=== PATIENT | male | born 1950 | race Caucasian/White ===

== ENCOUNTER 2020-12-20 14:10 | Emergency (ER) | payer OTHER, MEDICARE, SELFPAY ==
[2020-12-20 14:13] VITALS: BP 155/64; PULSE 49; RESP 18; TEMP 36.4; O2SAT 100; BMI 35.9
--- NOTE | 2020-12-20 14:20 | ED.DCSUM_ITS ---
History of Present Illness Chief Complaint: Nausea/Vomiting Informant: Patient, [employer] Onset: Today Narrative: Patient brought by EMS from dental office secondary to nausea and vomiting after dental extraction today. Was performed under local analgesia. He states all his teeth were extracted. Reported procedure was finished. Became nauseated afterwards and threw up. EMS was contacted status post Zofran IV. He states he felt fine prior to procedure. He ate breakfast this morning. He is a diabetic. Blood glucose is 136. States he may have been swallowing blood before he got sick. He does not take any anticoagulation medications. States medications g iven mildly helped however still has symptoms. Denies any recent fevers cough shortness of breath. Prior similar symptoms: No Past Medical History - Allergies and Home Meds Allergies/Adverse Reactions: Allergies chlorthalidone Allergy (Verified 12/20/20 14:59) NEEDS FOLLOW-UP hydrochlorothiazide Allergy (Verified 12/20/20 14:59) NEEDS FOLLOW-UP metformin Adverse Reaction (Verified 12/20/20 14:12) Upset Stomach Past Medical History: - - Diabetes, hypertension, GERD Smoking Status: Current every day smoker Review of Systems General: Denies: Chills, Fever, Sweats Eyes: Denies: Visual changes - bilaterally, Diplopia ENT: Reports: - - Bleeding gums. Denies: Rhinorrhea, Sore throat Cardiovascular: Denies: Chest pain, Palpitations Respiratory: Denies: Dyspnea, Cough, Dyspnea on exertion Gastrointestinal: Reports: Nausea. Denies: Abdominal pain, Vomiting, Diarrhea, Melena, Hematochezia Genitourinary: Denies: Dysuria, Hematuria, Frequency Musculoskeletal: Denies: Back pain, Extremity Pain Skin: Denies: Rash, Wounds Neurological: Denies: Headache, Weakness, Numbness Physical Exam Vital Signs/Narrative: Vital Signs Temp Pulse Resp BP Pulse Ox 12/20/20 14:13 97.6 F L 49 L 18 155/64 H 100 Inital Vital Signs reviewed: Yes General: Well nourished, Well developed, No Acute Distress Head: Normocephalic, Atraumatic Eyes: Perrl, EOMI ENT: Moist mucous membranes, No rhinorrhea, - - Fully newly extracted teeth throughout his mouth, there is mild bleeding of the gums left lower. Airway patent. No trismus. Neck: Supple, Nontender Cardiovascular: Regular rate, Regular rhythm, No murmurs Respiratory: No distress, CTA bilaterally, Chest nontender Abdomen: Soft, Nontender, Nondistended, Normal bowel sounds Back: Nontender, Normal Inspection Extremities: Nontender, No edema Skin: Normal color, No rash Neurological: Alert, Oriented x3, Cranial nerves II-XII grossly intact, Normal Strength, Normal Sensation Psychological: Normal affect, Normal Mood Diagnostic/Tx/Re-eval - Medical Decision Making Patient vital stable nontoxic, nausea vomiting after dental extraction. He was under sedation. He states he was swallowing blood likely irritation from this. Given Reglan with IV fluids. Nausea improved. Is gum bleeding controlled with gauze and teabags. Multiple reevaluation with bleeding controlled. Is not on anticoagulants. Prescription for Zofran. Soft diet. Return precautions. All questions were answered. Of note patient heart rate 49, he is on carvedilol, he is asymptomatic. Prior to discharge, there is was mild increase of blood, teabags were replaced with pressure. Extended evaluation appears to be localized to the right lower molars with the larger clots. This was controlled. He was discharged with tea bags and gauze supplies and return precautions. ED Disposition - Plan for ED Patient: Disposition: Home or Assisted Living Diagnosis: Nausea and vomiting, Bleeding gums Instructions: ED Vomiting (Adult) Prescriptions: Ondansetron [Zofran Odt] 8 mg PO Q8H PRN PRN #10 tablet PRN Reason: nausea or vomiting Prescription Printed Additional Instructions: Soft diet, prescription medication as needed. If bleeding recurs, bite down on gauze or teabags again. Return if any worsening symptoms. Follow-up with your dentist.
--- NOTE | 2020-12-20 14:21 | ED.RN ---
PT MOUTH PACKED WITH GAUZE. PT ENCOURAGED TO BITE DOWN ON GAUZE TO STOP BLEEDING.
[2020-12-20] MEDS: Metoclopramide 10 MG/2 ML Vial 5 MG IV (14:31)
[2020-12-20] MEDS: 0.9% Normal Saline 1,000 ML 1000 ML IV (14:31)
[2020-12-20 19:05] VITALS: BP 156/78; PULSE 87; RESP 18; O2SAT 97
== END 2020-12-20 19:10 | disposition home or self-care (01) ==
PROVIDERS: Emergency Provider Emergency Medicine
DX: R11.2 Nausea with vomiting, unspecified (principal); F17.200 Nicotine dependence, unspecified, uncomplicated; E11.9 Type 2 diabetes mellitus without complications; K21.9 Gastro-esophageal reflux disease without esophagitis; I10 Essential (primary) hypertension; Z79.4 Long term (current) use of insulin; Z79.82 Long term (current) use of aspirin
CPT/HCPCS: 96374; 99285; J7030

== ENCOUNTER → 2022-11-18 | Outpatient (CLI) | payer OTHER, SELFPAY ==
--- NOTE | 2022-11-18 12:36 | CDU_ITS ---
Reason For Study: Hollenhorst plaque Rt. Velocities/BP Lt. Velocities/BP Prox CCA 85.3/11.6 cm/sec. Prox CCA 106.5/15.2 cm/sec. Mid CCA 91/14.5 cm/sec. Mid CCA 77.3/11.5 cm/sec. Dist CCA 82.5/13.5 cm/sec. Dist CCA 73.6/9.7 cm/sec. Prox ICA 121.1/17 cm/sec. Prox ICA 56.9/7.7 cm/sec. Mid ICA 75.3/12.6 cm/sec. Mid ICA 65.4/13.9 cm/sec. Dist ICA 92.5/12.6 cm/sec. Dist ICA 74/13.9 cm/sec. Rt. ICA/CCA = 1.42. Lt. ICA/CCA = 0.96. Prox ECA 167.5/7.2 cm/sec. Prox ECA 124.7/13.3 cm/sec. Rt. Vert. 45.4/8 cm/sec. Lt. Vert. 47/11.4 cm/sec. Right Extracranial There is homogeneous, smooth atherosclerotic plaque noted in the right common carotid artery. There is heterogeneous, irregular atherosclerotic plaque noted in the right internal carotid artery. There is homogeneous, smooth atherosclerotic plaque noted in the right external carotid artery. Antegrade flow is noted in the right vertebral artery. Left Extracranial There is homogeneous, smooth atherosclerotic plaque noted in the left common carotid artery. There is heterogeneous, irregular atherosclerotic plaque noted in the left internal carotid artery. There is homogeneous, smooth atherosclerotic plaque noted in the left external carotid artery. Antegrade flow is noted in the left vertebral artery. Procedure This is a Carotid Duplex examination using B-mode, color flow and specral Doppler. Carotid Duplex [id number]. Exam performed in department. VL/Carotid Duplex Ultrasound Interpretation Summary Irregular calcific plaque of the proximal right internal carotid artery with 50 to 69% stenosis Less than 50% stenosis right external carotid artery Irregular plaque at the proximal left internal carotid artery with less than 50 % stenosis Less than 50% stenosis left external carotid artery Patent and antegrade vertebral arteries bilaterally Ordering Physician: JAMILA STEVENSON Performed By: Stella Corcoran RVT
== END | disposition home or self-care (01) ==
LOC: CVS 12:33
DX: H34.9 Unspecified retinal vascular occlusion (principal)
CPT/HCPCS: 93880

== ENCOUNTER 2023-02-11 16:28 | Emergency (ER) | payer OTHER, SELFPAY ==
[2023-02-11 16:30] VITALS: BP 174/77; PULSE 69; RESP 18; TEMP 35.9; O2SAT 96; BMI 29.7
[2023-02-11] MEDS: Ondansetron 4 MG/2 ML Vial IV (17:02)
[2023-02-11] MEDS: 0.9% Normal Saline 1,000 ML 1000 ML IV (17:02)
--- NOTE | 2023-02-11 17:03 | EDS_ITS ---
[facility] <TIANA Kessler - Last Filed: 02/11/23 20:02> History of Present Illness Chief Complaint: Nausea/Vomiting Narrative Narrative: Patient is a 72-year-old male with history of COPD, hypertension, hyperlipidemia, diabetes who presents to the emergency department for 1 day of vomiting. Patient states he had an episode of vomitus, he then after he vomited felt shaky, felt cold, and slightly heavy breathing. Patient states that these symptoms did slightly resolved. Patient also did not eat anything today except for chocolate cake. All of these symptoms happen after 1 episode of vomitus. [facility] <TIANA Kessler - Last Filed: 02/11/23 20:02> [facility] Medical History (Updated 02/11/23 @ 19:[address] Daily Alberts DO) Constipation Diabetes Diabetic acetonemia GERD (gastroesophageal reflux disease) High cholesterol Hypertension JOANNA on CPAP Home Medications albuterol sulfate 90 mcg/actuation aerosol inhaler 2 puff inhalation Q6H PRN PRN Sob &/Or Wheezing 12/20/20 [History Last Taken Unknown] amlodipine 5 mg tablet 10 mg PO DAILY 12/20/20 [History Last Taken Unknown] aspirin 81 mg chewable tablet 81 mg PO DAILY@0800 12/20/20 [History Last Taken Unknown] atorvastatin 80 mg tablet 80 mg PO QHS 12/20/20 [History Last Taken Unknown] budesonide-formoterol HFA 160 mcg-4.5 mcg/actuation aerosol inhaler 2 puff IH BID 12/20/20 [History Last Taken Unknown] carvedilol 3.125 mg tablet 0.5 tablet PO BID 12/20/20 [History Last Taken Unknown] cholecalciferol (vitamin D3) 50 mcg (2,000 unit) capsule 2,000 unit PO DAILY 12/20/20 [History Last Taken Unknown] empagliflozin 10 mg tablet 12.5 mg PO DAILY 12/20/20 [History Last Taken Unknown] insulin glargine 100 unit/mL (3 mL) subcutaneous pen 40 units subcut QHS 12/20/20 [History Last Taken Unknown] losartan 100 mg tablet 25 mg PO QHS 12/20/20 [History Last Taken Unknown] nitroglycerin 0.4 mg sublingual tablet 0.4 mg sublingual Q5M PRN Chest Pain 12/20/20 [History Last Taken Unknown] polyethylene glycol 3350 17 gram oral powder packet 34 gm PO BREAKFAST 12/20/20 [History Last Taken Unknown] famotidine 40 mg tablet 40 mg PO DAILY 02/11/23 [History Last Taken Unknown] hydralazine 50 mg tablet 50 mg PO 4XD 02/11/23 [History Last Taken Unknown] metformin 500 mg tablet 500 mg PO BID 02/11/23 [History Last Taken Unknown] ondansetron 4 mg disintegrating tablet 4 mg PO Q8H PRN PRN Nausea #10 tabs 02/11/23 [Rx Last Taken Unknown] pantoprazole 40 mg tablet,delayed release (Protonix) 40 mg PO DAILY #14 tabs 02/11/23 [Rx Last Taken Unknown] polyethylene glycol 3350 17 gram oral powder packet (Miralax) 17 g PO QHS 02/11/23 [History Last Taken Unknown] semaglutide 0.25 mg or 0.5 mg (2 mg/3 mL) subcutaneous pen injector (Ozempic) 0.25 mg subcut QWEEK 02/11/23 [History Last Taken Unknown] Allergy/AdvReac Type Severity Reaction Status Date / Time chlorthalidone Allergy NEEDS Verified 02/11/23 16:30 FOLLOW-UP hydrochlorothiazide Allergy NEEDS Verified 02/11/23 16:30 FOLLOW-UP Surgical History (Updated 02/11/23 @ 16:42 by Claudia Nathan) H/O heart artery stent Social History Smoking Status: Light Smoker (<10/day) ROS <TIANA Kessler - Last Filed: 02/11/23 20:02> [facility] ED ROS Narrative Constitutional: Negative for fever, chills, weight loss, weakness Eyes: Negative for vision loss, vision change, double vision ENT: Negative for any sore throat, ear pain, congestion Cardiovascular: Negative for any chest pain, tightness, palpitations Respiratory: Negative for any cough, sputum production, hemoptysis, dyspnea on exertion, orthopnea. Dyspnea Gastrointestinal: Negative for any abdominal pain, diarrhea, constipation, blood in stool, blood in vomit. Nausea and vomiting : Negative for any urinary frequency, dysuria, retention, blood in urine Muscle skeletal: Negative for any muscle joint pain, stiffness, myalgias, arthralgias, neck pain, back pain Neurological: Negative for any headache, syncope, numbness or tingling, dizziness Skin: Negative for any rashes, lumps, itching, abrasions, lacerations Psychiatric: Negative for any depression, anxiety, stress, suicidal ideation, homicidal ideation Hematologic: Negative for any easy bruising, excessive bruising, easy bleeding Allergies: Negative for any eczema, hives, rash EXAM <TIANA Kessler - Last Filed: 02/11/23 20:02> Physical Exam Narrative Exam Narrative: Vital signs reviewed. HEET: Head normocephalic atraumatic, TMs clear bilaterally. Posterior pharynx is clear, moist mucous membranes. Nares clear bilaterally. Neck: Supple with no lymphadenopathy or tenderness. No signs of meningismus, negative jolt sign. Cardiac: Regular rate and rhythm no murmurs gallops or rubs, equal peripheral pulses bilaterally. Respiratory: Lungs clear to auscultation bilaterally. No chest tenderness. Abdomen: Soft, nontender, nondistended. No abdominal bruit or pulsatile masses. No hepatosplenomegaly Extremities: No peripheral edema, no signs of gross trauma or deformity. Active full range of motion of all extremities. Neuro: Cranial nerves II through XII intact, no focal neurological deficits. Skin: Clean dry and intact with no rash, purpura, petechiae, vesicles or pustules. Backs/flank: No CVA tenderness, no midline spinal tenderness, no deformity. Psych: Normal mood and affect. No SI, HI or acute psychosis. Const Vital Signs: 02/11/23 16:30 02/11/23 16:37 02/11/23 18:28 Temperature 96.7 F L Temperature Source Temporal Pulse Rate 69 59 L Respiratory Rate 18 16 Respiratory Effort Short of Breath Labored Respiratory Depth Normal Respiratory Pattern Normal Blood Pressure 174/77 H 154/70 H Blood Pressure Mean 109 98 Pulse Ox 96 97 Oxygen Delivery Method Room Air Room Air Room Air 02/11/23 19:32 Temperature Temperature Source Pulse Rate 61 Respiratory Rate 16 Respiratory Effort Respiratory Depth Respiratory Pattern Blood Pressure 154/70 H Blood Pressure Mean 98 Pulse Ox 97 Oxygen Delivery Method Room Air Positive well nourished and well developed General Appearance ED: well developed <Dr. Daily Alberts, DO - Last Filed: 02/11/23 19:49> Physical Exam Const Vital Signs: 02/11/23 16:30 02/11/23 16:37 02/11/23 18:28 Temperature 96.7 F L Temperature Source Temporal Pulse Rate 69 59 L Respiratory Rate 18 16 Respiratory Effort Short of Breath Labored Respiratory Depth Normal Respiratory Pattern Normal Blood Pressure 174/77 H 154/70 H Blood Pressure Mean 109 98 Pulse Ox 96 97 Oxygen Delivery Method Room Air Room Air Room Air 02/11/23 19:32 Temperature Temperature Source Pulse Rate 61 Respiratory Rate 16 Respiratory Effort Respiratory Depth Respiratory Pattern Blood Pressure 154/70 H Blood Pressure Mean 98 Pulse Ox 97 Oxygen Delivery Method Room Air MDM <TIANA Kessler - Last Filed: 02/11/23 20:02> MDM Lab Data Labs: Laboratory Results - last 24 hr 02/11/23 02/11/23 02/11/23 16:58 16:58 18:56 WBC 9.1 RBC 5.85 Hgb 16.9 H Hct 50.7 MCV 86.7 MCH 28.9 MCHC 33.3 RDW Std Deviation 41.1 RDW Coeff of [place] 13.1 Plt Count 208 MPV 9.3 Immature Gran % (Auto) 0.800 Neut % (Auto) 68.3 Lymph % (Auto) 20.4 Leslie % (Auto) 8.9 Eos % (Auto) 0.8 Baso % (Auto) 0.8 Absolute Neuts (auto) 6.3 Absolute Lymphs (auto) 1.86 Nucleated RBC % 0 Sodium 133 L Potassium 3.7 Chloride 101 Carbon Dioxide 24.0 Anion Gap 8 BUN 16 Creatinine 0.97 Estim Creat Clear Calc 71.08 Est GFR (MDRD) Af Amer 97 Est GFR (MDRD) Non-Af 80 BUN/Creatinine Ratio 16.4 Glucose 151 H Calcium 9.0 Total Bilirubin 1.60 H AST 16 ALT 19 Alkaline Phosphatase 98 Troponin I High Sens 21 Total Protein 7.2 Albumin 3.8 Globulin 3.4 Albumin/Globulin Ratio 1.1 Lipase 33 Urine Color Yellow Urine Clarity Clear Urine pH 6.5 Ur Specific [place] 1.005 Urine Protein Negative Urine Glucose (UA) 1000 H Urine Ketones Negative Urine Occult Blood Negative Urine Nitrite Negative Urine Bilirubin Negative Urine Urobilinogen Normal Ur Leukocyte Esterase Negative Urine RBC 0 SEEN Urine WBC 0 SEEN Ur Squamous Epith Cells 0 SEEN Urine Bacteria 0 SEEN Urine Mucus 0 SEEN 02/11/23 19:00 WBC RBC Hgb Hct MCV MCH MCHC RDW Std Deviation RDW Coeff of [place] Plt Count MPV Immature Gran % (Auto) Neut % (Auto) Lymph % (Auto) Leslie % (Auto) Eos % (Auto) Baso % (Auto) Absolute Neuts (auto) Absolute Lymphs (auto) Nucleated RBC % Sodium Potassium Chloride Carbon Dioxide Anion Gap BUN Creatinine Estim Creat Clear Calc Est GFR (MDRD) Af Amer Est GFR (MDRD) Non-Af BUN/Creatinine Ratio Glucose Calcium Total Bilirubin AST ALT Alkaline Phosphatase Troponin I High Sens 27 Total Protein Albumin Globulin Albumin/Globulin Ratio Lipase Urine Color Urine Clarity Urine pH Ur Specific [place] Urine Protein Urine Glucose (UA) Urine Ketones Urine Occult Blood Urine Nitrite Urine Bilirubin Urine Urobilinogen Ur Leukocyte Esterase Urine RBC Urine WBC Ur Squamous Epith Cells Urine Bacteria Urine Mucus Radiography Diagnostic Testing: Clinical Impression(s) from Imaging Studies Chest X-Ray 02/11/23 17:40 IMPRESSION: No acute cardiac pulmonary pathology. Electronically Signed: Alex Pugh MD at 18:26 EDT Reading Location ID and State: [facility] / [place] , Service support , Treatment and Re-Evaluation :: All radiologic examinations were read, reviewed by the emergency department attending. From these reads, a plan of care will be put in place. Patient appears well, patient appears nontoxic, vital signs are stable. Patient presents to the emergency department with complaints of a nausea and vomiting episode when she became chilled, had diaphoresis, and felt slightly short of breath. Patient's abdominal examination was grossly unremarkable. Patient did have a rule out cardiac work-up, patient CBC was unremarkable, chemistries were unremarkable, patient's initial troponin was 21, repeat was 27, this is negative. Patient's EKG was unremarkable negative for any acute ACS, HI. Chest x-ray showed no acute process. Patient was given IV fluids, IV Zofran as well as a GI cocktail. On reevaluation, the patient was feeling much better. The patient be given a short prescription of Protonix, instructed to follow-up outpatient. He is happy with the plan of care, he was given strict return precautions. Patient stable for discharge. <Dr. Daily Alberts, DO - Last Filed: 02/11/23 19:49> [facility] Narrative Medical decision making narrative: I have personally performed a face to face assessment of the patient and have reviewed the DEAN Note. I performed a substantive portion of the visit including all aspects of the following. My kaiser findings include: History is [patient presents to the emergency department with complaint of feeling shaky and vomiting x1. Patient states that he ate breakfast this morning but then really did not eat much lunch and then ate a piece of chocolate cake and about an hour later started feeling shaky and vomited x1. Patient states that he still feels shaky. He denies chest pain. He did feel somewhat short of breath. He denies recent travel or surgery. He does have 3 cardiac stents. He denies urinary symptoms. Patient states that he did check his blood sugar after he vomited and it was in the normal range. No history of anxiety or panic attacks. No sick contacts. Denies urinary symptoms.] Exam is [HEENT-PERRLA, EOMI. Cranial nerves II through XII grossly intact. TMs clear. Mucous membranes moist. No adenopathy. Cardiovascular-regular rate and rhythm without murmur or ectopy Lungs-clear to auscultation, chest wall stable without crepitus or subcu emphysema Abdomen-normoactive bowel sounds, soft, nontender, no rebound or rigidity, no peritoneal signs. Extremities-intact ?4, normal range of motion, normal pulses, atraumatic] Medical Decison Making [significant work-up was undertaken including EKG which showed a sinus rhythm with a rate of 61 bpm with old septal infarct otherwise no acute ST changes. CBC with differential was unremarkable. Chemistries unremarkable. Troponin was normal followed by normal delta troponin. Urinalysis was normal. Patient did receive Zofran. He continued to have heartburn-like symptoms and was given a GI cocktail and felt significantly improved afterwards. At this point SPECT possibility of GERD as the etiology of his symptoms. I do not feel he is having acute coronary syndrome.] Other additions or changes: [None] Lab Data Attestation: I reviewed the patient's lab results. Labs: Laboratory Results - last 24 hr 02/11/23 02/11/23 02/11/23 16:58 16:58 18:56 WBC 9.1 RBC 5.85 Hgb 16.9 H Hct 50.7 MCV 86.7 MCH 28.9 MCHC 33.3 RDW Std Deviation 41.1 RDW Coeff of [place]air 13.1 Plt Count 208 MPV 9.3 Immature Gran % (Auto) 0.800 Neut % (Auto) 68.3 Lymph % (Auto) 20.4 Leslie % (Auto) 8.9 Eos % (Auto) 0.8 Baso % (Auto) 0.8 Absolute Neuts (auto) 6.3 Absolute Lymphs (auto) 1.86 Nucleated RBC % 0 Sodium 133 L Potassium 3.7 Chloride 101 Carbon Dioxide 24.0 Anion Gap 8 BUN 16 Creatinine 0.97 Estim Creat Clear Calc 71.08 Est GFR (MDRD) Af Amer 97 Est GFR (MDRD) Non-Af 80 BUN/Creatinine Ratio 16.4 Glucose 151 H Calcium 9.0 Total Bilirubin 1.60 H AST 16 ALT 19 Alkaline Phosphatase 98 Troponin I High Sens 21 Total Protein 7.2 Albumin 3.8 Globulin 3.4 Albumin/Globulin Ratio 1.1 Lipase 33 Urine Color Yellow Urine Clarity Clear Urine pH 6.5 Ur Specific [place] 1.005 Urine Protein Negative Urine Glucose (UA) 1000 H Urine Ketones Negative Urine Occult Blood Negative Urine Nitrite Negative Urine Bilirubin Negative Urine Urobilinogen Normal Ur Leukocyte Esterase Negative Urine RBC 0 SEEN Urine WBC 0 SEEN Ur Squamous Epith Cells 0 SEEN Urine Bacteria 0 SEEN Urine Mucus 0 SEEN 02/11/23 19:00 WBC RBC Hgb Hct MCV MCH MCHC RDW Std Deviation RDW Coeff of [place] Plt Count MPV Immature Gran % (Auto) Neut % (Auto) Lymph % (Auto) Leslie % (Auto) Eos % (Auto) Baso % (Auto) Absolute Neuts (auto) Absolute Lymphs (auto) Nucleated RBC % Sodium Potassium Chloride Carbon Dioxide Anion Gap BUN Creatinine Estim Creat Clear Calc Est GFR (MDRD) Af Amer Est GFR (MDRD) Non-Af BUN/Creatinine Ratio Glucose Calcium Total Bilirubin AST ALT Alkaline Phosphatase Troponin I High Sens 27 Total Protein Albumin Globulin Albumin/Globulin Ratio Lipase Urine Color Urine Clarity Urine pH Ur Specific [place] Urine Protein Urine Glucose (UA) Urine Ketones Urine Occult Blood Urine Nitrite Urine Bilirubin Urine Urobilinogen Ur Leukocyte Esterase Urine RBC Urine WBC Ur Squamous Epith Cells Urine Bacteria Urine Mucus Radiography Diagnostic Testing: Clinical Impression(s) from Imaging Studies Chest X-Ray 02/11/23 17:40 IMPRESSION: No acute cardiac pulmonary pathology. Electronically Signed: Alex Pugh MD at 18:26 EDT Reading Location ID and State: [facility] / [place] , Service support , 1 view chest ray obtained interpreted by myself no evidence of infiltrate or pneumothorax or acute disease process. Radiology in agreement. EKG Initial EKG: Attestation: I personally reviewed and interpreted this EKG as follows: Comments: Sinus rhythm with a rate of 61 bpm with old septal infarct Discharge Plan Triage Chief Complaint: Nausea/Vomiting Other Complaint: Shortness of Breath ED Midlevel Provider: Aristides Toscano ED Provider: Daily Alberts Dx/Rx/DC Orders Clinical Impression: Vomiting, Gastroesophageal reflux disease Prescriptions: New pantoprazole [Protonix] 40 mg tablet,delayed release (DR/EC) 40 mg PO DAILY Qty: 14 0RF ondansetron 4 mg tablet,disintegrating 4 mg PO Q8H PRN PRN (Reason: Nausea) Qty: 10 0RF No Action atorvastatin 80 MG tablet 80 mg PO QHS polyethylene glycol 3350 17 GM packet 34 gm PO BREAKFAST amlodipine 5 MG tablet 10 mg PO DAILY carvedilol 3.125 MG tablet 0.5 tablet PO BID nitroglycerin 0.4 MG tablet, sublingual 0.4 mg SL Q5M PRN (Reason: Chest Pain) aspirin 81 MG tablet,chewable 81 mg PO DAILY@0800 albuterol sulfate 1 PUFF inhaler 2 puff INHALATION Q6H PRN PRN (Reason: Sob &/Or Wheezing) losartan 100 MG tablet 25 mg PO QHS budesonide-formoterol 10.2 GM HFA aerosol inhaler 2 puff IH BID insulin glargine 100 UNITS/ML insulin pen 40 units SC QHS cholecalciferol (vitamin D3) 2,000 UNIT capsule 2,000 unit PO DAILY empagliflozin 10 MG tablet 12.5 mg PO DAILY metformin 500 mg Tablet 500 mg PO BID polyethylene glycol 3350 [Miralax] 17 gram Powder In Packet 17 g PO QHS famotidine 40 mg Tablet 40 mg PO DAILY hydralazine 50 mg Tablet 50 mg PO 4XD Ozempic 0.25 mg or 0.5 mg (2 mg/3 mL) Pen Injector 0.25 mg SUBCUT QWEEK Rx Instructions: for 4 weeks [facility] Referrals: NOT,DEFINED [Non-Staff] - Activity Restrictions/Additional Instructions: Take medication as prescribed. Disposition Disposition: Home, Self Care
--- NOTE | 2023-02-11 17:08 | EKG12_ITS ---
Test Reason : HIGH BP Blood Pressure : / mmHG Vent. Rate : 061 BPM Atrial Rate : 061 BPM P-R Int : 180 ms QRS Dur : 110 ms QT Int : 414 ms P-R-T Axes : 069 -56 038 degrees QTc Int : 416 ms Normal sinus rhythm Left anterior fascicular block Septal infarct , age undetermined Abnormal ECG Confirmed by IBRAHIMA LEPE, ADAMARIS ([id number]), scientific editor NAHOMY COULTER ([id number]) on 02/15/2023 1:31:32 PM Referred By: Confirmed By:ADAMARIS ALEXANDRA MD
[2023-02-11 17:11] LABS: Absolute Lymphocyte Count 1.86 X10^3/uL (0.83-4.51); Absolute Neutrophil Count 6.3 X10^3/uL (2.0-7.7); Basophil# 0.07 X10^3/uL; Basophil% 0.8 % (0-1); Eosinophil# 0.07 X10^3/uL; Eosinophils% 0.8 % (0-5); Hematocrit 50.7 % (40-54); Hemoglobin 16.9 g/dL (13.0-16.5); Lymphocyte # 1.86 X10^3/ul (0.83-4.51); Lymphocyte % 20.4 % (19-41); Mean Corp Hgb Conc 33.3 g/dL (32-36); Mean Corpuscular Hgb 28.9 pg (27.0-32.0); Mean Corpuscular Volume 86.7 fL (80-94); Mean Platelet Vol. 9.3 fl (6.2-12.0); Monocyte# 0.81 X10^3/uL; Monocyte% 8.9 % (0-10); NRBC Flagged by Analyzer 0 % (0-5); Neutrophil # 6.26 X10^3/uL (2.7-7.7); Neutrophil % 68.3 % (47-70); Platelet Count 208 K/mm3 (150-450); RBC Distribution Width CV 13.1 % (11.6-14.6); RBC Distribution Width SD 41.1 fl (35.1-43.9); Red Blood Count 5.85 M/mm3 (4.6-6.2); White Blood Count 9.1 K/mm3 (4.4-11.0)
--- NOTE | 2023-02-11 17:40 | RAD_ITS ---
STUDY: X-RAY CHEST REASON FOR EXAM: Male, 72 years old. chest pain TECHNIQUE: AP portable COMPARISON: None. FINDINGS: The lungs are clear and expanded. There is no demonstrated pleural abnormality. Normal size heart. Normal mediastinum and prieto. Normal visualized pulmonary arteries. Normal visualized aortic arch and descending thoracic aorta. Dorsal spine demonstrates degenerative change. Normal visualized ribs, clavicles, and shoulders. There is no demonstrated abnormality of the visualized soft tissue structures of the upper abdomen. RAD/Chest 1 View (Portable) IMPRESSION: No acute cardiac pulmonary pathology. Electronically Signed: Alex Pugh MD at 18:26 EDT ,
[2023-02-11 17:43] LABS: ALB/GLOB Ratio 1.1 RATIO (0.9-2.4); AST(SGOT) 16 U/L (15-37); Alanine Aminotransfer ALT/SGPT 19 U/L (16-61); Albumin, Serum 3.8 g/dL (3.2-5.0); Alkaline Phosphatase 98 U/L (45-117); Anion Gap 8 (5-15); BUN 16 mg/dL (7-18); BUN/Creat Ratio 16.4 RATIO (10-20); Chloride 101 mmol/L (98-107); Creatinine, Serum 0.97 mg/dL (0.70-1.30); EST Glomerular Filtration Rate 80 mL/min (>60); Est Glom Filt Rate - Afr Amer 97 mL/min (>60); Estimated Creatinine Clearance 71.08 ml/min; Globulin 3.4 g/dL (2.2-4.2); Glucose 151 mg/dL (74-106); Lipase 33 U/L (13-75); Potassium 3.7 mmol/L (3.5-5.1); Protein, Total 7.2 g/dL (6.4-8.2); Sodium Level 133 mmol/L (136-145); Troponin-I HS 21 pg/mL (3.0-78.0)
[2023-02-11 18:28] VITALS: BP 154/70; PULSE 59; RESP 16; O2SAT 97
[2023-02-11 19:08] LABS: Bacteria 0 SEEN /hpf (None Seen); Mucous, Urine 0 SEEN /hpf (<or=2+); Red Blood Cells-Urine 0 SEEN /hpf (0-5); Squamous Epithelial Cells - UA 0 SEEN /hpf (0-5); White Blood Cells 0 SEEN /hpf (0-5)
[2023-02-11 19:13] LABS: Color, Urine Yellow (Yellow); Glucose, Dipstick 1000 mg/dl (Normal); Ketone-Dipstick Negative (Negative); Leukocyte Esterase-Dipstick Negative /ul (Negative); Nitrite-Dipstick Negative (Negative); Occult Blood-Urine Negative /ul (Negative); Protein-Dipstick Negative (Negative); Specific Gravity, Urine 1.005 (1.002-1.030); Urine Bilirubin Dipstick Negative (Negative); Urine Clarity Clear (Clear); Urine Urobilinogen Normal (Normal); Urine pH 6.5 (5.0 - 8.0)
[2023-02-11 19:28] LABS: Troponin-I HS 27 pg/mL (3.0-78.0)
[2023-02-11] MEDS: Mag Hydrox/Al Hydrox/Simeth 30 ML UDC PO (19:31)
[2023-02-11 19:32] VITALS: BP 154/70; PULSE 61; RESP 16; O2SAT 97
[2023-02-11 20:10] VITALS: BP 147/70; PULSE 61; RESP 18; O2SAT 98
[2023-02-11 20:12] LABS: Bedside Glucose 103 mg/dL (74-106)
== END 2023-02-11 20:17 | disposition home or self-care (01) ==
PROVIDERS: Nurse Practitioner; Emergency Provider Emergency Medicine; Visit Provider Emergency Medicine
DX: R11.2 Nausea with vomiting, unspecified (principal); J44.9 Chronic obstructive pulmonary disease, unspecified; E11.9 Type 2 diabetes mellitus without complications; Z79.4 Long term (current) use of insulin; K21.9 Gastro-esophageal reflux disease without esophagitis; I10 Essential (primary) hypertension; F17.200 Nicotine dependence, unspecified, uncomplicated; E78.00 Pure hypercholesterolemia, unspecified; G47.33 Obstructive sleep apnea (adult) (pediatric); Z79.82 Long term (current) use of aspirin; Z79.899 Other long term (current) drug therapy; Z95.5 Presence of coronary angioplasty implant and graft
CPT/HCPCS: 71045; 80053; 81001; 82962; 83690; 84484; 85025; 93005; 96361; 96374; 99283; J7030; A4216; J2405

== ENCOUNTER 2023-05-03 16:47 | Emergency (ER) | payer OTHER, SELFPAY ==
[2023-05-03 16:48] VITALS: BP 170/91; PULSE 78; RESP 14; TEMP 37.2; O2SAT 96; BMI 27.6
--- NOTE | 2023-05-03 18:15 | EDS_ITS ---
HPI HPI - GI History of Present Illness Chief Complaint: Abd Pain Informant: patient Narrative Narrative: Patient presents with diarrhea. Patient states that yesterday he started not feeling well but he cannot state what his symptoms were. Today he woke up and he has had about 6 or so episodes of diarrhea. He states at first it was just very soft and light brown but now it is kind of turned watery. No black or blood ever seen. He states his stomach gets cramping intermittently all over but is not hurting now. He also has acid reflux in the epigastrium going up his chest with sour taste in his mouth. He commonly has this. He evidently was on Protonix but does not have it now. He also states that he has some nasal congestion. He has had a couple episodes of coughing but he denies shortness of breath to me even though it sounds like he said he was short of breath to one of the nurses. He has had some mild muscle aches. He states he feels like he has the flu. Nothing really makes his symptoms better or worse but he has no meds for nausea at home. He has been nauseated but denies vomiting. [facility] Medical History (Updated 05/03/23 @ 22:[address] Randy Hernandez MD) Constipation Diabetes Diabetic acetonemia GERD (gastroesophageal reflux disease) High cholesterol Hypertension JOANNA on CPAP Home Medications albuterol sulfate 90 mcg/actuation aerosol inhaler 2 puff inhalation Q6H PRN PRN Sob &/Or Wheezing 12/20/20 [History Last Taken Unknown] amlodipine 5 mg tablet 10 mg PO DAILY 12/20/20 [History Last Taken Unknown] aspirin 81 mg chewable tablet 81 mg PO DAILY@0800 12/20/20 [History Last Taken Unknown] atorvastatin 80 mg tablet 80 mg PO QHS 12/20/20 [History Last Taken Unknown] budesonide-formoterol HFA 160 mcg-4.5 mcg/actuation aerosol inhaler 2 puff IH BID 12/20/20 [History Last Taken Unknown] carvedilol 3.125 mg tablet 0.5 tablet PO BID 12/20/20 [History Last Taken Unknown] cholecalciferol (vitamin D3) 50 mcg (2,000 unit) capsule 2,000 unit PO DAILY 12/20/20 [History Last Taken Unknown] empagliflozin 10 mg tablet 12.5 mg PO DAILY 12/20/20 [History Last Taken Un known] insulin glargine 100 unit/mL (3 mL) subcutaneous pen 40 units subcut QHS 12/20/20 [History Last Taken Unknown] losartan 100 mg tablet 25 mg PO QHS 12/20/20 [History Last Taken Unknown] nitroglycerin 0.4 mg sublingual tablet 0.4 mg sublingual Q5M PRN Chest Pain 12/20/20 [History Last Taken Unknown] polyethylene glycol 3350 17 gram oral powder packet 34 gm PO BREAKFAST 12/20/20 [History Last Taken Unknown] famotidine 40 mg tablet 40 mg PO DAILY 02/11/23 [History Last Taken Unknown] hydralazine 50 mg tablet 50 mg PO 4XD 02/11/23 [History Last Taken Unknown] metformin 500 mg tablet 500 mg PO BID 02/11/23 [History Last Taken Unknown] ondansetron 4 mg disintegrating tablet 4 mg PO Q8H PRN PRN Nausea #10 tabs 02/11/23 [Rx Last Taken Unknown] pantoprazole 40 mg tablet,delayed release (Protonix) 40 mg PO DAILY #14 tabs 02/11/23 [Rx Last Taken Unknown] polyethylene glycol 3350 17 gram oral powder packet (Miralax) 17 g PO QHS 02/11/23 [History Last Taken Unknown] semaglutide 0.25 mg or 0.5 mg (2 mg/3 mL) subcutaneous pen injector (Ozempic) 0.25 mg subcut QWEEK 02/11/23 [History Last Taken Unknown] esomeprazole magnesium 20 mg capsule,delayed release (Nexium) 20 mg PO DAILY #30 caps 05/03/23 [Rx Last Taken Unknown] Allergy/AdvReac Type Severity Reaction Status Date / Time chlorthalidone Allergy NEEDS Verified 05/03/23 16:48 FOLLOW-UP hydrochlorothiazide Allergy NEEDS Verified 05/03/23 16:48 FOLLOW-UP Surgical History (Updated 05/03/23 @ 18:[address] Randy Hernandez MD) H/O heart artery stent History of appendectomy (Unknown) Social History Smoking Status: Light Smoker (<10/day) ROS ROS ED ROS Narrative A complete review of systems was performed and is negative except as documented in the history of present illness. Some specific details below. Constitutional: No recent fevers or chills. But he has had some generalized malaise. EYE: No visual complaints or pain. ENT: No difficulty swallowing. No swelling. No pain. He gets sour taste in his mouth consistent with his reflux. CV: No chest pain or palpitations. He states he gets some burning in the lower chest epigastric area but that is typical for his reflux. This does not feel like a heart problem for him. Respiratory: No dyspnea. No hemoptysis. No difficulty taking breaths. He occasionally coughs but this is not uncommon. No sputum production. GI: Please see history of present illness. : No frequency dysuria or hematuria. No decrease in urination. Musculoskeletal: No recent trauma. He does have some mild myalgias. Skin: No rash. Nondiaphoretic. Neuro: No weakness or numbness. Endocrine: No polyuria or polydipsia. EXAM Physical Exam Narrative Exam Narrative: CONSTITUTIONAL: Patient is nontoxic in appearance. The patient looks comfortable. Work of breathing looks normal. HEENT: No notable trauma. Mucous membranes still moist. No sinus tenderness. No indication of pain with swallowing. EYES: No conjunctival injection. No icterus. NECK:No JVD. No stridor. CARDIOVASCULAR: Regular rate. Regular rhythm. No notable murmur. No JVD. consulting senior practice director shows a normal sinus rhythm with a rate that varies about 70 to 80 bpm. I see no ectopy on the monitor. RESPIRATORY: No respiratory distress. Breathing is unlabored. No wheezes. No rhonchi. No rales. No pain with a deep breath. No chest wall tenderness. No coughing while I am in the room. Saturations are 96% on room air showing no hypoxia. GASTROINTESTINAL: Not distended. Bowel sounds are normal. No tenderness. No guarding. No rebound. No palpable mass. No bruit is heard. He states he gets pain and kind of rubs his hand all over the abdomen. But he is not having it now and his abdomen is benign now. GENITOURINARY: No tenderness over the bladder. No CVA tenderness. MUSCULOSKELETAL: Atraumatic. No peripheral edema. No cord. No tenderness along the deep venous system. No asymmetry. No distended veins. NEUROLOGICAL: Patient is alert and appropriate. No focal deficit noted. SKIN: No noted rashes. No diaphoresis. PSYCHIATRIC: Patient is calm. Mood is appropriate. Const Vital Signs: 05/03/23 16:48 05/03/23 18:25 05/03/23 20:37 Temperature 99 F Temperature Source Temporal Pulse Rate 78 57 L 62 Respiratory Rate 14 18 18 Blood Pressure 170/91 H 160/78 H 158/61 H Blood Pressure Mean 117 105 93 Pulse Ox 96 95 97 Oxygen Delivery Method Room Air Room Air Room Air MDM MDM MDM Narrative Medical decision making narrative: PlateletsPatient CBC shows nonspecific elevation of white count at 12.2 with slight hemoglobin elevation 17.5. Normal. Patient's electrolytes overall normal other than mild elevation of his glucose at 144. Patient's troponin is negative. Patient's liver function test are normal other than mild elevation of total bili lin at 1.4 which he has had in the past. Patient's lipase is normal Patient's urine shows no marked abnormalities or signs of infection. Patient is rechecked. He is feeling well. He now tells me he has been having this every 2 or 3 weeks. He feels like he needs to throw up but does not. He states he is not really nauseated. But he does get acid taste in his mouth. He talked to his doctor about something for acid reflux. He states he is not on anything but it looks like he is on famotidine according to his prescription list. I told him we will try a protein pump inhibitor to see if that helps him more. He will follow-up with his physician. Lab Data Attestation: I reviewed the patient's lab results. Labs: Laboratory Results - last 24 hr 05/03/23 05/03/23 18:22 19:20 WBC 12.2 H RBC 5.92 Hgb 17.5 H Hct 51.9 MCV 87.7 MCH 29.6 MCHC 33.7 RDW Std Deviation 43.2 RDW Coeff of Aldair 13.4 Plt Count 224 MPV 9.8 Immature Gran % (Auto) 0.800 Neut % (Auto) 83.3 H Lymph % (Auto) 8.9 L [place] % (Auto) 6.1 Eos % (Auto) 0.2 Baso % (Auto) 0.7 Absolute Neuts (auto) 10.1 H Absolute Lymphs (auto) 1.08 Nucleated RBC % 0 Sodium 131 L Potassium 4.6 Chloride 100 Carbon Dioxide 23.0 Anion Gap 8 BUN 12 Creatinine 0.91 Estim Creat Clear Calc 75.76 Est GFR (MDRD) Af Amer 105 Est GFR (MDRD) Non-Af 87 BUN/Creatinine Ratio 13.1 Glucose 144 H Calcium 9.2 Total Bilirubin 1.40 H AST 20 ALT 16 Alkaline Phosphatase 91 Troponin I High Sens 15 Total Protein 7.4 Albumin 3.9 Globulin 3.5 Albumin/Globulin Ratio 1.1 Lipase 41 Urine Color Yellow Urine Clarity Sl. Cloudy Urine pH 6.0 Ur Specific [place] 1.010 Urine Protein 30 H Urine Glucose (UA) 1000 H Urine Ketones 15 H Urine Occult Blood Negative Urine Nitrite Negative Urine Bilirubin Negative Urine Urobilinogen Normal Ur Leukocyte Esterase Negative Urine RBC 0 SEEN Urine WBC 0 SEEN Ur Squamous Epith Cells 0-5 SEEN Amorphous Sediment 1+ URATE Urine Bacteria 0 SEEN Urine Mucus 0 SEEN Discharge Plan Triage Chief Complaint: Abd Pain ED Provider: Randy Hernandez Dx/Rx/DC Orders Clinical Impression: Epigastric pain, Gastroesophageal reflux disease Prescriptions: New esomeprazole magnesium [Nexium] 20 mg capsule,delayed release(DR/EC) 20 mg PO DAILY Qty: 30 0RF No Action atorvastatin 80 MG tablet 80 mg PO QHS polyethylene glycol 3350 17 GM packet 34 gm PO BREAKFAST amlodipine 5 MG tablet 10 mg PO DAILY carvedilol 3.125 MG tablet 0.5 tablet PO BID nitroglycerin 0.4 MG tablet, sublingual 0.4 mg SL Q5M PRN (Reason: Chest Pain) aspirin 81 MG tablet,chewable 81 mg PO DAILY@0800 albuterol sulfate 1 PUFF inhaler 2 puff INHALATION Q6H PRN PRN (Reason: Sob &/Or Wheezing) losartan 100 MG tablet 25 mg PO QHS budesonide-formoterol 10.2 GM HFA aerosol inhaler 2 puff IH BID insulin glargine 100 UNITS/ML insulin pen 40 units SC QHS cholecalciferol (vitamin D3) 2,000 UNIT capsule 2,000 unit PO DAILY empagliflozin 10 MG tablet 12.5 mg PO DAILY metformin 500 mg Tablet 500 mg PO BID polyethylene glycol 3350 [Miralax] 17 gram Powder In Packet 17 g PO QHS famotidine 40 mg Tablet 40 mg PO DAILY hydralazine 50 mg Tablet 50 mg PO 4XD Ozempic 0.25 mg or 0.5 mg (2 mg/3 mL) Pen Injector 0.25 mg SUBCUT QWEEK Rx Instructions: for 4 weeks pantoprazole [Protonix] 40 mg tablet,delayed release (DR/EC) 40 mg PO DAILY Qty: 14 0RF ondansetron 4 mg tablet,disintegrating 4 mg PO Q8H PRN PRN (Reason: Nausea) Qty: 10 0RF [facility] [Primary Care Provider] - As soon as possible Disposition Disposition: Home, Self Care Discharge Date/Time: 05/03/23 19:02
[2023-05-03 18:25] VITALS: BP 160/78; PULSE 57; RESP 18; O2SAT 95
[2023-05-03] MEDS: Ondansetron 4 MG/2 ML Vial IV (18:27)
[2023-05-03] MEDS: 0.9% Normal Saline 1,000 ML 1000 ML IV (18:27)
[2023-05-03] MEDS: Dicyclomine 20 MG/2 ML Vial IM (18:29)
[2023-05-03 18:54] LABS: ALB/GLOB Ratio 1.1 RATIO (0.9-2.4); AST(SGOT) 20 U/L (15-37); Alanine Aminotransfer ALT/SGPT 16 U/L (16-61); Albumin, Serum 3.9 g/dL (3.2-5.0); Alkaline Phosphatase 91 U/L (45-117); Anion Gap 8 (5-15); BUN 12 mg/dL (7-18); BUN/Creat Ratio 13.1 RATIO (10-20); Calcium,Total 9.2 mg/dL (8.5-10.1); Chloride 100 mmol/L (98-107); Creatinine, Serum 0.91 mg/dL (0.70-1.30); EST Glomerular Filtration Rate 87 mL/min (>60); Est Glom Filt Rate - Afr Amer 105 mL/min (>60); Estimated Creatinine Clearance 75.76 ml/min; Globulin 3.5 g/dL (2.2-4.2); Glucose 144 mg/dL (74-106); Lipase 41 U/L (13-75); Potassium 4.6 mmol/L (3.5-5.1); Protein, Total 7.4 g/dL (6.4-8.2); Sodium Level 131 mmol/L (136-145); Troponin-I HS 15 pg/mL (3.0-78.0)
[2023-05-03 18:56] LABS: Absolute Lymphocyte Count 1.08 X10^3/uL (0.83-4.51); Absolute Neutrophil Count 10.1 X10^3/uL (2.0-7.7); Basophil# 0.08 X10^3/uL; Basophil% 0.7 % (0-1); Eosinophil# 0.02 X10^3/uL; Eosinophils% 0.2 % (0-5); Hematocrit 51.9 % (40-54); Hemoglobin 17.5 g/dL (13.0-16.5); Lymphocyte # 1.08 X10^3/ul (0.83-4.51); Lymphocyte % 8.9 % (19-41); Mean Corp Hgb Conc 33.7 g/dL (32-36); Mean Corpuscular Hgb 29.6 pg (27.0-32.0); Mean Corpuscular Volume 87.7 fL (80-94); Mean Platelet Vol. 9.8 fl (6.2-12.0); Monocyte# 0.74 X10^3/uL; Monocyte% 6.1 % (0-10); NRBC Flagged by Analyzer 0 % (0-5); Neutrophil # 10.14 X10^3/uL (2.7-7.7); Neutrophil % 83.3 % (47-70); Platelet Count 224 K/mm3 (150-450); RBC Distribution Width CV 13.4 % (11.6-14.6); RBC Distribution Width SD 43.2 fl (35.1-43.9); Red Blood Count 5.92 M/mm3 (4.6-6.2); White Blood Count 12.2 K/mm3 (4.4-11.0)
[2023-05-03 19:23] LABS: Bacteria 0 SEEN /hpf (None Seen); Mucous, Urine 0 SEEN /hpf (<or=2+); Red Blood Cells-Urine 0 SEEN /hpf (0-5); White Blood Cells 0 SEEN /hpf (0-5)
[2023-05-03 19:25] LABS: Color, Urine Yellow (Yellow); Glucose, Dipstick 1000 mg/dl (Normal); Ketone-Dipstick 15 mg/dl (Negative); Leukocyte Esterase-Dipstick Negative /ul (Negative); Nitrite-Dipstick Negative (Negative); Occult Blood-Urine Negative /ul (Negative); Protein-Dipstick 30 mg/dl (Negative); Urine Bilirubin Dipstick Negative (Negative); Urine Clarity Sl. Cloudy (Clear); Urine Urobilinogen Normal (Normal)
[2023-05-03 19:38] LABS: Amorphous Sediment 1+ URATE; Squamous Epithelial Cells - UA 0-5 SEEN /hpf (0-5)
[2023-05-03 20:37] VITALS: BP 158/61; PULSE 62; RESP 18; O2SAT 97
[2023-05-03 23:01] VITALS: BP 146/69; PULSE 71; RESP 18; O2SAT 98
== END 2023-05-03 23:07 | disposition home or self-care (01) ==
PROVIDERS: Emergency Provider Emergency Medicine; Visit Provider Emergency Medicine
DX: R10.13 Epigastric pain (principal); K21.9 Gastro-esophageal reflux disease without esophagitis; F17.200 Nicotine dependence, unspecified, uncomplicated; G47.33 Obstructive sleep apnea (adult) (pediatric); Z95.5 Presence of coronary angioplasty implant and graft
CPT/HCPCS: 80053; 81001; 83690; 84484; 85025; 87811; 96361; 96372; 96374; 99283; J7030; A4216; J2405; J3490

== ENCOUNTER 2023-05-05 08:51 | Emergency (ER) | payer OTHER, SELFPAY ==
[2023-05-05 08:52] VITALS: BP 134/78; PULSE 78; RESP 16; TEMP 36.4; O2SAT 98; BMI 28.0
--- NOTE | 2023-05-05 09:04 | EDS_ITS ---
HPI History of Present Illness Chief Complaint: Nausea/Vomiting/Diarrhea Informant: patient Narrative Narrative: Patient returns to the ER secondary to continued nausea, diarrhea, headache, feeling shaky. Patient was seen in the emergency room 2 days ago with similar symptoms. He states he felt well at discharge and yesterday had a pretty good day. This morning he woke up with a headache and diarrhea again. He has some abdominal cramping but no abdominal pain. He did take Tylenol prior to arrival for headache. Patient's visit from 2 days ago was reviewed. Lab work was largely unremarkable. COVID test was negative. Patient felt improved after receiving Bentyl, Zofran, and Protonix. He was prescribed Nexium at discharge and he picked this up yesterday. [facility] Medical History Constipation Diabetes Diabetic acetonemia GERD (gastroesophageal reflux disease) High cholesterol Hypertension JOANNA on CPAP Home Medications albuterol sulfate 90 mcg/actuation aerosol inhaler 2 puff inhalation Q6H PRN PRN Sob &/Or Wheezing 12/20/20 [History Last Taken Unknown] amlodipine 5 mg tablet 10 mg PO DAILY 12/20/20 [History Last Taken Unknown] aspirin 81 mg chewable tablet 81 mg PO DAILY@0800 12/20/20 [History Last Taken Unknown] atorvastatin 80 mg tablet 80 mg PO QHS 12/20/20 [History Last Taken Unknown] budesonide-formoterol HFA 160 mcg-4.5 mcg/actuation aerosol inhaler 2 puff IH BID 12/20/20 [History Last Taken Unknown] carvedilol 3.125 mg tablet 0.5 tablet PO BID 12/20/20 [History Last Taken Unknown] cholecalciferol (vitamin D3) 50 mcg (2,000 unit) capsule 2,000 unit PO DAILY 12/20/20 [History Last Taken Unknown] empagliflozin 10 mg tablet 12.5 mg PO DAILY 12/20/20 [History Last Taken Unknown] insulin glargine 100 unit/mL (3 mL) subcutaneous pen 40 units subcut QHS 12/20/20 [History Last Taken Unknown] losartan 100 mg tablet 25 mg PO QHS 12/20/20 [History Last Taken Unknown] nitroglycerin 0.4 mg sublingual tablet 0.4 mg sublingual Q5M PRN Chest Pain 12/20/20 [History Last Taken Unknown] polyethylene glycol 3350 17 gram oral powder packet 34 gm PO BREAKFAST 12/20/20 [History Last Taken Unknown] famotidine 40 mg tablet 40 mg PO DAILY 02/11/23 [History Last Taken Unknown] hydralazine 50 mg tablet 50 mg PO 4XD 02/11/23 [History Last Taken Unknown] metformin 500 mg tablet 500 mg PO BID 02/11/23 [History Last Taken Unknown] ondansetron 4 mg disintegrating tablet 4 mg PO Q8H PRN PRN Nausea #10 tabs 02/11/23 [Rx Last Taken Unknown] pantoprazole 40 mg tablet,delayed release (Protonix) 40 mg PO DAILY #14 tabs 02/11/23 [Rx Last Taken Unknown] polyethylene glycol 3350 17 gram oral powder packet (Miralax) 17 g PO QHS 02/11/23 [History Last Taken Unknown] semaglutide 0.25 mg or 0.5 mg (2 mg/3 mL) subcutaneous pen injector (Ozempic) 0.25 mg subcut QWEEK 02/11/23 [History Last Taken Unknown] esomeprazole magnesium 20 mg capsule,delayed release (Nexium) 20 mg PO DAILY #30 caps 05/03/23 [Rx Last Taken Unknown] dicyclomine 20 mg tablet 20 mg PO BID PRN abdominal pain #10 tabs 05/05/23 [Rx Last Taken Unknown] ondansetron 4 mg disintegrating tablet 4 mg PO Q8H PRN PRN Nausea #10 tabs 05/05/23 [Rx Last Taken Unknown] Allergy/AdvReac Type Severity Reaction Status Date / Time chlorthalidone Allergy NEEDS Verified 05/05/23 08:51 FOLLOW-UP hydrochlorothiazide Allergy NEEDS Verified 05/05/23 08:51 FOLLOW-UP Surgical History H/O heart artery stent History of appendectomy (Unknown) Social History Smoking Status: Light Smoker (<10/day) ROS ROS ED Constitutional Constitutional ED: Denies chills or fever(s) Eyes Eyes: Denies discharge from eye(s) ENT ENT ED: Denies discharge from eye(s), rhinorrhea or sore throat Cardiovascular Cardiovascular: Denies chest pain or palpitations Respiratory/Chest Respiratory/Chest: Denies cough or dyspnea Gastrointestinal Gastrointestinal: Reports abdominal pain, diarrhea and nausea; Denies vomiting Genitourinary Genitourinary ED: Denies dysuria Musculoskeletal Musculoskeletal: Reports myalgias; Denies back pain or extremity pain Integumentary Denies Abrasions or rash Neurologic Neurologic: Reports headache(s); Denies weakness Psychiatric Psychiatric: Denies anxiety or depression Allergic/Immunologic Allergic/Immunologic ED: Denies lip swelling or urticaria EXAM Physical Exam Const Vital Signs: 05/05/23 08:52 05/05/23 10:27 Temperature 97.6 F L Temperature Source Temporal Pulse Rate 78 18 L Respiratory Rate 16 76 H Blood Pressure 134/78 H 156/64 H Blood Pressure Mean 96 94 Pulse Ox 98 99 Oxygen Delivery Method Room Air Room Air Positive well nourished and well developed General Appearance ED: well developed HEENT Reports normocephalic and head/scalp atraumatic Eyes PERRL and EOMs intact bilaterally Neck supple Chest Wall inspection of chest normal and palpation of chest normal Resp normal respiratory effort and clear to auscultation bilaterally Cardio regular rate and regular rhythm GI GI Narrative: Abdomen soft with no focal tenderness. Active bowel sounds are noted throughout. Palpation: soft Extremity normal to inspection Neuro oriented x3 and no sensory deficits noted Sensorium / Orientation: alert Motor Exam: strength 5/5 throughout Psych mental status grossly normal Skin no rashes or lesions noted MDM MDM MDM Narrative Medical decision making narrative: Patient given Bentyl, Zofran, Protonix, IV fluids. Labwork obtained to evaluate for leukocytosis, anemia, and electrolyte derangement. Urinalysis obtained to evaluate for infection/hematuria. History & Record Review Discussion w/independent historian: Patient Additional record(s) reviewed:: Prior ED visit and Prior labs Lab Data Attestation: I reviewed the patient's lab results. Labs: Laboratory Results - last 24 hr 05/05/23 05/05/23 09:15 09:40 WBC 7.8 RBC 5.53 Hgb 16.3 Hct 48.5 MCV 87.7 MCH 29.5 MCHC 33.6 RDW Std Deviation 43.3 RDW Coeff of [place] 13.5 Plt Count 206 MPV 9.5 Immature Gran % (Auto) 0.900 Neut % (Auto) 72.1 H Lymph % (Auto) 18.1 L [place] % (Auto) 7.7 Eos % (Auto) 0.4 Baso % (Auto) 0.8 Absolute Neuts (auto) 5.7 Absolute Lymphs (auto) 1.42 Nucleated RBC % 0 Sodium 132 L Potassium 3.8 Chloride 100 Carbon Dioxide 23.0 Anion Gap 9 BUN 13 Creatinine 0.84 Estim Creat Clear Calc 82.08 Est GFR (MDRD) Af Amer 115 Est GFR (MDRD) Non-Af 95 BUN/Creatinine Ratio 15.4 Glucose 131 H Calcium 9.1 Total Bilirubin 1.10 H Direct Bilirubin 0.28 AST 22 ALT 17 Alkaline Phosphatase 77 Total Protein 6.9 Albumin 3.8 Globulin 3.1 Lipase 42 Urine Color Yellow Urine Clarity Clear Urine pH 6.5 Ur Specific [place] 1.010 Urine Protein 15 H Urine Glucose (UA) 1000 H Urine Ketones Negative Urine Occult Blood Negative Urine Nitrite Negative Urine Bilirubin Negative Urine Urobilinogen Normal Ur Leukocyte Esterase Negative Urine RBC 0 SEEN Urine WBC 0 SEEN Ur Squamous Epith Cells 0-5 SEEN Urine Bacteria 0 SEEN Urine Mucus 0 SEEN Treatment and Re-Evaluation :: CBC today reveals normal white count at 7.8 with 72% neutrophils. Hemoglobin is normal at 16.3. Chemistry studies reveal a sodium of 132. This is consistent with his prior. Glucose is slightly elevated at 131. LFTs reveal a slightly elevated total bilirubin at 1.1. Other values normal. Urinalysis reveals glucose in the urine but no sign of acute infection. On repeat evaluation patient states he feels significantly improved. He was given prescription for Nexium to the night that he will continue. I will also write him for Donna and Sakina. I advised him that I believe he has a viral illness. This will wax and wane and he was instructed not to overdo it on the days that he feels well. He was advised this will take a week or 2 to fully run its course. Return instructions are given. Discharge Plan Triage Chief Complaint: Nausea/Vomiting/Diarrhea ED Provider: Lois Navarro Dx/Rx/DC Orders Clinical Impression: Viral syndrome Instructions: ED Viral Syndrome (Adult) Prescriptions: New ondansetron 4 mg tablet,disintegrating 4 mg PO Q8H PRN PRN (Reason: Nausea) Qty: 10 0RF dicyclomine 20 mg tablet 20 mg PO BID PRN (Reason: abdominal pain) Qty: 10 0RF No Action atorvastatin 80 MG tablet 80 mg PO QHS polyethylene glycol 3350 17 GM packet 34 gm PO BREAKFAST amlodipine 5 MG tablet 10 mg PO DAILY carvedilol 3.125 MG tablet 0.5 tablet PO BID nitroglycerin 0.4 MG tablet, sublingual 0.4 mg SL Q5M PRN (Reason: Chest Pain) aspirin 81 MG tablet,chewable 81 mg PO DAILY@0800 albuterol sulfate 1 PUFF inhaler 2 puff INHALATION Q6H PRN PRN (Reason: Sob &/Or Wheezing) losartan 100 MG tablet 25 mg PO QHS budesonide-formoterol 10.2 GM HFA aerosol inhaler 2 puff IH BID insulin glargine 100 UNITS/ML insulin pen 40 units SC QHS cholecalciferol (vitamin D3) 2,000 UNIT capsule 2,000 unit PO DAILY empagliflozin 10 MG tablet 12.5 mg PO DAILY metformin 500 mg Tablet 500 mg PO BID polyethylene glycol 3350 [Miralax] 17 gram Powder In Packet 17 g PO QHS famotidine 40 mg Tablet 40 mg PO DAILY hydralazine 50 mg Tablet 50 mg PO 4XD Ozempic 0.25 mg or 0.5 mg (2 mg/3 mL) Pen Injector 0.25 mg SUBCUT QWEEK Rx Instructions: for 4 weeks pantoprazole [Protonix] 40 mg tablet,delayed release (DR/EC) 40 mg PO DAILY Qty: 14 0RF ondansetron 4 mg tablet,disintegrating 4 mg PO Q8H PRN PRN (Reason: Nausea) Qty: 10 0RF esomeprazole magnesium [Nexium] 20 mg capsule,delayed release(DR/EC) 20 mg PO DAILY Qty: 30 0RF [facility] Provider] - 1 Week if not improving Disposition Disposition: Home, Self Care
[2023-05-05 09:22] LABS: Absolute Lymphocyte Count 1.42 X10^3/uL (0.83-4.51); Absolute Neutrophil Count 5.7 X10^3/uL (2.0-7.7); Basophil# 0.06 X10^3/uL; Basophil% 0.8 % (0-1); Eosinophil# 0.03 X10^3/uL; Eosinophils% 0.4 % (0-5); Hematocrit 48.5 % (40-54); Hemoglobin 16.3 g/dL (13.0-16.5); Lymphocyte # 1.42 X10^3/ul (0.83-4.51); Lymphocyte % 18.1 % (19-41); Mean Corp Hgb Conc 33.6 g/dL (32-36); Mean Corpuscular Hgb 29.5 pg (27.0-32.0); Mean Corpuscular Volume 87.7 fL (80-94); Mean Platelet Vol. 9.5 fl (6.2-12.0); Monocyte% 7.7 % (0-10); NRBC Flagged by Analyzer 0 % (0-5); Neutrophil # 5.66 X10^3/uL (2.7-7.7); Neutrophil % 72.1 % (47-70); Platelet Count 206 K/mm3 (150-450); RBC Distribution Width CV 13.5 % (11.6-14.6); RBC Distribution Width SD 43.3 fl (35.1-43.9); Red Blood Count 5.53 M/mm3 (4.6-6.2); White Blood Count 7.8 K/mm3 (4.4-11.0)
[2023-05-05] MEDS: Ondansetron 4 MG/2 ML Vial IV (09:23)
[2023-05-05] MEDS: Dicyclomine 10 MG Capsule 20 MG PO (09:23)
[2023-05-05] MEDS: 0.9% Normal Saline 1,000 ML 150 ML IV (09:24)
[2023-05-05 09:40] LABS: AST(SGOT) 22 U/L (15-37); Alanine Aminotransfer ALT/SGPT 17 U/L (16-61); Albumin, Serum 3.8 g/dL (3.2-5.0); Alkaline Phosphatase 77 U/L (45-117); Anion Gap 9 (5-15); BUN 13 mg/dL (7-18); BUN/Creat Ratio 15.4 RATIO (10-20); Bilirubin, Direct 0.28 mg/dL (0.00-0.30); Calcium,Total 9.1 mg/dL (8.5-10.1); Chloride 100 mmol/L (98-107); Creatinine, Serum 0.84 mg/dL (0.70-1.30); EST Glomerular Filtration Rate 95 mL/min (>60); Est Glom Filt Rate - Afr Amer 115 mL/min (>60); Estimated Creatinine Clearance 82.08 ml/min; Globulin 3.1 g/dL (2.2-4.2); Glucose 131 mg/dL (74-106); Lipase 42 U/L (13-75); Potassium 3.8 mmol/L (3.5-5.1); Protein, Total 6.9 g/dL (6.4-8.2); Sodium Level 132 mmol/L (136-145)
[2023-05-05 09:44] LABS: Bacteria 0 SEEN /hpf (None Seen); Mucous, Urine 0 SEEN /hpf (<or=2+); Red Blood Cells-Urine 0 SEEN /hpf (0-5); White Blood Cells 0 SEEN /hpf (0-5)
[2023-05-05 10:24] LABS: Color, Urine Yellow (Yellow); Glucose, Dipstick 1000 mg/dl (Normal); Ketone-Dipstick Negative (Negative); Leukocyte Esterase-Dipstick Negative /ul (Negative); Nitrite-Dipstick Negative (Negative); Occult Blood-Urine Negative /ul (Negative); Protein-Dipstick 15 mg/dl (Negative); Urine Bilirubin Dipstick Negative (Negative); Urine Clarity Clear (Clear); Urine Urobilinogen Normal (Normal); Urine pH 6.5 (5.0 - 8.0)
[2023-05-05 10:27] VITALS: BP 156/64; PULSE 76; RESP 18; O2SAT 99
[2023-05-05 10:39] LABS: Squamous Epithelial Cells - UA 0-5 SEEN /hpf (0-5)
== END 2023-05-05 10:59 | disposition home or self-care (01) ==
PROVIDERS: Emergency Provider Emergency Medicine; Visit Provider Emergency Medicine
DX: B34.9 Viral infection, unspecified (principal); G47.33 Obstructive sleep apnea (adult) (pediatric); F17.200 Nicotine dependence, unspecified, uncomplicated
CPT/HCPCS: 80048; 80076; 81001; 83690; 85025; 96365; 96375; 99282; A4216; J2405

== ENCOUNTER 2023-06-11 08:24 | Emergency (ER) | payer OTHER, SELFPAY ==
[2023-06-11 08:25] VITALS: BP 145/78; PULSE 91; RESP 14; TEMP 36.4; O2SAT 99; BMI 27.9
--- NOTE | 2023-06-11 09:08 | CT_ITS ---
STUDY: CT ABDOMEN AND PELVIS WITH CONTRAST REASON FOR EXAM: Male, 72 years old. Abdominal pain. Nausea and vomiting. RADIATION DOSAGE (If Supplied By Facility): CTDIvol = ( 15.88 ) mGy, DLP = ( 1055.92 ) mGycm TECHNIQUE: Transaxial images were obtained from the dome of the diaphragm to the symphysis pubis without oral contrast. IV 100mL Isovue-300 was administered. Sagittal and coronal images were reconstructed. Individualized dose optimization techniques were used for this CT. COMPARISON: None. FINDINGS: The visualized lung bases are unremarkable. Coronary artery calcification. Normal liver. Small gallstones are seen in the region of the neck of the gallbladder. Normal spleen. Normal pancreas. Normal bilateral adrenal glands. Normal right kidney. Normal left kidney. Normal visualized stomach. Normal small intestine. There are scattered colonic diverticula consistent with diverticulosis. The appendix is visualized and appears normal. There is scattered atherosclerotic calcification of the abdominal aorta, without a demonstrated aneurysm. Normal inferior vena cava. Normal retroperitoneum. Distended urinary bladder. The prostate measures 3.3 cm x 5.5 cm. Small bilateral inguinal hernias containing fat. There are diffuse degenerative changes of the visualized lumbar spine. There is evidence of sclerosis with irregular inferior endplate of the L2 vertebrae and superior endplate of the L3 vertebrae. CT/Abdomen/Pelvis W IV Cont ONLY IMPRESSION: Small gallstones in the gallbladder neck. Scattered sigmoid diverticula. Degenerative changes of the lumbar spine with irregular endplates of the L2 and L3 vertebrae as described. Electronically Signed: Lincoln Murrieta MD at 10:30 EDT ,
--- NOTE | 2023-06-11 09:09 | EX.ED.DYSGE1 ---
HPI History of Present Illness Chief Complaint: Abd Pain Informant: patient Narrative Narrative: 72-year-old male presenting to the emergency department with recurrent abdominal pain of 1.5 months duration. Patient describes the pain as left lower quadrant and periumbilical. He notes that he feels an aching sensation. He notes diarrhea which he states is unchanged and he is believes is from his MiraLAX. No fevers. He did have an episode of vomiting last night. He reports being seen in the emergency department for this twice in April was felt to be viral in nature. He is also scheduled to have a colonoscopy/endoscopy in July with the PR. He does note that there is nothing different about this pain compared to normal for him. He states that because of the pain he came to the emergency and not due to a acute change in symptomology. He reports a prior appendectomy otherwise no abdominal surgeries. Denies bloating or distention. He reports taking the pantoprazole this morning after he ate cereal. [facility] Medical History Abdominal pain Constipation COPD (chronic obstructive pulmonary disease) Diabetes Diabetic acetonemia GERD (gastroesophageal reflux disease) High cholesterol Hypertension JOANNA on CPAP Sleep apnea Home Medications albuterol sulfate 90 mcg/actuation aerosol inhaler 2 puff inhalation Q6H PRN PRN Sob &/Or Wheezing 12/20/20 [History Last Taken Unknown] amlodipine 5 mg tablet 10 mg PO DAILY 12/20/20 [History Last Taken Unknown] aspirin 81 mg chewable tablet 81 mg PO DAILY@0800 12/20/20 [History Last Taken Unknown] atorvastatin 80 mg tablet 80 mg PO QHS 12/20/20 [History Last Taken Unknown] budesonide-formoterol HFA 160 mcg-4.5 mcg/actuation aerosol inhaler 2 puff IH BID 12/20/20 [History Last Taken Unknown] cholecalciferol (vitamin D3) 50 mcg (2,000 unit) capsule 2,000 unit PO DAILY 12/20/20 [History Last Taken Unknown] empagliflozin 10 mg tablet 12.5 mg PO DAILY 12/20/20 [History Last Taken Unknown] losartan 100 mg tablet 25 mg PO QHS 12/20/20 [History Last Taken Unknown] nitroglycerin 0.4 mg sublingual tablet 0.4 mg sublingual Q5M PRN Chest Pain 12/20/20 [History Last Taken Unknown] famotidine 40 mg tablet 40 mg PO DAILY 02/11/23 [History Last Taken Unknown] hydralazine 50 mg tablet 50 mg PO 4XD 02/11/23 [History Last Taken Unknown] ondansetron 4 mg disintegrating tablet 4 mg PO Q8H PRN PRN Nausea #10 tabs 02/11/23 [Rx Last Taken Unknown] pantoprazole 40 mg tablet,delayed release (Protonix) 40 mg PO DAILY #14 tabs 02/11/23 [Rx Last Taken Unknown] semaglutide 0.25 mg or 0.5 mg (2 mg/3 mL) subcutaneous pen injector (Ozempic) 0.25 mg subcut QWEEK 02/11/23 [History Last Taken Unknown] insulin glargine 100 unit/mL (3 mL) subcutaneous pen 32 unit subcut QHS 06/07/23 [History Last Taken Unknown] metformin 1,000 mg tablet 1,000 mg PO DAILY 06/07/23 [History Last Taken Unknown] metformin 500 mg tablet 500 mg PO DAILY 06/07/23 [History Last Taken Unknown] polyethylene glycol 3350 17 gram oral powder packet (Miralax) 17 g PO BID 06/07/23 [History Last Taken Unknown] Allergy/AdvReac Type Severity Reaction Status Date / Time chlorthalidone Allergy NEEDS Verified 06/11/23 08:25 FOLLOW-UP hydrochlorothiazide Allergy NEEDS Verified 06/11/23 08:25 FOLLOW-UP Family History Mother Diabetes Hypertension Brother Diabetes Hypertension Surgical History H/O heart artery stent History of appendectomy (Unknown) Social History Smoking Status: Light Smoker (<10/day) alcohol intake: current alcohol intake frequency: holidays/special occasions only substance use type: does not use ROS ROS ED Constitutional Constitutional ED: Denies chills, fever(s) or weight loss Eyes Eyes: Denies change in vision or diplopia ENT ENT ED: Denies ear pain, rhinorrhea or sore throat Cardiovascular Cardiovascular: Denies chest pain, orthopnea, palpitations or racing heartbeat Respiratory/Chest Respiratory/Chest: Denies cough, dyspnea or orthopnea Gastrointestinal Gastrointestinal: Reports abdominal pain, diarrhea and vomiting; Denies melena or nausea Genitourinary Genitourinary ED: Denies dysuria, hematuria or urinary frequency Musculoskeletal Musculoskeletal: Denies arthralgias or myalgias Integumentary Denies abscess or rash Neurologic Neurologic: Denies headache(s) or weakness Psychiatric Psychiatric: Denies anxiety, depression, suicidal ideation or suicidal thoughts Endocrine Endocrinology: Denies polydipsia, polyphagia or polyuria Allergic/Immunologic Allergic/Immunologic ED: Denies mouth swelling, tongue swelling or urticaria EXAM Physical Exam Const Vital Signs: 06/11/23 08:25 Temperature 97.6 F L Temperature Source Temporal Pulse Rate 91 Respiratory Rate 14 Blood Pressure 145/78 H Blood Pressure Mean 100 Pulse Ox 99 Oxygen Delivery Method Room Air Positive well nourished and well developed General Appearance ED: well developed HEENT Reports normocephalic, head/scalp atraumatic and moist mucous membranes Eyes PERRL and EOMs intact bilaterally Neck no lymphadenopathy, supple and no JVD Resp normal respiratory effort and clear to auscultation bilaterally Cardio regular rate, regular rhythm and no murmurs GI Inspection: Negative for abdominal distention Auscultation: normoactive bowel sounds Palpation: soft and tender LLQ; Negative for guarding or rebound tenderness present Back/Spine no CVA tenderness and normal ROM Extremity normal to inspection General Extremety ED: Negative for edema General Extremity: Negative for edema Neuro oriented x3 and CN's II-XII intact bilaterally Sensorium / Orientation: alert Motor Exam: strength 5/5 throughout Psych mental status grossly normal Mood & Affect: Negative for depressed or tearful Skin no rashes or lesions noted and no wounds MDM MDM MDM Narrative Medical decision making narrative: Basic blood work showed a normal white count at 9.8. Total bilirubin of 1.4 with a direct bilirubin 0.37. Transaminases were normal and lipase was normal. Urinalysis was negative for overt infection or blood. CT the abdomen pelvis demonstrated small gallstones but no pericholecystic fluid. Clinically gallbladder disease does not fit with his symptoms. He states while here in the emergency department he got a really sharp pain that went across to his mid abdomen left to right. And he noted some increased belching. This is since improved. I will write for him to have Bentyl and would recommend picking up some Mylanta. He should follow-up with his family doctor and make sure he follows through with his endoscopy colonoscopy Lab Data Attestation: I reviewed the patient's lab results. Labs: Laboratory Results - last 24 hr 06/11/23 06/11/23 08:45 09:21 WBC 9.8 RBC 5.88 Hgb 17.4 H Hct 52.9 MCV 90.0 MCH 29.6 MCHC 32.9 RDW Std Deviation 43.6 RDW Coeff of [place]air 13.2 Plt Count 255 MPV 9.9 Immature Gran % (Auto) 1.100 H Neut % (Auto) 73.8 H Lymph % (Auto) 16.9 L [place] % (Auto) 6.9 Eos % (Auto) 0.6 Baso % (Auto) 0.7 Absolute Neuts (auto) 7.2 Absolute Lymphs (auto) 1.65 Nucleated RBC % 0 Sodium 131 L Potassium 3.7 Chloride 97 L Carbon Dioxide 28.0 Anion Gap 6 BUN 11 Creatinine 0.89 Estim Creat Clear Calc 77.47 Est GFR (MDRD) Af Amer 108 Est GFR (MDRD) Non-Af 89 BUN/Creatinine Ratio 12.3 Glucose 175 H Calcium 9.9 Total Bilirubin 1.40 H Direct Bilirubin 0.37 H AST 14 L ALT 21 Alkaline Phosphatase 99 Total Protein 8.2 Albumin 4.6 Globulin 3.6 Lipase 53 Urine Color Straw Urine Clarity Clear Urine pH 7.0 Ur Specific [place] 1.005 Urine Protein 15 H Urine Glucose (UA) 1000 H Urine Ketones Negative Urine Occult Blood Negative Urine Nitrite Negative Urine Bilirubin Negative Urine Urobilinogen Normal Ur Leukocyte Esterase Negative Urine RBC 0 SEEN Urine WBC 0 SEEN Ur Squamous Epith Cells 0 SEEN Urine Bacteria 0 SEEN Urine Mucus 0 SEEN Radiography Diagnostic Testing: Clinical Impression(s) from Imaging Studies Abdomen/Pelvis CT 06/11/23 09:08 IMPRESSION: Small gallstones in the gallbladder neck. Scattered sigmoid diverticula. Degenerative changes of the lumbar spine with irregular endplates of the L2 and L3 vertebrae as described. Electronically Signed: Lincoln Murrieta MD at 10:30 EDT , Discharge Plan Triage Chief Complaint: Abd Pain ED Provider: Kye Thao Dx/Rx/DC Orders Prescriptions: No Action metformin 1,000 mg tablet 1,000 mg PO DAILY Rx Instructions: with dinner atorvastatin 80 MG tablet 80 mg PO QHS amlodipine 5 MG tablet 10 mg PO DAILY nitroglycerin 0.4 MG tablet, sublingual 0.4 mg SL Q5M PRN (Reason: Chest Pain) aspirin 81 MG tablet,chewable 81 mg PO DAILY@0800 albuterol sulfate 1 PUFF inhaler 2 puff INHALATION Q6H PRN PRN (Reason: Sob &/Or Wheezing) losartan 100 MG tablet 25 mg PO QHS budesonide-formoterol 10.2 GM HFA aerosol inhaler 2 puff IH BID cholecalciferol (vitamin D3) 2,000 UNIT capsule 2,000 unit PO DAILY empagliflozin 10 MG tablet 12.5 mg PO DAILY insulin glargine 100 unit/mL (3 mL) insulin pen 32 unit SC QHS famotidine 40 mg Tablet 40 mg PO DAILY hydralazine 50 mg Tablet 50 mg PO 4XD Ozempic 0.25 mg or 0.5 mg (2 mg/3 mL) Pen Injector 0.25 mg SUBCUT QWEEK Rx Instructions: for 4 weeks pantoprazole [Protonix] 40 mg tablet,delayed release (DR/EC) 40 mg PO DAILY Qty: 14 0RF ondansetron 4 mg tablet,disintegrating 4 mg PO Q8H PRN PRN (Reason: Nausea) Qty: 10 0RF polyethylene glycol 3350 [Miralax] 17 gram powder in packet 17 g PO BID metformin 500 mg tablet 500 mg PO DAILY Rx Instructions: with breakfast [facility] Provider: [facility]errals: [facility] [Primary Care Provider] -
[2023-06-11 09:23] LABS: Absolute Lymphocyte Count 1.65 X10^3/uL (0.83-4.51); Absolute Neutrophil Count 7.2 X10^3/uL (2.0-7.7); Basophil# 0.07 X10^3/uL; Basophil% 0.7 % (0-1); Eosinophil# 0.06 X10^3/uL; Eosinophils% 0.6 % (0-5); Hematocrit 52.9 % (40-54); Hemoglobin 17.4 g/dL (13.0-16.5); Lymphocyte # 1.65 X10^3/ul (0.83-4.51); Lymphocyte % 16.9 % (19-41); Mean Corp Hgb Conc 32.9 g/dL (32-36); Mean Corpuscular Hgb 29.6 pg (27.0-32.0); Mean Platelet Vol. 9.9 fl (6.2-12.0); Monocyte# 0.67 X10^3/uL; Monocyte% 6.9 % (0-10); NRBC Flagged by Analyzer 0 % (0-5); Neutrophil # 7.22 X10^3/uL (2.7-7.7); Neutrophil % 73.8 % (47-70); Platelet Count 255 K/mm3 (150-450); RBC Distribution Width CV 13.2 % (11.6-14.6); RBC Distribution Width SD 43.6 fl (35.1-43.9); Red Blood Count 5.88 M/mm3 (4.6-6.2); White Blood Count 9.8 K/mm3 (4.4-11.0)
[2023-06-11 09:32] LABS: AST(SGOT) 14 U/L (15-37); Alanine Aminotransfer ALT/SGPT 21 U/L (16-61); Albumin, Serum 4.6 g/dL (3.2-5.0); Alkaline Phosphatase 99 U/L (45-117); Anion Gap 6 (5-15); BUN 11 mg/dL (7-18); BUN/Creat Ratio 12.3 RATIO (10-20); Bilirubin, Direct 0.37 mg/dL (0.00-0.30); Calcium,Total 9.9 mg/dL (8.5-10.1); Chloride 97 mmol/L (98-107); Creatinine, Serum 0.89 mg/dL (0.70-1.30); EST Glomerular Filtration Rate 89 mL/min (>60); Est Glom Filt Rate - Afr Amer 108 mL/min (>60); Estimated Creatinine Clearance 77.47 ml/min; Globulin 3.6 g/dL (2.2-4.2); Glucose 175 mg/dL (74-106); Lipase 53 U/L (13-75); Potassium 3.7 mmol/L (3.5-5.1); Protein, Total 8.2 g/dL (6.4-8.2); Sodium Level 131 mmol/L (136-145)
[2023-06-11 09:40] LABS: Bacteria 0 SEEN /hpf (None Seen); Mucous, Urine 0 SEEN /hpf (<or=2+); Red Blood Cells-Urine 0 SEEN /hpf (0-5); Squamous Epithelial Cells - UA 0 SEEN /hpf (0-5); White Blood Cells 0 SEEN /hpf (0-5)
[2023-06-11 09:43] LABS: Color, Urine Straw (Yellow); Glucose, Dipstick 1000 mg/dl (Normal); Ketone-Dipstick Negative (Negative); Leukocyte Esterase-Dipstick Negative /ul (Negative); Nitrite-Dipstick Negative (Negative); Occult Blood-Urine Negative /ul (Negative); Protein-Dipstick 15 mg/dl (Negative); Specific Gravity, Urine 1.005 (1.002-1.030); Urine Bilirubin Dipstick Negative (Negative); Urine Clarity Clear (Clear); Urine Urobilinogen Normal (Normal)
[2023-06-11 11:19] VITALS: BP 124/66; PULSE 71; RESP 15; O2SAT 98
== END 2023-06-11 11:20 | disposition home or self-care (01) ==
PROVIDERS: Emergency Provider Emergency Medicine; Visit Provider Emergency Medicine
DX: R10.32 Left lower quadrant pain (principal); F17.200 Nicotine dependence, unspecified, uncomplicated; G47.33 Obstructive sleep apnea (adult) (pediatric)
CPT/HCPCS: 74177; 80048; 80076; 81001; 83690; 85025; 99283; Q9967; A4216

== ENCOUNTER 2023-07-02 17:07 | Emergency (ER) | payer OTHER, SELFPAY ==
[2023-07-02] VITALS (9 sets, daily range): BP systolic 151–169; BP diastolic 60–73; PULSE 58–74; RESP 16–20; TEMP 36.5–36.7; O2SAT 96–98; BMI 27.8
--- NOTE | 2023-07-02 19:13 | EDS_ITS ---
HPI History of Present Illness Chief Complaint: General Illness Informant: patient Narrative Narrative: Patient is a 72-year-old male with history of COPD, diabetes mellitus, hypertension and GERD/abdominal pain presenting with 3 to 4 days of worsening URI symptoms/cough as well as ongoing abdominal discomfort. Patient states in the past 3 to 4 days he has had nasal congestion, clear rhinorrhea, chest congestion and increased cough. Denies any fever. Been taking DayQuil and NyQuil with minimal relief. States he feels mildly short of breath and feels shaky. He denies any chest pain but has some chest tightness with wheezing. He also notes that he has been having continued stomach problems and reflux. He states GI cocktails and Bentyl with helped in the past. He notes that he recently had a CT of his abdomen and his schedule to have endoscopy. He denies any urinary symptoms. States his bowel movements Aventyl loose but denies any black or blood in his stool. No other complaints or concerns at this time. Denies any sick contacts. Denies any swelling of his legs. [facility] Medical History Abdominal pain Constipation COPD (chronic obstructive pulmonary disease) Diabetes Diabetic acetonemia GERD (gastroesophageal reflux disease) High cholesterol Hypertension JOANNA on CPAP Sleep apnea Home Medications amlodipine 5 mg tablet 10 mg PO DAILY 12/20/20 [History Last Taken Unknown] aspirin 81 mg chewable tablet 81 mg PO DAILY@0800 12/20/20 [History Last Taken Unknown] atorvastatin 80 mg tablet 80 mg PO QHS 12/20/20 [History Last Taken Unknown] budesonide-formoterol HFA 160 mcg-4.5 mcg/actuation aerosol inhaler 2 puff IH BID 12/20/20 [History Last Taken Unknown] cholecalciferol (vitamin D3) 50 mcg (2,000 unit) capsule 2,000 unit PO DAILY 12/20/20 [History Last Taken Unknown] empagliflozin 10 mg tablet 12.5 mg PO DAILY 12/20/20 [History Last Taken Un known] losartan 100 mg tablet 25 mg PO QHS 12/20/20 [History Last Taken Unknown] nitroglycerin 0.4 mg sublingual tablet 0.4 mg sublingual Q5M PRN Chest Pain 12/20/20 [History Last Taken Unknown] famotidine 40 mg tablet 40 mg PO DAILY 02/11/23 [History Last Taken Unknown] hydralazine 50 mg tablet 50 mg PO 4XD 02/11/23 [History Last Taken Unknown] semaglutide 0.25 mg or 0.5 mg (2 mg/3 mL) subcutaneous pen injector (Ozempic) 0.25 mg subcut QWEEK 02/11/23 [History Last Taken Unknown] insulin glargine 100 unit/mL (3 mL) subcutaneous pen 32 unit subcut QHS 06/07/23 [History Last Taken Unknown] metformin 1,000 mg tablet 1,000 mg PO DAILY 06/07/23 [History Last Taken Unknown] metformin 500 mg tablet 500 mg PO DAILY 06/07/23 [History Last Taken Unknown] polyethylene glycol 3350 17 gram oral powder packet (Miralax) 17 g PO BID 06/07/23 [History Last Taken Unknown] dicyclomine 10 mg capsule 10 mg PO TID PRN abdominal pain #30 caps 06/11/23 [Rx Last Taken Unknown] albuterol sulfate 90 mcg/actuation aerosol inhaler 2 puff inhalation Q6H PRN PRN Sob &/Or Wheezing #6.7 grams 07/02/23 [Rx Last Taken Unknown] azithromycin 250 mg tablet See Rx Instructions PO .COMPLEX #6 tabs 07/02/23 [Rx Last Taken Unknown] pantoprazole 40 mg tablet,delayed release (Protonix) 40 mg PO DAILY #30 tabs 07/02/23 [Rx Last Taken Unknown] prednisone 20 mg tablet 40 mg (2 x 20 mg) PO DAILY #8 tabs 07/02/23 [Rx Last Sudarshan en Unknown] Allergy/AdvReac Type Severity Reaction Status Date / Time chlorthalidone Allergy NEEDS Verified 07/02/23 17:08 FOLLOW-UP hydrochlorothiazide Allergy NEEDS Verified 07/02/23 17:08 FOLLOW-UP Family History Mother Diabetes Hypertension Brother Diabetes Hypertension Surgical History H/O heart artery stent History of appendectomy (Unknown) Social History Smoking Status: Current some day smoker tobacco type: cigarettes alcohol intake: current alcohol intake frequency: holidays/special occasions only substance use type: does not use ROS ROS ED Constitutional Constitutional ED: Reports other Details: Shaky feeling ; Denies chills or fever(s) ENT ENT ED: Reports rhinorrhea and other Details: Congestion ; Denies ear pain Cardiovascular Cardiovascular: Denies chest pain Respiratory/Chest Respiratory/Chest: Reports cough and other Details: Chest congestion, wheezing Gastrointestinal Gastrointestinal: Reports abdominal pain; Denies diarrhea, melena, nausea or vomiting Genitourinary Genitourinary ED: Denies dysuria or urinary frequency Musculoskeletal Musculoskeletal: Denies arthralgias, back pain or myalgias Integumentary Denies rash Neurologic Neurologic: Denies headache(s) or weakness Psychiatric Psychiatric: Denies anxiety EXAM Physical Exam Const Vital Signs: 07/02/23 17:08 07/02/23 18:28 07/02/23 18:34 Temperature 97.7 F L Temperature Source Temporal Pulse Rate 63 60 Respiratory Rate 16 16 Respiratory Effort Normal Respiratory Pattern Normal Blood Pressure 168/67 H 153/73 H Blood Pressure Mean 100 99 Pulse Ox 96 96 Oxygen Delivery Method Room Air Room Air 07/02/23 19:39 07/02/23 20:00 07/02/23 21:00 Temperature 98.1 F 98.1 F Temperature Source Oral Oral Pulse Rate 74 68 58 L Respiratory Rate 20 H 16 16 Respiratory Effort Respiratory Pattern Normal Blood Pressure 151/60 H 154/60 H Blood Pressure Mean 90 91 Pulse Ox 98 98 Oxygen Delivery Method Room Air Room Air 07/02/23 21:08 Temperature 98.1 F Temperature Source Oral Pulse Rate 60 Respiratory Rate 16 Respiratory Effort Respiratory Pattern Blood Pressure 159/67 H Blood Pressure Mean 97 Pulse Ox 98 Oxygen Delivery Method Room Air Positive well nourished and well developed General Appearance ED: well developed and NAD HEENT Reports TM's clear HEENT Narrative: Boggy nasal mucosa with some mild rhinorrhea and nasal congestion appreciated. Normal oropharynx Tympanic Membrane ED: Yes TM's clear Eyes PERRL and EOMs intact bilaterally Neck supple and no JVD Chest Wall inspection of chest normal Resp normal respiratory effort Auscultation: wheezes Cardio regular rate, regular rhythm and no murmurs GI normal to inspection, nondistended, normoactive bowel sounds and non-tender Back/Spine no CVA tenderness Extremity normal to inspection General Extremety ED: Negative for edema General Extremity: Negative for edema Neuro oriented x3 Sensorium / Orientation: alert Motor Exam: Negative for general weakness Psych mental status grossly normal Skin no rashes or lesions noted and no wounds MDM MDM MDM Narrative Medical decision making narrative: Patient evaluated for ongoing abdominal pain that sounds like reflux. Abdomen is soft and nontender. We will give a GI cocktail and check some belly labs to ensure that there is no acute abnormality. Abdomen is soft and nonsurgical. Do not think he needs further abdominal imaging unless laboratory abnormalities are found. In addition he has 4 to 5 days of URI symptoms. Differential includes COVID-19 infection, pneumonia and COPD exacerbation. Low suspicion for ACS but will get screening EKG. EKG shows normal sinus rhythm with left axis deviation. No signs of ACS. Patient has improvement with DuoNeb in the ER. Also given GI cocktail for his a bdominal discomfort. Lab work largely unremarkable. COVID test is negative. No signs of acute infection or acute abdomen pathology. His abdomen is soft nontender. I do not think he requires imaging of his abdomen at this time. Chest x-ray, 2 views, reviewed by myself as well as radiology does not show any acute disease. Patient is ambulated and does not drop below 95%. He does well. Again he is feeling better. Will be discharged home for treatment of a COPD exacerbation, likely triggered by viral syndrome. He will also be given a refill of his Protonix to help with this ongoing stomach issue. Encouraged to continue to follow-up outpatient for endoscopy as he already has planned. Because of underlying COPD with increase in cough and sputum production will also cover with azithromycin. Patient agreeable plan of care. Is given return precautions. Discharged home in stable condition. I do not think admission is needed at this time she does not have new O2 requirements and has no signs of respiratory distress or bacteremia Lab Data Attestation: I reviewed the patient's lab results. Labs: Laboratory Results - last 24 hr 07/02/23 07/02/23 07/02/23 18:15 19:38 19:44 WBC 10.0 RBC 5.40 Hgb 16.0 Hct 47.0 MCV 87.0 MCH 29.6 MCHC 34.0 RDW Std Deviation 41.6 RDW Coeff of [place]air 13.1 Plt Count 215 MPV 9.4 Immature Gran % (Auto) 0.800 Neut % (Auto) 73.9 H Lymph % (Auto) 17.8 L [place] % (Auto) 6.6 Eos % (Auto) 0.3 Baso % (Auto) 0.6 Absolute Neuts (auto) 7.4 Absolute Lymphs (auto) 1.77 Nucleated RBC % 0 Sodium 136 Potassium 3.7 Chloride 102 Carbon Dioxide 24.0 Anion Gap 10 BUN 11 Creatinine 0.87 Estim Creat Clear Calc 79.25 Est GFR (MDRD) Af Amer 110 Est GFR (MDRD) Non-Af 91 BUN/Creatinine Ratio 12.6 Glucose 132 H Calcium 9.3 Total Bilirubin 0.90 AST 19 ALT 25 Alkaline Phosphatase 81 Total Protein 7.2 Albumin 4.0 Globulin 3.2 Albumin/Globulin Ratio 1.2 Lipase 43 Urine Color Straw Urine Clarity Clear Urine pH 6.5 Ur Specific [place] 1.005 Urine Protein 15 H Urine Glucose (UA) 1000 H Urine Ketones Negative Urine Occult Blood Negative Urine Nitrite Negative Urine Bilirubin Negative Urine Urobilinogen Normal Ur Leukocyte Esterase Negative Urine RBC 0 SEEN Urine WBC 0 SEEN Ur Squamous Epith Cells 0 SEEN Urine Bacteria 0 SEEN Urine Mucus 0 SEEN POC Glucose 122 H Radiography Chest X-Ray - ED: 2 View, Read by ED Physician, Read by Radiologist and No Acute Disease Diagnostic Testing: Clinical Impression(s) from Imaging Studies Chest X-Ray 07/02/23 19:49 IMPRESSION: No acute disease Electronically Signed: Samy Sosa MD at 20:27 EDT Reading Location ID and State: [address] [place] [address] Tel , Service support , Rhythm Strip Rhythm Strip: Sinus Rhythm Rate: 60 Ectopy: None EKG Initial EKG: Attestation: I personally reviewed and interpreted this EKG as follows: Interpretation: Sinus Rhythm Comments: Normal sinus rhythm at a rate of 60 bpm Left axis deviation Normal intervals Normal ST segments Prior EKG tracings: available for review Prior: Unchanged Differential Diagnosis Chest pain/SOB: ACS ACS: Positive for EKG without ischemia and history not suggestive of ischemia pain, pneumonia Reason(s) pneumonia less likely: Positive for no infiltrate on CXR, no elevation in WBC count and no noted fever and CHF Reason(s) CHF less likely: Positive for no significant peripheral edema and no evidence of fluid overload on CXR Discharge Plan Triage Chief Complaint: General Illness Other Complaint: Cold Sx ED Provider: Brittany Clifford Dx/Rx/DC Orders Clinical Impression: Acute viral syndrome, Acute exacerbation of chronic obstructive pulmonary di sease Instructions: ED COPD Flare, ED Viral Syndrome (Adult) Prescriptions: New azithromycin 250 mg tablet See Rx Instructions .ROUTE .COMPLEX Qty: 6 0RF Rx Instructions: For 250 mg dose pack: take 500 mg today (day 1), then 250 mg for 4 days (days 2-5) prednisone 20 mg tablet 40 mg PO DAILY Qty: 8 0RF Continued pantoprazole [Protonix] 40 mg tablet,delayed release (DR/EC) 40 mg PO DAILY Qty: 30 0RF albuterol sulfate 1 PUFF inhaler 2 puff INHALATION Q6H PRN PRN (Reason: Sob &/Or Wheezing) Qty: 6.7 0RF No Action metformin 1,000 mg tablet 1,000 mg PO DAILY Rx Instructions: with dinner atorvastatin 80 MG tablet 80 mg PO QHS amlodipine 5 MG tablet 10 mg PO DAILY nitroglycerin 0.4 MG tablet, sublingual 0.4 mg SL Q5M PRN (Reason: Chest Pain) aspirin 81 MG tablet,chewable 81 mg PO DAILY@0800 losartan 100 MG tablet 25 mg PO QHS budesonide-formoterol 10.2 GM HFA aerosol inhaler 2 puff IH BID cholecalciferol (vitamin D3) 2,000 UNIT capsule 2,000 unit PO DAILY empagliflozin 10 MG tablet 12.5 mg PO DAILY insulin glargine 100 unit/mL (3 mL) insulin pen 32 unit SC QHS famotidine 40 mg Tablet 40 mg PO DAILY hydralazine 50 mg Tablet 50 mg PO 4XD Ozempic 0.25 mg or 0.5 mg (2 mg/3 mL) Pen Injector 0.25 mg SUBCUT QWEEK Rx Instructions: for 4 weeks polyethylene glycol 3350 [Miralax] 17 gram powder in packet 17 g PO BID metformin 500 mg tablet 500 mg PO DAILY Rx Instructions: with breakfast dicyclomine 10 mg capsule 10 mg PO TID PRN (Reason: abdominal pain) Qty: 30 0RF [facility] Provider] - Activity Restrictions/Additional Instructions: All medications as directed. If needed you can use your inhaler up to every 4 hours for chest tightness, cough or shortness of breath for the first 2 days. If you feel your breathing is worsening or you have further symptoms/further concerns please return to the emergency room
[2023-07-02] MEDS: Ipratropium/Albuterol Sulfate 3 ML AMPUL.NEB INHALATION (19:39)
[2023-07-02] MEDS: Mag Hydrox/Al Hydrox/Simeth 30 ML UDC PO (19:39)
[2023-07-02 19:46] LABS: Absolute Lymphocyte Count 1.77 X10^3/uL (0.83-4.51); Absolute Neutrophil Count 7.4 X10^3/uL (2.0-7.7); Basophil# 0.06 X10^3/uL; Basophil% 0.6 % (0-1); Eosinophil# 0.03 X10^3/uL; Eosinophils% 0.3 % (0-5); Lymphocyte # 1.77 X10^3/ul (0.83-4.51); Lymphocyte % 17.8 % (19-41); Mean Corpuscular Hgb 29.6 pg (27.0-32.0); Mean Platelet Vol. 9.4 fl (6.2-12.0); Monocyte# 0.66 X10^3/uL; Monocyte% 6.6 % (0-10); NRBC Flagged by Analyzer 0 % (0-5); Neutrophil # 7.37 X10^3/uL (2.7-7.7); Neutrophil % 73.9 % (47-70); Platelet Count 215 K/mm3 (150-450); RBC Distribution Width CV 13.1 % (11.6-14.6); RBC Distribution Width SD 41.6 fl (35.1-43.9)
[2023-07-02 19:47] LABS: Bacteria 0 SEEN /hpf (None Seen); Mucous, Urine 0 SEEN /hpf (<or=2+); Red Blood Cells-Urine 0 SEEN /hpf (0-5); Squamous Epithelial Cells - UA 0 SEEN /hpf (0-5); White Blood Cells 0 SEEN /hpf (0-5)
[2023-07-02 19:48] LABS: Color, Urine Straw (Yellow); Glucose, Dipstick 1000 mg/dl (Normal); Ketone-Dipstick Negative (Negative); Leukocyte Esterase-Dipstick Negative /ul (Negative); Nitrite-Dipstick Negative (Negative); Occult Blood-Urine Negative /ul (Negative); Protein-Dipstick 15 mg/dl (Negative); Specific Gravity, Urine 1.005 (1.002-1.030); Urine Bilirubin Dipstick Negative (Negative); Urine Clarity Clear (Clear); Urine Urobilinogen Normal (Normal); Urine pH 6.5 (5.0 - 8.0)
--- NOTE | 2023-07-02 19:49 | RAD_ITS ---
STUDY: X-RAY CHEST REASON FOR EXAM: Male, 72 years old. cough TECHNIQUE: Frontal and lateral views of the chest. COMPARISON: February 11, 2023 FINDINGS: Coronary artery stent. The lungs are clear and expanded. There is no demonstrated pleural abnormality. Normal size heart. Normal mediastinum and prieto. Normal visualized pulmonary arteries. Normal visualized aortic arch and descending thoracic aorta. Normal visualized thoracic spine. Normal visualized ribs, clavicles, and shoulders. There is no demonstrated abnormality of the visualized soft tissue structures of the upper abdomen. RAD/Chest PA and Lateral IMPRESSION: No acute disease Electronically Signed: Samy Sosa MD at 20:27 EDT ,
[2023-07-02 20:02] LABS: ALB/GLOB Ratio 1.2 RATIO (0.9-2.4); AST(SGOT) 19 U/L (15-37); Alanine Aminotransfer ALT/SGPT 25 U/L (16-61); Alkaline Phosphatase 81 U/L (45-117); Anion Gap 10 (5-15); BUN 11 mg/dL (7-18); BUN/Creat Ratio 12.6 RATIO (10-20); Calcium,Total 9.3 mg/dL (8.5-10.1); Chloride 102 mmol/L (98-107); Creatinine, Serum 0.87 mg/dL (0.70-1.30); EST Glomerular Filtration Rate 91 mL/min (>60); Est Glom Filt Rate - Afr Amer 110 mL/min (>60); Estimated Creatinine Clearance 79.25 ml/min; Globulin 3.2 g/dL (2.2-4.2); Glucose 132 mg/dL (74-106); Lipase 43 U/L (13-75); Potassium 3.7 mmol/L (3.5-5.1); Protein, Total 7.2 g/dL (6.4-8.2); Sodium Level 136 mmol/L (136-145)
[2023-07-02 20:03] LABS: Bedside Glucose 122 mg/dL (74-106)
[2023-07-02] MEDS: predniSONE 20 MG Tablet 60 MG PO (21:37)
== END 2023-07-02 23:22 | disposition home or self-care (01) ==
PROVIDERS: Emergency Provider Emergency Medicine; Visit Provider Emergency Medicine
DX: B34.9 Viral infection, unspecified (principal); J44.1 Chronic obstructive pulmonary disease with (acute) exacerbation; E11.9 Type 2 diabetes mellitus without complications; Z79.4 Long term (current) use of insulin; I10 Essential (primary) hypertension; F17.210 Nicotine dependence, cigarettes, uncomplicated; E78.00 Pure hypercholesterolemia, unspecified; K21.9 Gastro-esophageal reflux disease without esophagitis; G47.33 Obstructive sleep apnea (adult) (pediatric); Z79.82 Long term (current) use of aspirin; Z79.899 Other long term (current) drug therapy; Z79.84 Long term (current) use of oral hypoglycemic drugs; Z95.5 Presence of coronary angioplasty implant and graft
CPT/HCPCS: 71046; 80053; 81001; 82962; 83690; 85025; 87428; 93005; 94640; 99283; A4216

== ENCOUNTER 2023-07-04 12:47 | Emergency (ER) | payer OTHER, SELFPAY ==
[2023-07-04 12:48] VITALS: BP 146/70; PULSE 67; RESP 16; TEMP 35.9; O2SAT 97; BMI 27.2
[2023-07-04] MEDS: Ondansetron 4 MG/2 ML Vial IV (13:53)
[2023-07-04] MEDS: 0.9% Normal Saline (1000mL) 1,000 ML 1000 ML IV (13:53)
[2023-07-04 14:03] LABS: Absolute Lymphocyte Count 0.89 X10^3/uL (0.83-4.51); Absolute Neutrophil Count 13.4 X10^3/uL (2.0-7.7); Basophil# 0.03 X10^3/uL; Basophil% 0.2 % (0-1); Hematocrit 48.8 % (40-54); Hemoglobin 16.4 g/dL (13.0-16.5); Lymphocyte # 0.89 X10^3/ul (0.83-4.51); Mean Corp Hgb Conc 33.6 g/dL (32-36); Mean Corpuscular Hgb 29.8 pg (27.0-32.0); Mean Corpuscular Volume 88.6 fL (80-94); Mean Platelet Vol. 9.4 fl (6.2-12.0); Monocyte# 0.37 X10^3/uL; Monocyte% 2.5 % (0-10); NRBC Flagged by Analyzer 0 % (0-5); Neutrophil # 13.38 X10^3/uL (2.7-7.7); Neutrophil % 90.6 % (47-70); Platelet Count 247 K/mm3 (150-450); RBC Distribution Width CV 13.2 % (11.6-14.6); Red Blood Count 5.51 M/mm3 (4.6-6.2); White Blood Count 14.8 K/mm3 (4.4-11.0)
[2023-07-04 14:04] VITALS: BP 151/71
--- NOTE | 2023-07-04 14:05 | RAD_ITS ---
STUDY: XR Chest 1 View 07/04/2023 2:03 PM REASON FOR EXAM: Male, 72 years old. sob COMPARISON: Two days ago. TECHNIQUE: XR Chest 1 View FINDINGS: There is no demonstrated pleural abnormality. Normal heart size. Normal mediastinum. Normal prieto. Prominent appearing increased interstitial lung markings. Normal visualized pulmonary arteries. There is atherosclerotic calcification of the aortic arch with tortuosity. There are diffuse degenerative changes of the visualized thoracic spine. There is degenerative osteoarthritis of the bilateral shoulders. There are no acute findings of the upper abdomen. RAD/Chest 1 View (Portable) IMPRESSION: There are no acute findings. Electronically Signed: Leon Dukes MD at 14:22 EDT ,
[2023-07-04 14:21] LABS: ALB/GLOB Ratio 1.2 RATIO (0.9-2.4); AST(SGOT) 35 U/L (15-37); Alanine Aminotransfer ALT/SGPT 28 U/L (16-61); Albumin, Serum 3.7 g/dL (3.2-5.0); Alkaline Phosphatase 74 U/L (45-117); Anion Gap 8 (5-15); BUN 25 mg/dL (7-18); BUN/Creat Ratio 25.7 RATIO (10-20); Chloride 99 mmol/L (98-107); Creatinine, Serum 0.97 mg/dL (0.70-1.30); EST Glomerular Filtration Rate 80 mL/min (>60); Est Glom Filt Rate - Afr Amer 97 mL/min (>60); Estimated Creatinine Clearance 71.08 ml/min; Globulin 3.1 g/dL (2.2-4.2); Glucose 226 mg/dL (74-106); Lipase 29 U/L (13-75); Potassium 4.7 mmol/L (3.5-5.1); Protein, Total 6.8 g/dL (6.4-8.2); Sodium Level 132 mmol/L (136-145); Troponin-I HS 36 pg/mL (3.0-78.0)
[2023-07-04 14:47] LABS: Bacteria 0 SEEN /hpf (None Seen); Mucous, Urine 0 SEEN /hpf (<or=2+); Red Blood Cells-Urine 0 SEEN /hpf (0-5); Squamous Epithelial Cells - UA 0 SEEN /hpf (0-5); White Blood Cells 0 SEEN /hpf (0-5)
[2023-07-04 14:53] LABS: Color, Urine Yellow (Yellow); Glucose, Dipstick 1000 mg/dl (Normal); Ketone-Dipstick Negative (Negative); Leukocyte Esterase-Dipstick Negative /ul (Negative); Nitrite-Dipstick Negative (Negative); Occult Blood-Urine Negative /ul (Negative); Protein-Dipstick 30 mg/dl (Negative); Urine Bilirubin Dipstick Negative (Negative); Urine Clarity Clear (Clear); Urine Urobilinogen Normal (Normal)
--- NOTE | 2023-07-04 15:15 | EX.ED.DYSGE1 ---
HPI History of Present Illness Chief Complaint: Cough Narrative Narrative: Patient is a 72-year-old male who is presenting to the ER today with chief complaint of sinus congestion, cough. Patient is having mild midepigastric tenderness to palpation. Patient woke up this morning having a mild headache and feeling shaky. Patient came to the ER for evaluation. Patient lives at home. Patient was just in the ER 2 days ago with her evaluation. Patient was prescribed prednisone, Protonix, and a Z-Александр. Patient has a history of COPD. When patient woke up he felt shaky with mild headache and some mild midepigastric discomfort so he came into the ER for evaluation. Patient was also in the ER week prior to that. Patient currently has minimal headache. No neck pain. No chest pain or shortness of breath, no nausea, vomiting, patient does have some vague midepigastric tenderness. Patient does have a EGD and colonoscopy scheduled for July 23. Patient looks well. [facility] Medical History Abdominal pain Constipation COPD (chronic obstructive pulmonary disease) Diabetes Diabetic acetonemia GERD (gastroesophageal reflux disease) High cholesterol Hypertension JOANNA on CPAP Sleep apnea Home Medications amlodipine 5 mg tablet 10 mg PO DAILY 12/20/20 [History Last Taken Unknown] aspirin 81 mg chewable tablet 81 mg PO DAILY@0800 12/20/20 [History Last Taken Unknown] atorvastatin 80 mg tablet 80 mg PO QHS 12/20/20 [History Last Taken Unknown] budesonide-formoterol HFA 160 mcg-4.5 mcg/actuation aerosol inhaler 2 puff IH BID 12/20/20 [History Last Taken Unknown] cholecalciferol (vitamin D3) 50 mcg (2,000 unit) capsule 2,000 unit PO DAILY 12/20/20 [History Last Taken Unknown] empagliflozin 10 mg tablet 12.5 mg PO DAILY 12/20/20 [History Last Taken Unknown] losartan 100 mg tablet 25 mg PO QHS 12/20/20 [History Last Taken Unknown] nitroglycerin 0.4 mg sublingual tablet 0.4 mg sublingual Q5M PRN Chest Pain 12/20/20 [History Last Taken Unknown] famotidine 40 mg tablet 40 mg PO DAILY 02/11/23 [History Last Taken Unknown] hydralazine 50 mg tablet 50 mg PO 4XD 02/11/23 [History Last Taken Unknown] semaglutide 0.25 mg or 0.5 mg (2 mg/3 mL) subcutaneous pen injector (Ozempic) 0.25 mg subcut QWEEK 02/11/23 [History Last Taken Unknown] insulin glargine 100 unit/mL (3 mL) subcutaneous pen 32 unit subcut QHS 06/07/23 [History Last Taken Unknown] metformin 1,000 mg tablet 1,000 mg PO DAILY 06/07/23 [History Last Taken Unknown] metformin 500 mg tablet 500 mg PO DAILY 06/07/23 [History Last Taken Unknown] polyethylene glycol 3350 17 gram oral powder packet (Miralax) 17 g PO BID 06/07/23 [History Last Taken Unknown] dicyclomine 10 mg capsule 10 mg PO TID PRN abdominal pain #30 caps 06/11/23 [Rx Last Taken Unknown] albuterol sulfate 90 mcg/actuation aerosol inhaler 2 puff inhalation Q6H PRN PRN Sob &/Or Wheezing #6.7 grams 07/02/23 [Rx Last Taken Unknown] azithromycin 250 mg tablet See Rx Instructions PO .COMPLEX #6 tabs 07/02/23 [Rx Last Taken Unknown] pantoprazole 40 mg tablet,delayed release (Protonix) 40 mg PO DAILY #30 tabs 07/02/23 [Rx Last Taken Unknown] prednisone 20 mg tablet 40 mg (2 x 20 mg) PO DAILY #8 tabs 07/02/23 [Rx Last Taken Unknown] Allergy/AdvReac Type Severity Reaction Status Date / Time chlorthalidone Allergy NEEDS Verified 07/02/23 17:08 FOLLOW-UP hydrochlorothiazide Allergy NEEDS Verified 07/02/23 17:08 FOLLOW-UP Family History Mother Diabetes Hypertension Brother Diabetes Hypertension Surgical History H/O heart artery stent History of appendectomy (Unknown) Social History Smoking Status: Current some day smoker tobacco type: cigarettes alcohol intake: current alcohol intake frequency: holidays/special occasions only substance use type: does not use ROS ROS ED ROS Narrative REVIEW OF SYSTEMS: Unless otherwise stated in this report the patient's positive and negative responses for review of systems for constitutional, eyes, ENT, cardiovascular, respiratory, gastrointestinal, neurological, , musculoskeletal, and integument systems and related systems to the presenting problem are either stated in the history of present illness or were not pertinent or were negative for the symptoms and/or complaints related to the presenting medical problem. EXAM Physical Exam Narrative Exam Narrative: Vital signs reviewed and patient is not hypoxic. General: The patient appears well and in no apparent distress. Patient is resting comfortably on cart. Not toxic, lethargic, or listless. Skin: Warm, dry, no pallor noted. There is no rash noted. Head: Normocephalic, atraumatic, minimal tenderness to palpation to bilateral frontal and maxillary sinus. Eye: Normal conjunctiva, no drainage, EOMI. PERRL. Ears, Nose, Mouth, and Throat: oral mucosa is moist. Nares patent. Mouth without vesicles. Patient has clear drainage to the posterior pharynx, mild cobblestoning noted. No unilateral swelling. No airway compromise. Cardiovascular: Regular Rate and Rhythm, no murmurs, gallops, or rubs Respiratory: Patient is in no distress, no accessory muscle use, lungs are clear to auscultation, no wheezing, rales or rhonchi Back: non-tender, no CVA tenderness bilaterally to percussion. NO CTLS midline or paraspinal tenderness to palpation. GI: Soft, obese, no tenderness to palpation, no masses appreciated. No rebound, guarding, or rigidity noted. Musculoskeletal: The patient has full range of motion of all extremities and joints with no difficulty. Patient has no motor, no sensory deficits. Neurological: A&O x4, normal speech, no focal neurological deficits. Psychiatric: Cooperative Const Vital Signs: 07/04/23 12:48 07/04/23 12:47 07/04/23 14:04 Temperature 96.6 F L Temperature Source Temporal Pulse Rate 67 Respiratory Rate 16 Respiratory Effort Normal Non-Labored Respiratory Depth Normal Respiratory Pattern Normal Blood Pressure 146/70 H 151/71 H Blood Pressure Mean 95 97 Pulse Ox 97 Oxygen Delivery Method Room Air MDM MDM MDM Narrative Medical decision making narrative: Patient had mild headache, patient was asking something mild to help with headache at discharge, he is doing 1 dose of IV Toradol. Patient chest x-ray and lab work shows no acute findings. Patient was just in the ER 2 days ago. Patient will be discharged to continue medications that he is already taking, along with continuing DayQuil, NyQuil and Flonase which she has not. Patient will increase fluids. Patient will follow-up with PCP Lab Data Attestation: I reviewed the patient's lab results. Lab results narrative: Patient is currently taking prednisone, patient has white blood cell count of 14 patient is known diabetic.. Labs: Laboratory Results - last 24 hr 07/04/23 07/04/23 13:55 14:40 WBC 14.8 H RBC 5.51 Hgb 16.4 Hct 48.8 MCV 88.6 MCH 29.8 MCHC 33.6 RDW Std Deviation 43.0 RDW Coeff of Aldair 13.2 Plt Count 247 MPV 9.4 Immature Gran % (Auto) 0.700 Neut % (Auto) 90.6 H Lymph % (Auto) 6.0 L Ceiba % (Auto) 2.5 Eos % (Auto) 0.0 Baso % (Auto) 0.2 Absolute Neuts (auto) 13.4 H Absolute Lymphs (auto) 0.89 Nucleated RBC % 0 Sodium 132 L Potassium 4.7 Chloride 99 Carbon Dioxide 25.0 Anion Gap 8 BUN 25 H Creatinine 0.97 Estim Creat Clear Calc 71.08 Est GFR (MDRD) Af Amer 97 Est GFR (MDRD) Non-Af 80 BUN/Creatinine Ratio 25.7 H Glucose 226 H Calcium 9.0 Total Bilirubin 1.20 H AST 35 ALT 28 Alkaline Phosphatase 74 Troponin I High Sens 36 Total Protein 6.8 Albumin 3.7 Globulin 3.1 Albumin/Globulin Ratio 1.2 Lipase 29 Urine Color Yellow Urine Clarity Clear Urine pH 6.0 Ur Specific Elma 1.010 Urine Protein 30 H Urine Glucose (UA) 1000 H Urine Ketones Negative Urine Occult Blood Negative Urine Nitrite Negative Urine Bilirubin Negative Urine Urobilinogen Normal Ur Leukocyte Esterase Negative Urine RBC 0 SEEN Urine WBC 0 SEEN Ur Squamous Epith Cells 0 SEEN Urine Bacteria 0 SEEN Urine Mucus 0 SEEN Radiography Chest X-Ray - ED: Read by ED Physician (Chest x-ray shows no acute cardial pulm disease, no infiltrate, no effusion) Diagnostic Testing: Clinical Impression(s) from Imaging Studies Chest X-Ray 07/04/23 14:05 IMPRESSION: There are no acute findings. Electronically Signed: Leon Dukes MD at 14:22 EDT , Discharge Plan Triage Chief Complaint: Cough Other Complaint: Nausea/Vomiting ED Provider: Alex Carolina Dx/Rx/DC Orders Clinical Impression: Sinus congestion Instructions: Causes of Sinusitis Prescriptions: No Action metformin 1,000 mg tablet 1,000 mg PO DAILY Rx Instructions: with dinner atorvastatin 80 MG tablet 80 mg PO QHS amlodipine 5 MG tablet 10 mg PO DAILY nitroglycerin 0.4 MG tablet, sublingual 0.4 mg SL Q5M PRN (Reason: Chest Pain) aspirin 81 MG tablet,chewable 81 mg PO DAILY@0800 losartan 100 MG tablet 25 mg PO QHS budesonide-formoterol 10.2 GM HFA aerosol inhaler 2 puff IH BID cholecalciferol (vitamin D3) 2,000 UNIT capsule 2,000 unit PO DAILY empagliflozin 10 MG tablet 12.5 mg PO DAILY insulin glargine 100 unit/mL (3 mL) insulin pen 32 unit SC QHS famotidine 40 mg Tablet 40 mg PO DAILY hydralazine 50 mg Tablet 50 mg PO 4XD Ozempic 0.25 mg or 0.5 mg (2 mg/3 mL) Pen Injector 0.25 mg SUBCUT QWEEK Rx Instructions: for 4 weeks polyethylene glycol 3350 [Miralax] 17 gram powder in packet 17 g PO BID metformin 500 mg tablet 500 mg PO DAILY Rx Instructions: with breakfast dicyclomine 10 mg capsule 10 mg PO TID PRN (Reason: abdominal pain) Qty: 30 0RF azithromycin 250 mg tablet See Rx Instructions .ROUTE .COMPLEX Qty: 6 0RF Rx Instructions: For 250 mg dose pack: take 500 mg today (day 1), then 250 mg for 4 days (days 2-5) prednisone 20 mg tablet 40 mg PO DAILY Qty: 8 0RF pantoprazole [Protonix] 40 mg tablet,delayed release (DR/EC) 40 mg PO DAILY Qty: 30 0RF albuterol sulfate 1 PUFF inhaler 2 puff INHALATION Q6H PRN PRN (Reason: Sob &/Or Wheezing) Qty: 6.7 0RF [facility] [Primary Care Provider] - Activity Restrictions/Additional Instructions: Use [id number] DayQuil, NyQuil, and Flonase. Continue medications as prescribed Follow-up with PCP. Increase fluids Disposition Disposition: Home, Self Care
[2023-07-04] MEDS: Ketorolac 15 MG/ML Vial IV (15:21)
== END 2023-07-04 15:35 | disposition home or self-care (01) ==
PROVIDERS: Emergency Provider Emergency Medicine; Visit Provider Emergency Medicine
DX: R09.81 Nasal congestion (principal); F17.210 Nicotine dependence, cigarettes, uncomplicated; G47.33 Obstructive sleep apnea (adult) (pediatric)
CPT/HCPCS: 71045; 80053; 81001; 83690; 84484; 85025; 93005; 96361; 96374; 96375; 99285; J7030; A4216; J2405

== ENCOUNTER 2023-07-23 06:23 | Day surgery (SDC) | payer OTHER, SELFPAY ==
[2023-07-23] VITALS (7 sets, daily range): BP systolic 84–167; BP diastolic 58–74; PULSE 53–78; RESP 14–18; TEMP 36.9–37.2; O2SAT 98; BMI 27.1
--- NOTE | 2023-07-23 | GASB_PTH ---
PATIENT: RALPH DELAROSA LOC: EN U#:[id number] AGE/SX: 72/M ROOM: RE07/23/[address]: Dr. Jac Humphrey MD : 1950 BED: DIS: 07/23/2023 SPEC #: [id number] RECD: 07/23/23 10:52 STATUS: RASHEED JAMEEL #: [id number] DWIGHT: 07/23/23 00:[address]: Jac Humphrey DEPT: SURGICAL PATHOLOGY RECD BY: Lazaro Damico ENTERED: 07/23/23 10:53 SP TYPE: Gastric Bx OTHR DR: [facility] Tissues: A - Duodenum, NOS B - Gastric mucous membrane C - Esophageal mucous membrane Procedures: Special Stain Group II Surgery Specimen Level IV Alcian Blue/PAS (control) HEADER OPERATION: Colonoscopy, EGD, biopsy PRE-OP DIAGNOSIS: History of colonic polyps TISSUE SUBMITTED: A - Duodenum biopsy, B - Antrum biopsy for histo and H. pylori, C - Distal esophagus biopsy MICROSCOPIC DIAGNOSIS A. Duodenum, biopsy: No pathologic change. B. Gastric antrum, biopsy: Mild chronic inflammation. Focal intestinal metaplasia. No evidence of dysplasia. See comment. C. Distal esophagus, biopsy: Gastroesophageal junctional mucosa with mild chronic inflammation. No evidence of goblet cell metaplasia. See comment. AM:jay jay 07/26/2023 COMMENT B. The results of immunohistochemistry for Helicobacter pylori will be reported separately ([id number]). Immunohistochemistry ([id number]) for P53 and Ki-67 will be performed and results will be reported separately. Alcian blue/PAS stain with matched control supports the above diagnosis. C. Alcian blue/PAS stain with matched control supports the above diagnosis. MICROSCOPIC DESCRIPTION Slides are reviewed. GROSS DESCRIPTION A - Received in fixative is one container labeled with the patient's name and designated duodenum biopsy. The specimen consists of one irregular fragment of light woods soft tissue that measures 0.5 x 0.3 x 0.1 cm. The specimen is totally submitted in one cassette. B - Received in fixative is one container labeled with the patient's name and designated antrum biopsy. The specimen consists of two irregular fragments of light woods soft tissue that in aggregate measure 0.3 x 0.2 x 0.1 cm. The specimen is totally submitted in one cassette. C - Received in fixative is one container labeled with the patient's name and designated distal esophagus. The specimen consists of multiple irregular fragments of light woods soft tissue that in aggregate measure 0.7 x 0.3 x 0.1 cm. The specimen is totally submitted in one cassette. / AM:jay jay 07/23/2023 TC: CPT: 17756 x3, 91934 x2
--- NOTE | 2023-07-23 06:33 | PCM.HP.BLA ---
History and Physical Date of Admission: 07/23/23 Intake Visit Reasons: SCREENING SCOPE Chief Complaint: Screening C-Scope/EGD Is patient in pain?: No Allergies chlorthalidone Allergy (Verified 06/07/23 15:16) NEEDS FOLLOW-UPhydrochlorothiazide Allergy (Verified 06/07/23 15:16) NEEDS FOLLOW-UP Medications albuterol sulfate 90 mcg/actuation aerosol inhaler 2 puff inhalation Q6H PRN PRN Sob &/Or Wheezing 12/20/20 [History Confirmed 06/07/23] amlodipine 5 mg tablet 10 mg PO DAILY 12/20/20 [History Confirmed 06/07/23] aspirin 81 mg chewable tablet 81 mg PO DAILY@0800 12/20/20 [History Confirmed 06/07/23] atorvastatin 80 mg tablet 80 mg PO QHS 12/20/20 [History Confirmed 06/07/23] budesonide-formoterol HFA 160 mcg-4.5 mcg/actuation aerosol inhaler 2 puff IH BID 12/20/20 [History Confirmed 06/07/23] cholecalciferol (vitamin D3) 50 mcg (2,000 unit) capsule 2,000 unit PO DAILY 12/20/20 [History Confirmed 06/07/23] empagliflozin 10 mg tablet 12.5 mg PO DAILY 12/20/20 [History Confirmed 06/07/23] losartan 100 mg tablet 25 mg PO QHS 12/20/20 [History Confirmed 06/07/23] nitroglycerin 0.4 mg sublingual tablet 0.4 mg sublingual Q5M PRN Chest Pain 12/20/20 [History Confirmed 06/07/23] famotidine 40 mg tablet 40 mg PO DAILY 02/11/23 [History Confirmed 06/07/23] hydralazine 50 mg tablet 50 mg PO 4XD 02/11/23 [History Confirmed 06/07/23] ondansetron 4 mg disintegrating tablet 4 mg PO Q8H PRN PRN Nausea #10 tabs 02/11/23 [Rx Confirmed 06/07/23] pantoprazole 40 mg tablet,delayed release (Protonix) 40 mg PO DAILY #14 tabs 02/11/23 [Rx Confirmed 06/07/23] semaglutide 0.25 mg or 0.5 mg (2 mg/3 mL) subcutaneous pen injector (Ozempic) 0.25 mg subcut QWEEK 02/11/23 [History Confirmed 06/07/23] insulin glargine 100 unit/mL (3 mL) subcutaneous pen 32 unit subcut QHS 06/07/23 [History Confirmed 06/07/23] metformin 1,000 mg tablet 1,000 mg PO DAILY 06/07/23 [History Confirmed 06/07/23] metformin 500 mg tablet 500 mg PO DAILY 06/07/23 [History Confirmed 06/07/23] polyethylene glycol 3350 17 gram oral powder packet (Miralax) 17 g PO BID 06/07/23 [History Confirmed 06/07/23] PFSH Medical History (Updated 06/07/23 @ 15:11 by Angeli Hall) Abdominal pain Constipation COPD (chronic obstructive pulmonary disease) Diabetes Diabetic acetonemia GERD (gastroesophageal reflux disease) High cholesterol Hypertension JOANNA on CPAP Sleep apnea Surgical History H/O heart artery stent History of appendectomy (Unknown) Family History (Updated 06/07/23 @ 15:26 by Angeli Hall) Mother Diabetes HypertensionBrother Diabetes Hypertension Social History Smoking Status: Light Smoker (<10/day) alcohol intake: current alcohol intake frequency: holidays/special occasions only substance use type: does not use HPI HPI HPI: 72-year-old gentleman is referred by the [facility] system for surgical consultation regarding a screening colonoscopy and a written compromise surgical consult recommendations will return to them. By report the patient's had a previous colonoscopy March 2018. A polyp was identified in the ascending colon and cold snare polypectomy performed. Diverticular disease was seen in the descending colon and rectosigmoid. Pathology demonstrated tubular adenoma. Follow-up colonoscopy 5 years recommended. Is it however the patient is also complaining of some upper abdominal discomfort. He is noted to have some just griping pain. He has been on Ozempic recently has had a 20 pound weight loss. No bright red blood per rectum or melena. He is on esomeprazole and famotidine. He states that he otherwise feels that he is in stable health. No chest pain or shortness of breath. No history of DVT ROS General General: Yes weight change; No appetite, fatigue, colon cancer, breast cancer or weakness HEENT HEENT: No difficulty swallowing, eye injury, eye surgery, swollen glands or hoarseness Endo Endocrine: Yes diabetes mellitus; No thyroid disease, thyroid cancer, Hair loss, heat intolerance or cold intolerance Skin Skin: No rash or changing moles Breast Breast: No left breast lump, right breast lump, nipple discharge, breast pain, abnormal mammogram, abnormal US or breast enlargement Musc Musculoskeletal: No back problems, arthritis, rheumatoid arthritis, gout or joint pain Cardio Cardiovascular: Yes high blood pressure, heart attack and heart stent; No murmur, pacemaker, heart disease, atrial fibrillation, palpitations, shortness of breat with exertion or chest pain Psych Psychiatric: No depression, anxiety or hearing voices Resp Respiratory: No shortness of breath, Yes sleep apnea, No cough, Yes COPD, No asthma, No emphysema and No wheezing Gastro Gastrointestinal: Yes abdominal pain, Yes nausea or vomiting, Yes diarrhea, Yes constipation, No blood in stool, Yes acid reflux, No hemorrhoids, No ulcers, No gallbladder problem and No black,tarry stools Guillermo Hematologic: No blood thinners, No blood disorders, No bleeding, No anemia and No blood clots Neuro Neurologic: No system reviewed and no additional complaints, except as documented, No as per HPI, No abnormal gait, No abnormal hearing, No abnormal movements, No abnormal speech, No behavioral changes, No burning sensations, No confusion, No convulsions, No disequilibrium, No dizziness, No localized weakness, No frequent falls, No headache(s), No lack of coordination, No loss of vision, No memory loss, No numbness, No other visual disturbances, No radicular pain, No restless legs, No sensory deficit, No syncope, No tingling, No tremor(s), No weakness and No other Exam Const General: cooperative, healthy appearing, comfortable and no acute distress [facility] Head: normal to inspection Eyes General: appearance normal, both eyes and all related structures Neck Neck: normal visual inspection Chest Chest palpation & inspection: normal inspection of the chest Resp Effort & Inspection: normal respiratory effort Auscultation: clear to auscultation bilaterally Cardio Rate: regular rate Rhythm: regular rhythm GI Palpation: soft and no hepatosplenomegaly Auscultation: normal bowel sounds Musc Cervical Spine: normal cervical lordosis Skin General: no rashes or lesions noted Neuro General: patient alert, patient awake and patient oriented x3 Extrem General: no calf tenderness Psych Appearance: grossly normal Assessment and Plan Assessment and Plan (1) Personal history of colonic polyps: Status: Acute Plan: With the patient's upper abdominal discomfort I do recommend combining a esophagogastroduodenoscopy with possible biopsy as well as a colonoscopy with possible biopsy or polypectomy as indicated. We can perform this simultaneously. He is aware of the technique, benefit, risk, alternatives. He has had an opportunity ask and have questions answered. I appreciate the opportunity of assisting with surgical care and we will schedule and proceed at his discretion. Copy: [facility] Jca Humphrey M.D., F.Shorty.Dea.S Patient was recently in the [facility] emergency room with abdominal pain. CT imaging demonstrated gallstones. We will pursue the esophagogastroduodenoscopy and colonoscopy. The patient may very well be a candidate for future laparoscopic cholecystectomy. Jac Humphrey M.D., TuS. June 11, 2023 STUDY: CT ABDOMEN AND PELVIS WITH CONTRAST REASON FOR EXAM: Male, 72 years old. Abdominal pain. Nausea and vomiting. RADIATION DOSAGE (If Supplied By Facility): CTDIvol = ( 15.88 ) mGy, DLP = ( 1055.92 ) mGycm TECHNIQUE: Transaxial images were obtained from the dome of the diaphragm to the symphysis pubis without oral contrast. IV 100mL Isovue-300 was administered. Sagittal and coronal images were reconstructed. Individualized dose optimization techniques were used for this CT. COMPARISON: None. FINDINGS: The visualized lung bases are unremarkable. Coronary artery calcification. Normal liver. Small gallstones are seen in the region of the neck of the gallbladder. Normal spleen. Normal pancreas. Normal bilateral adrenal glands. Normal right kidney. Normal left kidney. Normal visualized stomach. Normal small intestine. There are scattered colonic diverticula consistent with diverticulosis. The appendix is visualized and appears normal. There is scattered atherosclerotic calcification of the abdominal aorta, without a demonstrated aneurysm. Normal inferior vena cava. Normal retroperitoneum. Distended urinary bladder. The prostate measures 3.3 cm x 5.5 cm. Small bilateral inguinal hernias containing fat. There are diffuse degenerative changes of the visualized lumbar spine. There is evidence of sclerosis with irregular inferior endplate of the L2 vertebrae and superior endplate of the L3 vertebrae. CT/Abdomen/Pelvis W IV Cont ONLY IMPRESSION: Small gallstones in the gallbladder neck. Scattered sigmoid diverticula. Degenerative changes of the lumbar spine with irregular endplates of the L2 and L3 vertebrae as described. Electronically Signed: Lincoln Murrieta MD at 10:30 EDT ,
[2023-07-23] MEDS: Lactated Ringers 1,000 ML 15 ML IV (06:59)
[2023-07-23 07:20] LABS: Bedside Glucose 242 mg/dL (74-106)
--- NOTE | 2023-07-23 07:30 | IMM_PTH ---
PATIENT: RALPH DELAROSA LOC: EN U#:[id number] AGE/SX: 72/M ROOM: RE07/23/[address]: Dr. Jac Humphrey MD : 1950 BED: DIS: 07/23/2023 SPEC #: [id number] RECD: 07/23/23 14:53 STATUS: RASHEED REQ #: [id number] DWIGHT: 07/23/23 07:[address]: Jac Humphrey DEPT: IMMUNOHISTOCHEMISTRY RECD BY: Laisha Farley ENTERED: 07/23/23 14:53 SP TYPE: IMMUNO OT DR: [facility] Tissues: B - Stomach, NOS Procedures: H Pylori (initial) KI-67 (add) P53 (add) MOC-31 (add) PHYSICIAN & INSTITUTION [place] [id number] SPECIMEN INFORMATION: Tissue Source: B - Antrum Clinical Info: History of colonic polyps Specimen Number: [id number] CPT code: 26114, 51813 x3 METHODOLOGY: Deparaffinized sections of prefer/formalin-fixed tissue or PAP/DQ stained slides are incubated with monoclonal/polyclonal antibodies/oligonucleotide probes. Localization is made via biotin free immunoperoxidase method. Appropriate controls are performed and reacted as expected. Results on target cell population are indicated in the following table: RESULTS: ANTIBODY / CLONE RESULT Block B H Pylori (polyclonal) negative P53 (DO-7) positive, wild type pattern Ki-67 (30-9) positive, low MOC-31 (4561) positive These tests were developed and their performance characteristics determined by [facility]. They may not have been cleared or approved by the U.S. Food and Drug Administration. The FDA has determined that such clearance or approval is not necessary. The above immunohistochemical/dualISH markers are ordered and reviewed by the Pathologist. INTERPRETATION: B. Antrum, biopsy: Negative for Helicobacter pylori organisms. Negative for dysplasia. AM:jay jay 07/26/2023 AM:jay jay 07/27/2023
--- NOTE | 2023-07-23 07:30 | IMM_PTH ---
PATIENT: RALPH DELAROSA LOC: EN U#:[id number] AGE/SX: 72/M ROOM: RE07/23/[address]: Dr. Jac Humphrey MD : 1950 BED: DIS: 07/23/2023 SPEC #: [id number] RECD: 07/23/23 14:53 STATUS: RASHEED REQ #: [id number] DWIGHT: 07/23/23 07:[address]: Jac Humphrey DEPT: IMMUNOHISTOCHEMISTRY RECD BY: Laisha Farley ENTERED: 07/23/23 14:53 SP TYPE: IMMUNO OT DR: [facility] Tissues: B - Stomach, NOS Procedures: H Pylori (initial) KI-67 (add) P53 (add) MOC-31 (add) PHYSICIAN & INSTITUTION [place] [id number] SPECIMEN INFORMATION: Tissue Source: B - Antrum Clinical Info: History of colonic polyps Specimen Number: [id number] CPT code: 97663, 07115 x3 METHODOLOGY: Deparaffinized sections of prefer/formalin-fixed tissue or PAP/DQ stained slides are incubated with monoclonal/polyclonal antibodies/oligonucleotide probes. Localization is made via biotin free immunoperoxidase method. Appropriate controls are performed and reacted as expected. Results on target cell population are indicated in the following table: RESULTS: ANTIBODY / CLONE RESULT Block B H Pylori (polyclonal) negative P53 (DO-7) Ki-67 (30-9) MOC-31 (4561) These tests were developed and their performance characteristics determined by [facility]. They may not have been cleared or approved by the U.S. Food and Drug Administration. The FDA has determined that such clearance or approval is not necessary. The above immunohistochemical/dualISH markers are ordered and reviewed by the Pathologist. INTERPRETATION: B. Antrum, biopsy: Negative for Helicobacter pylori organisms. AM:jay jay 07/26/2023
--- NOTE | 2023-07-23 07:53 | OP.EGD_ITS ---
Patient Name: Marlon Parra Procedure Date: 07/23/2023 7:18 AM Date of : 1950 Age: 72 Procedure: Upper GI endoscopy Indications: Epigastric abdominal pain Providers: Jac Humphrey MD Referring MD: [facility] Medicines: See the Anesthesia note for documentation of the administered medications Complications: No immediate complications. Procedure: Pre-Anesthesia Assessment: - Prior to the procedure, a History and Physical was performed, and patient medications and allergies were reviewed. The patient's tolerance of previous anesthesia was also reviewed. The risks and benefits of the procedure and the sedation options and risks were discussed with the patient. All questions were answered, and informed consent was obtained. Prior Anticoagulants: The patient has taken no anticoagulant or antiplatelet agents. After reviewing the risks and benefits, the patient was deemed in satisfactory condition to undergo the procedure. After obtaining informed consent, the endoscope was passed under direct vision. Throughout the procedure, the patient's blood pressure, pulse, and oxygen saturations were monitored continuously. The colonoscope was introduced through the mouth, and advanced to the second part of duodenum. The upper GI endoscopy was accomplished without difficulty. The patient tolerated the procedure well. Scope In: 7:27:22 AM Scope Out: 7:33:49 AM Total Procedure Duration Time 0 hours 6 minutes 27 seconds Findings: LA Grade A (one or more mucosal breaks less than 5 mm, not extending between tops of 2 mucosal folds) esophagitis with no bleeding was found 40 cm from the incisors. Biopsies were taken with a cold forceps for histology. A 1 cm hiatal hernia was present. Diffuse mildly erythematous mucosa without bleeding was found in the gastric antrum. Biopsies were taken with a cold forceps for histology. The examined duodenum was normal. Biopsies were taken with a cold forceps for histology. Impression: - LA Grade A reflux esophagitis with no bleeding. Biopsied. - 1 cm hiatal hernia. - Erythematous mucosa in the antrum. Biopsied. - Normal examined duodenum. Biopsied. Recommendation: - Discharge patient to home. - Resume previous diet. - Continue present medications. - Telephone my office for pathology results in 1 week. We will await distal esophageal biopsies to exclude Kapoor's. Findings do not seem to correlate with the patient's abdominal pain. I have suggested the patient that I have concerns that he has chronic cholecystitis cholelithiasis and biliary colic as a source of his pain. I suggest to him a laparoscopic cholecystectomy. He states that he will go through the [place] system in this regard. Procedure Code(s): --- Professional --- 84170, Esophagogastroduodenoscopy, flexible, transoral; with biopsy, single or multiple Diagnosis Code(s): --- Professional --- K21.00, Gastro-esophageal reflux disease with esophagitis, without bleeding K44.9, Diaphragmatic hernia without obstruction or gangrene K31.89, Other diseases of stomach and duodenum R10.13, Epigastric pain CPT copyright 2021 [employer]. All rights reserved. The codes documented in this report are preliminary and upon jig fitter review may be revised to meet current compliance requirements. Jac Humphrey MD 07/23/2023 7:52:59 AM This report has been signed electronically. Number of Addenda: 0 Note Initiated On: 07/23/2023 7:18 AM
--- NOTE | 2023-07-23 07:53 | OP.CCLET_ITS ---
07/23/2023 [facility] Re : Upper GI endoscopy procedure for [facility] This procedure was performed on Sunday, July 23, 2023. My impressions and recommendations are as follows: Impressions : - LA Grade A reflux esophagitis with no bleeding. Biopsied. - 1 cm hiatal hernia. - Erythematous mucosa in the antrum. Biopsied. - Normal examined duodenum. Biopsied. Recommendations : - Discharge patient to home. - Resume previous diet. - Continue present medications. - Telephone my office for pathology results in 1 week. We will await distal esophageal biopsies to exclude Kapoor's. Findings do not seem to correlate with the patient's abdominal pain. I have suggested the patient that I have concerns that he has chronic cholecystitis cholelithiasis and biliary colic as a source of his pain. I suggest to him a laparoscopic cholecystectomy. He states that he will go through the [place] system in this regard. My findings are described in the full procedure note, which is enclosed. If I can be of further assistance, please feel free to contact me at Doctor phone number(s): Work: . Sincerely, Jac Humphrey MD 07/23/2023 7:52:59 AM This report has been signed electronically.
--- NOTE | 2023-07-23 07:55 | OP.COLON_ITS ---
Patient Name: Marlon Parra Procedure Date: 07/23/2023 7:33 AM Date of : 1950 Age: 72 Procedure: Colonoscopy Indications: High risk colon cancer surveillance: Personal history of colonic polyps Providers: Jac Humphrey MD Referring MD: [facility] Medicines: See the Anesthesia note for documentation of the administered medications Patient Profile: Last Colonoscopy: March 2018. Complications: No immediate complications. Procedure: Pre-Anesthesia Assessment: - Prior to the procedure, a History and Physical was performed, and patient medications and allergies were reviewed. The patient's tolerance of previous anesthesia was also reviewed. The risks and benefits of the procedure and the sedation options and risks were discussed with the patient. All questions were answered, and informed consent was obtained. Prior Anticoagulants: The patient has taken no anticoagulant or antiplatelet agents. After reviewing the risks and benefits, the patient was deemed in satisfactory condition to undergo the procedure. After I obtained informed consent, the scope was passed under direct vision. Throughout the procedure, the patient's blood pressure, pulse, and oxygen saturations were monitored continuously. The colonoscope was introduced through the anus and advanced to the cecum, identified by appendiceal orifice and ileocecal valve. The colonoscopy was performed without difficulty. The patient tolerated the procedure well. The quality of the bowel preparation was good. The ileocecal valve and the appendiceal orifice were photographed. Scope In: 7:35:29 AM Scope Withdrawal Time 0 hours 5 minutes 16 seconds Scope Out: 7:45:36 AM Total Procedure Duration Time 0 hours 10 minutes 7 seconds Findings: Hemorrhoids were found on perianal exam. Scattered diverticula were found in the sigmoid colon. The exam was otherwise without abnormality. Impression: - Hemorrhoids found on perianal exam. - Diverticulosis in the sigmoid colon. - The examination was otherwise normal. - No specimens collected. Recommendation: - Discharge patient to home. - Resume previous diet. - Continue present medications. - Repeat colonoscopy in 5 years for surveillance. No findings that would correlate with the patient's complaint of abdominal pain Procedure Code(s): --- Professional --- 09911, Colonoscopy, flexible; diagnostic, including collection of specimen(s) by brushing or washing, when performed (separate procedure) Diagnosis Code(s): --- Professional --- Z86.010, Personal history of colonic polyps K64.9, Unspecified hemorrhoids K57.30, Diverticulosis of large intestine without perforation or abscess without bleeding CPT copyright 2021 [employer]. All rights reserved. The codes documented in this report are preliminary and upon web press operator helper offset review may be revised to meet current compliance requirements. Jac Humphrey MD 07/23/2023 7:55:14 AM This report has been signed electronically. Number of Addenda: 0 Note Initiated On: 07/23/2023 7:33 AM
--- NOTE | 2023-07-23 07:55 | OP.CCLET_ITS ---
07/23/2023 [facility] Re : Colonoscopy procedure for [facility] This procedure was performed on Sunday, July 23, 2023. My impressions and recommendations are as follows: Impressions : - Hemorrhoids found on perianal exam. - Diverticulosis in the sigmoid colon. - The examination was otherwise normal. - No specimens collected. Recommendations : - Discharge patient to home. - Resume previous diet. - Continue present medications. - Repeat colonoscopy in 5 years for surveillance. No findings that would correlate with the patient's complaint of abdominal pain My findings are described in the full procedure note, which is enclosed. If I can be of further assistance, please feel free to contact me at Doctor phone number(s): Work: . Sincerely, Jac Humphrey MD 07/23/2023 7:55:14 AM This report has been signed electronically.
== END 2023-07-23 08:33 | disposition home or self-care (01) ==
LOC: EN 06:24 → AC 06:26
PROVIDERS: Visit Provider Surgery
PROC: 0DJD8ZZ Inspection of Lower Intestinal Tract, Via Natural or Artificial Opening Endoscopic (ICD-10-PCS; CPT 45378; principal; 2023-07-23 07:25)
DX: Z12.11 Encounter for screening for malignant neoplasm of colon (principal); J44.9 Chronic obstructive pulmonary disease, unspecified; E11.9 Type 2 diabetes mellitus without complications; Z79.4 Long term (current) use of insulin; K44.9 Diaphragmatic hernia without obstruction or gangrene; E78.00 Pure hypercholesterolemia, unspecified; F17.200 Nicotine dependence, unspecified, uncomplicated; I10 Essential (primary) hypertension; K57.30 Diverticulosis of large intestine without perforation or abscess without bleeding; K21.00 Gastro-esophageal reflux disease with esophagitis, without bleeding; K64.9 Unspecified hemorrhoids; K31.89 Other diseases of stomach and duodenum; G47.33 Obstructive sleep apnea (adult) (pediatric); Z79.82 Long term (current) use of aspirin; Z79.899 Other long term (current) drug therapy; Z79.84 Long term (current) use of oral hypoglycemic drugs; Z95.5 Presence of coronary angioplasty implant and graft; Z86.010 Personal history of colon polyps
CPT/HCPCS: 43239; 45378; 81002; 82962; 88305; 88313; 88341; 88342; J7120; J2405

== ENCOUNTER 2023-12-15 13:38 | Emergency (ER) | payer OTHER, MEDICARE, SELFPAY ==
[2023-12-15 13:39] VITALS: BP 155/81; PULSE 70; RESP 17; TEMP 36.4; O2SAT 98; BMI 27.3
--- NOTE | 2023-12-15 14:19 | EKG12_ITS ---
Test Reason : CP Blood Pressure : / mmHG Vent. Rate : 070 BPM Atrial Rate : 070 BPM P-R Int : 120 ms QRS Dur : 100 ms QT Int : 394 ms P-R-T Axes : 000 -52 040 degrees QTc Int : 425 ms Normal sinus rhythm Left axis deviation Septal infarct (cited on or before 11-FEB-2023) Abnormal ECG Confirmed by Alin Zamudio ([id number]), web content editor MAYRA ARCE ([id number]) on 12/17/2023 7:17:45 AM Referred By: Confirmed By:Alin Zamudio
--- NOTE | 2023-12-15 14:19 | CT_ITS ---
STUDY: CT ABDOMEN AND PELVIS WITH CONTRAST REASON FOR EXAM: Male, 73 years old. Abdominal pain RADIATION DOSAGE (If Supplied By Facility): CTDIvol = ( 12.46 ) mGy, DLP = ( 770.46 ) mGycm TECHNIQUE: Transaxial images were obtained from the dome of the diaphragm to the symphysis pubis without oral contrast. IV 100mL Isovue-300 was administered. Sagittal and coronal images were reconstructed. Individualized dose optimization techniques were used for this CT. COMPARISON: Comparison is made with prior study June 11, 2023. FINDINGS: The visualized lung bases are unremarkable. Coronary artery calcification. There is decreased attenuation of the liver consistent with steatosis. Questionable tiny gallstones in the neck of the gallbladder. Normal spleen. Normal pancreas. Normal bilateral adrenal glands. Normal right kidney. Normal left kidney. Normal visualized stomach. Normal small intestine. There are scattered colonic diverticula consistent with diverticulosis. The appendix is visualized and appears normal. There is diffuse atherosclerotic calcification of the abdominal aorta and its major visceral branches, without a demonstrated aneurysm. Normal inferior vena cava. Normal retroperitoneum. Distended urinary bladder. The prostate measures 4 cm x 4.6 cm. There is a small umbilical hernia containing fat. Small bilateral inguinal hernias containing fat. There are diffuse degenerative changes of the visualized lumbar spine. Subchondral sclerosis at the L2-L3 disc space level. CT/Abdomen/Pelvis W IV Cont ONLY IMPRESSION: Distended urinary bladder. Possible tiny gallstones in the neck of the gallbladder. Electronically Signed: Lincoln Murrieta MD at 15:44 EDT ,
--- NOTE | 2023-12-15 14:20 | ED.VIS.GI ---
HPI HPI - GI History of Present Illness Chief Complaint: Abd Pain Narrative Narrative: 73-year-old male past medical history of hypertension, diabetes, states that he has had abdominal pain for the last month. He was seen in the emergency department, states he followed up and had upper and lower endoscopy performed but does not know the results. He relates history that he has had diffuse abdominal pain for a month, but today when he woke up, was more severe. He denies any fever but states he was chilled. He was nauseated and vomited once without any blood in his emesis. He also had loose stool and then another episode of diarrhea without any blood in his stool. No exacerbating or alleviating factors but he complains of diffuse periumbilical abdominal pain. Past surgical history includes remote appendectomy. [facility] Medical History Abdominal pain Constipation COPD (chronic obstructive pulmonary disease) CPAP (continuous positive airway pressure) dependence Diabetes Diabetic acetonemia Fatty liver GERD (gastroesophageal reflux disease) High cholesterol Hypertension JOANNA on CPAP Sleep apnea Smoker Wears dentures Wears glasses Home Medications amlodipine 5 mg tablet 10 mg PO DAILY 12/20/20 [History Last Taken Unknown] aspirin 81 mg chewable tablet 81 mg PO DAILY@0800 12/20/20 [History Last Taken Unknown] atorvastatin 80 mg tablet 80 mg PO QHS 12/20/20 [History Last Taken Unknown] budesonide-formoterol HFA 160 mcg-4.5 mcg/actuation aerosol inhaler 2 puff IH BID 12/20/20 [History Last Taken Unknown] cholecalciferol (vitamin D3) 50 mcg (2,000 unit) capsule 2,000 unit PO DAILY 12/20/20 [History Last Taken Unknown] empagliflozin 10 mg tablet 12.5 mg PO DAILY 12/20/20 [History Last Taken Unknown] losartan 100 mg tablet 25 mg PO QHS 12/20/20 [History Last Taken Unknown] nitroglycerin 0.4 mg sublingual tablet 0.4 mg sublingual Q5M PRN Chest Pain 12/20/20 [History Last Taken Unknown] hydralazine 50 mg tablet 50 mg PO 4XD 02/11/23 [History Last Taken Unknown] semaglutide 0.25 mg or 0.5 mg (2 mg/3 mL) subcutaneous pen injector (Ozempic) 0.25 mg subcut QWEEK 02/11/23 [History Last Taken Unknown] insulin glargine 100 unit/mL (3 mL) subcutaneous pen 32 unit subcut QHS 06/07/23 [History Last Taken Unknown] metformin 1,000 mg tablet 1,000 mg PO DAILY 06/07/23 [History Last Taken Unknown] metformin 500 mg tablet 500 mg PO DAILY 06/07/23 [History Last Taken Unknown] polyethylene glycol 3350 17 gram oral powder packet (Miralax) 17 g PO BID 06/07/23 [History Last Taken Unknown] dicyclomine 10 mg capsule 10 mg PO TID PRN abdominal pain #30 caps 06/11/23 [Rx Last Taken Unknown] albuterol sulfate 90 mcg/actuation aerosol inhaler 2 puff inhalation Q6H PRN PRN Sob &/Or Wheezing #6.7 grams 07/02/23 [Rx Last Taken Unknown] pantoprazole 40 mg tablet,delayed release (Protonix) 40 mg PO DAILY #30 tabs 07/02/23 [Rx Last Taken Unknown] dicyclomine 20 mg tablet 20 mg PO TID #20 tabs 12/15/23 [Rx Last Taken Unknown] ondansetron 4 mg disintegrating tablet 4 mg PO Q6H PRN nausea and vomiting #20 tabs 12/15/23 [Rx Last Taken Unknown] Allergy/AdvReac Type Severity Reaction Status Date / Time chlorthalidone Allergy NEEDS Verified 12/15/23 13:41 FOLLOW-UP hydrochlorothiazide Allergy NEEDS Verified 12/15/23 13:41 FOLLOW-UP Family History Mother Diabetes Hypertension Brother Diabetes Hypertension Surgical History H/O heart artery stent History of appendectomy (Unknown) History of cardiac catheterization Social History Smoking Status: Current every day smoker tobacco type: cigarettes alcohol intake: current alcohol intake frequency: holidays/special occasions only substance use type: does not use ROS ROS ED ROS Narrative Constitutional: No fever, positive chills. HEENT: No sore throat. No neck pain. No loss of vision. No rhinorrhea. Cardiovascular: No chest pain. No palpitations. No pedal edema. Respiratory: No cough, no shortness of breath. Abdominal: Positive diffuse to periumbilical abdominal pain. Positive nausea with 1 episode of vomiting today. No hematemesis. 2 episodes of loose stool/diarrhea, no melena or rectal bleeding. Genitourinary: No dysuria. No hematuria. Musculoskeletal: No myalgias. No arthralgias. Neurologic: No headaches. No dizziness. No lightheadedness. Skin: No rash. No change in color. Psychiatric: No depression. No anxiety. EXAM Physical Exam Const Vital Signs: 12/15/23 13:39 12/15/23 15:39 Temperature 97.6 F L Temperature Source Temporal Pulse Rate 70 71 Respiratory Rate 17 16 Blood Pressure 155/81 H 157/73 H Blood Pressure Mean 105 101 Pulse Ox 98 99 Oxygen Delivery Method Room Air Room Air MDM MDM MDM Narrative Medical decision making narrative: In the differential diagnosis is partial small bowel obstruction versus small bowel obstruction versus diverticulitis versus colitis versus nonspecific abdominal pain. I reviewed his prior records. I do feel that he needs repeat imaging of his abdomen to help rule out an obstructive process or infectious process. He was bolused normal saline and administered ondansetron. I will check a CBC, CMP, and lipase along with UA. Lower on the differential would be ureterolithiasis or UTI. In order to help rule out any cardiac etiology, EKG and single troponin will be obtained. I reviewed his prior records, and he has not been seen here in this emergency department since 2022 back in June. EKG was obtained and interpreted by myself independently as normal sinus rhythm at 70 bpm without ectopy or acute ST changes. No STEMI. I reviewed his laboratory work and he has normal white count of 10.9, hemoglobin slightly hemoconcentrated at 17.7 hematocrit 51.2, platelet count normal at 227. Sodium is slightly low at 132, he was bolused normal saline, potassium normal at 3.9, glucose elevated at 179 consistent with his diabetes but he has a normal anion gap of 7 so I have low concern for diabetic ketoacidosis. AST and ALT are normal at 20 and 18 respectively, alk phos 90. He does have slightly elevated total bilirubin but this appears chronic. Urinalysis is negative for infection. CT of the abdomen pelvis shows no acute process but there are stones in the neck of the gallbladder. I do not feel that he necessarily has biliary disease as he complains of pain more in his lower abdomen and periumbilical area, however he will be given morphine and a second dose of Zofran. He states that he received something from his prior visit, and realized that it was not a month or 2 ago but actually last year. I reviewed his ED visit, and he had a prescription for Bentyl that was written for him. As long as his gallbladder ultrasound does not show acute cholecystitis, I do feel that he would be able to be discharged home with follow-up for nonspecific abdominal pain. I reviewed the radiology report for the gallbladder ultrasound which shows no acute process in the right upper quadrant, no pericholecystic fluid, common bile duct normal at 6 mm. At this point in time, he is resting comfortably upon repeat examination. I have low concern for any emergent surgical or admittable process. He was written a prescription for Bentyl and Zofran as he has received Bentyl in the past. He will start a clear liquid diet and advance as tolerated. I feel he can be discharged safely home with follow-up. Return instructions were reviewed. Disposition is discharged home in stable condition. History & Record Review Discussion w/independent historian: Patient Additional record(s) reviewed:: Prior ED visit and Prior labs Lab Data Attestation: I reviewed the patient's lab results. Labs: Laboratory Results - last 24 hr 12/15/23 12/15/23 14:30 14:35 WBC 10.9 RBC 6.03 Hgb 17.7 H Hct 51.2 MCV 84.9 MCH 29.4 MCHC 34.6 RDW Std Deviation 38.5 RDW Coeff of Aldair 12.5 Plt Count 227 MPV 9.6 Immature Gran % (Auto) 0.600 Neut % (Auto) 79.7 H Lymph % (Auto) 12.9 L Sandoval % (Auto) 6.1 Eos % (Auto) 0.1 Baso % (Auto) 0.6 Absolute Neuts (auto) 8.7 H Absolute Lymphs (auto) 1.41 Nucleated RBC % 0 Sodium 132 L Potassium 3.9 Chloride 100 Carbon Dioxide 25.0 Anion Gap 7 BUN 12 Creatinine 0.98 Estim Creat Clear Calc 69.32 Est GFR (MDRD) Af Amer 97 Est GFR (MDRD) Non-Af 80 BUN/Creatinine Ratio 12.3 Glucose 179 H Calcium 9.6 Total Bilirubin 1.60 H AST 20 ALT 18 Alkaline Phosphatase 90 Troponin I High Sens 25 Total Protein 7.7 Albumin 4.3 Globulin 3.4 Albumin/Globulin Ratio 1.3 Lipase 42 Urine Color Yellow Urine Clarity Clear Urine pH 7.0 Ur Specific [place] 1.010 Urine Protein 15 H Urine Glucose (UA) 1000 H Urine Ketones Negative Urine Occult Blood Negative Urine Nitrite Negative Urine Bilirubin Negative Urine Urobilinogen Normal Ur Leukocyte Esterase Negative Urine RBC 0 SEEN Urine WBC 0 SEEN Ur Squamous Epith Cells 0-5 SEEN Urine Bacteria 0 SEEN Urine Mucus 0 SEEN Radiography Diagnostic Testing: Clinical Impression(s) from Imaging Studies Abdomen/Pelvis CT 12/15/23 14:19 IMPRESSION: Distended urinary bladder. Possible tiny gallstones in the neck of the gallbladder. Electronically Signed: Lincoln Murrieta MD at 15:44 EDT , Gallbladder Ultrasound 12/15/23 16:01 IMPRESSION: Normal right upper quadrant ultrasound examination. Electronically Signed: Alex Pugh MD at 17:08 EDT , Discharge Plan Triage Chief Complaint: Abd Pain ED Provider: Rodolfo [place] Dx/Rx/DC Orders Clinical Impression: Diarrhea, Nausea and vomiting, Abdominal pain Instructions: ED Diarrhea, Unknown Cause, ED Diet Vomiting Diarrhea, ED Abdominal Pain Unkn Cause Male... Prescriptions: New ondansetron 4 mg tablet,disintegrating 4 mg PO Q6H PRN (Reason: nausea and vomiting) Qty: 20 0RF dicyclomine 20 mg tablet 20 mg PO TID Qty: 20 0RF No Action metformin 1,000 mg tablet 1,000 mg PO DAILY Rx Instructions: with dinner atorvastatin 80 MG tablet 80 mg PO QHS amlodipine 5 MG tablet 10 mg PO DAILY nitroglycerin 0.4 MG tablet, sublingual 0.4 mg SL Q5M PRN (Reason: Chest Pain) aspirin 81 MG tablet,chewable 81 mg PO DAILY@0800 losartan 100 MG tablet 25 mg PO QHS budesonide-formoterol 10.2 GM HFA aerosol inhaler 2 puff IH BID cholecalciferol (vitamin D3) 2,000 UNIT capsule 2,000 unit PO DAILY empagliflozin 10 MG tablet 12.5 mg PO DAILY insulin glargine 100 unit/mL (3 mL) insulin pen 32 unit SC QHS hydralazine 50 mg Tablet 50 mg PO 4XD Ozempic 0.25 mg or 0.5 mg (2 mg/3 mL) Pen Injector 0.25 mg SUBCUT QWEEK Rx Instructions: for 4 weeks polyethylene glycol 3350 [Miralax] 17 gram powder in packet 17 g PO BID metformin 500 mg tablet 500 mg PO DAILY Rx Instructions: with breakfast dicyclomine 10 mg capsule 10 mg PO TID PRN (Reason: abdominal pain) Qty: 30 0RF pantoprazole [Protonix] 40 mg tablet,delayed release (DR/EC) 40 mg PO DAILY Qty: 30 0RF albuterol sulfate 1 PUFF inhaler 2 puff INHALATION Q6H PRN PRN (Reason: Sob &/Or Wheezing) Qty: 6.7 0RF [facility] [Primary Care Provider] - 3-5 Days if not improving Activity Restrictions/Additional Instructions: Start a clear liquid diet and advance as tolerated. Return with fever, increased pain, new or worsening symptoms. Disposition Disposition: Home, Self Care
[2023-12-15 14:38] LABS: Bacteria 0 SEEN /hpf (None Seen); Mucous, Urine 0 SEEN /hpf (<or=2+); Red Blood Cells-Urine 0 SEEN /hpf (0-5); White Blood Cells 0 SEEN /hpf (0-5)
[2023-12-15] MEDS: 0.9% Normal Saline (1000mL) 1,000 ML 1000 ML IV (14:42)
[2023-12-15] MEDS: Ondansetron 4 MG/2 ML Vial IV ×2 (14:42→16:20)
[2023-12-15 14:47] LABS: Color, Urine Yellow (Yellow); Glucose, Dipstick 1000 mg/dl (Normal); Ketone-Dipstick Negative (Negative); Leukocyte Esterase-Dipstick Negative /ul (Negative); Nitrite-Dipstick Negative (Negative); Occult Blood-Urine Negative /ul (Negative); Protein-Dipstick 15 mg/dl (Negative); Urine Bilirubin Dipstick Negative (Negative); Urine Clarity Clear (Clear); Urine Urobilinogen Normal (Normal)
[2023-12-15 14:49] LABS: Absolute Lymphocyte Count 1.41 X10^3/uL (0.83-4.51); Absolute Neutrophil Count 8.7 X10^3/uL (2.0-7.7); Basophil# 0.06 X10^3/uL; Basophil% 0.6 % (0-1); Eosinophil# 0.01 X10^3/uL; Eosinophils% 0.1 % (0-5); Hematocrit 51.2 % (40-54); Hemoglobin 17.7 g/dL (13.0-16.5); Lymphocyte # 1.41 X10^3/ul (0.83-4.51); Lymphocyte % 12.9 % (19-41); Mean Corp Hgb Conc 34.6 g/dL (32-36); Mean Corpuscular Hgb 29.4 pg (27.0-32.0); Mean Corpuscular Volume 84.9 fL (80-94); Mean Platelet Vol. 9.6 fl (6.2-12.0); Monocyte# 0.66 X10^3/uL; Monocyte% 6.1 % (0-10); NRBC Flagged by Analyzer 0 % (0-5); Neutrophil # 8.69 X10^3/uL (2.7-7.7); Neutrophil % 79.7 % (47-70); Platelet Count 227 K/mm3 (150-450); RBC Distribution Width CV 12.5 % (11.6-14.6); RBC Distribution Width SD 38.5 fl (35.1-43.9); Red Blood Count 6.03 M/mm3 (4.6-6.2); White Blood Count 10.9 K/mm3 (4.4-11.0)
[2023-12-15 15:15] LABS: ALB/GLOB Ratio 1.3 RATIO (0.9-2.4); AST(SGOT) 20 U/L (15-37); Alanine Aminotransfer ALT/SGPT 18 U/L (16-61); Albumin, Serum 4.3 g/dL (3.2-5.0); Alkaline Phosphatase 90 U/L (45-117); Anion Gap 7 (5-15); BUN 12 mg/dL (7-18); BUN/Creat Ratio 12.3 RATIO (10-20); Calcium,Total 9.6 mg/dL (8.5-10.1); Chloride 100 mmol/L (98-107); Creatinine, Serum 0.98 mg/dL (0.70-1.30); EST Glomerular Filtration Rate 80 mL/min (>60); Est Glom Filt Rate - Afr Amer 97 mL/min (>60); Estimated Creatinine Clearance 69.32 ml/min; Globulin 3.4 g/dL (2.2-4.2); Glucose 179 mg/dL (74-106); Lipase 42 U/L (13-75); Potassium 3.9 mmol/L (3.5-5.1); Protein, Total 7.7 g/dL (6.4-8.2); Sodium Level 132 mmol/L (136-145); Troponin-I HS 25 pg/mL (3.0-78.0)
[2023-12-15 15:17] LABS: Squamous Epithelial Cells - UA 0-5 SEEN /hpf (0-5)
[2023-12-15 15:39] VITALS: BP 157/73; PULSE 71; RESP 16; O2SAT 99
--- NOTE | 2023-12-15 16:01 | US_ITS ---
STUDY: ABDOMINAL ULTRASOUND - RIGHT UPPER QUADRANT REASON FOR VISIT: Male, 73 years old Pain TECHNIQUE: Ultrasound evaluation of the right upper quadrant was performed with real-time and static rodriguez-scale imaging. TECHNICAL QUALITY: Adequate. COMPARISON: CT of the abdomen December 15, 2023 FINDINGS: Liver: The liver measures 16.5 cm. There is diffusely increased echogenicity of the liver. The bile ducts are within normal limits. There is hepatic color flow. The direction of portal flow is hepatopetal. There is no demonstrated mass lesion. Gallbladder: Normal distended gallbladder. The gallbladder wall measures 2 mm. There is a negative sonographic Aguilar''s sign. There is no pericholecystic fluid. There are no gallstones. Common Bile Duct (C.B.D.): The common bile duct measures 6 mm. Pancreas: Normal size of the head, body and tail of the pancreas. There is normal echogenicity of the pancreas. There is no demonstrated pancreatic mass or cyst. Right Kidney: Normal size of the right kidney. The right kidney measures 11.1 x 6 x 5.3 cm. Normal renal cortex. The right cortex measures 1.5 cm. There is no demonstrated renal mass or cyst. There is no right hydronephrosis. US/Gallbladder IMPRESSION: Normal right upper quadrant ultrasound examination. Electronically Signed: Alex Pugh MD at 17:08 EDT ,
[2023-12-15] MEDS: Morphine 4 MG/ML Syringe IV (16:20)
[2023-12-15 17:00] VITALS: BP 146/95; PULSE 74; RESP 16; O2SAT 93
[2023-12-15 17:28] VITALS: BP 146/95; PULSE 74; RESP 16; TEMP 36.5; O2SAT 93
== END 2023-12-15 17:29 | disposition home or self-care (01) ==
PROVIDERS: Emergency Provider Emergency Medicine; Visit Provider Emergency Medicine
DX: R19.7 Diarrhea, unspecified (principal); J44.9 Chronic obstructive pulmonary disease, unspecified; E11.9 Type 2 diabetes mellitus without complications; R10.9 Unspecified abdominal pain; R11.2 Nausea with vomiting, unspecified; F17.210 Nicotine dependence, cigarettes, uncomplicated; G47.33 Obstructive sleep apnea (adult) (pediatric); Z95.5 Presence of coronary angioplasty implant and graft
CPT/HCPCS: 74177; 76705; 80053; 81001; 83690; 84484; 85025; 93005; 96361; 96374; 96375; 99283; J7030; Q9967; J2405

== ENCOUNTER 2024-01-02 08:29 | Emergency (ER) | payer OTHER, SELFPAY ==
[2024-01-02 08:31] VITALS: BP 153/62; PULSE 67; RESP 18; TEMP 36.4; O2SAT 98; BMI 28.4
--- NOTE | 2024-01-02 08:46 | ED.VIS.GI ---
HPI HPI - GI History of Present Illness Chief Complaint: GI Bleed Informant: patient Narrative Narrative: 73-year-old male presents after having diarrhea that was black this morning. This happened 1 time and has never happened before. No history of stomach ulcers that he knows of but he does take famotidine and pantoprazole daily for GERD. He is on no antiplatelet or anticoagulant medications except for a baby aspirin every day. He has been having diffuse mid periumbilical abdominal pain and some constipation and small bowel movements, for which [facility], they advised him to go on a pure liquid diet for 3 days and today's day #3. Also placed on MiraLAX which she is doing so in the last 3 days he has been having diarrhea but this is the first time it was black. He denies any lightheadedness or syncope/presyncope. He denies any discomfort with eating or drinking. He has seen no bright red blood. No nausea or vomiting. He feels otherwise well and at baseline, he states the abdominal cramping is actually less than it had been right now. Patient denies eating anything or drinking anything dark/black except for some various colored/flavored popsicles. [facility] Medical History Abdominal pain Constipation COPD (chronic obstructive pulmonary disease) CPAP (continuous positive airway pressure) dependence Diabetes Diabetic acetonemia Fatty liver GERD (gastroesophageal reflux disease) High cholesterol Hypertension JOANNA on CPAP Sleep apnea Smoker Wears dentures Wears glasses Home Medications amlodipine 5 mg tablet 10 mg PO DAILY 12/20/20 [History Last Taken Unknown] aspirin 81 mg chewable tablet 81 mg PO DAILY@0800 12/20/20 [History Last Taken Unknown] atorvastatin 80 mg tablet 80 mg PO QHS 12/20/20 [History Last Taken Unknown] budesonide-formoterol HFA 160 mcg-4.5 mcg/actuation aerosol inhaler 2 puff IH BID 12/20/20 [History Last Taken Unknown] cholecalciferol (vitamin D3) 50 mcg (2,000 unit) capsule 2,000 unit PO DAILY 12/20/20 [History Last Taken Unknown] empagliflozin 10 mg tablet 12.5 mg PO DAILY 12/20/20 [History Last Taken Unknown] losartan 100 mg tablet 25 mg PO QHS 12/20/20 [History Last Taken Unknown] nitroglycerin 0.4 mg sublingual tablet 0.4 mg sublingual Q5M PRN Chest Pain 12/20/20 [History Last Taken Unknown] hydralazine 50 mg tablet 50 mg PO 4XD 02/11/23 [History Last Taken Unknown] semaglutide 0.25 mg or 0.5 mg (2 mg/3 mL) subcutaneous pen injector (Ozempic) 0.25 mg subcut QWEEK 02/11/23 [History Last Taken Unknown] insulin glargine 100 unit/mL (3 mL) subcutaneous pen 32 unit subcut QHS 06/07/23 [History Last Taken Unknown] metformin 1,000 mg tablet 1,000 mg PO DAILY 06/07/23 [History Last Taken Unknown] metformin 500 mg tablet 500 mg PO DAILY 06/07/23 [History Last Taken Unknown] polyethylene glycol 3350 17 gram oral powder packet (Miralax) 17 g PO BID 06/07/23 [History Last Taken Unknown] dicyclomine 10 mg capsule 10 mg PO TID PRN abdominal pain #30 caps 06/11/23 [Rx Last Taken Unknown] albuterol sulfate 90 mcg/actuation aerosol inhaler 2 puff inhalation Q6H PRN PRN Sob &/Or Wheezing #6.7 grams 07/02/23 [Rx Last Taken Unknown] pantoprazole 40 mg tablet,delayed release (Protonix) 40 mg PO DAILY #30 tabs 07/02/23 [Rx Last Taken Unknown] dicyclomine 20 mg tablet 20 mg PO TID #20 tabs 12/15/23 [Rx Last Taken Unknown] ondansetron 4 mg disintegrating tablet 4 mg PO Q6H PRN nausea and vomiting #20 tabs 12/15/23 [Rx Last Taken Unknown] Allergy/AdvReac Type Severity Reaction Status Date / Time chlorthalidone Allergy NEEDS Verified 01/02/24 08:31 FOLLOW-UP hydrochlorothiazide Allergy NEEDS Verified 01/02/24 08:31 FOLLOW-UP Family History Mother Diabetes Hypertension Brother Diabetes Hypertension Surgical History H/O heart artery stent History of appendectomy (Unknown) History of cardiac catheterization Social History Smoking Status: Current every day smoker tobacco type: cigarettes alcohol intake: current alcohol intake frequency: holidays/special occasions only substance use type: does not use ROS ROS ED Constitutional Constitutional ED: Denies chills or fever(s) Eyes Eyes: Denies change in vision or diplopia ENT ENT ED: Denies rhinorrhea or sore throat Cardiovascular Cardiovascular: Denies chest pain, lightheadedness, palpitations or syncope Respiratory/Chest Respiratory/Chest: Denies cough or dyspnea Gastrointestinal Gastrointestinal: Reports as per HPI, abdominal pain and diarrhea; Denies nausea or vomiting Genitourinary Genitourinary ED: Denies dysuria or hematuria Musculoskeletal Musculoskeletal: Denies back pain or neck pain Integumentary Denies abscess or rash Neurologic Neurologic: Denies headache(s), paresthesias or weakness Psychiatric Psychiatric: Denies anxiety or suicidal thoughts EXAM Physical Exam Const Vital Signs: 01/02/24 08:31 01/02/24 09:23 01/02/24 09:23 Temperature 97.6 F L Temperature Source Temporal Pulse Rate 67 Pulse Rate [Lying] 67 Pulse Rate [Sitting (for 1 minute prior to obtaining)] 67 Pulse Rate [Standing (for 1 minute prior to obtaining)] 72 Respiratory Rate 18 Blood Pressure 153/62 H Blood Pressure [Lying] 142/65 H Blood Pressure [Sitting (for 1 minute prior to obtaining)] 152/71 H Blood Pressure [Standing (for 1 minute prior to obtaining)] 135/70 H Blood Pressure Mean 92 Blood Pressure Mean [Lying] 90 Blood Pressure Mean [Sitting (for 1 minute prior to obtaining)] 98 Blood Pressure Mean [Standing (for 1 minute prior to obtaining)] 91 Pulse Ox 98 Oxygen Delivery Method Room Air 01/02/24 10:29 01/02/24 12:00 Temperature Temperature Source Pulse Rate 67 67 Pulse Rate [Lying] Pulse Rate [Sitting (for 1 minute prior to obtaining)] Pulse Rate [Standing (for 1 minute prior to obtaining)] Respiratory Rate 16 16 Blood Pressure 142/64 H 143/76 H Blood Pressure [Lying] Blood Pressure [Sitting (for 1 minute prior to obtaining)] Blood Pressure [Standing (for 1 minute prior to obtaining)] Blood Pressure Mean 90 98 Blood Pressure Mean [Lying] Blood Pressure Mean [Sitting (for 1 minute prior to obtaining)] Blood Pressure Mean [Standing (for 1 minute prior to obtaining)] Pulse Ox 99 98 Oxygen Delivery Method Room Air Positive well nourished and well developed General Appearance ED: well developed and NAD HEENT Reports moist mucous membranes normocephalic and atraumatic Eyes PERRL and EOMs intact bilaterally Neck full ROM and supple Resp normal respiratory effort and clear to auscultation bilaterally Cardio regular rate, regular rhythm and no murmurs GI non-tender and non-distended GI Narrative: Rectal nontender no blood or melena/black stool, there is yellow-brown scant specimen that was sent for Hemoccult. Auscultation: normoactive bowel sounds Palpation: soft Back/Spine no CVA tenderness General Back: other FROM Extremity normal to inspection General Extremety ED: Negative for edema, pulses abnormal or tenderness General Extremity: Negative for edema or pulses abnormal Neuro oriented x3, CN's II-XII intact bilaterally and no sensory deficits noted Sensorium / Orientation: awake and alert Motor Exam: strength 5/5 throughout Psych mental status grossly normal and thought process normal Skin no rashes or lesions noted and no wounds MDM MDM MDM Narrative Medical decision making narrative: Obtain blood counts, his hemoglobin is excellent at 16.9, and chemistries show that everything is normal, his BUN is not elevated it is 6, all of this arguing against an active upper GI bleed. I did a rectal send the Hemoccult it is negative there was a small amount of specimen available, and a little while later he needed to have a bowel movement so nurses sent a sample of that diarrhea for Hemoccult and it was positive. He is doing well hemodynamically and clinically has no symptoms. Given this, I reviewed his recent endoscopy. He had colonoscopy and EGD in July here. The EGD showed erosive esophagitis without evidence of bleeding, there were biopsies of that and a couple areas of the stomach sent, there was no dysplasia and his H. pylori was negative. If he was having black stools due to bleeding, it would be most likely coming from his area of esophagitis. 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 He is comfortable with that plan at this time I think it safe for him to be discharged home. Lab Data Attestation: I reviewed the patient's lab results. Labs: Laboratory Results - last 24 hr 01/02/24 01/02/24 08:45 09:30 WBC 10.3 RBC 5.70 Hgb 16.9 H Hct 51.0 MCV 89.5 MCH 29.6 MCHC 33.1 RDW Std Deviation 42.2 RDW Coeff of Aldair 12.9 Plt Count 261 MPV 9.3 Immature Gran % (Auto) 0.600 Neut % (Auto) 76.8 H Lymph % (Auto) 14.9 L Gilpin % (Auto) 6.6 Eos % (Auto) 0.4 Baso % (Auto) 0.7 Absolute Neuts (auto) 7.9 H Absolute Lymphs (auto) 1.53 Nucleated RBC % 0 Sodium 135 L Potassium 3.6 Chloride 99 Carbon Dioxide 31.0 Anion Gap 5 BUN 6 L Creatinine 1.03 Estim Creat Clear Calc 72.06 Est GFR (MDRD) Af Amer 91 Est GFR (MDRD) Non-Af 75 BUN/Creatinine Ratio 5.8 L Glucose 265 H Calcium 9.8 Discharge Plan Triage Chief Complaint: GI Bleed ED Provider: Chris Reynolds Dx/Rx/DC Orders Clinical Impression: Black stool, Occult GI bleeding Instructions: ED Upper GI Bleeding (Stable) Prescriptions: No Action metformin 1,000 mg tablet 1,000 mg PO DAILY Rx Instructions: with dinner atorvastatin 80 MG tablet 80 mg PO QHS amlodipine 5 MG tablet 10 mg PO DAILY nitroglycerin 0.4 MG tablet, sublingual 0.4 mg SL Q5M PRN (Reason: Chest Pain) aspirin 81 MG tablet,chewable 81 mg PO DAILY@0800 losartan 100 MG tablet 25 mg PO QHS budesonide-formoterol 10.2 GM HFA aerosol inhaler 2 puff IH BID cholecalciferol (vitamin D3) 2,000 UNIT capsule 2,000 unit PO DAILY empagliflozin 10 MG tablet 12.5 mg PO DAILY insulin glargine 100 unit/mL (3 mL) insulin pen 32 unit SC QHS hydralazine 50 mg Tablet 50 mg PO 4XD Ozempic 0.25 mg or 0.5 mg (2 mg/3 mL) Pen Injector 0.25 mg SUBCUT QWEEK Rx Instructions: for 4 weeks polyethylene glycol 3350 [Miralax] 17 gram powder in packet 17 g PO BID metformin 500 mg tablet 500 mg PO DAILY Rx Instructions: with breakfast dicyclomine 10 mg capsule 10 mg PO TID PRN (Reason: abdominal pain) Qty: 30 0RF pantoprazole [Protonix] 40 mg tablet,delayed release (DR/EC) 40 mg PO DAILY Qty: 30 0RF albuterol sulfate 1 PUFF inhaler 2 puff INHALATION Q6H PRN PRN (Reason: Sob &/Or Wheezing) Qty: 6.7 0RF ondansetron 4 mg tablet,disintegrating 4 mg PO Q6H PRN (Reason: nausea and vomiting) Qty: 20 0RF dicyclomine 20 mg tablet 20 mg PO TID Qty: 20 0RF [facility] [Primary [facility] Provider] - (Follow-up with your professor of visual arts at the [facility] as soon as possible.) Activity Restrictions/Additional Instructions: Your BUN is 6 and your hemoglobin is 16.9. Double your pantoprazole to your taking 1 tablet in the morning and 1 tablet in the evening.
[2024-01-02 08:59] LABS: Absolute Lymphocyte Count 1.53 X10^3/uL (0.83-4.51); Absolute Neutrophil Count 7.9 X10^3/uL (2.0-7.7); Basophil# 0.07 X10^3/uL; Basophil% 0.7 % (0-1); Eosinophil# 0.04 X10^3/uL; Eosinophils% 0.4 % (0-5); Hemoglobin 16.9 g/dL (13.0-16.5); Lymphocyte # 1.53 X10^3/ul (0.83-4.51); Lymphocyte % 14.9 % (19-41); Mean Corp Hgb Conc 33.1 g/dL (32-36); Mean Corpuscular Hgb 29.6 pg (27.0-32.0); Mean Corpuscular Volume 89.5 fL (80-94); Mean Platelet Vol. 9.3 fl (6.2-12.0); Monocyte# 0.68 X10^3/uL; Monocyte% 6.6 % (0-10); NRBC Flagged by Analyzer 0 % (0-5); Neutrophil # 7.87 X10^3/uL (2.7-7.7); Neutrophil % 76.8 % (47-70); Platelet Count 261 K/mm3 (150-450); RBC Distribution Width CV 12.9 % (11.6-14.6); RBC Distribution Width SD 42.2 fl (35.1-43.9); White Blood Count 10.3 K/mm3 (4.4-11.0)
[2024-01-02 09:15] LABS: Anion Gap 5 (5-15); BUN 6 mg/dL (7-18); BUN/Creat Ratio 5.8 RATIO (10-20); Calcium,Total 9.8 mg/dL (8.5-10.1); Chloride 99 mmol/L (98-107); Creatinine, Serum 1.03 mg/dL (0.70-1.30); EST Glomerular Filtration Rate 75 mL/min (>60); Est Glom Filt Rate - Afr Amer 91 mL/min (>60); Estimated Creatinine Clearance 72.06 ml/min; Glucose 265 mg/dL (74-106); Potassium 3.6 mmol/L (3.5-5.1); Sodium Level 135 mmol/L (136-145)
[2024-01-02 09:23] VITALS: BP 135/70; BP 142/65; BP 152/71; PULSE 67; PULSE 72
[2024-01-02 10:29] VITALS: BP 142/64; PULSE 67; RESP 16; O2SAT 99
[2024-01-02 12:00] VITALS: BP 143/76; PULSE 67; RESP 16; O2SAT 98
--- NOTE | 2024-01-02 12:10 | ED.RN ---
called lab regarding occult stool result. not resulted yet
[2024-01-02 13:30] VITALS: BP 131/66; PULSE 64; RESP 18; TEMP 36.4; O2SAT 99
== END 2024-01-02 13:31 | disposition home or self-care (01) ==
PROVIDERS: Emergency Provider Emergency Medicine; Visit Provider Emergency Medicine
DX: K92.2 Gastrointestinal hemorrhage, unspecified (principal); J44.9 Chronic obstructive pulmonary disease, unspecified; E11.9 Type 2 diabetes mellitus without complications; F17.210 Nicotine dependence, cigarettes, uncomplicated; G47.33 Obstructive sleep apnea (adult) (pediatric); Z95.5 Presence of coronary angioplasty implant and graft
CPT/HCPCS: 80048; 82274; 85025; 99284; A4216

== ENCOUNTER 2024-04-23 08:41 | Emergency (ER) | payer OTHER, SELFPAY ==
[2024-04-23 08:41] VITALS: BP 151/75; PULSE 60; RESP 16; TEMP 36.2; O2SAT 99; BMI 26.4
[2024-04-23 09:26] LABS: Absolute Lymphocyte Count 1.32 X10^3/uL (0.83-4.51); Absolute Neutrophil Count 5.3 X10^3/uL (2.0-7.7); Basophil# 0.05 X10^3/uL; Basophil% 0.7 % (0-1); Eosinophil# 0.05 X10^3/uL; Eosinophils% 0.7 % (0-5); Hematocrit 48.2 % (40-54); Hemoglobin 16.1 g/dL (13.0-16.5); Lymphocyte # 1.32 X10^3/ul (0.83-4.51); Lymphocyte % 17.9 % (19-41); Mean Corp Hgb Conc 33.4 g/dL (32-36); Mean Corpuscular Hgb 28.8 pg (27.0-32.0); Mean Corpuscular Volume 86.2 fL (80-94); Mean Platelet Vol. 9.5 fl (6.2-12.0); Monocyte# 0.62 X10^3/uL; Monocyte% 8.4 % (0-10); NRBC Flagged by Analyzer 0 % (0-5); Neutrophil # 5.31 X10^3/uL (2.7-7.7); Neutrophil % 71.8 % (47-70); Platelet Count 185 K/mm3 (150-450); RBC Distribution Width CV 12.5 % (11.6-14.6); RBC Distribution Width SD 39.3 fl (35.1-43.9); Red Blood Count 5.59 M/mm3 (4.6-6.2); White Blood Count 7.4 K/mm3 (4.4-11.0)
[2024-04-23 09:31] LABS: Bacteria 0 SEEN /hpf (None Seen); Mucous, Urine 0 SEEN /hpf (<or=2+); Red Blood Cells-Urine 0 SEEN /hpf (0-5); Squamous Epithelial Cells - UA 0 SEEN /hpf (0-5); White Blood Cells 0 SEEN /hpf (0-5)
[2024-04-23 09:32] LABS: Color, Urine Yellow (Yellow); Glucose, Dipstick 1000 mg/dl (Normal); Ketone-Dipstick Negative (Negative); Leukocyte Esterase-Dipstick Negative /ul (Negative); Nitrite-Dipstick Negative (Negative); Occult Blood-Urine Negative /ul (Negative); Protein-Dipstick Negative (Negative); Specific Gravity, Urine 1.005 (1.002-1.030); Urine Bilirubin Dipstick Negative (Negative); Urine Clarity Clear (Clear); Urine Urobilinogen Normal (Normal)
[2024-04-23 09:41] LABS: ALB/GLOB Ratio 1.3 RATIO (0.9-2.4); AST(SGOT) 19 U/L (15-37); Alanine Aminotransfer ALT/SGPT 23 U/L (16-61); Albumin, Serum 3.9 g/dL (3.2-5.0); Alkaline Phosphatase 75 U/L (45-117); Anion Gap 8 (5-15); BUN 12 mg/dL (7-18); Calcium,Total 9.3 mg/dL (8.5-10.1); Chloride 99 mmol/L (98-107); Creatinine, Serum 0.86 mg/dL (0.70-1.30); EST Glomerular Filtration Rate 93 mL/min (>60); Est Glom Filt Rate - Afr Amer 112 mL/min (>60); Estimated Creatinine Clearance 78.99 ml/min; Glucose 203 mg/dL (74-106); Potassium 3.8 mmol/L (3.5-5.1); Protein, Total 6.9 g/dL (6.4-8.2); Sodium Level 133 mmol/L (136-145)
--- NOTE | 2024-04-23 10:13 | CT_ITS ---
STUDY: CT ABDOMEN AND PELVIS WITH CONTRAST REASON FOR EXAM: Male, 73 years old. Diffuse abdominal pain, nausea RADIATION DOSAGE (If Supplied By Facility): CTDIvol = ( 16.39 ) mGy, DLP = ( 1011.40 ) mGycm TECHNIQUE: Transaxial images were obtained from the dome of the diaphragm to the symphysis pubis without oral contrast. IV 100mL [id number]-[id number] was administered. Sagittal and coronal images were reconstructed. Individualized dose optimization techniques were used for this CT. COMPARISON: 12/15/2023 FINDINGS: The visualized lung bases are unremarkable. The visualized portions of the heart are within normal limits. Normal liver. Normal gallbladder and extrahepatic biliary system. Normal spleen. Normal pancreas. Normal bilateral adrenal glands. No obstructive uropathy or suspicious solid renal lesion, there are low-density simple cysts in the right kidney measuring less than 1 cm. Normal visualized stomach. Normal small intestine. There are multiple colonic diverticula consistent with diverticulosis. There is non-visualization of the appendix. There is diffuse atherosclerotic calcification of the abdominal aorta, without a demonstrated aneurysm. Normal inferior vena cava. Normal retroperitoneum. Normal urinary bladder. Normal abdominal wall. There are diffuse degenerative changes of the visualized lumbar spine, and pelvis. CT/Abdomen/Pelvis W IV Cont ONLY IMPRESSION: No suspicious solid organ abnormality, simple subcentimeter right renal cysts, no specific follow-up needed. No free intraperitoneal fluid, air, or suspicious adenopathy Electronically Signed: Dimitris Silva MD at 11:04 EDT ,
--- NOTE | 2024-04-23 10:31 | ED.VIS.GI ---
HPI HPI - GI History of Present Illness Chief Complaint: Abd Pain Informant: patient Narrative Narrative: Patient is a 73-year-old male with history of hypertension, hyperlipidemia and, diabetes mellitus and reports chronic constipation. He is presenting today for worsening lower abdominal pain that raise to his left back. He feels that is been worsening for the past month. Is becoming more constant. He describes as a cramping sensation. Usually an appointment to see the GI doctor at the [facility] last month but is canceled and rescheduled for the end of this month. He denies any associated nausea or vomiting, fever or chills. He denies any chest pain. States he sometimes has some mild shortness of breath but none currently. Denies any urinary symptoms such as hematuria or dysuria. States that he had a small bowel movement today that was liquid and some small granules. Denies any black or blood in his stool. Denies a sensation of pressure or stool stuck in his rectum. Is taking MiraLAX and senna with no improvement of his symptoms. Denies any other, concerns at this time. [facility] Medical History Abdominal pain Constipation COPD (chronic obstructive pulmonary disease) CPAP (continuous positive airway pressure) dependence Diabetes Diabetic acetonemia Fatty liver GERD (gastroesophageal reflux disease) High cholesterol Hypertension JOANNA on CPAP Sleep apnea Smoker Wears dentures Wears glasses Home Medications ?Medication ?Instructions ?Recorded ?Last Taken ?Type amlodipine 5 mg tablet 10 mg PO DAILY 12/20/20 Unknown History aspirin 81 mg chewable tablet 81 mg PO DAILY@0800 12/20/20 Unknown History atorvastatin 80 mg tablet 80 mg PO QHS 12/20/20 Unknown History budesonide-formoterol HFA 160 2 puff IH BID 12/20/20 Unknown History mcg-4.5 mcg/actuation aerosol inhaler cholecalciferol (vitamin D3) 50 2,000 unit PO DAILY 12/20/20 Unknown History mcg (2,000 unit) capsule empagliflozin 10 mg tablet 12.5 mg PO DAILY 12/20/20 Unknown History losartan 100 mg tablet 25 mg PO QHS 12/20/20 Unknown History nitroglycerin 0.4 mg sublingual 0.4 mg sublingual Q5M PRN Chest 12/20/20 Unknown History tablet Pain hydralazine 50 mg tablet 50 mg PO 4XD 02/11/23 Unknown History semaglutide 0.25 mg or 0.5 mg (2 0.25 mg subcut QWEEK 02/11/23 Unknown History mg/3 mL) subcutaneous pen injector (Ozempic) insulin glargine 100 unit/mL (3 32 unit subcut QHS 06/07/23 Unknown History mL) subcutaneous pen metformin 1,000 mg tablet 1,000 mg PO DAILY 06/07/23 Unknown History metformin 500 mg tablet 500 mg PO DAILY 06/07/23 Unknown History polyethylene glycol 3350 17 gram 17 g PO BID 06/07/23 Unknown History oral powder packet (Miralax) dicyclomine 10 mg capsule 10 mg PO TID PRN abdominal pain 06/11/23 Unknown Rx #30 caps albuterol sulfate 90 mcg/actuation 2 puff inhalation Q6H PRN PRN Sob 07/02/23 Unknown Rx aerosol inhaler &/Or Wheezing #6.7 grams pantoprazole 40 mg tablet,delayed 40 mg PO DAILY #30 tabs 07/02/23 Unknown Rx release (Protonix) dicyclomine 20 mg tablet 20 mg PO TID #20 tabs 12/15/23 Unknown Rx ondansetron 4 mg disintegrating 4 mg PO Q6H PRN nausea and 12/15/23 Unknown Rx tablet vomiting #20 tabs dicyclomine 10 mg capsule 20 mg (2 x 10 mg) PO TIDAC #20 04/23/24 Unknown Rx CAPSULES magnesium citrate 150 ml PO BID PRN constipation 04/23/24 Unknown Rx #296 mL psyllium husk 0.4 gram capsule 1.2 g (3 x 0.4 gram) PO DAILY 30 04/23/24 Unknown Rx (Fiber (psyllium husk)) days #90 caps Allergy/AdvReac Type Severity Reaction Status Date / Time chlorthalidone Allergy NEEDS Verified 04/23/24 09:25 FOLLOW-UP hydrochlorothiazide Allergy NEEDS Verified 04/23/24 09:25 FOLLOW-UP Family History Mother Diabetes Hypertension Brother Diabetes Hypertension Surgical History H/O heart artery stent History of appendectomy (Unknown) History of cardiac catheterization Social History Smoking Status: Current every day smoker tobacco type: cigarettes alcohol intake: current alcohol intake frequency: holidays/special occasions only substance use type: does not use ROS ROS ED Constitutional Constitutional ED: Denies chills or fever(s) Cardiovascular Cardiovascular: Denies chest pain Respiratory/Chest Respiratory/Chest: Denies cough Gastrointestinal Gastrointestinal: Reports abdominal pain and constipation; Denies nausea or vomiting Genitourinary Genitourinary ED: Denies dysuria or urinary frequency Musculoskeletal Musculoskeletal: Denies back pain Integumentary Denies rash Hematologic/Lymphatic Hematologic/Lymphatic: Denies easy bleeding or easy bruising EXAM Physical Exam Const Vital Signs: 04/23/24 08:41 04/23/24 10:41 04/23/24 12:00 Temperature 97.1 F L Temperature Source Temporal Pulse Rate 60 54 L 55 L Respiratory Rate 16 16 16 Blood Pressure 151/75 H 154/60 H 154/61 H Blood Pressure Mean 100 91 92 Pulse Ox 99 95 95 Oxygen Delivery Method Room Air Room Air Room Air Positive well nourished and well developed General Appearance ED: well developed and NAD HEENT HEENT Narrative: mildly dry mucosal membranes Eyes PERRL Neck supple Resp normal respiratory effort and clear to auscultation bilaterally Cardio regular rate and regular rhythm GI non-tender and non-distended Auscultation: hypoactive bowel sounds Palpation: soft; Negative for tender or guarding Back/Spine no CVA tenderness Extremity full ROM Neuro Sensorium / Orientation: alert Motor Exam: Negative for general weakness Psych mental status grossly normal and thought process normal Skin no wounds MDM MDM MDM Narrative Medical decision making narrative: Patient is evaluated for ongoing and worsening lower abdominal pain. It radiates slightly around to his left back. He appears nontoxic and in no acute distress. Does not feel he is having adequate bowel movements. Denies any fever or night sweats. Denies any blood in his stool. Vital signs stable in the ER. He is mildly hypertensive but is have a history of high blood pressure. Abdominal workup is obtained given that the progression and change of his symptoms concern for possible partial obstruction so we will obtain a CT of abdomen pelvis. Differential also includes renal colic, urinary tract infection, colitis, diverticulitis and electrolyte abnormalities. Lab work largely normal with a normal CBC and CMP. Urinalysis axis with infection. CT abdomen pelvis does not show any acute process. There is not a significant stool burden on my interpretation. Patient who will be started on Bentyl for symptom control. Will give him course of magnesium citrate for more of a cleanout. Will start the patient on fiber after that. He will follow-up outpatient with [facility]. He is agreeable this plan of care. He states that he pads do help and is encouraged to use heat as well as needed for symptoms. Patient verbalized agreement to this plan. Discharged home in stable condition. Lab Data Attestation: I reviewed the patient's lab results. Labs: Laboratory Results - last 24 hr 04/23/24 04/23/24 09:10 09:15 WBC 7.4 RBC 5.59 Hgb 16.1 Hct 48.2 MCV 86.2 MCH 28.8 MCHC 33.4 RDW Std Deviation 39.3 RDW Coeff of [place]air 12.5 Plt Count 185 MPV 9.5 Immature Gran % (Auto) 0.500 Neut % (Auto) 71.8 H Lymph % (Auto) 17.9 L [place] % (Auto) 8.4 Eos % (Auto) 0.7 Baso % (Auto) 0.7 Absolute Neuts (auto) 5.3 Absolute Lymphs (auto) 1.32 Nucleated RBC % 0 Sodium 133 L Potassium 3.8 Chloride 99 Carbon Dioxide 26.0 Anion Gap 8 BUN 12 Creatinine 0.86 Estim Creat Clear Calc 78.99 Est GFR (MDRD) Af Amer 112 Est GFR (MDRD) Non-Af 93 BUN/Creatinine Ratio 14.0 Glucose 203 H Calcium 9.3 Total Bilirubin 1.60 H AST 19 ALT 23 Alkaline Phosphatase 75 Total Protein 6.9 Albumin 3.9 Globulin 3.0 Albumin/Globulin Ratio 1.3 Urine Color Yellow Urine Clarity Clear Urine pH 7.0 Ur Specific [place] 1.005 Urine Protein Negative Urine Glucose (UA) 1000 H Urine Ketones Negative Urine Occult Blood Negative Urine Nitrite Negative Urine Bilirubin Negative Urine Urobilinogen Normal Ur Leukocyte Esterase Negative Urine RBC 0 SEEN Urine WBC 0 SEEN Ur Squamous Epith Cells 0 SEEN Urine Bacteria 0 SEEN Urine Mucus 0 SEEN Radiography Diagnostic Testing: Clinical Impression(s) from Imaging Studies Abdomen/Pelvis CT 04/23/24 10:13 IMPRESSION: No suspicious solid organ abnormality, simple subcentimeter right renal cysts, no specific follow-up needed. No free intraperitoneal fluid, air, or suspicious adenopathy Electronically Signed: Dimitris Silva MD at 11:04 EDT Reading Location ID and State: [facility] / [place] , Service support , Discharge Plan Triage Chief Complaint: Abd Pain ED Provider: Brittany Clifford Dx/Rx/DC Orders Clinical Impression: Abdominal pain, lower, Difficult bowel movements Instructions: Eating a High-Fiber Diet, ED Abdominal Pain Unkn Cause Male... Prescriptions: New magnesium citrate Solution 150 ml PO BID PRN (Reason: constipation) Qty: 296 0RF Rx Instructions: Drink half the bottle and then wait a couple hours and then drink the other half the bottle or until you have adequate results. dicyclomine 10 mg capsule 20 mg PO TIDAC Qty: 20 0RF psyllium husk [Fiber (psyllium husk)] 0.4 gram capsule 1.2 g PO DAILY 30 Days Qty: 90 0RF No Action metformin 1,000 mg tablet 1,000 mg PO DAILY Rx Instructions: with dinner atorvastatin 80 MG tablet 80 mg PO QHS amlodipine 5 MG tablet 10 mg PO DAILY nitroglycerin 0.4 MG tablet, sublingual 0.4 mg SL Q5M PRN (Reason: Chest Pain) aspirin 81 MG tablet,chewable 81 mg PO DAILY@0800 losartan 100 MG tablet 25 mg PO QHS budesonide-formoterol 10.2 GM HFA aerosol inhaler 2 puff IH BID cholecalciferol (vitamin D3) 2,000 UNIT capsule 2,000 unit PO DAILY empagliflozin 10 MG tablet 12.5 mg PO DAILY insulin glargine 100 unit/mL (3 mL) insulin pen 32 unit SC QHS hydralazine 50 mg Tablet 50 mg PO 4XD Ozempic 0.25 mg or 0.5 mg (2 mg/3 mL) Pen Injector 0.25 mg SUBCUT QWEEK Rx Instructions: for 4 weeks polyethylene glycol 3350 [Miralax] 17 gram powder in packet 17 g PO BID metformin 500 mg tablet 500 mg PO DAILY Rx Instructions: with breakfast dicyclomine 10 mg capsule 10 mg PO TID PRN (Reason: abdominal pain) Qty: 30 0RF pantoprazole [Protonix] 40 mg tablet,delayed release (DR/EC) 40 mg PO DAILY Qty: 30 0RF albuterol sulfate 1 PUFF inhaler 2 puff INHALATION Q6H PRN PRN (Reason: Sob &/Or Wheezing) Qty: 6.7 0RF ondansetron 4 mg tablet,disintegrating 4 mg PO Q6H PRN (Reason: nausea and vomiting) Qty: 20 0RF dicyclomine 20 mg tablet 20 mg PO TID Qty: 20 0RF [facility] - Activity Restrictions/Additional Instructions[facility] There does not appear to be an obvious surgical or medical emergency causing your symptoms. This needs more nuanced outpatient follow-up with GI. We will try giving you a GI cleanout with magnesium citrate. Make sure drink plenty of fluids and electrolytes with that. After that start taking the fiber supplement to help increase your fiber intake and help with your bowel movements. I have prescribed the medication Bentyl (dicyclomine) to help with your abdominal discomfort. Print Language: Swiss Disposition Disposition: Home, Self Care
[2024-04-23 10:41] VITALS: BP 154/60; PULSE 54; RESP 16; O2SAT 95
[2024-04-23 12:00] VITALS: BP 154/61; PULSE 55; RESP 16; O2SAT 95
[2024-04-23 12:49] VITALS: BP 150/82; PULSE 71; RESP 14; TEMP 36.1; O2SAT 100
== END 2024-04-23 12:49 | disposition home or self-care (01) ==
PROVIDERS: Emergency Provider Emergency Medicine; Visit Provider Emergency Medicine
DX: R10.30 Lower abdominal pain, unspecified (principal); J44.9 Chronic obstructive pulmonary disease, unspecified; E11.9 Type 2 diabetes mellitus without complications; E78.00 Pure hypercholesterolemia, unspecified; I10 Essential (primary) hypertension; G47.33 Obstructive sleep apnea (adult) (pediatric); Z99.89 Dependence on other enabling machines and devices; Z79.899 Other long term (current) drug therapy; Z79.82 Long term (current) use of aspirin; Z79.51 Long term (current) use of inhaled steroids; Z79.84 Long term (current) use of oral hypoglycemic drugs; K21.9 Gastro-esophageal reflux disease without esophagitis; Z95.5 Presence of coronary angioplasty implant and graft; Z90.49 Acquired absence of other specified parts of digestive tract; F17.210 Nicotine dependence, cigarettes, uncomplicated; R19.4 Change in bowel habit
CPT/HCPCS: 74177; 80053; 81001; 85025; 99283; Q9967; A4216

== ENCOUNTER 2024-10-16 18:36 | Emergency (ER) | payer OTHER, SELFPAY ==
[2024-10-16] VITALS (16 sets, daily range): BP systolic 122–154; BP diastolic 62–79; PULSE 61–76; RESP 12–21; TEMP 36.9–37.1; O2SAT 93–99; BMI 26.6
--- NOTE | 2024-10-16 18:40 | EKG12_ITS ---
Test Reason : CP Blood Pressure : */* mmHG Vent. Rate : 75 BPM Atrial Rate : 75 BPM P-R Int : 174 ms QRS Dur : 104 ms QT Int : 382 ms P-R-T Axes : 59 -58 51 degrees QTcB Int : 426 ms Normal sinus rhythm Left axis deviation Septal infarct , age undetermined Abnormal ECG Confirmed by Alin Zamudio ([id number]), senior editor NAHOMY COULTER ([id number]) on 10/17/2024 10:04:27 AM Referred By: Confirmed By: Alin Zamudio
[2024-10-16 18:54] LABS: Absolute Lymphocyte Count 0.46 X10^3/uL (0.83-4.51); Basophil# 0.05 X10^3/uL; Basophil% 0.6 % (0-1); Eosinophil# 0.02 X10^3/uL; Eosinophils% 0.2 % (0-5); Hematocrit 45.7 % (40-54); Hemoglobin 15.8 g/dL (13.0-16.5); Lymphocyte # 0.46 X10^3/ul (0.83-4.51); Lymphocyte % 5.2 % (19-41); Mean Corp Hgb Conc 34.6 g/dL (32-36); Mean Corpuscular Hgb 29.2 pg (27.0-32.0); Mean Corpuscular Volume 84.5 fL (80-94); Mean Platelet Vol. 9.6 fl (6.2-12.0); Monocyte# 1.19 X10^3/uL; Monocyte% 13.5 % (0-10); NRBC Flagged by Analyzer 0 % (0-5); Neutrophil # 7.02 X10^3/uL (2.7-7.7); Neutrophil % 79.9 % (47-70); POSITIVE DIFFERENTIAL YES; Platelet Count 202 K/mm3 (150-450); RBC Distribution Width CV 13.2 % (11.6-14.6); RBC Distribution Width SD 40.8 fl (35.1-43.9); Red Blood Count 5.41 M/mm3 (4.6-6.2); White Blood Count 8.8 K/mm3 (4.4-11.0)
--- NOTE | 2024-10-16 18:55 | RAD_ITS ---
PROCEDURE: CHEST 1 VIEW (PORTABLE) REASON FOR EXAM: Chest pain. TECHNIQUE: Frontal view of the chest. COMPARISON: Chest x-ray from 07/04/2023. FINDINGS: Cardiac size and pulmonary vasculature are within normal limits. No consolidation, pleural effusion, or pneumothorax is present. Degenerative changes are identified. RAD/Chest 1 View (Portable) IMPRESSION: No acute cardiopulmonary process. Reading Location: [place]
[2024-10-16 19:10] LABS: Anion Gap 10 (5-15); BUN 12 mg/dL (7-18); BUN/Creat Ratio 13.2 RATIO (10-20); Calcium,Total 9.1 mg/dL (8.5-10.1); Chloride 100 mmol/L (98-107); Creatinine, Serum 0.91 mg/dL (0.70-1.30); EST Glomerular Filtration Rate 87 mL/min (>60); Est Glom Filt Rate - Afr Amer 105 mL/min (>60); Estimated Creatinine Clearance 74.65 ml/min; Glucose 185 mg/dL (74-106); Potassium 3.8 mmol/L (3.5-5.1); Sodium Level 134 mmol/L (136-145); Troponin-I HS (w/2H Reflex) 21 pg/mL (3.0-78.0)
--- NOTE | 2024-10-16 19:13 | ED.VIS.CHEST ---
HPI History of Present Illness Chief Complaint: Chest Pain Informant: patient Narrative Narrative: Presents chest tightness across both sides since 8:30 AM 11 hours ago. Tingling left fingers. Sinus congestion with this. Reports chills. Intermittent cough. 1 to 2 cigarettes a day. History of coronary disease with 3 stents last time in 2014 followed by the [place]. Hypertension diabetes and hyperlipidemia. No family history of MIs at young age. No heart cath since 2014. [facility] today, reports had nasal swabs and sent home. He had chest tightness at that time. No other testing performed. Persistent symptoms brings him here. No nausea or vomiting no urinary symptoms. Denies any dyspnea. CVD Risk Factors: Positive for Hypertension, Diabetes, Hypercholesterolemia and Smoking; Negative for Family History 1' </=55 [facility] Medical History Wears glasses Wears dentures Fatty liver Smoker CPAP (continuous positive airway pressure) dependence Abdominal pain COPD (chronic obstructive pulmonary disease) Sleep apnea JOANNA on CPAP High cholesterol GERD (gastroesophageal reflux disease) Constipation Hypertension Diabetes Diabetic acetonemia Home Medications ?Medication ?Instructions ?Recorded ?Last Taken ?Type amlodipine 5 mg tablet 10 mg PO DAILY 12/20/20 Unknown History aspirin 81 mg chewable tablet 81 mg PO DAILY@0800 12/20/20 10/16/24 09:00 History atorvastatin 80 mg tablet 80 mg PO QHS 12/20/20 Unknown History budesonide-formoterol HFA 160 2 puff IH BID 12/20/20 Unknown History mcg-4.5 mcg/actuation aerosol inhaler cholecalciferol (vitamin D3) 50 2,000 unit PO DAILY 12/20/20 Unknown History mcg (2,000 unit) capsule empagliflozin 10 mg tablet 5 mg PO DAILY 12/20/20 Unknown History losartan 100 mg tablet 50 mg PO QHS 12/20/20 Unknown History nitroglycerin 0.4 mg sublingual 0.4 mg sublingual Q5M PRN Chest 12/20/20 Unknown History tablet Pain hydralazine 50 mg tablet 50 mg PO 4XD 02/11/23 Unknown History insulin glargine 100 unit/mL (3 10 unit subcut QHS 06/07/23 Unknown History mL) subcutaneous pen metformin 1,000 mg tablet 1,000 mg PO DAILY 06/07/23 Unknown History metformin 500 mg tablet 500 mg PO DAILY 06/07/23 Unknown History polyethylene glycol 3350 17 gram 17 g PO BID 06/07/23 Unknown History oral powder packet (Miralax) albuterol sulfate 90 mcg/actuation 2 puff inhalation Q6H PRN PRN Sob 07/02/23 Unknown Rx aerosol inhaler &/Or Wheezing #6.7 grams magnesium citrate 150 ml PO BID PRN constipation 04/23/24 Unknown Rx #296 mL oseltamivir 75 mg capsule (Tamiflu) 75 mg PO BID 5 days #10 caps 10/16/24 Unknown Rx psyllium husk 0.4 gram capsule 1.2 g PO BID 10/16/24 Unknown History (Fiber (psyllium husk)) Allergy/AdvReac Type Severity Reaction Status Date / Time chlorthalidone Allergy NEEDS Verified 10/16/24 18:37 FOLLOW-UP hydrochlorothiazide Allergy NEEDS Verified 10/16/24 18:37 FOLLOW-UP Family History Mother Diabetes Hypertension Brother Diabetes Hypertension Surgical History History of cardiac catheterization History of appendectomy (Unknown) H/O heart artery stent Social History Smoking Status: Light Smoker (<10/day) alcohol intake: current alcohol intake frequency: holidays/special occasions only substance use type: does not use ROS ROS ED Constitutional Constitutional ED: Reports chills; Denies fever(s) or sweats ENT ENT ED: Reports other Details: Sinus congestion ; Denies sore throat Cardiovascular Cardiovascular: Reports chest pain; Denies leg edema, palpitations or racing heartbeat Respiratory/Chest Respiratory/Chest: Reports cough; Denies dyspnea or dyspnea on exertion Gastrointestinal Gastrointestinal: Denies abdominal pain, diarrhea, nausea or vomiting Genitourinary Genitourinary ED: Denies dysuria, hematuria or urinary frequency Musculoskeletal Musculoskeletal: Denies back pain, extremity pain or neck pain Integumentary Denies rash or wounds Neurologic Neurologic: Denies headache(s), paresthesias or weakness EXAM Physical Exam Const Vital Signs: 10/16/24 18:38 10/16/24 18:45 10/16/24 18:46 Temperature 98.7 F Temperature Source Temporal Pulse Rate 76 75 Respiratory Rate 18 21 H Respiratory Effort Blood Pressure 122/73 H Blood Pressure Mean 89 Pulse Ox 96 99 Oxygen Delivery Method Room Air Room Air Room Air 10/16/24 18:46 10/16/24 18:53 10/16/24 19:00 Temperature Temperature Source Pulse Rate 73 Respiratory Rate 15 Respiratory Effort Normal Blood Pressure 137/66 H Blood Pressure Mean 86 Pulse Ox 99 Oxygen Delivery Method 10/16/24 19:15 10/16/24 19:30 10/16/24 19:45 Temperature Temperature Source Pulse Rate 69 72 71 Respiratory Rate 13 20 H 14 Respiratory Effort Blood Pressure 145/79 H Blood Pressure Mean 98 Pulse Ox 98 98 99 Oxygen Delivery Method Room Air 10/16/24 20:00 10/16/24 20:15 10/16/24 20:35 Temperature Temperature Source Pulse Rate 72 75 61 Respiratory Rate 17 17 12 Respiratory Effort Blood Pressure 154/69 H Blood Pressure Mean 94 Pulse Ox 98 97 94 Oxygen Delivery Method Room Air 10/16/24 20:45 10/16/24 21:00 10/16/24 21:15 Temperature Temperature Source Pulse Rate 63 64 63 Respiratory Rate 13 12 16 Respiratory Effort Blood Pressure 150/62 H Blood Pressure Mean 87 Pulse Ox 96 98 93 Oxygen Delivery Method Room Air 10/16/24 21:30 10/16/24 21:45 10/16/24 22:00 Temperature 98.5 F Temperature Source Oral Pulse Rate 67 63 68 Respiratory Rate 18 18 18 Respiratory Effort Blood Pressure 149/64 H 149/64 H Blood Pressure Mean 90 92 Pulse Ox 95 95 98 Oxygen Delivery Method Room Air Room Air 10/16/24 22:00 Temperature 98.5 F Temperature Source Pulse Rate 68 Respiratory Rate 18 Respiratory Effort Blood Pressure 149/64 H Blood Pressure Mean 92 Pulse Ox 98 Oxygen Delivery Method Positive well nourished and well developed General Appearance ED: well developed and NAD HEENT Reports moist mucous membranes normocephalic and atraumatic Eyes General Eye ED: Yes normal appearance of both eyes Neck full ROM Chest Wall Chest: Negative for tenderness Resp normal respiratory effort and normal air movement Effort and Inspection: symmetric chest movement; Negative for respiratory distress Cardio regular rate, regular rhythm and no murmurs Peripheral Pulses: pulses 2+ throughout GI normal to inspection, nondistended, normoactive bowel sounds and non-tender Palpation: Negative for guarding or rebound tenderness present Extremity normal to inspection General Extremety ED: Negative for edema or tenderness General Extremity: Negative for edema Neuro oriented x3 and no sensory deficits noted Sensorium / Orientation: awake and alert Skin no rashes or lesions noted and no wounds Heart Score History: Slightly/Non-Suspicious ECG: Normal Age: >/= 65 years Risk Factors: >/= 3 Risk Factors or History of CAD Troponin: </= Normal Limit Score: 4 MDM MDM MDM Narrative Medical decision making narrative: Interventions / MDM: Differential diagnosis: Influenza, viral syndrome, chest pain Diagnosis considered but do not suspect: ACS however EKG and cardiac enzymes negative. My EKG interpretation: Sinus rate of 75, no ST or T wave changes. Imaging independently reviewed and interpreted by myself: 1 view chest x-ray: No acute process. External documents reviewed: N/A Test considered but not ordered:N/A ED course: Patient chest pain sinus congestion. EKG sinus rhythm no acute findings. Cardiac workup initiated. COVID, flu, RSV sent. 1914: Chest x-ray 1 view interpreted myself shows no acute process. Creatinine 0.91. Troponin 21 while the normal level of 19 however less than 53. Optimize aspirin 243 mg since he took his 81 mg earlier today. Potassium 3.8. Will await delta troponin results. 2129: Delta troponin 20. Negative per algorithm. Symptom free on reevaluation. Viral swab positive for influenza. Negative for COVID and RSV. Symptoms started this morning with coronary disease history. Discussed darting Tamiflu for which she agreed. First dose in the ED. Prescription to his pharmacy. Outpatient follow-up. All questions were answered. Re-evaluation: stable Disposition discussed with patient/family/significant other: Patient Case discussed with consulting clinician: N/A This note was generated with Duolingo dictation software. It may contain incorrect words, spelling, and punctuation that were not noted in checking the note before signing. Lab Data Attestation: I reviewed the patient's lab results. Labs: Laboratory Results - last 24 hr 10/16/24 10/16/24 18:33 20:40 WBC 8.8 RBC 5.41 Hgb 15.8 Hct 45.7 MCV 84.5 MCH 29.2 MCHC 34.6 RDW Std Deviation 40.8 RDW Coeff of [place]air 13.2 Plt Count 202 MPV 9.6 Immature Gran % (Auto) 0.600 Neut % (Auto) 79.9 H Lymph % (Auto) 5.2 L [place] % (Auto) 13.5 H Eos % (Auto) 0.2 Baso % (Auto) 0.6 Absolute Neuts (auto) 7.0 Absolute Lymphs (auto) 0.46 L Nucleated RBC % 0 Sodium 134 L Potassium 3.8 Chloride 100 Carbon Dioxide 23.0 Anion Gap 10 BUN 12 Creatinine 0.91 Estim Creat Clear Calc 74.65 Est GFR (MDRD) Af Amer 105 Est GFR (MDRD) Non-Af 87 BUN/Creatinine Ratio 13.2 Glucose 185 H Calcium 9.1 Troponin I High Sens 21 20 Radiography Diagnostic Testing: Clinical Impression(s) from Imaging Studies Chest X-Ray 10/16/24 18:55 IMPRESSION: No acute cardiopulmonary process. Reading Location: [facility] Discharge Plan Triage Chief Complaint: Chest Pain ED Provider: Antoine Means Dx/Rx/DC Orders Clinical Impression: Influenza A, Chest pain, History of CAD (coronary artery disease) Instructions: ED Chest Pain, Uncertain Cause, ED Influenza (Adult) Prescriptions: New oseltamivir [Tamiflu] 75 mg capsule 75 mg PO BID 5 Days Qty: 10 0RF No Action metformin 1,000 mg tablet 1,000 mg PO DAILY Rx Instructions: with dinner atorvastatin 80 MG tablet 80 mg PO QHS amlodipine 5 MG tablet 10 mg PO DAILY nitroglycerin 0.4 MG tablet, sublingual 0.4 mg SL Q5M PRN (Reason: Chest Pain) aspirin 81 MG tablet,chewable 81 mg PO DAILY@0800 losartan 100 MG tablet 50 mg PO QHS Patient Comments: 0NE 50 MG TABLET budesonide-formoterol 10.2 GM HFA aerosol inhaler 2 puff IH BID cholecalciferol (vitamin D3) 2,000 UNIT capsule 2,000 unit PO DAILY empagliflozin 10 MG tablet 5 mg PO DAILY insulin glargine 100 unit/mL (3 mL) insulin pen 10 unit SC QHS hydralazine 50 mg Tablet 50 mg PO 4XD polyethylene glycol 3350 [Miralax] 17 gram powder in packet 17 g PO BID metformin 500 mg tablet 500 mg PO DAILY Rx Instructions: with breakfast albuterol sulfate 1 PUFF inhaler 2 puff INHALATION Q6H PRN PRN (Reason: Sob &/Or Wheezing) Qty: 6.7 0RF magnesium citrate Solution 150 ml PO BID PRN (Reason: constipation) Qty: 296 0RF Rx Instructions: Drink half the bottle and then wait a couple hours and then drink the other half the bottle or until you have adequate results. psyllium husk [Fiber (psyllium husk)] 0.4 gram capsule 1.2 g PO BID Primary Care Provider: [facility] Referrals: [facility] [Primary Care Provider] - 1-2 Weeks Activity Restrictions/Additional Instructions: Cardiac workup negative. Viral swab positive for influenza. Negative for COVID and RSV. Take and finish Tamiflu as prescribed. Print Language: Turkmen Disposition Disposition: Home, Self Care Discharge Date/Time: 10/16/24 22:02
[2024-10-16] MEDS: Aspirin 81 MG TAB.CHEW 243 MG PO (19:28)
[2024-10-16 20:45] LABS: Reflex Troponin-HS? (from REC) Y
[2024-10-16 21:17] LABS: Troponin-I HS 20 pg/mL (3.0-78.0)
[2024-10-16] MEDS: Oseltamivir Phosphate 75 MG Capsule PO (21:59)
== END 2024-10-16 22:02 | disposition home or self-care (01) ==
PROVIDERS: Emergency Provider Emergency Medicine; Visit Provider Emergency Medicine
DX: J10.1 Influenza due to other identified influenza virus with other respiratory manifestations (principal); E11.9 Type 2 diabetes mellitus without complications; Z79.4 Long term (current) use of insulin; R07.89 Other chest pain; I25.10 Atherosclerotic heart disease of native coronary artery without angina pectoris; I10 Essential (primary) hypertension; E78.5 Hyperlipidemia, unspecified; G47.33 Obstructive sleep apnea (adult) (pediatric); Z95.5 Presence of coronary angioplasty implant and graft; Z79.82 Long term (current) use of aspirin; Z79.84 Long term (current) use of oral hypoglycemic drugs; Z79.899 Other long term (current) drug therapy; F17.200 Nicotine dependence, unspecified, uncomplicated
CPT/HCPCS: 71045; 80048; 84484; 85025; 87631; 93005; 99285; A4216

== ENCOUNTER 2024-11-11 08:58 | Emergency (ER) | payer OTHER, SELFPAY ==
[2024-11-11 08:59] VITALS: BP 156/59; PULSE 73; RESP 15; TEMP 36.8; O2SAT 97; BMI 26.8
--- NOTE | 2024-11-11 09:17 | RAD_ITS ---
PROCEDURE: SHOULDER MIN 2 VIEWS REASON FOR EXAM: 74-year-old male, fall onto left side. TECHNIQUE: 4 view(s) of the left shoulder COMPARISON: None. FINDINGS: No acute fracture. No suspicious bone lesion. Arthrosis of the glenohumeral and acromioclavicular joints. Soft tissues are unremarkable. RAD/Shoulder min 2 Views IMPRESSION: Degenerative arthrosis. No acute fracture. Reading Location: [id number]
--- NOTE | 2024-11-11 09:17 | RAD_ITS ---
PROCEDURE: HUMERUS MIN 2 VIEWS REASON FOR EXAM: 74-year-old male, fall onto left side. TECHNIQUE: 2 view(s) of the left humerus COMPARISON: None. FINDINGS: No fracture. No suspicious bone lesion. Moderate arthrosis of the left glenohumeral and acromioclavicular joints. Soft tissues are unremarkable. RAD/Humerus min 2 Views IMPRESSION: DEGENERATIVE OSTEOARTHROSIS. NO ACUTE FINDINGS. Reading Location: [id number]
--- NOTE | 2024-11-11 09:17 | RAD_ITS ---
PROCEDURE: RIBS UNIL 2V NO CXR REASON FOR EXAM: 74-year-old male, fall, left axillary pain. TECHNIQUE: Frontal and bilateral oblique views of the bilateral ribs. COMPARISON: None. FINDINGS: No displaced rib fractures are identified. No suspicious lytic or blastic rib lesions. RAD/Ribs Unil 2V No CXR IMPRESSION: NO EVIDENCE OF ACUTE RIB FRACTURE OR PNEUMOTHORAX. Reading Location: [id number]
--- NOTE | 2024-11-11 09:17 | RAD_ITS ---
PROCEDURE: CHEST PA AND LATERAL REASON FOR EXAM: 74-year-old male, left rib pain after fall. TECHNIQUE: Frontal and lateral views of the chest. COMPARISON: Chest radiograph 10/16/2024. FINDINGS: The heart size is normal. The mediastinal contour is unremarkable. No focal consolidation, pleural effusion or pneumothorax. Degenerative changes are identified within the thoracic spine. RAD/Chest PA and Lateral IMPRESSION: NEGATIVE CHEST Reading Location: [id number]
--- NOTE | 2024-11-11 09:36 | ED.VIS.CHEST ---
HPI History of Present Illness Chief Complaint: Chest Other Narrative Narrative: Patient is a 74-year-old male past medical history of COPD, hypercholesteremia, hypertension, diabetes who presents to the emergency department the chief complaint of left shoulder and rib pain. Patient states that last night he was bowling and noted that his foot stuck when he went to bowl causing him to fall and land on his left side. He states that he not hit his head he did not pass out he remembers entire event. He denies any blood thinner medications. Patient states that it was painful for him to attempt to lift his shoulder this morning and on the left rib cage therefore he came here for the valuation management. Patient states that he did not get chest pain lightheaded dizziness prior to this episode he states that he simply fell because his foot got caught on the floor. [facility] Medical History Wears glasses Wears dentures Fatty liver Smoker CPAP (continuous positive airway pressure) dependence Abdominal pain COPD (chronic obstructive pulmonary disease) Sleep apnea JOANNA on CPAP High cholesterol GERD (gastroesophageal reflux disease) Constipation Hypertension Diabetes Diabetic acetonemia Home Medications ?Medication ?Instructions ?Recorded ?Last Taken ?Type amlodipine 5 mg tablet 10 mg PO DAILY 12/20/20 Unknown History aspirin 81 mg chewable tablet 81 mg PO DAILY@0800 12/20/20 10/16/24 09:00 History atorvastatin 80 mg tablet 80 mg PO QHS 12/20/20 Unknown History budesonide-formoterol HFA 160 2 puff IH BID 12/20/20 Unknown History mcg-4.5 mcg/actuation aerosol inhaler cholecalciferol (vitamin D3) 50 2,000 unit PO DAILY 12/20/20 Unknown History mcg (2,000 unit) capsule empagliflozin 10 mg tablet 5 mg PO DAILY 12/20/20 Unknown History losartan 100 mg tablet 50 mg PO QHS 12/20/20 Unknown History nitroglycerin 0.4 mg sublingual 0.4 mg sublingual Q5M PRN Chest 12/20/20 Unknown History tablet Pain hydralazine 50 mg tablet 50 mg PO 4XD 02/11/23 Unknown History insulin glargine 100 unit/mL (3 10 unit subcut QHS 06/07/23 Unknown History mL) subcutaneous pen metformin 1,000 mg tablet 1,000 mg PO DAILY 06/07/23 Unknown History metformin 500 mg tablet 500 mg PO DAILY 06/07/23 Unknown History polyethylene glycol 3350 17 gram 17 g PO BID 06/07/23 Unknown History oral powder packet (Miralax) albuterol sulfate 90 mcg/actuation 2 puff inhalation Q6H PRN PRN Sob 07/02/23 Unknown Rx aerosol inhaler &/Or Wheezing #6.7 grams magnesium citrate 150 ml PO BID PRN constipation 04/23/24 Unknown Rx #296 mL oseltamivir 75 mg capsule (Tamiflu) 75 mg PO BID 5 days #10 caps 10/16/24 Unknown Rx psyllium husk 0.4 gram capsule 1.2 g PO BID 10/16/24 Unknown History (Fiber (psyllium husk)) cyclobenzaprine 5 mg tablet 5 mg PO TID PRN muscle spasm #14 11/11/24 Unknown Rx tabs lidocaine 5 % topical patch 1 patch topical DAILY #15 ea 11/11/24 Unknown Rx (Lidoderm) ondansetron 4 mg disintegrating 4 mg PO Q6H PRN nausea and 11/11/24 Unknown Rx tablet vomiting #30 tabs oxycodone-acetaminophen 5 mg-325 1 tab PO Q6H PRN pain 2 days #8 11/11/24 Unknown Rx mg tablet (Endocet) tabs Allergy/AdvReac Type Severity Reaction Status Date / Time chlorthalidone Allergy NEEDS Verified 11/11/24 09:01 FOLLOW-UP hydrochlorothiazide Allergy NEEDS Verified 11/11/24 09:01 FOLLOW-UP Family History Mother Diabetes Hypertension Brother Diabetes Hypertension Surgical History History of cardiac catheterization History of appendectomy (Unknown) H/O heart artery stent Social History Smoking Status: Former smoker alcohol intake: current alcohol intake frequency: holidays/special occasions only substance use type: does not use ROS ROS ED ROS Narrative Constitutional: Denies headache, fever, chills, lightness, dizziness Eyes: Denies change in vision double vision blurry vision Cardiovascular: Denies chest pain or palpitations Respiratory: Denies shortness of breath Abdomen: Denies abdominal pain nausea vomit diarrhea : Denies urinary symptoms Neurological: Denies numbness, weakness, tingling Musculoskeletal: Patient complains of left shoulder pain and rib pain on the left side as noted above Skin: Denies rashes or lesions EXAM Physical Exam Narrative Exam Narrative: General: Patient is lying in bed rest comfortably did not appear to be in acute distress Head: Atraumatic, normocephalic Eyes: PERRL bilaterally, EOMI bilaterally, no conjunctival injection noted Neck: Soft, supple, trachea midline Cardiovascular: Regular rate and rhythm no murmurs gallops rubs noted Respiratory: Clear to auscultation bilaterally Abdomen: Soft, nondistended, nontender to palpation Musculoskeletal: Patient has pain with attempted range of motion of his left shoulder, although bony prominences palpated and joints taken to full range of motion no pain elicited Extremities: Radial pulses +2/4 in the bilateral upper extremities, no pedal edema on exam Neurological: Patient follow commands and that he was at [facility] years 2024 Skin: Warm, dry, intact no rashes or lesions noted Const Vital Signs: 11/11/24 08:59 11/11/24 09:31 Temperature 98.2 F Temperature Source Temporal Pulse Rate 73 Respiratory Rate 15 Respiratory Effort Normal Blood Pressure 156/59 H Blood Pressure Mean 91 Pulse Ox 97 Oxygen Delivery Method Room Air MDM MDM MDM Narrative Medical decision making narrative: Patient is a 74-year-old male who presented to the emergency department the chief complaint of left shoulder pain and left rib pain. On the differential diagnose includes but not limited to rib fractures, proximal humerus fracture, dislocation. Once workup is obtained reviewed he will be reevaluated. Patient's shoulder x-ray was reviewed by myself by radiology showed no acute fracture degenerative arthrosis noted. Patient's x-ray of the ribs reviewed by myself and by radiology showed no acute fractures no rib displaced no suspicious lytic or blastic rib lesions. Patient's humerus x-ray reviewed by myself by radiology showed no acute fracture or dislocation degenerative osteoarthrosis noted. Patient chest x-ray reviewed by myself and by radiology showed no acute cardiopulmonary processes. Did discuss results with the patient he would like to go home at this point time. Patient would like a sling for comfort. He is advised to take Tylenol for mild to moderate pain and use the Endocet and Zofran for severe pain. He will be given Lidoderm patches and muscle relaxer for his left rib pain and I discussed with him there is a chance we missed nondisplaced rib fractures however the treatment would be the same with pain control and time letting these heal on their own. He is advised to follow-up his primary care physician return with any other concerns. His family member at bedside is also agreed this plan all question concerns answered is discharged home in stable condition. Radiography Diagnostic Testing: Clinical Impression(s) from Imaging Studies Chest X-Ray 11/11/24 09:17 IMPRESSION: NEGATIVE CHEST Reading Location: [facility] Humerus X-Ray 11/11/24 09:17 IMPRESSION: DEGENERATIVE OSTEOARTHROSIS. NO ACUTE FINDINGS. Reading Location: [facility] Ribs X-Ray 11/11/24 09:17 IMPRESSION: NO EVIDENCE OF ACUTE RIB FRACTURE OR PNEUMOTHORAX. Reading Location: [facility] Shoulder X-Ray 11/11/24 09:17 IMPRESSION: Degenerative arthrosis. No acute fracture. Reading Location: [facility] Discharge Plan Triage Chief Complaint: Chest Other ED Provider: Alexander Perales Dx/Rx/DC Orders Clinical Impression: Rib pain on left side, Left shoulder pain, Fall Prescriptions: New cyclobenzaprine 5 mg tablet 5 mg PO TID PRN (Reason: muscle spasm) Qty: 14 0RF lidocaine [Lidoderm] 5 % adhesive patch,medicated 1 patch topical DAILY Qty: 15 0RF Rx Instructions: leave on most painful area for up to 12 hrs oxycodone-acetaminophen [Endocet] 5-325 mg tablet 1 tab PO Q6H PRN (Reason: pain) 2 Days Qty: 8 0RF ondansetron 4 mg tablet,disintegrating 4 mg PO Q6H PRN (Reason: nausea and vomiting) Qty: 30 0RF No Action metformin 1,000 mg tablet 1,000 mg PO DAILY Rx Instructions: with dinner atorvastatin 80 MG tablet 80 mg PO QHS amlodipine 5 MG tablet 10 mg PO DAILY nitroglycerin 0.4 MG tablet, sublingual 0.4 mg SL Q5M PRN (Reason: Chest Pain) aspirin 81 MG tablet,chewable 81 mg PO DAILY@0800 losartan 100 MG tablet 50 mg PO QHS Patient Comments: 0NE 50 MG TABLET budesonide-formoterol 10.2 GM HFA aerosol inhaler 2 puff IH BID cholecalciferol (vitamin D3) 2,000 UNIT capsule 2,000 unit PO DAILY empagliflozin 10 MG tablet 5 mg PO DAILY insulin glargine 100 unit/mL (3 mL) insulin pen 10 unit SC QHS hydralazine 50 mg Tablet 50 mg PO 4XD polyethylene glycol 3350 [Miralax] 17 gram powder in packet 17 g PO BID metformin 500 mg tablet 500 mg PO DAILY Rx Instructions: with breakfast albuterol sulfate 1 PUFF inhaler 2 puff INHALATION Q6H PRN PRN (Reason: Sob &/Or Wheezing) Qty: 6.7 0RF magnesium citrate Solution 150 ml PO BID PRN (Reason: constipation) Qty: 296 0RF Rx Instructions: Drink half the bottle and then wait a couple hours and then drink the other half the bottle or until you have adequate results. psyllium husk [Fiber (psyllium husk)] 0.4 gram capsule 1.2 g PO BID oseltamivir [Tamiflu] 75 mg capsule 75 mg PO BID 5 Days Qty: 10 0RF Primary Care Provider: [facility] Referrals: [facility] [Primary Care Provider] - Activity Restrictions/Additional Instructions: Follow-up your primary care physician in the outpatient eye. Your x-rays did not try thing broken. Use the prescription as prescribed do not operating thing in the influence of the Endocet or the muscle relaxer as this can make you sleepy. You should take Tylenol for mild to moderate pain and use the Lidoderm patches as prescribed. Use the Endocet/narcotic as prescribed take Zofran with this as this will upset your stomach if not. Ensure that you are taking your arm out of the sling and do pendulum swings as we discussed here so you do not develop frozen shoulder. Return with any other concern Print Language: Romansh Disposition Disposition: Home, Self Care
[2024-11-11 10:50] VITALS: BP 146/68; PULSE 69; RESP 16; TEMP 36.6; O2SAT 100
== END 2024-11-11 10:54 | disposition home or self-care (01) ==
PROVIDERS: Emergency Provider Emergency Medicine; Visit Provider Emergency Medicine
DX: R07.81 Pleurodynia (principal); J44.9 Chronic obstructive pulmonary disease, unspecified; E11.9 Type 2 diabetes mellitus without complications; Z79.4 Long term (current) use of insulin; M25.512 Pain in left shoulder; W01.0XXA Fall on same level from slipping, tripping and stumbling without subsequent striking against object, initial encounter; Y93.54 Activity, bowling; Y92.39 Other specified sports and athletic area as the place of occurrence of the external cause; I10 Essential (primary) hypertension; E78.00 Pure hypercholesterolemia, unspecified; K21.9 Gastro-esophageal reflux disease without esophagitis; G47.33 Obstructive sleep apnea (adult) (pediatric); Z95.5 Presence of coronary angioplasty implant and graft; Z79.82 Long term (current) use of aspirin; Z79.84 Long term (current) use of oral hypoglycemic drugs; Z79.899 Other long term (current) drug therapy; Z87.891 Personal history of nicotine dependence
CPT/HCPCS: 71046; 71100; 73030; 73060; 99282

== ENCOUNTER 2024-11-12 10:50 | Emergency (ER) | payer OTHER, SELFPAY ==
[2024-11-12 10:50] VITALS: BP 142/70; PULSE 61; RESP 15; TEMP 36.7; O2SAT 98; BMI 26.4
--- NOTE | 2024-11-12 11:08 | EDS_ITS ---
HPI History of Present Illness Chief Complaint: Nausea/Vomiting Detail of Chief Complaint: Nausea without vomiting. Informant: patient Onset/Context/Timing Onset: Today Context: Gradual Onset Timing: Continuous Current Severity: Mild Maximum Severity: Mild Narrative Narrative: 74-year-old male history of COPD, diabetes and hypertension. Was seen in emergency room yesterday. [place] is [place] a bowling [place] tripped and fell landing on his left shoulder and left rib cage. X-rays were obtained and were negative. He was discharged to home. He denies any head injury or LOC. He is on no blood thinners. He was discharged home yesterday from the emergency department with a muscle relaxant, lidocaine patches and narcotic pain medication. He said he does not need to use the muscle relaxant. He thinks the pain medication may be making him nauseated. He denies any vomiting or diarrhea. No fever or dysuria. Prior similar symptoms: No Recent Illness/Hospitalization: No PFSH PFSH Medical History Wears glasses Wears dentures Fatty liver Smoker CPAP (continuous positive airway pressure) dependence Abdominal pain COPD (chronic obstructive pulmonary disease) Sleep apnea JOANNA on CPAP High cholesterol GERD (gastroesophageal reflux disease) Constipation Hypertension Diabetes Diabetic acetonemia Home Medications ?Medication ?Instructions ?Recorded ?Last Taken ?Type amlodipine 5 mg tablet 10 mg PO DAILY 12/20/20 Unkn own History aspirin 81 mg chewable tablet 81 mg PO DAILY@0800 12/0510/16/24 09:00 History atorvastatin 80 mg tablet 80 mg PO QHS 12/20/20 Unknow n History budesonide-formoterol HFA 160 2 puff IH BID 12/20/20 U nknown History mcg-4.5 mcg/actuation aerosol inhaler cholecalciferol (vitamin D3) 50 2,000 unit PO DAILY Unknown History mcg (2,000 unit) capsule empagliflozin 10 mg tablet 5 mg PO DAILY 12/20/20 Unkn own History losartan 100 mg tablet 50 mg PO QHS 12/20/20 Unknow n History nitroglycerin 0.4 mg sublingual 0.4 mg sublingual Q5M PRN Chest 12/20/20 Unknown History tablet Pain hydralazine 50 mg tablet 50 mg PO 4XD 02/11/23 Unknow n History insulin glargine 100 unit/mL (3 10 unit subcut QHS 10/29 Unknown History mL) subcutaneous pen metformin 1,000 mg tablet 1,000 mg PO DAILY 06/07/23 U nknown History metformin 500 mg tablet 500 mg PO DAILY 06/07/23 Unk nown History polyethylene glycol 3350 17 gram 17 g PO BID 06/07/23 Unknown History oral powder packet (Miralax) albuterol sulfate 90 mcg/actuation 2 puff inhalation Q 6H PRN PRN Sob 07/02/23 Unknown Rx aerosol inhaler &/Or Wheezing #6.7 grams magnesium citrate 150 ml PO BID PRN constipati on 04/23/24 Unknown Rx #296 mL oseltamivir 75 mg capsule (Tamiflu) 75 mg PO BID 5 day s #10 caps 10/16/24 Unknown Rx psyllium husk 0.4 gram capsule 1.2 g PO BID 10/16/24 U nknown History (Fiber (psyllium husk)) cyclobenzaprine 5 mg tablet 5 mg PO TID PRN 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 #14 11/11/24 Unknown Rx tabs lidocaine 5 % topical patch 1 patch topical DAILY #15 ea 11/11/24 Unknown Rx (Lidoderm) ondansetron 4 mg disintegrating 4 mg PO Q6H PRN nausea and 11/11/24 Unknown Rx tablet vomiting #30 tabs oxycodone-acetaminophen 5 mg-325 1 tab PO Q6H PRN pain 2 days #8 11/11/24 Unknown Rx mg tablet (Endocet) tabs ondansetron 4 mg disintegrating 4 mg PO Q6H PRN nausea and 11/12/24 Unknown Rx tablet vomiting #7 tabs Allergy/AdvReac Type Severity Reaction Status Date / Time chlorthalidone Allergy NEEDS Verified 11/12/24 10:52 FOLLOW-UP hydrochlorothiazide Allergy NEEDS Verified 11/12/24 10:52 FOLLOW-UP Family History Mother Diabetes Hypertension Brother Diabetes Hypertension Surgical History History of cardiac catheterization History of appendectomy (Unknown) H/O heart artery stent Social History Smoking Status: Light Smoker (<10/day) alcohol intake: current alcohol intake frequency: holidays/special occasions only substance use type: does not use ROS ROS ED ROS Narrative Nausea no vomiting or diarrhea. No fever. Constitutional Constitutional ED: Denies chills or fever(s) Eyes Eyes: Denies blurry vision ENT ENT ED: Denies ear pain Cardiovascular Cardiovascular: Denies chest pain Respiratory/Chest Respiratory/Chest: Denies cough or dyspnea Gastrointestinal Gastrointestinal: Denies abdominal pain Genitourinary Genitourinary ED: Denies dysuria or hematuria Musculoskeletal Musculoskeletal: Denies arthralgias Integumentary Denies abscess Neurologic Neurologic: Denies headache(s) Psychiatric Psychiatric: Denies anxiety or depression Endocrine Endocrinology: Denies cold intolerance Hematologic/Lymphatic Hematologic/Lymphatic: Reports none Allergic/Immunologic Allergic/Immunologic ED: Denies mouth swelling, tongue swelling or urticaria EXAM Physical Exam Narrative Exam Narrative: 74-year-old male sitting upright in bed. Holding an emesis bag but not actively vomiting. Vital signs are stable afebrile. He does not look septic or toxic. He is in no distress. No family is present in room at this time. H EENT exam pupils round reactive light. There is no signs of trauma to his face or scalp. Moist mucous membranes. Neck nontender. Trachea midline. Back and spine nontender. No bruising. Lungs are clear equal and symmetrical bilaterally. Heart regular rhythm rate about 60 no murmur. Mild tenderness on the left lateral rib cage. No bruising. No crepitance or subcu air. No bony deformity. Sternum and anterior ribs are nontender. Abdomen is soft and nontender. No bruising or peritoneal signs. Pelvic girdle intact. Moving all 4 extremities. Mild tenderness left shoulder no deformity. Hips are nontender. Normal dorsi plantarflexion. Neurologically is awake alert no focal motor deficits. Const Vital Signs: 11/12/24 10:50 Temperature 98.1 F Temperature Source Temporal Pulse Rate 61 Respiratory Rate 15 Blood Pressure 142/70 H Blood Pressure Mean 94 Pulse Ox 98 Oxygen Delivery Method Room Air Positive well nourished and well developed; Negative for obese, cachectic, contractures or unkempt General Appearance ED: well developed and NAD; Negative for unkempt, cachectic, contractures, cyanotic, diaphoretic or pallor Nutritional Appearance: Negative for cachectic or obese HEENT Reports moist mucous membranes Negative for trauma or tenderness Eyes PERRL and EOMs intact bilaterally General Eye ED: Negative for pale conjunctiva Neck no lymphadenopathy, supple and no JVD General: Negative for tenderness Chest Wall inspection of chest normal and palpation of chest normal Resp normal respiratory effort and clear to auscultation bilaterally Effort and Inspection: Negative for retractions Auscultation: Negative for rales, rhonchi, wheezes or diminished lung sounds Cardio regular rate, regular rhythm, S1 normal heart sound, S2 normal heart sound and no murmurs Palpation: Negative for palpable S3 or palpable S4 Rate: Negative for bradycardia, tachycardic or other Rhythm: Negative for abnormal rhythm GI normal to inspection, nondistended, normoactive bowel sounds, non-tender, non- distended and no masses Auscultation: normoactive bowel sounds Palpation: soft; Negative for tender, guarding or rebound tenderness present Back/Spine no CVA tenderness General Back: Negative for CVA tenderness or other Cervical Spine: Negative for cervical spine tenderness Thoracic Spine / Upper Back: Negative for thoracic spinal tenderness or paraspinal muscle tenderness Lumbar Spine / Lower Back: Negative for lumbar spinal tenderness Extremity normal to inspection General Extremety ED: Negative for edema or tenderness General Extremity: Negative for edema Neuro oriented x3 and CN's II-XII intact bilaterally Sensorium / Orientation: alert; Negative for orientation impaired, lethargic or stuporous Sensory Exam: No sensory level loss detected Motor Exam: strength 5/5 throughout; Negative for general weakness or strength abnormal Psych mental status grossly normal Appearance: Negative for unkempt Attitude: No agitated Mood & Affect: Negative for depressed, anxious or tearful Skin no rashes or lesions noted, no wounds and skin turgor normal General Skin Exam: elasticity normal; Negative for jaundice or pallor Lesions: No lesion noted Rashes: No rashes noted Trauma: Negative for abrasion Wounds: Negative for wounds noted MDM MDM MDM Narrative Medical decision making narrative: 74-year-old male who fell yesterday tripped and fell was seen in the emergency department had negative x-rays. Nausea may just be secondary to the pain medication he was put on. He will be given Zofran. 500 cc of saline. CBC and chemistry be obtained. Exam is pretty benign other than the sore on his rib cage and shoulder from the fall. Prior x-rays were negative. Abdomen is totally benign and nontender. Repeat exam at 12:14 PM patient still has some mild nausea is given another dose of Zofran. His exam is unchanged. He is sore in his left shoulder but when I raise it he can hold it up there is no signs of a rotator cuff tear. He will be reassessed after his second dose of Zofran. Repeat exam at 1:12 PM. Patient is concerned he has picked up a virus. Wanted me to get a COVID and flu test. Exam otherwise benign. Repeat exam patient doing well at 2:50 PM. He is feeling better. Headache is resolving with Tylenol. Nausea is resolved and Zofran. He is current being discharged home. He will stop the narcotic pain medication. Use the patches that he was prescribed. He will use Zofran for nausea. He is comfortable with discharge. History & Record Review Discussion w/independent historian: Patient Additional record(s) reviewed:: Prior inpatient record, Prior outpatient record, Prior ED visit and Prior labs Lab Data Attestation: I reviewed the patient's lab results. Lab results narrative: CBC normal. White count of 10. H&H 15 and 43. Platelets 165. Electrolytes show sodium 131. Gap 15. Normal BUN of 16 and creatinine 0.8. Glucose 166. Similar prior labs with a prior hyponatremia. Labs: Laboratory Results - last 24 hr 11/12/24 11:27 WBC 10.9 RBC 5.11 Hgb 15.2 Hct 43.8 MCV 85.7 MCH 29.7 MCHC 34.7 RDW Std Deviation 41.9 RDW Coeff of [place] 13.3 Plt Count 165 MPV 9.4 Immature Gran % (Auto) 0.700 Neut % (Auto) 77.4 H Lymph % (Auto) 11.0 L [place] % (Auto) 10.3 H Eos % (Auto) 0.2 Baso % (Auto) 0.4 Absolute Neuts (auto) 8.4 H Absolute Lymphs (auto) 1.19 Nucleated RBC % 0 Sodium 131 L Potassium 4.2 Chloride 95 L Carbon Dioxide 20.6 L Anion Gap 15 BUN 16 Creatinine 0.80 Estim Creat Clear Calc 83.65 Est GFR (MDRD) Non-Af 93 BUN/Creatinine Ratio 19.4 Glucose 166 H Calcium 8.9 Discharge Plan Triage Chief Complaint: Nausea/Vomiting ED Provider: Leonides Morrison Dx/Rx/DC Orders Clinical Impression: Fall, Contusion of left shoulder, Contusion of rib, Nausea Instructions: ED Chest Wall Contusion, ED Vomiting (Adult) Prescriptions: New ondansetron 4 mg tablet,disintegrating 4 mg PO Q6H PRN (Reason: nausea and vomiting) Qty: 7 0RF No Action metformin 1,000 mg tablet 1,000 mg PO DAILY Rx Instructions: with dinner atorvastatin 80 MG tablet 80 mg PO QHS amlodipine 5 MG tablet 10 mg PO DAILY nitroglycerin 0.4 MG tablet, sublingual 0.4 mg SL Q5M PRN (Reason: Chest Pain) aspirin 81 MG tablet,chewable 81 mg PO DAILY@0800 losartan 100 MG tablet 50 mg PO QHS Patient Comments: 0NE 50 MG TABLET budesonide-formoterol 10.2 GM HFA aerosol inhaler 2 puff IH BID cholecalciferol (vitamin D3) 2,000 UNIT capsule 2,000 unit PO DAILY empagliflozin 10 MG tablet 5 mg PO DAILY insulin glargine 100 unit/mL (3 mL) insulin pen 10 unit SC QHS hydralazine 50 mg Tablet 50 mg PO 4XD polyethylene glycol 3350 [Miralax] 17 gram powder in packet 17 g PO BID metformin 500 mg tablet 500 mg PO DAILY Rx Instructions: with breakfast albuterol sulfate 1 PUFF inhaler 2 puff INHALATION Q6H PRN PRN (Reason: Sob &/Or Wheezing) Qty: 6.7 0RF magnesium citrate Solution 150 ml PO BID PRN (Reason: constipation) Qty: 296 0RF Rx Instructions: Drink half the bottle and then wait a couple hours and then drink the other half the bottle or until you have adequate results. psyllium husk [Fiber (psyllium husk)] 0.4 gram capsule 1.2 g PO BID oseltamivir [Tamiflu] 75 mg capsule 75 mg PO BID 5 Days Qty: 10 0RF cyclobenzaprine 5 mg tablet 5 mg PO TID PRN (Reason: muscle spasm) Qty: 14 0RF lidocaine [Lidoderm] 5 % adhesive patch,medicated 1 patch topical DAILY Qty: 15 0RF Rx Instructions: leave on most painful area for up to 12 hrs oxycodone-acetaminophen [Endocet] 5-325 mg tablet 1 tab PO Q6H PRN (Reason: pain) 2 Days Qty: 8 0RF ondansetron 4 mg tablet,disintegrating 4 mg PO Q6H PRN (Reason: nausea and vomiting) Qty: 30 0RF [facility] [Primary Care Provider] - 3-5 Days if not improving Activity Restrictions/Additional Instructions: The nausea may be caused by the pain medication. Zofran as needed for nausea. You can swallow or let dissolve under your tongue. Use Tylenol for pain. Follow-up with your primary care provider if not improving. Return if feeling worse. Print Language: Mongolian Disposition Disposition: Home, Self Care
[2024-11-12] MEDS: Ondansetron 4 MG/2 ML Vial IV ×2 (11:27→12:21)
[2024-11-12] MEDS: 0.9% Normal Saline (500mL Bag) 500 ML 1000 ML IV (11:27)
[2024-11-12] MEDS: Acetaminophen 500 MG Tablet 1000 MG PO (11:27)
[2024-11-12 11:36] LABS: Absolute Lymphocyte Count 1.19 X10^3/uL (0.83-4.51); Absolute Neutrophil Count 8.4 X10^3/uL (2.0-7.7); Basophil# 0.04 X10^3/uL; Basophil% 0.4 % (0-1); Eosinophil# 0.02 X10^3/uL; Eosinophils% 0.2 % (0-5); Hematocrit 43.8 % (40-54); Hemoglobin 15.2 g/dL (13.0-16.5); Lymphocyte # 1.19 X10^3/ul (0.83-4.51); Mean Corp Hgb Conc 34.7 g/dL (32-36); Mean Corpuscular Hgb 29.7 pg (27.0-32.0); Mean Corpuscular Volume 85.7 fL (80-94); Mean Platelet Vol. 9.4 fl (6.2-12.0); Monocyte# 1.12 X10^3/uL; Monocyte% 10.3 % (0-10); NRBC Flagged by Analyzer 0 % (0-5); Neutrophil % 77.4 % (47-70); Platelet Count 165 K/mm3 (150-450); RBC Distribution Width CV 13.3 % (11.6-14.6); RBC Distribution Width SD 41.9 fl (35.1-43.9); Red Blood Count 5.11 M/mm3 (4.6-6.2); White Blood Count 10.9 K/mm3 (4.4-11.0)
[2024-11-12 12:10] LABS: Anion Gap 15 (5-15); BUN 16 mg/dL (4-19); BUN/Creat Ratio 19.4 RATIO (10-20); Calcium,Total 8.9 mg/dL (7.6-11.0); Carbon Dioxide 20.6 mmol/L (21.0-32.0); Chloride 95 mmol/L (98-108); EST Glomerular Filtration Rate 93 (>60); Estimated Creatinine Clearance 83.65 ml/min (50-250); Glucose 166 mg/dL (70-99); Potassium 4.2 mmol/L (3.3-5.1); Sodium Level 131 mmol/L (133-145)
[2024-11-12 14:50] VITALS: PULSE 75; RESP 18; O2SAT 96
[2024-11-12 14:54] VITALS: BP 142/70; PULSE 75; RESP 18; TEMP 36.7; O2SAT 96
== END 2024-11-12 15:22 | disposition home or self-care (01) ==
PROVIDERS: Emergency Provider Emergency Medicine; Visit Provider Emergency Medicine
DX: S40.012A Contusion of left shoulder, initial encounter (principal); J44.9 Chronic obstructive pulmonary disease, unspecified; E11.9 Type 2 diabetes mellitus without complications; R11.0 Nausea; R51.9 Headache, unspecified; S20.211A Contusion of right front wall of thorax, initial encounter; W01.0XXA Fall on same level from slipping, tripping and stumbling without subsequent striking against object, initial encounter; Y93.54 Activity, bowling; Y92.39 Other specified sports and athletic area as the place of occurrence of the external cause; I10 Essential (primary) hypertension; K21.9 Gastro-esophageal reflux disease without esophagitis; E78.00 Pure hypercholesterolemia, unspecified; G47.33 Obstructive sleep apnea (adult) (pediatric); Z95.5 Presence of coronary angioplasty implant and graft; Z79.82 Long term (current) use of aspirin; Z79.84 Long term (current) use of oral hypoglycemic drugs; Z79.899 Other long term (current) drug therapy
CPT/HCPCS: 80048; 85025; 87631; 96361; 96374; 96376; 99283; A4216; J2405

== ENCOUNTER → 2025-02-01 | Outpatient (CLI) | payer OTHER, SELFPAY ==
--- NOTE | 2025-02-01 07:54 | US_ITS ---
PROCEDURE: ABDOMEN COMPLETE 02/01/2025 REASON FOR EXAM: EVALUATE H/O GALLSTONES AND GI COMPLAINTS TECHNIQUE: Complete abdominal ultrasound norman-scale images with color doppler. PATIENT PREPARATION: Per protocol COMPARISON: Prior CT scan of the abdomen and pelvis dated April 23, 2024. FINDINGS: Liver: Diffusely echogenic suggesting fatty infiltration. The liver is not enlarged. Gallbladder: No stones, sludge, wall thickening or tenderness. Common bile duct: Normal measuring 7 mm. . Pancreas: Obscured by bowel gas. Kidneys: The right kidney measures 11.3 cm 6.2 cm 5 cm. Renal cortex measures 1.4 cm.. The left kidney measures 11.7 cm 5.5 cm 5.6 cm. Renal cortex measures 1.4 cm. Spleen: Normal in size and echotexture measuring the spleen measures 11.3 cm 4.8 cm 4.4 cm. Aorta: Visualized abdominal aorta is of normal size. IVC: Visualized inferior vena cava is unremarkable. Peritoneal Findings: No ascites identified. US/Abdomen Complete IMPRESSION: Mild diffuse fatty infiltration of the liver. The liver is not enlarged. Reading Location: [id number]
== END | disposition home or self-care (01) ==
LOC: US 07:53
PROVIDERS: Referring Provider Nurse Practitioner Adult Health; Visit Provider Nurse Practitioner Adult Health
DX: K56.3 Gallstone ileus (principal)
CPT/HCPCS: 76700

== ENCOUNTER 2025-03-04 16:38 | Emergency (ER) | payer OTHER, SELFPAY ==
[2025-03-04] VITALS (8 sets, daily range): BP systolic 123–162; BP diastolic 66–89; PULSE 54–78; RESP 16–18; TEMP 36.8–37.1; O2SAT 96–100; BMI 26.9
--- NOTE | 2025-03-04 16:51 | EDS_ITS ---
HPI History of Present Illness Chief Complaint: Palpitations Onset/Context/Timing Onset: Today Activity at onset: gradual and sleep Timing: Intermittent Quality: Positive for Tightness Location: Substernal, Right Parasternal, Left Parasternal, Right Chest and Left Chest Current Severity: 3/10 Worsened By: Nothing Relieved By: Nothing Associated Symptoms: Positive for Dyspnea and Palpitations; Negative for Nausea, Vomiting, Diaphoresis, Cough, Fever, Lightheadedness or Acid Reflux Narrative Narrative: Patient presents with chest pain that began this morning when he woke up. Patient describes it as a tightness. Patient states it is diffuse across his entire chest. Patient states nothing makes it better nothing makes it worse. Patient admits to some palpitations where he felt like his heart may be racing at times. Patient also admits to some shortness of breath. Patient denies any nausea or vomiting. Patient denies any diaphoresis. Patient denies any recent travel or recent surgery. Patient denies any history of PE, DVT, or cancer. CVD Risk Factors: Positive for Hypertension, Diabetes and Smoking; Negative for Hypercholesterolemia or Family History 1' </=55 PE Risk Factors: Negative for Recent Travel/Surgery, Recent Immobilization, Prior DVT or PE, Cancer or OCP + Smoking + >/=35 PFSH [facility] Medical History (Updated 03/04/25 @ 20:[address] Stefan Smith, DO) Wears glasses Wears dentures Fatty liver Smoker CPAP (continuous positive airway pressure) dependence Abdominal pain COPD (chronic obstructive pulmonary disease) Sleep apnea JOANNA on CPAP High cholesterol GERD (gastroesophageal reflux disease) Constipation Hypertension Diabetes Diabetic acetonemia Home Medications ?Medication ?Instructions ?Recorded ?Last Taken ?Type amlodipine 5 mg tablet 10 mg PO DAILY 12/20/20 Unkn own History aspirin 81 mg chewable tablet 81 mg PO DAILY@0800 12/0510/16/24 09:00 History atorvastatin 80 mg tablet 80 mg PO QHS 12/20/20 Unknow n History budesonide-formoterol HFA 160 2 puff IH BID 12/20/20 U nknown History mcg-4.5 mcg/actuation aerosol inhaler cholecalciferol (vitamin D3) 50 2,000 unit PO DAILY Unknown History mcg (2,000 unit) capsule empagliflozin 10 mg tablet 5 mg PO DAILY 12/20/20 Unkn own History losartan 100 mg tablet 50 mg PO QHS 12/20/20 Unknow n History nitroglycerin 0.4 mg sublingual 0.4 mg sublingual Q5M PRN Chest 12/20/20 Unknown History tablet Pain hydralazine 50 mg tablet 50 mg PO 4XD 02/11/23 Unknow n History insulin glargine 100 unit/mL (3 10 unit subcut QHS 10/29 Unknown History mL) subcutaneous pen metformin 1,000 mg tablet 1,000 mg PO DAILY 06/07/23 U nknown History metformin 500 mg tablet 500 mg PO DAILY 06/07/23 Unk nown History polyethylene glycol 3350 17 gram 17 g PO BID 06/07/23 Unknown History oral powder packet (Miralax) albuterol sulfate 90 mcg/actuation 2 puff inhalation Q 6H PRN PRN Sob 07/02/23 Unknown Rx aerosol inhaler &/Or Wheezing #6.7 grams magnesium citrate 150 ml PO BID PRN constipati on 04/23/24 Unknown Rx #296 mL psyllium husk 0.4 gram capsule 1.2 g PO BID 10/16/24 U nknown History (Fiber (psyllium husk)) ondansetron 4 mg disintegrating 4 mg PO Q6H PRN nausea and 11/11/24 Unknown Rx tablet vomiting #30 tabs ondansetron 4 mg disintegrating 4 mg PO Q6H PRN nausea and 11/12/24 Unknown Rx tablet vomiting #7 tabs Allergy/AdvReac Type Severity Reaction Status Date / Time chlorthalidone Allergy NEEDS Verified 03/04/25 16:39 FOLLOW-UP hydrochlorothiazide Allergy NEEDS Verified 03/04/25 16:39 FOLLOW-UP Family History Mother Diabetes Hypertension Brother Diabetes Hypertension Surgical History History of cardiac catheterization History of appendectomy (Unknown) H/O heart artery stent Social History Smoking Status: Light Smoker (<10/day) alcohol intake: current alcohol intake frequency: holidays/special occasions only substance use type: does not use ROS ROS ED Constitutional Constitutional ED: Denies chills or fever(s) Eyes Eyes: Denies blurry vision or change in vision ENT ENT ED: Denies rhinorrhea or sore throat Cardiovascular Cardiovascular: Reports chest pain, palpitations and racing heartbeat Respiratory/Chest Respiratory/Chest: Reports dyspnea; Denies cough Gastrointestinal Gastrointestinal: Denies nausea or vomiting Genitourinary Genitourinary ED: Denies dysuria or hematuria Musculoskeletal Musculoskeletal: Reports back pain; Denies neck pain Integumentary Denies abscess or rash Neurologic Neurologic: Denies headache(s) or weakness Allergic/Immunologic Allergic/Immunologic ED: Denies mouth swelling or urticaria EXAM Physical Exam Const Vital Signs: 03/04/25 16:38 03/04/25 17:18 03/04/25 17:21 Temperature 98.8 F Temperature Source Oral Pulse Rate 78 60 Respiratory Rate 16 Blood Pressure 123/89 H 144/72 H Blood Pressure Mean 100 Pulse Ox 98 96 Oxygen Delivery Method Room Air Room Air 03/04/25 17:38 03/04/25 18:00 03/04/25 19:00 Temperature Temperature Source Pulse Rate 60 59 L 55 L Respiratory Rate 18 Blood Pressure 139/66 H 139/66 H 160/71 H Blood Pressure Mean 90 90 100 Pulse Ox 96 97 Oxygen Delivery Method Room Air 03/04/25 20:00 Temperature Temperature Source Pulse Rate 54 L Respiratory Rate 18 Blood Pressure 158/72 H Blood Pressure Mean 100 Pulse Ox 99 Oxygen Delivery Method Room Air Positive well nourished and well developed Constitutional Narrative: BMI is 27.0. General Appearance ED: well developed and NAD HEENT Reports moist mucous membranes Neck supple and no JVD Chest Wall palpation of chest normal Resp normal respiratory effort and clear to auscultation bilaterally Cardio regular rate and regular rhythm GI soft to palpation, non-tender and non-distended Neuro oriented x3, CN's II-XII intact bilaterally and no sensory deficits noted Sensorium / Orientation: awake and alert Motor Exam: strength 5/5 throughout Psych mental status grossly normal Heart Score History: Slightly/Non-Suspicious ECG: Nonspecific Repolarization Age: >/= 65 years Risk Factors: >/= 3 Risk Factors or History of CAD Troponin: </= Normal Limit Score: 5 MDM MDM MDM Narrative Medical decision making narrative: Differential diagnosis includes cardiac dysrhythmia, cardiac ischemia, pneumonia, bronchitis, electrolyte abnormality, gastroesophageal reflux disease, and anxiety. EKG will be obtained to assess for cardiac dysrhythmia and cardiac ischemia. Chest x-ray will be obtained to assess for pneumonia and bronchitis. CBC will be obtained to assess for leukocytosis and anemia. Basic metabolic profile will be obtained to assess for electrolyte abnormality renal function. High-sensitivity troponin will be obtained to assess for cardiac ischemia. 2- hour repeat high-sensitivity troponin will be obtained to assess for ongoing cardiac ischemia. History & Record Review Additional record(s) reviewed:: Prior outpatient record, Prior ED visit and Prior labs Lab Data Attestation: I reviewed the patient's lab results. Lab results narrative: CBC was reviewed and was within normal limits. Basic metabolic profile was reviewed. Glucose was mildly elevated at 156. The remainder is within normal limits. Initial high-sensitivity troponin was reviewed and was normal at 23. 2-hour repeat high-sensitivity troponin was reviewed and was normal at 16. Labs: Laboratory Results - last 24 hr 03/04/25 03/04/25 16:50 19:00 WBC 10.0 RBC 5.44 Hgb 16.3 Hct 47.1 MCV 86.6 MCH 30.0 MCHC 34.6 RDW Std Deviation 39.3 RDW Coeff of [place] 12.6 Plt Count 206 MPV 10.0 Immature Gran % (Auto) 0.700 Neut % (Auto) 65.0 Lymph % (Auto) 24.7 [place] % (Auto) 7.7 Eos % (Auto) 1.0 Baso % (Auto) 0.9 Absolute Neuts (auto) 6.5 Absolute Lymphs (auto) 2.47 Nucleated RBC % 0 Sodium 134 Potassium 4.4 Chloride 99 Carbon Dioxide 20.7 L Anion Gap 15 BUN 15 Creatinine 0.91 Estim Creat Clear Calc 73.53 Est GFR (MDRD) Non-Af 88 BUN/Creatinine Ratio 16.8 Glucose 156 H Calcium 9.4 Troponin T High Sens 23 H Troponin T Hi Sens 2 Hr 16 Radiography Chest X-Ray - ED: 1 View, Read by ED Physician and Read by Radiologist Diagnostic Testing: Clinical Impression(s) from Imaging Studies Chest X-Ray 03/04/25 17:05 IMPRESSION: Subacute appearing minimally displaced fractures of the left posterior 7th and 8th ribs. Correlate with findings on exam. Reading Location: [id number] Portable 1 view chest x-ray was obtained. On my independent interpretation, lung fallon are clear. There is normal cardiac silhouette. There are old fractures of the posterior 7th and 8th ribs on the left. There is no acute process noted. Radiologist also interpreted the x-ray and agrees. EKG Initial EKG: Attestation: I personally reviewed and interpreted this EKG as follows: Interpretation: Sinus Rhythm (71) and Non-Specific ST Changes Comments: EKG was obtained. On my independent interpretation, it showed a normal sinus rhythm with a rate of 71. TX interval, QRS interval, and QTc intervals were all normal. There is left axis deviation of -57. There are nonspecific ST-T wave changes. Prior EKG tracings: available for review Prior: Unchanged (10/16/2024) Differential Diagnosis Chest pain/SOB: pulmonary embolism Reason(s) PE less likely: Positive for Well's <3, not tachycardic and not hypoxic Treatment and Re-Evaluation :: Patient was given aspirin and sublingual nitroglycerin. Patient states his pain has resolved. Patient was advised of his findings. Patient has a HEART score of 5. Patient wants to go home. Patient was instructed to follow-up with his primary care physician in 3 to 5 days. Patient was advised he may need further outpatient testing. Patient understands and is agreeable with this plan. Patient was instructed to return if worse in any way. All questions were answered. Discharge Plan Triage Chief Complaint: Palpitations ED Provider: Stefan Smith Dx/Rx/DC Orders Clinical Impression: Chest pain, Smoker, Diabetes, Hypertension Instructions: ED Chest Pain, Uncertain Cause Prescriptions: No Action metformin 1,000 mg tablet 1,000 mg PO DAILY Rx Instructions: with dinner atorvastatin 80 MG tablet 80 mg PO QHS amlodipine 5 MG tablet 10 mg PO DAILY nitroglycerin 0.4 MG tablet, sublingual 0.4 mg SL Q5M PRN (Reason: Chest Pain) aspirin 81 MG tablet,chewable 81 mg PO DAILY@0800 losartan 100 MG tablet 50 mg PO QHS Patient Comments: 0NE 50 MG TABLET budesonide-formoterol 10.2 GM HFA aerosol inhaler 2 puff IH BID cholecalciferol (vitamin D3) 2,000 UNIT capsule 2,000 unit PO DAILY empagliflozin 10 MG tablet 5 mg PO DAILY insulin glargine 100 unit/mL (3 mL) insulin pen 10 unit SC QHS hydralazine 50 mg Tablet 50 mg PO 4XD polyethylene glycol 3350 [Miralax] 17 gram powder in packet 17 g PO BID metformin 500 mg tablet 500 mg PO DAILY Rx Instructions: with breakfast albuterol sulfate 1 PUFF inhaler 2 puff INHALATION Q6H PRN PRN (Reason: Sob &/Or Wheezing) Qty: 6.7 0RF magnesium citrate Solution 150 ml PO BID PRN (Reason: constipation) Qty: 296 0RF Rx Instructions: Drink half the bottle and then wait a couple hours and then drink the other half the bottle or until you have adequate results. psyllium husk [Fiber (psyllium husk)] 0.4 gram capsule 1.2 g PO BID ondansetron 4 mg tablet,disintegrating 4 mg PO Q6H PRN (Reason: nausea and vomiting) Qty: 30 0RF ondansetron 4 mg tablet,disintegrating 4 mg PO Q6H PRN (Reason: nausea and vomiting) Qty: 7 0RF [facility]errals: [facility] [Primary Care Provider] - 3-5 Days Print Language: Mauritian Disposition Disposition: Home, Self Care
--- NOTE | 2025-03-04 17:05 | RAD_ITS ---
PROCEDURE: CHEST 1 VIEW (PORTABLE) 03/04/2025 REASON FOR EXAM: CHEST PAIN TECHNIQUE: Frontal view of the chest. COMPARISON: Chest and rib radiographs dated 11/11/2024 FINDINGS: Hardware: None Heart: The heart size is normal. Lungs: No focal consolidation or pleural effusion. Bones: Minimally displaced fractures of the left posterior 7th and 8th ribs, with suggestion of callus formation. Degenerative changes of the shoulders and spine. RAD/Chest 1 View (Portable) IMPRESSION: Subacute appearing minimally displaced fractures of the left posterior 7th and 8th ribs. Correlate with findings on exam. Reading Location: [id number]
--- NOTE | 2025-03-04 17:05 | EKG12_ITS ---
Test Reason : CP Blood Pressure : */* mmHG Vent. Rate : 71 BPM Atrial Rate : 71 BPM P-R Int : 172 ms QRS Dur : 94 ms QT Int : 382 ms P-R-T Axes : 68 -57 63 degrees QTcB Int : 415 ms Normal sinus rhythm Left axis deviation Septal infarct (cited on or before 11-Feb-2023) Abnormal ECG Confirmed by IBRAHIMA LEPE, ADAMARIS ([id number]), production editor MAYRA ARCE ([id number]) on 03/06/2025 6:34:37 AM Referred By: Confirmed By: ADAMARIS ALEXANDRA MD
--- OUTSIDE RECORDS SUMMARY | 2025-03-04 17:12 | XMS RPT_ITS | CCD ---
Author Organization [facility] Care Team Providers Care Hand Spinner Name Role Phone Dr. Jac Humphrey Attending Provider [phone] [facility], [place] Primary Care Provider [facility], [place] Referring Provider Unavailable Dr. Jac Humphrey Attending Provider [place], [place] Primary Care Provider [facility]. Antoine Means DO Attending Provider [phone] Antoine Means DO Emergency Provider Dr. Alexander Perales DO Emergency Provider [facility], [place] Primary Care Provider UnavailDr. Antoine Kothari Attending Provider Dr. Antoine Means DO Emergency Provider [phone] Alexander Perales DO Emergency Provider Dr. Leonides Morrison MD Emergency Provider [phone] Leonides Morrison Attending [facility], [place] Primary Care [facility] Primary Care Unavailable Brittany Clifford Attending [facility] Primary Care Unavailable Jasmin Wheatley Attending Unavailable Jasmin Wheatley Referring Unavailable Antoine Means Attending [facility], [place] Primary Care Unavailable Alexander Perales Attending [facility], [place] Primary Care Unavailable Dr. Alexander Perales DO Attending Provider Dr. Leonides Morrison MD Attending Provider Jasmin Pierre Attending Provider Jasmin Pierre Referring Provider Allergies Allergy Classification Reported Allergen(s) Allergy Type Date of Onset Reaction(s) Facility (9 sources) Chlorthalidone Drug Allergy 12-21-19 21 NEEDS FOLLOW-UP [facility] (9 sources) hydroCHLOROthiazide Drug Allergy 12-21-19 21 NEEDS FOLLOW-UP [facility] (1 source) metFORMIN Drug Allergy 12-21-19 21 Upset Stomach [facility] (1 source) Chlorthalidone Drug Allergy 11-13-19 [facility] Repository (1 source) hydroCHLOROthiazide Drug Allergy 11-13-19 [facility] Repository Medications Current Medications Medication Drug Class(es) Dates Sig (Normalized) Sig (Original) acetaminophen 325 mg / oxyCODONE hydrochloride 5 mg oral tablet (3 sources) Opioid Agonist Start: 11-11-2024 take 1 tablet by mouth every six hours as needed for pain Oxycodone-Acetami nophen (Endocet) 5-325 mg tablet Active 1 {tbl} PO EVERY 6 HOURS as needed for pain 8 2 November 11, 2024 [id number] 200 actuat albuterol 0.09 mg/actuat metered dose inhaler (15 sources) beta2-Adrenergic Agonist Start: 12-20-2020 End: 07-02-2023 Albuterol Sulfate 1 PUFF inhaler Active 2 NMA INHALATION EVERY 6 HOURS NEEDED as needed for Sob &/Or Wheezing 6.7 July 02, 2023 10:29pm Start: 12-20-2020 End: 07-02-2023 take 1 puff(s) by inhalation every six hours as needed Albuterol Sulfate Active 2 PUFF INHALATION EVERY 6 HOURS NEEDED 6.7 July 02, 2023 10:29pm amLODIPine 5 mg oral tablet (9 sources) Dihydropyridine Calcium Channel Dafne Start: 12-20-2020 take 2 tablets by mouth once daily Amlodipine 5 MG tablet Active 10 mg PO DAILY December 20, 2020 12:00am Start: 12-20-2020 take 10 mg by mouth once daily Amlodipine Active 10 MG PO DAILY December 20, 2020 12:00am Start: 12-20-2020 take 5 mg by mouth once daily Amlodipine Active 5 MG PO DAILY December 20, 2020 12:00am aspirin 81 mg chewable tablet (9 sources) Platelet Aggregation Inhibitor, Nonsteroidal Anti-inflammatory Drug Start: 12-20-2020 take 1 tablet by mouth once daily Aspirin 81 MG tablet,chewable Active 81 mg PO DAILY@0800 December 20, 2020 12:00am atorvastatin 80 mg oral tablet (9 sources) HMG-CoA Reductase Inhibitor Start: 12-20-2020 take 1 tablet by mouth at bedtime Atorvastatin 80 MG tablet Active 80 mg PO AT BEDTIME December 20, 2020 12:00am azithromycin 250 mg oral tablet (1 source) Macrolide Antimicrobial Start: 07-02-2023 Azithromycin Active 0 PO .COMPLEX 6 July 02, 2023 12:00am For 250 mg dose pack: take 500 mg today (day 1), then 250 mg for 4 days (days 2-5) Budesonide-Formot ajith (9 sources) Corticosteroid, beta2-Adrenergic Agonist Start: 12-20-2020 Budesonide-Formoter ol 10.2 GM HFA aerosol inhaler Active 2 NMA IH TWICE A DAY December 20, 2020 12:00am Start: 12-20-2020 Budesonide-For moterol 10.2 GM HFA aerosol inhaler Active 2 NMA IH TWICE A DAY December 19, 2020 11:00pm Start: 12-20-2020 take 1 puff(s) by in halation twice daily Budesonide-Formoterol Active 2 PUFF IH TWICE A DAY December 20, 2020 12:00am cholecalciferol 0.05 mg oral capsule (9 sources) Vitamin D Start: 12-20-2020 take 1 capsule by mouth once daily Cholecalciferol (Vitamin D3) 2,000 UNIT capsule Active 2000 U PO DAILY December 20, 2020 12:00am cyclobenzaprine hydrochloride 5 mg oral tablet (3 sources) Muscle Relaxant Start: 11-11-2024 take 1 tablet by mouth three times daily as needed for muscle spasms Cyclobenzaprine 5 mg tablet Active 5 mg PO THREE TIMES A DAY as needed for muscle spasm November 11, 2024 1:00am empagliflozin 10 mg oral tablet (9 sources) Sodium-Glucose Cotransporter 2 Inhibitor Start: 12-20-2020 take 1 tablet by mouth once daily Empagliflozin 10 MG tablet Active 5 mg PO DAILY December 20, 2020 12:00am Start: 12-20-2020 take 12.5 mg by mout h once daily Empagliflozin Active 12.5 MG PO DAILY December 20, 2020 12:00am famotidine 40 mg oral tablet (3 sources) Histamine-2 Receptor Antagonist Start: 02-11-2023 take 40 mg by mouth once daily Famotidine Active 40 MG PO DAILY February 11, 2023 12:00am glipiZIDE 10 mg oral tablet (1 source) Sulfonylurea Start: 12-20-2020 take 10 mg by mouth once daily Glipizide Active 10 MG PO DAILY December 20, 2020 12:00am hydrALAZINE hydrochloride 50 mg oral tablet (8 sources) Arteriolar Vasodilator Start: 02-11-2023 take 1 tablet by mouth four times daily Hydralazine 50 mg Tablet Active 50 mg PO 4 times daily February 11, 2023 12:00am 3 ml insulin glargine 100 unt/ml pen injector (15 sources) Insulin Analog Start: 06-07-2023 Insulin Glargi ne 100 unit/mL (3 mL) insulin pen Active 10 U SC AT BEDTIME June 07, 2023 3:20pm Start: 06-07-2023 Insulin Glargi ne Active 32 UNIT SC AT BEDTIME June 07, 2023 3:20pm Start: 12-20-2020 End: 06-07-2023 Insulin Glargine 100 UNITS/M L insulin pen Discontinued 40 U SC AT BEDTIME December 20, 2020 12:00am June 07, 2023 3:22pm Start: 12-20-2020 End: 06-07-2023 Insulin Glargine Discontinue d 40 UNITS SC AT BEDTIME December 20, 2020 12:00am June 07, 2023 3:22pm Start: 12-20-2020 Insulin Glargi ne Active 45 UNITS SC AT BEDTIME December 20, 2020 12:00am lactulose 667 mg/ml oral solution (1 source) Osmotic Laxative Start: 12-20-2020 take 10 g by mouth twice daily Lactulose Active 10 GM PO TWICE A DAY December 20, 2020 12:00am lidocaine 0.05 mg/mg medicated patch (3 sources) Antiarrhythmic, Amide Local Anesthetic Start: 11-11-2024 Lidocaine (Lidoderm) 5 % adhesive patch,medicated Active 1 NMA TOPICAL DAILY November 11, 2024 1:00am leave on most painful area for up to 12 hrs losartan potassium 100 mg oral tablet (9 sources) Angiotensin 2 Receptor Dafne Start: 12-20-2020 Losartan 100 MG tablet Active 50 mg PO AT BEDTIME December 20, 2020 12:00am Start: 12-20-2020 take 25 mg by mouth at bedtime Losartan Active 25 MG PO AT BEDTIME December 20, 2020 12:00am Start: 12-20-2020 take 100 mg by mouth at bedtim e Losartan Active 100 MG PO AT BEDTIME December 20, 2020 12:00am magnesium citrate 58.2 mg/ml oral solution (3 sources) Start: 04-23-2024 Magnesium Citr ate solution Active 150 mL PO TWICE A DAY as needed for constipation 296 April 23, 2024 12:00am Drink half the bottle and then wait a couple hours and then drink the other half the bottle or until you have adequate results. metFORMIN hydrochloride 500 mg oral tablet (20 sources) Biguanide Start: 06-07-2023 take 1 tablet by mouth once daily at breakfast Metformin 500 mg tablet Active 500 mg PO DAILY June 07, 2023 3:17pm with breakfast Start: 06-07-2023 take 1 tablet by lily th once daily at dinner Metformin 1,000 mg tablet Active 1000 mg PO DAILY June 07, 2023 12:00am with dinner Start: 02-11-2023 End: 06-07-2023 take 1 tablet by mouth twice daily Metformin 500 mg Tablet Discontinued 500 mg PO TWICE A DAY February 11, 2023 12:00am June 07, 2023 3:22pm nitroglycerin 0.4 mg sublingual tablet (9 sources) Nitrate Vasodilator Start: 12-20-2020 Nitroglyce rin 0.4 MG tablet, sublingual Active 0.4 mg SL Q5M as needed for Chest Pain December 20, 2020 12:00am Start: 12-20-2020 Nitroglycerin Active 0.4 MG SL Q5M December 20, 2020 12:00am ondansetron 4 mg disintegrating oral tablet (20 sources) Serotonin-3 Receptor Antagonist Start: 11-11-2024 take 1 tablet by mouth every six hours as needed for nausea and vomiting Ondansetron 4 mg tablet,disintegrating Active 4 mg PO EVERY 6 HOURS as needed for nausea and vomiting November 12, 2024 1:00am Start: 12-15-2023 End: 10-16-2024 take 1 tablet by mouth every six hours as needed for nausea and vomiting Ondansetron 4 mg tablet,disintegrating Discontinued 4 mg PO EVERY 6 HOURS as needed for nausea and vomiting December 15, 2023 12:00am October 16, 2024 7:51pm Start: 06-11-2023 End: 07-02-2023 take 1 tablet by mouth every six hours as needed for nausea and vomiting Ondansetron 4 mg tablet,disintegrating Discontinued 4 mg PO EVERY 6 HOURS as needed for nausea and vomiting June 11, 2023 12:00am July 02, 2023 6:32pm Start: 02-11-2023 End: 07-02-2023 take 1 tablet by mouth every eight hours as needed for nausea Ondansetron 4 mg tablet,disintegrating Discontinued 4 mg PO EVERY 8 HOURS NEEDED as needed for Nausea May 05, 2023 12:00am June 07, 2023 3:21pm Start: 12-20-2020 take 8 mg by mouth e very eight hours as needed Ondansetron Active 8 MG PO EVERY 8 HOURS NEEDED December 20, 2020 12:00am oseltamivir 75 mg oral capsule (3 sources) Neuraminidase Inhibitor Start: 10-16-2024 take 1 capsule by mouth twice daily Oseltamivir (Tamiflu) 75 mg capsule Active 75 mg PO TWICE A DAY 10 October 16, 2024 1:00am polyethylene glycol 3350 26770 mg powder for oral solution (20 sources) Osmotic Laxative Start: 02-11-2023 End: 06-07-2023 Polyethylene Glycol 3350 (Miralax) 17 gram powder in packet Active 17 g PO TWICE A DAY June 07, 2023 3:17pm Start: 12-20-2020 End: 06-07-2023 take 34 g by mouth at breakfast Polyethylene Glycol 33 50 17 GM packet Discontinued 34 g PO WITH BREAKFAST December 20, 2020 12:00am June 07, 2023 3:21pm Start: 12-20-2020 take 17 g by mouth once daily Polyethylene Glycol 3350 Active 17 GM PO DAILY December 20, 2020 12:00am predniSONE 20 mg oral tablet (1 source) Start: 07-02-2023 take 40 mg by mouth once daily Prednisone Active 40 MG PO DAILY July 02, 2023 12:00am psyllium 400 mg oral capsule (6 sources) Start: 10-16-2024 Psyllium Husk (Fiber (Psyllium Husk)) 0.4 gram capsule Active 1.2 g PO TWICE A DAY October 16, 2024 1:00am Start: 04-23-2024 End: 10-16-2024 Psyllium Husk (Fiber (Psylli um Husk)) 0.4 gram capsule Discontinued 1.2 g PO DAILY April 23, 2024 12:00am October 16, 2024 7:52pm spironolactone 25 mg oral tablet (1 source) Aldosterone Antagonist Start: 12-20-2020 take 12.5 mg by mouth once daily Spironolactone Active 12.5 MG PO DAILY December 20, 2020 12:00am terazosin 5 mg oral capsule (1 source) alpha-Adrenergic Dafne Start: 12-20-2020 take 5 mg by mouth at bedtime Terazosin Active 5 MG PO AT BEDTIME December 20, 2020 12:00am Completed/Discontinued Medications Medication Drug Class(es) Dates Sig (Normalized) Sig (Original) carvedilol 3.125 mg oral tablet (9 sources) alpha-Adrenergic Dafne, beta-Adrenergic Dafne Start: 12-20-2020 End: 06-07-2023 Carvedilol 3.125 MG tablet Discontinued 0.5 {tbl} PO TWICE A DAY December 20, 2020 12:00am June 07, 2023 3:22pm dicyclomine hydrochloride 10 mg oral capsule (20 sources) Anticholinergic Start: 04-23-2024 End: 10-16-2024 take 2 capsules by mouth three times daily before mealtime Dicyclomine 10 mg capsule Discontinued 20 mg PO THREE TIMES DAILY BEFORE MEALS April 23, 2024 12:00am October 16, 2024 7:50pm Start: 12-15-2023 End: 10-16-2024 take 1 tablet by mouth three times daily Dicyclomine 20 mg tablet Discontinued 20 mg PO THREE TIMES A DAY December 15, 2023 12:00am October 16, 2024 7:50pm Start: 06-11-2023 End: 10-16-2024 take 1 capsule by mouth three times daily as needed for pain Dicyclomine 10 mg capsule Discontinued 10 mg PO THREE TIMES A DAY as needed for abdominal pain June 11, 2023 11:10am October 16, 2024 7:50pm Start: 05-05-2023 End: 06-07-2023 take 1 tablet by mouth twice daily as needed for pain Dicyclomine 20 mg tablet Discontinued 20 mg PO TWICE A DAY as needed for abdominal pain May 05, 2023 10:46am June 07, 2023 3:22pm esomeprazole 20 mg delayed release oral capsule (7 sources) Proton Pump Inhibitor Start: 05-03-2023 End: 06-07-2023 take 1 capsule by mouth once daily Esomeprazole Magnesium (Nexium) 20 mg capsule,delayed release(DR/EC) Discontinued 20 mg PO DAILY May 03, 2023 12:00am June 07, 2023 3:21pm pantoprazole 40 mg delayed release oral tablet (20 sources) Proton Pump Inhibitor Start: 02-11-2023 End: 10-16-2024 take 1 tablet by mouth once daily Pantoprazole (Protonix) 40 mg tablet,delayed release (DR/EC) Discontinued 40 mg PO DAILY July 02, 2023 10:28pm October 16, 2024 7:51pm Start: 12-20-2020 take 40 mg by mouth once daily Pantoprazole Active 40 MG PO DAILY December 20, 2020 12:00am Semaglutide (8 sources) Start: 02-11-2023 End: 10-16-2024 Semaglutide (Ozempic) 0.25 m g or 0.5 mg (2 mg/3 mL) Pen Injector Discontinued 0.25 mg SC EVERY WEEK February 11, 2023 12:00am October 16, 2024 7:51pm for 4 weeks Start: 02-11-2023 End: 10-16-2024 Semaglutide (Ozempic) 0.25 m g or 0.5 mg (2 mg/3 mL) Pen Injector Discontinued 0.25 mg SC EVERY WEEK February 10, 2023 11:00pm October 16, 2024 6:51pm for 4 weeks Start: 02-11-2023 Semaglutide (O zempic) 0.25 mg or 0.5 mg (2 mg/3 mL) Pen Injector Active 0.25 MG SC EVERY WEEK February 11, 2023 12:00am for 4 weeks Problems Active Problems Problem Classification Problem Date Documented Da te Episodic/Chronic Chronic obstructive pulmonary disease and bronchiectasis (6 sources) Acute exacerbation of chronic obstructive airways disease; Translations: [Chronic obstructive pulmonary disease with (acute) exacerbation] 07-02-2023 Chronic Disorders of teeth and jaw (9 sources) Bleeding gums; Translations: [Other specified disorders of gingiva and edentulous alveolar ridge] 12-21-2020 Episodic E Codes: Fall (5 sources) Fall; Translations: [Unspecified fall, initial encounter] 11-11-2024 Episodic Esophageal disorders (15 sources) Gastroesophageal reflux disease; Translations: [Gastro-esophageal reflux disease without esophagitis] 02-19-2023 Chronic Gastrointestinal hemorrhage (4 sources) Black feces; Translations: [Melena] 01-02-2024 Episodic Influenza (3 sources) Influenza due to Influenza A virus; Translations: [Influenza due to other identified influenza virus with other respiratory manifestations] 10-24-2024 Episodic Intestinal obstruction without hernia (1 source) Gallstone ileus; Translations: [Gallstone ileus] Onset: Episodic Nausea and vomiting (20 sources) Nausea and vomiting; Translations: [Nausea with vomiting, unspecified] Onset: 5 12-21-2020 Episodic Other and unspecified benign neoplasm (6 sources) History of polyp of colon; Translations: [Personal history of colonic polyps] 06-07-2023 Episodic Other and unspecified benign neoplasm (1 source) Personal history of colonic polyps; Translations: [Personal history of colonic polyps] 06-07-2023 Episodic Other circulatory disease (3 sources) H/O: heart disorder; Translations: [Personal history of other diseases of the circulatory system] 10-24-2024 Episodic Other gastrointestinal disorders (5 sources) Diarrhea; Translations: [Diarrhea, unspecified] 12-15-2023 Episodic Other gastrointestinal disorders (4 sources) Occult blood in stools; Translations: [Other fecal abnormalities] 01-02-2024 Episodic Other gastrointestinal disorders (3 sources) Difficulty in ability to defecate; Translations: [Constipation, unspecified] 05-01-2024 Episodic Other lower respiratory disease (3 sources) Rib pain; Translations: [Pleurodynia] 11-11-2024 Episodic Other lower respiratory disease (1 source) Pleurodynia; Translations: [Pleurodynia] Onset: Episodic Other non-traumatic joint disorders (3 sources) Pain in left shoulder; Translations: [Left shoulder pain] 11-11-2024 Episodic Other upper respiratory disease (6 sources) Congestion of nasal sinus; Translations: [Nasal congestion] 07-04-2023 Episodic Superficial injury; contusion (4 sources) Contusion of rib; Translations: [Contusion of unspecified front wall of thorax, initial encounter] 11-12-2024 Episodic Viral infection (13 sources) Viral disease; Translations: [Viral infection, unspecified] 05-05-2023 Episodic Past or Other Problems Problem Classification Problem Date Documented Da te Episodic/Chronic Abdominal pain (20 sources) Epigastric pain; Translations: [Epigastric pain] Onset: 04-28-2024 05-03-2023 Episodic Nonspecific chest pain (4 sources) Chest pain; Translations: [Chest pain, unspecified] Onset: 11-02-2024 10-24-2024 Episodic Results Test Name Value Interpretation Reference Range Facility Abdomen Completeon Abdomen Complete [facility] [address] [place] [address] [id number] Abdomen Complete MR#: [id number] Acct: [id number] Name: RALPH DELAROSA Rep #: [id number] : 1950 M 74 From: Lincoln nguyen MD PCP: [facility] Status: REG CLI Study: Abdomen Complete Date of Exam: 02/01/25 Exam# [id number] Ordering Dr: Jasmin Wheatley CORRECTIONAL SERGEANT- C PROCEDURE: ABDOMEN COMPLETE 02/01/2025 REASON FOR EXAM: EVALUATE H/O GALLSTONES AND GI COMPLAINTS TECHNIQUE: Complete abdominal ultrasound norman-scale images with color doppler. PATIENT PREPARATION: Per protocol COMPARISON: Prior CT scan of the abdomen and pelvis dated April 23, 2024. FINDINGS: Liver: Diffusely echogenic suggesting fatty infiltration. The liver is not enlarged. Gallbladder: No stones, sludge, wall thickening or tenderness. Common bile duct: Normal measuring 7 mm. . Pancreas: Obscured by bowel gas. Kidneys: The right kidney measures 11.3 cm 6.2 cm 5 cm. Renal cortex measures 1.4 cm.. The left kidney measures 11.7 cm 5.5 cm 5.6 cm. Renal cortex measures 1.4 cm. Spleen: Normal in size and echotexture measuring the spleen measures 11.3 cm 4.8 cm 4.4 cm. Aorta: Visualized abdominal aorta is of normal size. IVC: Visualized inferior vena cava is unremarkable. Peritoneal Findings: No ascites identified. US/Abdomen Complete IMPRESSION: Mild diffuse fatty infiltration of the liver. The liver is not enlarged. Reading Location: [id number] CC: TIANA Wheatley; [facility] Electronic Transaction Implementer: Signed Normal [facility] Absolute lymphocyte countOrd ered By: Leonides Morrison on 11-12-2024 Lymphocytes Auto (Unsp spec) [#/Vol] 1.19 10*3/uL 0.83-4.51 [facility] Absolute neutrophil countOrd ered By: Leonides Morrison on 11-12-2024 Neutrophils (Bld) [#/Vol] 8.4 10*3/uL High 2.0-7.7 [facility] Anion gap in Serum or Plasma Ordered By: Leonides Morrison on 11-12-2024 Anion gap [Moles/Vol] 15 mmol/L 5-15 [facility] Automated lymphocyte count a s percentage of total leukocytesOrdered By: Leonides Morrison on 11-12-2024 Lymphocytes/100 WBC Auto (Unsp spec) 11.0 % Low 19-41 [facility] BUN/creatinine ratioOrdered By: Leonides Morrison on 11-12-2024 Urea nitrogen/Creatinine [Mass ratio] 19.4 mg/mg 10- [facility] Basic Metabolic Profile (BMP )on 11-12-2024 BUN/CRE 19.4 RATIO Normal - [facility] Comment on above: Performed By: #### L 100.0100, L500.2500 ####[facility] [address] [place], [address] Calcium [Mass/Vol] 8.9 mg/dL Normal 7.6-11.0 [facility] Comment on above: Performed By: #### L 100.0100, L500.2500 ####[facility] [address] [place], [address] Chloride [Moles/Vol] 95 mmol/L Low 98-108 [facility] Comment on above: Performed By: #### L 100.0100, L500.2500 ####[facility] [address] [place], [address] CO2 [Moles/Vol] 20.6 mmol/L Low 21.0-32.0 [facility] Comment on above: Performed By: #### L 100.0100, L500.2500 ####[facility] [address] [place], [address] Creatinine [Mass/Vol] 0.80 mg/dL Normal 0.70-1.20 [facility] Comment on above: Performed By: #### L 100.0100, L500.2500 ####[facility] [address] [place], [address] ECRCL 83.65 ml/min Normal 50-250 [facility] Comment on above: Performed By: #### L 100.0100, L500.2500 ####[facility] [address] [place], [address] GAP 15 Normal 5-15 [facility] Comment on above: Performed By: #### L 100.0100, L500.2500 ####[facility] [address] [place], [address] GFR/1.73 sq M.predicted among non-blacks MDRD (S/P/Bld) [Vol rate/Area] 93 mL/min/{1.73_m2} Normal >60 [facility] Comment on above: Result Comment: mL/m in/1.73m2 CKD-EPI Creatinine Equation (2020) Performed By: #### L 100.0100, L500.2500 ####[facility] [address] [place], [address] Glucose [Mass/Vol] 166 mg/dL High 70-99 [facility] Comment on above: Performed By: #### L 100.0100, L500.2500 ####[facility] [address] [place], [address] Potassium [Moles/Vol] 4.2 mmol/L Normal 3.3-5.1 [facility] Comment on above: Performed By: #### L 100.0100, L500.2500 ####[facility] [address] [place], [address] Sodium [Moles/Vol] 131 mmol/L Low 133-145 [facility] Comment on above: Performed By: #### L 100.0100, L500.2500 ####[facility] [address] [place], [address] Urea nitrogen [Mass/Vol] 16 mg/dL Normal 4-19 [facility] Comment on above: Performed By: #### L 100.0100, L500.2500 ####[facility] [address] [place], [address] Basophil percentageOrdered B y: Leonides Morrison on 11-12-2024 Basophils/100 WBC (Bld) 0.4 % 0-[address] [facility] CBC W/Diff, Automatedon Absolute Lymph 1.19 X10 3/uL Normal 0.83-4.51 [facility] Comment on above: Performed By: #### L 100.0100, L500.2500 ####[facility] [address] [place], [address] Absolute Neut 8.4 X10 3/uL High 2.0-7.7 [facility] Comment on above: Performed By: #### L 100.0100, L500.2500 ####[facility] [address] [place], [address] Basophils/100 WBC (Bld) 0.4 % Normal 0-[address] [facility] Comment on above: Performed By: #### L 100.0100, L500.2500 ####[facility] [address] [place], [address] Eosinophils/100 WBC (Bld) 0.2 % Normal 0-5 [facility] Comment on above: Performed By: #### L 100.0100, L500.2500 ####[facility] [address] [place], [address] Erythrocyte distribution width (RBC) [Ratio] 13.3 % Normal 11.6-14.6 [facility] Comment on above: Performed By: #### L 100.0100, L500.2500 ####[facility] [address] [place], [address] Hematocrit (Bld) [Volume fraction] 43.8 % Normal 40-54 [facility] Comment on above: Performed By: #### L 100.0100, L500.2500 ####[facility] [address] [place], [address] Hemoglobin (Bld) [Mass/Vol] 15.2 g/dL Normal 13.0-16.5 [facility] Comment on above: Performed By: #### L 100.0100, L500.2500 ####[facility] [address] [place], [address] IG% 0.700 Normal 0.0-0.9 [facility] Comment on above: Result Comment: IG% - Immature Granulocytes (promyelocytes, myelocytes and metamyelocytes) > 1% indicates that a LEFT SHIFT is Present. Performed By: #### L 100.0100, L500.2500 ####[facility] [address] [place], [address] Lymphocytes/100 WBC (Bld) 11.0 % Low 19-41 [facility] Comment on above: Performed By: #### L 100.0100, L500.2500 ####[facility] [address] [place], [address] MCH (RBC) [Entitic mass] 29.7 pg Normal 27.0-32.0 [facility] [facility] Comment on above: Performed By: #### L 100.0100, L500.2500 ####[facility] [address] [place], [address] MCHC (RBC) [Mass/Vol] 34.7 g/dL Normal 32-36 [facility] Comment on above: Performed By: #### L 100.0100, L500.2500 ####[facility] [address] [place], [address] MCV (RBC) [Entitic vol] 85.7 fL Normal 80-94 [facility] Comment on above: Performed By: #### L 100.0100, L500.2500 ####[facility] [address] [place], [address] Monocytes/100 WBC (Bld) 10.3 % High 0-[address] [facility] Comment on above: Performed By: #### L 100.0100, L500.2500 ####[facility] [address] [place], [address] Neutrophils/100 WBC (Bld) 77.4 % High 47-70 [facility] Comment on above: Performed By: #### L 100.0100, L500.2500 ####[facility] [address] [place], [address] Nucleated RBC (Bld) [#/Vol] 0 10*3/uL Normal 0-5 [facility] Comment on above: Performed By: #### L 100.0100, L500.2500 ####[facility] [address] [place], [address] Platelet mean volume (Bld) [Entitic vol] 9.4 fL Normal 6.2-12.0 [facility] Comment on above: Performed By: #### L 100.0100, L500.2500 ####[facility] [address] [place], [address] Platelets (Bld) [#/Vol] 165 10*3/uL Normal 150-450 [facility] Comment on above: Performed By: #### L 100.0100, L500.2500 ####[facility] [address] [place], [address] RBC (Bld) [#/Vol] 5.11 10*6/uL Normal 4.6-6.2 [facility] Comment on above: Performed By: #### L 100.0100, L500.2500 ####[facility] [address] [place], [address] RDW SD 41.9 fl Normal 35.1-43.9 [facility] Comment on above: Performed By: #### L 100.0100, L500.2500 ####[facility] [address] [place], [address] WBC (Bld) [#/Vol] 10.9 10*3/uL Normal 4.4-11.0 [facility] Comment on above: Performed By: #### L 100.0100, L500.2500 ####[facility] [address] [place], [address] Carbon dioxide, total [Moles /volume] in Central venous bloodOrdered By: Leonides Morrison on 11-12-2024 CO2 [Moles/Vol] 20.6 mmol/L Low 21.0-32.0 [facility] Chloride assayOrdered By: Fabio Morrison on 11-12-2024 Chloride [Moles/Vol] 95 mmol/L Low 98-108 [facility] Emergency Department Summary on 11-12-2024 Emergency Department Summary [facility] Medical Records Department [address] [place] [address] Emergency Department Summary 11/12/24 MR#: [id number] Acct: [id number] Name: RALPH DELAROSA Rep #: [id number] : 1950 74 From: Leonides Morrison MD PCP: [place] Hospital Status:REG ER Location: ED HPI History of Present Illness Chief Complaint: Nausea/Vomiting Detail of Chief Complaint: Nausea without vomiting. Informant: patient Onset/Context/Timing Onset: Today Context: Gradual Onset Timing: Continuous Current Severity: Mild Maximum Severity: Mild Narrative Narrative: 74-year-old male history of COPD, diabetes and hypertension. Was seen in emergency room yesterday. He is at a bowling alley tripped and fell landing on his left shoulder and left rib cage. X-rays were obtained and were negative. He was discharged to home. He denies any head injury or LOC. He is on no blood thinners. He was discharged home yesterday from the emergency department with a muscle relaxant, lidocaine patches and narcotic pain medication. He said he does not need to use the muscle relaxant. He thinks the pain medication may be making him nauseated. He denies any vomiting or diarrhea. No fever or dysuria. Prior similar symptoms: No Recent Illness/Hospitalization : No PFSH PFSH Medical History Wears glasses Wears dentures Fatty liver Smoker CPAP (continuous positive airway pressure) dependence Abdominal pain COPD (chronic obstructive pulmonary disease) Sleep apnea JOANNA on CPAP High cholesterol GERD (gastroesophageal reflux disease) Constipation Hypertension Diabetes Diabetic acetonemia Home Medications ???Medication ???Instructions ???Recorded ???Last Taken ???Type amlodipine 5 mg tablet 10 mg PO DAILY 12/20/20 Unknown Hi story aspirin 81 mg chewable tablet 81 mg PO DAILY@0800 12/20/2010/16 09:00 History atorvastatin 80 mg tablet 80 mg PO QHS 12/20/20 Unknown Hist ory budesonide-formoterol HFA 160 2 puff IH BID 12/20/20 Unknown His tory mcg-4.5 mcg/actuation aerosol inhaler cholecalciferol (vitamin D3) 50 2,000 unit PO DAILY 12/20/20 Unkno wn History mcg (2,000 unit) capsule empagliflozin 10 mg tablet 5 mg PO DAILY 12/20/20 Unknown His tory losartan 100 mg tablet 50 mg PO QHS 12/20/20 Unknown Hist ory nitroglycerin 0.4 mg sublingual 0.4 mg sublingual Q5M PRN Chest Unknown History tablet Pain hydralazine 50 mg tablet 50 mg PO 4XD 02/11/23 Unknown Hist ory insulin glargine 100 unit/mL (3 10 unit subcut QHS 06/07/23 Unknow n History mL) subcutaneous pen metformin 1,000 mg tablet 1,000 mg PO DAILY 06/07/23 Unknown History metformin 500 mg tablet 500 mg PO DAILY 06/07/23 Unknown H istory polyethylene glycol 3350 17 gram 17 g PO BID 06/07/23 Unknown Histo ry oral powder packet (Miralax) albuterol sulfate 90 mcg/actuation 2 puff inhalation Q6H PRN PRN So b 07/02/23 Unknown Rx aerosol inhaler /Or Wheezing #6.7 grams magnesium citrate 150 ml PO BID PRN constipation Unknown Rx #296 mL oseltamivir 75 mg capsule (Tamiflu) 75 mg PO BID 5 days #10 caps Unknown Rx psyllium husk 0.4 gram capsule 1.2 g PO BID 10/16/24 Unknown Hist ory (Fiber (psyllium husk)) cyclobenzaprine 5 mg tablet 5 mg PO TID PRN muscle spasm #14 0 11/11/24 Unknown Rx tabs lidocaine 5 % topical patch 1 patch topical DAILY #15 ea 11/11 Unknown Rx (Lidoderm) ondansetron 4 mg disintegrating 4 mg PO Q6H PRN nausea and 5 Unknown Rx tablet vomiting #30 tabs oxycodone-acetaminophen 5 mg-325 1 tab PO Q6H PRN pain 2 days #8 Unknown Rx mg tablet (Endocet) tabs ondansetron 4 mg disintegrating 4 mg PO Q6H PRN nausea and 5 Unknown Rx tablet vomiting #7 tabs Allergy/AdvReac Type Severity Reaction Status Date / Time chlorthalidone Allergy NEEDS Verified 11/12/24 10:52 FOLLOW-UP hydrochlorothiazide Allergy NEEDS Verified 11/12/24 10:52 FOLLOW-UP Family History Mother Diabetes Hypertension Brother Diabetes Hypertension Surgical History History of cardiac catheterization History of appendectomy (Unknown) H/O heart artery stent Social History Smoking Status: Light Smoker (<10/day) alcohol intake: current alcohol intake frequency: holidays/special occasions only substance use type: does not use ROS ROS ED ROS Narrative Nausea no vomiting or diarrhea. No fever. Constitutional Constitutional ED: Denies chills or fever(s) Eyes Eyes: Denies blurry vision ENT ENT ED: Denies ear pain Cardiovascular Cardiovascular: Denies ch (more content not included)... Normal [facility] Eosinophil percentageOrdered By: Leonides Morrison on 11-12-2024 Eosinophils/100 WBC (Bld) 0.2 % 0-5 [facility] Erythrocyte distribution wid th ratioOrdered By: Leonides Morrison on 11-12-2024 Erythrocyte distribution width (RBC) [Ratio] 13.3 % 11.6-14.6 [facility] Erythrocyte distribution wid th standard deviationOrdered By: Leonides Morrison on 11-12-2024 Erythrocyte distribution width (RBC) [Entitic vol] 41.9 fL 35.1-43.9 [facility] Erythrocyte distribution width (RBC) [Ratio] 41.9 fl 35.1-43.9 [facility] Estimation of creatinine janie aranceOrdered By: Leonides Morrison on 11-12-2024 Estimated Creatinine Clearance Calc 83.65 ml/min 50-250 [facility] GFR/1.73 sq M.predicted barbara g non-blacks MDRD (S/P/Bld) [Vol rate/Area]Ordered By: Leonides Morrison on 11-12-2024 Estimated GFR (MDRD) Non-Af Amer 93 >60 [facility] Comment on above: mL/min/1.73m2 CKD-EP I Creatinine Equation (2020) Glomerular filtration rate ( GFR) estimation/1.73 sq m using serum, plasma, or whole bOrdered By: Leonides Morrison on 11-12-2024 GFR/1.73 sq M.predicted among non-blacks MDRD (S/P/Bld) [Vol rate/Area] 93 mL/min/{1.73_m2} >60 [facility] Comment on above: mL/min/1.73m2 CKD-EP I Creatinine Equation (2020) Hematocrit Auto (Bld) [Volum e fraction]Ordered By: Leonides Morrison on 11-12-2024 Hematocrit (Bld) [Volume fraction] 43.8 % 40-54 [facility] Hemoglobin measurementOrdere d By: Leonides Morrison on 11-12-2024 Hemoglobin (Bld) [Mass/Vol] 15.2 g/dL 13.0-16.5 [facility] Immature granulocytes/100 WB C Auto (Bld)Ordered By: Leonides Morrison on 11-12-2024 Immature granulocytes/100 WBC (Bld) 0.700 % 0.0-0.9 [facility] Comment on above: IG% - Immature Granu locytes (promyelocytes, myelocytes and metamyelocytes) > 1% indicates that a LEFT SHIFT is Present. Influenza virus A and B and SARS-CoV-2 (COVID-19) and Respiratory syncytial virus RNAOrdered By: Leonides Morrison on 11-12-2024 SARS-CoV-2 (COVID-19) RNA PIETRO+probe Ql (Unsp spec) [facility] Lymphocytes Auto (Unsp spec) [#/Vol]Ordered By: Leonides Morrison on 11-12-2024 Lymphocytes (Bld) [#/Vol] 1.19 10*3/uL 0.83-4.51 [facility] Lymphocytes/100 WBC Auto (Un sp spec)Ordered By: Leonides Morrison on 11-12-2024 Lymphocytes/100 WBC (Bld) 11.0 % Low 19-41 [facility] M100.678on 11-12-2024 M100.678 SARS-CoV-2 (COVID 19 ) Negative INFLUENZA A Negative INFLUENZA B Negative RSV PCR Negative Normal [facility] Comment on above: Performed By: #### M 100.368 #### [facility] [place], [address] MCV (mean corpuscular volume ) determinationOrdered By: Leonides Morrison on 11-12-2024 MCV (RBC) [Entitic vol] 85.7 fL 80-[address] [facility] Mean corpuscular hemoglobin (MCH) determinationOrdered By: Leonides Morrison on 11-12-2024 MCH (RBC) [Entitic mass] 29.7 pg 27.0-32.0 [facility] Mean corpuscular hemoglobin concentration (MCHC) determinationOrdered By: Leonides Morrison on 11-12-2024 MCHC (RBC) [Mass/Vol] 34.7 g/dL 32-36 [facility] Mean platelet volume determi nationOrdered By: Leonides Morrison on 11-12-2024 Platelet mean volume (Bld) [Entitic vol] 9.4 fL 6.2-12.0 [facility] Monocyte percentageOrdered B y: Leonides Morrison on 11-12-2024 Monocytes/100 WBC (Bld) 10.3 % High 0-[address] [facility] Neutrophil percentageOrdered By: Leonides Morrison on 11-12-2024 Neutrophils/100 WBC (Bld) 77.4 % High 47-70 [facility] Nucleated red blood cell per centageOrdered By: Leonides Morrison on 11-12-2024 Nucleated RBC/100 WBC (Bld) [Ratio] 0 % 0-5 [facility] Platelet countOrdered By: Fabio Morrison on 11-12-2024 Platelets (Bld) [#/Vol] 165 10*3/uL 150-450 [facility] Potassium (Unsp spec) [Mass/ Vol]Ordered By: Leonides Morrison on 11-12-2024 Potassium [Moles/Vol] 4.2 mmol/L 3.3-5.1 [facility] Potassium measurement (mass/ volume)Ordered By: Leonides Morrison on 11-12-2024 Potassium (Unsp spec) [Mass/Vol] 4.2 mmol/L 3.3-5.1 [facility] RBC Auto (Bld) [#/Vol]Ordere d By: Leonides Morrison on 11-12-2024 RBC (Bld) [#/Vol] 5.11 10*6/uL 4.6-6.2 [facility] Serum creatinine measurement (mass/volume)Ordered By: Leonides Morrison on 11-12-2024 Creatinine [Mass/Vol] 0.80 mg/dL 0.70-1.20 [facility] Serum glucose measurement (m ass/volume)Ordered By: Leonides Morrison on 11-12-2024 Glucose [Mass/Vol] 166 mg/dL High 70-99 [facility] Serum or plasma calcium jada urement (mass/volume)Ordered By: Leonides Morrison on 11-12-2024 Calcium [Mass/Vol] 8.9 mg/dL 7.6-11.0 [facility] Serum or plasma urea nitroge n measurement (mass/volume)Ordered By: Leonides Morrison on 11-12-2024 Urea nitrogen [Mass/Vol] 16 mg/dL 4-19 [facility] Sodium levelOrdered By: Leonides Morrison on 11-12-2024 Sodium [Moles/Vol] 131 mmol/L Low 133-145 [facility] White blood cell (WBC) count Ordered By: Leonides Morrison on 11-12-2024 WBC (Bld) [#/Vol] 10.9 10*3/uL 4.4-11.0 [facility] Chest PA and Lateralon 11-11 Chest PA and Lateral [facility] Imaging Services [address] [place] [address] Chest PA and Lateral MR#: [id number] Acct: [id number] Name: RALPH DELAROSA Rep #: [id number] : 1950 M 74 From: Megan Cramer nd, MD PCP: [facility] Status: REG ER Study: Chest PA and Lateral Date of Exam: 11/11/24 Exam# [id number] Ordering Dr: Alexander Perales DO PROCEDURE: CHEST PA AND LATERAL REASON FOR EXAM: 74-year-old male, left rib pain after fall. TECHNIQUE: Frontal and lateral views of the chest. COMPARISON: Chest radiograph 10/16/2024. FINDINGS: The heart size is normal. The mediastinal contour is unremarkable. No focal consolidation, pleural effusion or pneumothorax. Degenerative changes are identified within the thoracic spine. RAD/Chest PA and Lateral IMPRESSION: NEGATIVE CHEST Reading Location: [id number] CC: Dr. Alexander Perales DO; [facility] Electronic Transaction Implementer: Signed Normal [facility] Emergency Department Summary on 11-11-2024 Emergency Department Summary [facility] Medical Records Department [address] [place] [address] Emergency Department Summary 11/11/24 MR#: [id number] Acct: [id number] Name: RALPH DELAROSA Rep #: [id number] : 1950 74 From: Alexander Perales DO PCP: [facility] Status:REG ER Location: ED HPI History of Present Illness Chief Complaint: Chest Other Narrative Narrative: Patient is a 74-year-old male past medical history of COPD, hypercholesteremia, hypertension, diabetes who presents to the emergency department the chief complaint of left shoulder and rib pain. Patient states that last night he was bowling and noted that his foot stuck when he went to bowl causing him to fall and land on his left side. He states that he not hit his head he did not pass out he remembers entire event. He denies any blood thinner medications. Patient states that it was painful for him to attempt to lift his shoulder this morning and on the left rib cage therefore he came here for the valuation management. Patient states that he did not get chest pain lightheaded dizziness prior to this episode he states that he simply fell because his foot got caught on the floor. [facility] Medical History Wears glasses Wears dentures Fatty liver Smoker CPAP (continuous positive airway pressure) dependence Abdominal pain COPD (chronic obstructive pulmonary disease) Sleep apnea JOANNA on CPAP High cholesterol GERD (gastroesophageal reflux disease) Constipation Hypertension Diabetes Diabetic acetonemia Home Medications ???Medication ???Instructions ???Recorded ???Last Taken ???Type amlodipine 5 mg tablet 10 mg PO DAILY 12/20/20 Unknown Hi story aspirin 81 mg chewable tablet 81 mg PO DAILY@0800 12/20/2010/16 09:00 History atorvastatin 80 mg tablet 80 mg PO QHS 12/20/20 Unknown Hist ory budesonide-formoterol HFA 160 2 puff IH BID 12/20/20 Unknown His tory mcg-4.5 mcg/actuation aerosol inhaler cholecalciferol (vitamin D3) 50 2,000 unit PO DAILY 12/20/20 Unkno wn History mcg (2,000 unit) capsule empagliflozin 10 mg tablet 5 mg PO DAILY 12/20/20 Unknown His tory losartan 100 mg tablet 50 mg PO QHS 12/20/20 Unknown Hist ory nitroglycerin 0.4 mg sublingual 0.4 mg sublingual Q5M PRN Chest Unknown History tablet Pain hydralazine 50 mg tablet 50 mg PO 4XD 02/11/23 Unknown Hist ory insulin glargine 100 unit/mL (3 10 unit subcut QHS 06/07/23 Unknow n History mL) subcutaneous pen metformin 1,000 mg tablet 1,000 mg PO DAILY 06/07/23 Unknown History metformin 500 mg tablet 500 mg PO DAILY 06/07/23 Unknown H istory polyethylene glycol 3350 17 gram 17 g PO BID 06/07/23 Unknown Histo ry oral powder packet (Miralax) albuterol sulfate 90 mcg/actuation 2 puff inhalation Q6H PRN PRN So b 07/02/23 Unknown Rx aerosol inhaler /Or Wheezing #6.7 grams magnesium citrate 150 ml PO BID PRN constipation Unknown Rx #296 mL oseltamivir 75 mg capsule (Tamiflu) 75 mg PO BID 5 days #10 caps Unknown Rx psyllium husk 0.4 gram capsule 1.2 g PO BID 10/16/24 Unknown Hist ory (Fiber (psyllium husk)) cyclobenzaprine 5 mg tablet 5 mg PO TID PRN muscle spasm #14 0 11/11/24 Unknown Rx tabs lidocaine 5 % topical patch 1 patch topical DAILY #15 ea 11/11 Unknown Rx (Lidoderm) ondansetron 4 mg disintegrating 4 mg PO Q6H PRN nausea and 5 Unknown Rx tablet vomiting #30 tabs oxycodone-acetaminophen 5 mg-325 1 tab PO Q6H PRN pain 2 days #8 Unknown Rx mg tablet (Endocet) tabs Allergy/AdvReac Type Severity Reaction Status Date / Time chlorthalidone Allergy NEEDS Verified 11/11/24 09:01 FOLLOW-UP hydrochlorothiazide Allergy NEEDS Verified 11/11/24 09:01 FOLLOW-UP Family History Mother Diabetes Hypertension Brother Diabetes Hypertension Surgical History History of cardiac catheterization History of appendectomy (Unknown) H/O heart artery stent Social History Smoking Status: Former smoker alcohol intake: current alcohol intake frequency: holidays/special occasions only substance use type: does not use ROS ROS ED ROS Narrative Constitutional: Denies headache, fever, chills, lightness, dizziness Eyes: Denies change in vision double vision blurry vision Cardiovascular: Denies chest pain or palpitations Respiratory: Denies shortness of breath Abdomen: Denies abdominal pain nausea vomit diarrhea : Denies urinary symptoms Neurological: Denies numbness, weakness, tingling Musculoskeletal: Patient complains of left shoulder pain and rib pain on the left (more content not included)... Normal [facility] Humerus min 2 Viewson 2024 Humerus min 2 Views [facility] Imaging Services [address] [place], [place] [address] [phone] Humerus min 2 Views MR#: [id number] Acct: [id number] Name: RALPH DELAROSA Rep #: [id number] : 1950 M 74 From: Megan Cramer nd, MD PCP: [facility] Status: REG ER Study: Humerus min 2 Views Date of Exam: 11/11/24 Exam# [id number] Ordering Dr: Alexander Perales DO PROCEDURE: HUMERUS MIN 2 VIEWS REASON FOR EXAM: 74-year-old male, fall onto left side. TECHNIQUE: 2 view(s) of the left humerus COMPARISON: None. FINDINGS: No fracture. No suspicious bone lesion. Moderate arthrosis of the left glenohumeral and acromioclavicular joints. Soft tissues are unremarkable. RAD/Humerus min 2 Views IMPRESSION: DEGENERATIVE OSTEOARTHROSIS. NO ACUTE FINDINGS. Reading Location: [facility] CC: Dr. Alexander Perales DO; [facility] Electronic Transaction Implementer: Signed Normal [facility] Ribs Unil 2V No CXRon 2024 Ribs Unil 2V No CXR [facility] [address] [place] [address] Ribs Unil 2V No CXR MR#: [id number] Acct: [id number] Name: RALPH DELAROSA Rep #: [id number] : 1950 M 74 From: Megan Cramer nd, MD PCP: [facility] Status: REG ER Study: Ribs Unil 2V No CXR Date of Exam: 11/11/24 Exam# [id number] Ordering Dr: Alexander Perales DO PROCEDURE: RIBS UNIL 2V NO CXR REASON FOR EXAM: 74-year-old male, fall, left axillary pain. TECHNIQUE: Frontal and bilateral oblique views of the bilateral ribs. COMPARISON: None. FINDINGS: No displaced rib fractures are identified. No suspicious lytic or blastic rib lesions. RAD/Ribs Unil 2V No CXR IMPRESSION: NO EVIDENCE OF ACUTE RIB FRACTURE OR PNEUMOTHORAX. Reading Location: [facility] CC: Dr. Alexander Perales DO; [facility] Electronic Transaction Implementer: Signed Normal [facility] Shoulder min 2 Viewson 11-11 Shoulder min 2 Views [facility] Services [address] [place] [address] Shoulder min 2 Views MR#: [id number] Acct: [id number] Name: RALPH DELAROSA Rep #: [id number] : 1950 M 74 From: Megan Cramer nd, MD PCP: [facility] Status: REG ER Study: Shoulder min 2 Views Date of Exam: 11/11/24 Exam# [id number] Ordering Dr: Alexander Perales DO PROCEDURE: SHOULDER MIN 2 VIEWS REASON FOR EXAM: 74-year-old male, fall onto left side. TECHNIQUE: 4 view(s) of the left shoulder COMPARISON: None. FINDINGS: No acute fracture. No suspicious bone lesion. Arthrosis of the glenohumeral and acromioclavicular joints. Soft tissues are unremarkable. RAD/Shoulder min 2 Views IMPRESSION: Degenerative arthrosis. No acute fracture. Reading Location: [facility] CC: Dr. Alexander Perales DO; [facility] Electronic Transaction Implementer: Signed Normal [facility] 12 Lead EKGon 10-16-2024 12 Lead EKG [facility] Services [address] [place] [address] 12 Lead EKG 10/16/24 1844 MR#: [id number] Acct: [id number] Name: RALPH DELAROSA Rep #: [id number] : 1950 73 From: Alin Zamudio MD Attending Dr: Status: DEP ER Ordering Dr: Antoine Means DO Date: 10/16/24 Location: ED Sex: M C Admitted: Test Reason : CP Blood Pressure : */* mmHG Vent. Rate : 75 BPM Atrial Rate : 75 BPM P-R Int : 174 ms QRS Dur : 104 ms QT Int : 382 ms P-R-T Axes : 59 -58 51 degrees QTcB Int : 426 ms Normal sinus rhythm Left axis deviation Septal infarct , age undetermined Abnormal ECG Confirmed by Alin Zamudio ([id number]), loan expeditor NAHOMY COULTER ([id number]) on 10/17/2024 10:04:27 AM Referred By: Confirmed By: Alin Zamudio 10/17/24 1004 Date Alin Zamudio MD CC: Dr. Antoine Means DO; [facility] Signed Normal [facility] Absolute lymphocyte countOrd ered By: Antoine Means on 10-16-2024 Lymphocytes Auto (Unsp spec) [#/Vol] 0.46 10*3/uL Low 0.83-4.51 [facility] Absolute neutrophil countOrd ered By: Antoine Means on 10-16-2024 Neutrophils (Bld) [#/Vol] 7.0 10*3/uL 2.0-7.7 [facility] Automated lymphocyte count a s percentage of total leukocytesOrdered By: Antoine Means on 10-16-2024 Lymphocytes/100 WBC Auto (Unsp spec) 5.2 % Low 19-41 [facility] Basic Metabolic Profile (BMP )on 10-16-2024 BUN/CRE 13.2 RATIO Normal 10-20 [facility] Comment on above: Performed By: #### L 501.5425, L100.0100, L500.2500 #### [facility] [address] [place], [address] CA,Total 9.1 mg/dL Normal 8.5-10.1 [facility] Comment on above: Performed By: #### L 501.5425, L100.0100, L500.2500 #### [facility] [address] [place], [address] Chloride [Moles/Vol] 100 mmol/L Normal 98-107 [facility] Comment on above: Performed By: #### L 501.5425, L100.0100, L500.2500 #### [facility] [address] [place], [address] CO2 [Moles/Vol] 23.0 mmol/L Normal 21.0-32.0 [facility] Comment on above: Performed By: #### L 501.5425, L100.0100, L500.2500 #### [facility] [address] [place], [address] Creatinine [Mass/Vol] 0.91 mg/dL Normal 0.70-1.30 [facility] Comment on above: Result Comment: The validity of the calculated GFR GFRAA in patients over 70 years has not been determined. Clinical correlation is essential. Performed By: #### L 501.5425, L100.0100, L500.2500 #### [facility] [address] [place], [address] ECRCL 74.65 ml/min Normal [facility] Comment on above: Performed By: #### L 501.5425, L100.0100, L500.2500 #### [facility] [address] [place], [address] EST GFR - AA 105 mL/min Normal >60 [facility] Comment on above: Result Comment: Afri can Citizen [place] GFR Calc Performed By: #### L 501.5425, L100.0100, L500.2500 #### [facility] [address] [place], [address] GAP 10 Normal 5-15 [facility] Comment on above: Performed By: #### L 501.5425, L100.0100, L500.2500 #### [facility] [address] [place], [address] GFR/1.73 sq M.predicted among non-blacks MDRD (S/P/Bld) [Vol rate/Area] 87 mL/min/{1.73_m2} Normal >60 [facility] Comment on above: Result Comment: Non- GFR Calc Performed By: #### L 501.5425, L100.0100, L500.2500 #### [facility] [address] [place], [address] Glucose [Mass/Vol] 185 mg/dL High 74-106 [facility] Comment on above: Result Comment: Fast ing Glucose result greater than or equal to 126 mg/dL suggests DIABETES MELLITUS per A.D.A. criteria. Performed By: #### L 501.5425, L100.0100, L500.2500 #### [facility] [address] [place], [address] Potassium [Moles/Vol] 3.8 mmol/L Normal 3.5-5.1 [facility] Comment on above: Performed By: #### L 501.5425, L100.0100, L500.2500 #### [facility] [address] [place], [address] Sodium [Moles/Vol] 134 mmol/L Low 136-145 [facility] Comment on above: Performed By: #### L 501.5425, L100.0100, L500.2500 #### [facility] [address] [place], [address] Urea nitrogen [Mass/Vol] 12 mg/dL Normal 7-18 [facility] Comment on above: Performed By: #### L 501.5425, L100.0100, L500.2500 #### [facility] [address] [place], [address] Basophil percentageOrdered B y: Antoine Means on 10-16-2024 Basophils/100 WBC (Bld) 0.6 % 0-[address] [facility] Blood urea nitrogen (BUN)/cr eatinine ratioOrdered By: Antoine Means on 10-16-2024 Urea nitrogen/Creatinine [Mass ratio] 13.2 mg/mg 10- [facility] CBC W/Diff, Automatedon 10-07 Absolute Lymph 0.46 X10 3/uL Low 0.83-4.51 [facility] Comment on above: Performed By: #### L 501.5425, L100.0100, L500.2500 #### [facility] [address] [place], [address] Absolute Neut 7.0 X10 3/uL Normal 2.0-7.7 [facility] Comment on above: Performed By: #### L 501.5425, L100.0100, L500.2500 #### [facility] [address] [place], [address] Basophils/100 WBC (Bld) 0.6 % Normal 0-[address] [facility] Comment on above: Performed By: #### L 501.5425, L100.0100, L500.2500 #### [facility] [address] [place], [address] Eosinophils/100 WBC (Bld) 0.2 % Normal 0-5 [facility] Comment on above: Performed By: #### L 501.5425, L100.0100, L500.2500 #### [facility] [address] [place], [address] Erythrocyte distribution width (RBC) [Ratio] 13.2 % Normal 11.6-14.6 [facility] Comment on above: Performed By: #### L 501.5425, L100.0100, L500.2500 #### [facility] [address] [place], [address] Hematocrit (Bld) [Volume fraction] 45.7 % Normal 40-54 [facility] Comment on above: Performed By: #### L 501.5425, L100.0100, L500.2500 #### [facility] [address] [place], [address] Hemoglobin (Bld) [Mass/Vol] 15.8 g/dL Normal 13.0-16.5 [facility] Comment on above: Performed By: #### L 501.5425, L100.0100, L500.2500 #### [facility] [address] [place], [address] IG% 0.600 Normal 0.0-0.9 [facility] Comment on above: Result Comment: IG% - Immature Granulocytes (promyelocytes, myelocytes and metamyelocytes) > 1% indicates that a LEFT SHIFT is Present. Performed By: #### L 501.5425, L100.0100, L500.2500 #### [facility] [address] [place], [address] Lymphocytes/100 WBC (Bld) 5.2 % Low 19-41 [facility] Comment on above: Performed By: #### L 501.5425, L100.0100, L500.2500 #### [facility] [address] [place], [address] MCH (RBC) [Entitic mass] 29.2 pg Normal 27.0-32.0 [facility] Comment on above: Performed By: #### L 501.5425, L100.0100, L500.2500 #### [facility] [address] [place], [address] MCHC (RBC) [Mass/Vol] 34.6 g/dL Normal 32-36 [facility] Comment on above: Performed By: #### L 501.5425, L100.0100, L500.2500 #### [facility] [address] [place], [address] MCV (RBC) [Entitic vol] 84.5 fL Normal 80-[address] [facility] Comment on above: Performed By: #### L 501.5425, L100.0100, L500.2500 #### [facility] [address] [place], [address] Monocytes/100 WBC (Bld) 13.5 % High 0-[address] [facility] Comment on above: Performed By: #### L 501.5425, L100.0100, L500.2500 #### [facility] [address] [place], [address] Neutrophils/100 WBC (Bld) 79.9 % High 47-70 [facility] Comment on above: Performed By: #### L 501.5425, L100.0100, L500.2500 #### [facility] [address] [place], [address] Nucleated RBC (Bld) [#/Vol] 0 10*3/uL Normal 0-5 [facility] Comment on above: Performed By: #### L 501.5425, L100.0100, L500.2500 #### [facility] [address] [place], [address] Platelet mean volume (Bld) [Entitic vol] 9.6 fL Normal 6.2-12.0 [facility] Comment on above: Performed By: #### L 501.5425, L100.0100, L500.2500 #### [facility] [address] [place], [address] Platelets (Bld) [#/Vol] 202 10*3/uL Normal 150-450 [facility] Comment on above: Performed By: #### L 501.5425, L100.0100, L500.2500 #### [facility] [address] [place], [address] RBC (Bld) [#/Vol] 5.41 10*6/uL Normal 4.6-6.2 [facility] Comment on above: Performed By: #### L 501.5425, L100.0100, L500.2500 #### [facility] [address] [place], [address] RDW SD 40.8 fl Normal 35.1-43.9 [facility] Comment on above: Performed By: #### L 501.5425, L100.0100, L500.2500 #### [facility] [address] [place], [address] WBC (Bld) [#/Vol] 8.8 10*3/uL Normal 4.4-11.0 [facility] Comment on above: Performed By: #### L 501.5425, L100.0100, L500.2500 #### [facility] [address] [place], [address] Carbon dioxide measurementOr dered By: Antoine Means on 10-16-2024 CO2 [Moles/Vol] 23.0 mmol/L 21.0-32.0 [facility] Chest 1 View (Portable)on Chest 1 View (Portable) [facility] Imaging Services [address] [place] [address] Chest 1 View (Portable) MR#: [id number] Acct: [id number] Name: RALPH DELAROSA Rep #: [id number] : 1950 M 73 From: [facility] DO PCP: [facility] Status: REG ER Study: Chest 1 View (Portable) Date of Exam: 10/16/24 Exam# [id number] Ordering Dr: Antoine Means DO PROCEDURE: CHEST 1 VIEW (PORTABLE) REASON FOR EXAM: Chest pain. TECHNIQUE: Frontal view of the chest. COMPARISON: Chest x-ray from 07/04/2023. FINDINGS: Cardiac size and pulmonary vasculature are within normal limits. No consolidation, pleural effusion, or pneumothorax is present. Degenerative changes are identified. RAD/Chest 1 View (Portable) IMPRESSION: No acute cardiopulmonary process. Reading Location: [facility] CC: Dr. Antoine Means DO; [facility] Electronic Transaction Implementer: Signed Normal [facility] Chloride measurementOrdered By: Antoine Means on 10-16-2024 Chloride [Moles/Vol] 100 mmol/L 98-107 [facility] Summary on 10-16-2024 Emergency Department Summary [facility] Medical Records Department [address] [place] [address] Emergency Department Summary 10/16/24 MR#: [id number] Acct: [id number] Name: RALPH DELAROSA Rep #: [id number] : 1950 73 From: Antoine Moeller PCP: [facility] Status:DEP ER Location: ED HPI History of Present Illness Chief Complaint: Chest Pain Informant: patient Narrative Narrative: Presents chest tightness across both sides since 8:30 AM 11 hours ago. Tingling left fingers. Sinus congestion with this. Reports chills. Intermittent cough. 1 to 2 cigarettes a day. History of coronary disease with 3 stents last time in 2014 followed by the [facility]. Hypertension diabetes and hyperlipidemia. No family history of MIs at young age. No heart cath since 2015. He had a follow- up with the [facility] right before noon today, reports had nasal swabs and sent home. He had chest tightness at that time. No other testing performed. Persistent symptoms brings him here. No nausea or vomiting no urinary symptoms. Denies any dyspnea. CVD Risk Factors: Positive for Hypertension, Diabetes, Hypercholesterolemia and Smoking; Negative for Family History 1' [facility] Medical History Wears glasses Wears dentures Fatty liver Smoker CPAP (continuous positive airway pressure) dependence Abdominal pain COPD (chronic obstructive pulmonary disease) Sleep apnea JOANNA on CPAP High cholesterol GERD (gastroesophageal reflux disease) Constipation Hypertension Diabetes Diabetic acetonemia Home Medications ???Medication ???Instructions ???Recorded ???Last Taken ???Type amlodipine 5 mg tablet 10 mg PO DAILY 12/20/20 Unknown Hi story aspirin 81 mg chewable tablet 81 mg PO DAILY@0800 12/20/2010/16 09:00 History atorvastatin 80 mg tablet 80 mg PO QHS 12/20/20 Unknown Hist ory budesonide-formoterol HFA 160 2 puff IH BID 12/20/20 Unknown His tory mcg-4.5 mcg/actuation aerosol inhaler cholecalciferol (vitamin D3) 50 2,000 unit PO DAILY 12/20/20 Unkno wn History mcg (2,000 unit) capsule empagliflozin 10 mg tablet 5 mg PO DAILY 12/20/20 Unknown His tory losartan 100 mg tablet 50 mg PO QHS 12/20/20 Unknown Hist ory nitroglycerin 0.4 mg sublingual 0.4 mg sublingual Q5M PRN Chest Unknown History tablet Pain hydralazine 50 mg tablet 50 mg PO 4XD 02/11/23 Unknown Hist ory insulin glargine 100 unit/mL (3 10 unit subcut QHS 06/07/23 Unknow n History mL) subcutaneous pen metformin 1,000 mg tablet 1,000 mg PO DAILY 06/07/23 Unknown History metformin 500 mg tablet 500 mg PO DAILY 06/07/23 Unknown H istory polyethylene glycol 3350 17 gram 17 g PO BID 06/07/23 Unknown Histo ry oral powder packet (Miralax) albuterol sulfate 90 mcg/actuation 2 puff inhalation Q6H PRN PRN So b 07/02/23 Unknown Rx aerosol inhaler /Or Wheezing #6.7 grams magnesium citrate 150 ml PO BID PRN constipation Unknown Rx #296 mL oseltamivir 75 mg capsule (Tamiflu) 75 mg PO BID 5 days #10 caps Unknown Rx psyllium husk 0.4 gram capsule 1.2 g PO BID 10/16/24 Unknown Hist ory (Fiber (psyllium husk)) Allergy/AdvReac Type Severity Reaction Status Date / Time chlorthalidone Allergy NEEDS Verified 10/16/24 18:37 FOLLOW-UP hydrochlorothiazide Allergy NEEDS Verified 10/16/24 18:37 FOLLOW-UP Family History Mother Diabetes Hypertension Brother Diabetes Hypertension Surgical History History of cardiac catheterization History of appendectomy (Unknown) H/O heart artery stent Social History Smoking Status: Light Smoker (<10/day) alcohol intake: current alcohol intake frequency: holidays/special occasions only substance use type: does not use ROS ROS ED Constitutional Constitutional ED: Reports chills; Denies fever(s) or sweats ENT ENT ED: Reports other Details: Sinus congestion ; Denies sore throat Cardiovascular Cardiovascular: Reports chest pain; Denies leg edema, palpitations or racing heartbeat Respiratory/Chest Respiratory/Chest: Reports cough; Denies dyspnea or dyspnea on exertion Gastrointestinal Gastrointestinal: Denies abdominal pain, diarrhea, nausea or vomiting Genitourinary Genitourinary ED: Denies dysuria, hematuria or urinary frequency Musculoskeletal Musculoskeletal: Denies back pain, extremity pain or neck pain Integumentary Denies rash or wounds Neurologic Neurologic: Denies headache(s), paresthesias or weakness EXAM Physical Exam Const Vital Signs: 10/16/24 18:38 10/16/24 18:45 10/16/24 18:46 Temperature 98.7 F Temperature Source Temporal Pulse Rate 76 75 Respirato (more content not included)... Normal [facility] Eosinophil percentageOrdered By: Antoine Means on 10-16-2024 Eosinophils/100 WBC (Bld) 0.2 % 0-5 [facility] Erythrocyte distribution wid th ratioOrdered By: Antoine Means on 10-16-2024 Erythrocyte distribution width (RBC) [Ratio] 13.2 % 11.6-14.6 [facility] Erythrocyte distribution wid th standard deviationOrdered By: Antoine Means on 10-16-2024 Erythrocyte distribution width (RBC) [Entitic vol] 40.8 fL 35.1-43.9 [facility] Erythrocyte distribution width (RBC) [Ratio] 40.8 fl 35.1-43.9 [facility] Estimated glomerular filtrat ion rate (GFR) AmericanOrdered By: Antoine Means on 10-16-2024 Estimated GFR (MDRD) Amer 105 mL/min >60 [facility] Comment on above: GFR Calc Estimation of creatinine janie aranceOrdered By: Antoine Means on 10-16-2024 Estimated Creatinine Clearance Calc 74.65 ml/min [facility] Glomerular filtration rate ( GFR) estimationOrdered By: Antoine Means on 10-16-2024 Estimated GFR (MDRD) Non-Af Amer 87 mL/min >60 [facility] Comment on above: Non- GFR Calc GFR/1.73 sq M.predicted among non-blacks MDRD (S/P/Bld) [Vol rate/Area] 87 mL/min/{1.73_m2} >60 [facility] Comment on above: Non- GFR Calc Glucose measurementOrdered B y: Antoine Means on 10-16-2024 Glucose [Mass/Vol] 185 mg/dL High 74-106 [facility] Comment on above: Fasting Glucose resu lt greater than or equal to 126 mg/dL suggests DIABETES MELLITUS per A.D.A. criteria. Hematocrit Auto (Bld) [Volum e fraction]Ordered By: Antoine Means on 10-16-2024 Hematocrit (Bld) [Volume fraction] 45.7 % 40-54 [facility] Hemoglobin measurementOrdere d By: Antoine Means on 10-16-2024 Hemoglobin (Bld) [Mass/Vol] 15.8 g/dL 13.0-16.5 [facility] Immature granulocytes/100 WB C Auto (Bld)Ordered By: Antoine Means on 10-16-2024 Immature granulocytes/100 WBC (Bld) 0.600 % 0.0-0.9 [facility] Comment on above: IG% - Immature Granu locytes (promyelocytes, myelocytes and metamyelocytes) > 1% indicates that a LEFT SHIFT is Present. Influenza virus A and B and SARS-CoV-2 (COVID-19) and Respiratory syncytial virus RNAOrdered By: Antoine Means on 10-16-2024 SARS-CoV-2 (COVID-19) RNA PIETRO+probe Ql (Unsp spec) Influenzae A Abnormal [facility] SARS-CoV-2 (COVID-19) RNA PIETRO+probe Ql (Unsp spec) Influenzae A Abnormal [facility] L501.4020on 10-16-2024 TROPONIN-I HS 20 pg/mL Normal 3.0-78.0 [facility] Comment on above: Result Comment: Plea se Note: New Test Units and Gender Specific Reference Ranges. For more information see Policy Stat Procedure [place] High Sensitivity Troponin (TNIH) and attachments. Performed By: #### L 501.4020 #### [facility] [address] [place], [address] L501.5425on 10-16-2024 TROPONIN-I HS 21 pg/mL Normal 3.0-78.0 [facility] Comment on above: Order Comment: 1 Y Result Comment: Plea se Note: New Test Units and Gender Specific Reference Ranges. For more information see Policy Stat Procedure [place] High Sensitivity Troponin (TNIH) and attachments. Performed By: #### L 501.5425, L100.0100, L500.2500 #### [facility] [address] [place], [address] Lymphocytes Auto (Unsp spec) [#/Vol]Ordered By: Antoine Means on 10-16-2024 Lymphocytes (Bld) [#/Vol] 0.46 10*3/uL Low 0.83-4.51 [facility] Lymphocytes/100 WBC Auto (Un sp spec)Ordered By: Antoine Means on 10-16-2024 Lymphocytes/100 WBC (Bld) 5.2 % Low 19-41 [facility] M100.678on 10-16-2024 SARS-CoV-2 (COVID-19) Ab IA Ql FLUABV+SARS-CoV-2+RSV Pnl Resp PIETRO+probe Copy of report sent to Infection Control Printer [id number] 10/16/242011 JACQUELINE. RESULTS CALLED TO RALPH CRAWFORD 10/16/242011 Gemini Rose. REPORT READ BACK BY SAME. SARS-CoV-2 (COVID 19) Negative INFLUENZA A A Positive A INFLUENZA B Negative RSV PCR Negative INFLUENZAE A Normal [facility] Comment on above: Performed By: #### M 100.160 ####[facility] [address] [place], [place], [id number] MCV (mean corpuscular volume ) determinationOrdered By: Antoine Means on 10-16-2024 MCV (RBC) [Entitic vol] 84.5 fL 80-94 [facility] Mean corpuscular hemoglobin (MCH) determinationOrdered By: Antoine Means on 10-16-2024 MCH (RBC) [Entitic mass] 29.2 pg 27.0-32.0 [facility] Mean corpuscular hemoglobin concentration (MCHC) determinationOrdered By: Antoine Means on 10-16-2024 MCHC (RBC) [Mass/Vol] 34.6 g/dL 32-36 [facility] Mean platelet volume determi nationOrdered By: Antoine Means on 10-16-2024 Platelet mean volume (Bld) [Entitic vol] 9.6 fL 6.2-12.0 [facility] Monocyte percentageOrdered B y: Antoine Means on 10-16-2024 Monocytes/100 WBC (Bld) 13.5 % High 0-[address] [facility] Neutrophil percentageOrdered By: Antoine Means on 10-16-2024 Neutrophils/100 WBC (Bld) 79.9 % High 47-70 [facility] Nucleated red blood cell per centageOrdered By: Antoine Means on 10-16-2024 Nucleated RBC/100 WBC (Bld) [Ratio] 0 % 0-5 [facility] Platelet countOrdered By: Brad Means on 10-16-2024 Platelets (Bld) [#/Vol] 202 10*3/uL 150-450 [facility] Potassium measurementOrdered By: Antoine Means on 10-16-2024 Potassium [Moles/Vol] 3.8 mmol/L 3.5-5.1 [facility] RBC Auto (Bld) [#/Vol]Ordere d By: Antoine Means on 10-16-2024 RBC (Bld) [#/Vol] 5.41 10*6/uL 4.6-6.2 [facility] Serum anion gap measurementO rdered By: Antoine Means on 10-16-2024 Anion gap [Moles/Vol] 10 mmol/L 5-15 [facility] Serum or plasma calcium jada urement (mass/volume)Ordered By: Antoine Means on 10-16-2024 Calcium [Mass/Vol] 9.1 mg/dL 8.5-10.1 [facility] Serum or plasma creatinine m easurement (mass/volume)Ordered By: Antoine Means on 10-16-2024 Creatinine [Mass/Vol] 0.91 mg/dL 0.70-1.30 [facility] Comment on above: The validity of the calculated GFR & GFRAA in patients over 70 years has not been determined. Clinical correlation is essential. Serum or plasma urea nitroge n measurement (mass/volume)Ordered By: Antoine Means on 10-16-2024 Urea nitrogen [Mass/Vol] 12 mg/dL - [facility] Sodium levelOrdered By: Antoine Means on 10-16-2024 Sodium [Moles/Vol] 134 mmol/L Low 136-145 [facility] Troponin IOrdered By: Antoine srinivasan on 10-16-2024 Troponin I 20 pg/mL 3.0-78.0 [facility] Comment on above: Please Note: New [place] t Units and Gender Specific Reference Ranges. For more information see Policy Stat Procedure [place] High Sensitivity Troponin (TNIH) and attachments. Troponin I High Sensitivity 20 pg/mL 3.0-78.0 [facility] Comment on above: Please Note: New [place] t Units and Gender Specific Reference Ranges. For more information see Policy Stat Procedure [place] High Sensitivity Troponin (TNIH) and attachments. White blood cell (WBC) count Ordered By: Antoine Means on 10-16-2024 WBC (Bld) [#/Vol] 8.8 10*3/uL 4.4-11.0 [facility] Abdomen/Pelvis W IV Cont ONL Yon 04-23-2024 Abdomen/Pelvis W IV Cont ONLY [facility] Imaging Services [address] [place], [place] [address] Abdomen/Pelvis W IV Cont ONLY MR#: [id number] Acct: [id number] Name: RALPH DELAROSA Rep #: [id number] : 1950 M 73 From: [facility] MD PCP: [facility] Status: REG ER Study: Abdomen/Pelvis W IV Cont ONLY Date of Exam: Exam# [id number] Ordering Dr: [place] [id number] STUDY: CT ABDOMEN AND PELVIS WITH CONTRAST REASON FOR EXAM: Male, 73 years old. Diffuse abdominal pain, nausea RADIATION DOSAGE (If Supplied By Facility): CTDIvol = ( 16.39 ) mGy, DLP = ( 1011.40 ) mGycm TECHNIQUE: Transaxial images were obtained from the dome of the diaphragm to the symphysis pubis without oral contrast. IV 100mL [id number]-[id number] was administered. Sagittal and coronal images were reconstructed. Individualized dose optimization techniques were used for this CT. COMPARISON: 12/15/2023 FINDINGS: The visualized lung bases are unremarkable. The visualized portions of the heart are within normal limits. Normal liver. Normal gallbladder and extrahepatic biliary system. Normal spleen. Normal pancreas. Normal bilateral adrenal glands. No obstructive uropathy or suspicious solid renal lesion, there are low-density simple cysts in the right kidney measuring less than 1 cm. Normal visualized stomach. Normal small intestine. There are multiple colonic diverticula consistent with diverticulosis. There is non-visualization of the appendix. There is diffuse atherosclerotic calcification of the abdominal aorta, without a demonstrated aneurysm. Normal inferior vena cava. Normal retroperitoneum. Normal urinary bladder. Normal abdominal wall. There are diffuse degenerative changes of the visualized lumbar spine, and pelvis. CT/Abdomen/Pelvis W IV Cont ONLY IMPRESSION: No suspicious solid organ abnormality, simple subcentimeter right renal cysts, no specific follow-up needed. No free intraperitoneal fluid, air, or suspicious adenopathy Electronically Signed: Dimitris Silva MD at 11:04 EDT , CC: Dr. Brittany Clifford, DO; [facility] Electronic Transaction Implementer: Signed Normal [facility] CBC W/Diff, Automatedon 04-06 Absolute Lymph 1.32 X10 3/uL Normal 0.83-4.51 [facility] Comment on above: Performed By: #### L 100.0100 #### [facility] [address] [place], [address] Absolute Neut 5.3 X10 3/uL Normal 2.0-7.7 [facility] Comment on above: Performed By: #### L 100.0100 #### [facility] [address] [place], [address] Basophils/100 WBC (Bld) 0.7 % Normal 0-[address] [facility] Comment on above: Performed By: #### L 100.0100 #### [facility] [address] [place], [address] Eosinophils/100 WBC (Bld) 0.7 % Normal 0-5 [facility] Comment on above: Performed By: #### L 100.0100 #### [facility] [address] [place], [address] Erythrocyte distribution width (RBC) [Ratio] 12.5 % Normal 11.6-14.6 [facility] Comment on above: Performed By: #### L 100.0100 #### [facility] [address] [place], [address] Hematocrit (Bld) [Volume fraction] 48.2 % Normal 40-54 [facility] Comment on above: Performed By: #### L 100.0100 #### [facility] [address] [place], [address] Hemoglobin (Bld) [Mass/Vol] 16.1 g/dL Normal 13.0-16.5 [facility] Comment on above: Performed By: #### L 100.0100 #### [facility] [address] [place], [address] IG% 0.500 Normal 0.0-0.9 [facility] Comment on above: Result Comment: IG% - Immature Granulocytes (promyelocytes, myelocytes and metamyelocytes) > 1% indicates that a LEFT SHIFT is Present. Performed By: #### L 100.0100 #### [facility] [address] [place], [address] Lymphocytes/100 WBC (Bld) 17.9 % Low 19-41 [facility] Comment on above: Performed By: #### L 100.0100 #### [facility] [address] [place], [address] MCH (RBC) [Entitic mass] 28.8 pg Normal 27.0-32.0 [facility] Comment on above: Performed By: #### L 100.0100 #### [facility] [address] [place], [address] MCHC (RBC) [Mass/Vol] 33.4 g/dL Normal 32-36 [facility] Comment on above: Performed By: #### L 100.0100 #### [facility] [address] [place], [address] MCV (RBC) [Entitic vol] 86.2 fL Normal 80-[address] [facility] Comment on above: Performed By: #### L 100.0100 #### [facility] [address] [place], [address] Monocytes/100 WBC (Bld) 8.4 % Normal 0-[address] [facility] Comment on above: Performed By: #### L 100.0100 #### [facility] [address] [place], [address] Neutrophils/100 WBC (Bld) 71.8 % High 47-70 [facility] Comment on above: Performed By: #### L 100.0100 #### [facility] [address] [place], [address] Nucleated RBC (Bld) [#/Vol] 0 10*3/uL Normal 0-5 [facility] Comment on above: Performed By: #### L 100.0100 #### [facility] [address] [place], [address] Platelet mean volume (Bld) [Entitic vol] 9.5 fL Normal 6.2-12.0 [facility] Comment on above: Performed By: #### L 100.0100 #### [facility] [address] [place], [address] Platelets (Bld) [#/Vol] 185 10*3/uL Normal 150-450 [facility] Comment on above: Performed By: #### L 100.0100 #### [facility] [address] [place], [address] RBC (Bld) [#/Vol] 5.59 10*6/uL Normal 4.6-6.2 [facility] Comment on above: Performed By: #### L 100.0100 #### [facility] [address] [place], [address] RDW SD 39.3 fl Normal 35.1-43.9 [facility] Comment on above: Performed By: #### L 100.0100 #### [facility] [address] [place], [address] WBC (Bld) [#/Vol] 7.4 10*3/uL Normal 4.4-11.0 [facility] Comment on above: Performed By: #### L 100.0100 #### [facility] [address] [place], [address] Comprehensive Metabolic Prof ilon 04-23-2024 Albumin [Mass/Vol] 3.9 g/dL Normal 3.2-5.0 [facility] Comment on above: Performed By: #### L 500.4050 ####[facility] [address] [place], [address] Albumin/Globulin [Mass ratio] 1.3 {ratio} Normal 0.9-2.4 [facility] Comment on above: Performed By: #### L 500.4050 ####[facility] [address] [place], [address] ALK P 75 U/L Normal 45-117 [facility] Comment on above: Performed By: #### L 500.4050 ####[facility] [address] [place], [address] ALT [Catalytic activity/Vol] 23 U/L Normal 16-61 [facility] Comment on above: Performed By: #### L [id number] ####[facility] [address] [place], [address] AST [Catalytic activity/Vol] 19 U/L Normal 15-37 [facility] Comment on above: Performed By: #### L 500.4050 ####[facility] [address] [place], [address] Bilirubin [Mass/Vol] 1.60 mg/dL High 0.20-1.00 [facility] Comment on above: Result Comment: For patients on eltrombopag therapy, use of Dimension [place] TBIL is not recommended. Performed By: #### L 500.4050 ####[facility] [address] [place], [address] BUN/CRE 14.0 RATIO Normal 10-20 [facility] Comment on above: Performed By: #### L 500.4050 ####[facility] [address] [place], [address] CA,Total 9.3 mg/dL Normal 8.5-10.1 [facility] Comment on above: Performed By: #### L 500.4050 ####[facility] [address] [place], [address] Chloride [Moles/Vol] 99 mmol/L Normal 98-107 [facility] Comment on above: Performed By: #### L [id number] ####[facility] [address] [place], [address] CO2 [Moles/Vol] 26.0 mmol/L Normal 21.0-32.0 [facility] Comment on above: Performed By: #### L 500.4050 ####[facility] [address] [place], [address] Creatinine [Mass/Vol] 0.86 mg/dL Normal 0.70-1.30 [facility] Comment on above: Result Comment: The validity of the calculated GFR GFRAA in patients over 70 years has not been determined. Clinical correlation is essential. Performed By: #### L 500.4050 ####[facility] [address] [place], [address] ECRCL 78.99 ml/min Normal [facility] Comment on above: Performed By: #### L 500.4050 ####[facility] [address] [place], [address] EST GFR - AA 112 mL/min Normal >60 [facility] Comment on above: Result Comment: Afri can Citizen Of [place] GFR Calc Performed By: #### L 500.4050 ####[facility] [address] [place], [address] GAP 8 Normal 5-15 [facility] Comment on above: Performed By: #### L [id number] ####[facility] [address] [place], [address] GFR/1.73 sq M.predicted among non-blacks MDRD (S/P/Bld) [Vol rate/Area] 93 mL/min/{1.73_m2} Normal >60 [facility] Comment on above: Result Comment: Non- GFR Calc Performed By: #### L 500.4050 ####[facility] [address] [place], [address] Globulin (S) [Mass/Vol] 3.0 g/dL Normal 2.2-4.2 [facility] Comment on above: Performed By: #### L 500.4050 ####[facility] [address] [place], [address] Glucose [Mass/Vol] 203 mg/dL High 74-106 [facility] Comment on above: Result Comment: Gluc ose result greater than or equal to 200 mg/dL suggests DIABETES MELLITUS per A.D.A. criteria. Performed By: #### L 500.4050 ####[facility] [address] [place], [address] Potassium [Moles/Vol] 3.8 mmol/L Normal 3.5-5.1 [facility] Comment on above: Performed By: #### L 500.4050 ####[facility] [address] [place], [address] Sodium [Moles/Vol] 133 mmol/L Low 136-145 [facility] Comment on above: Performed By: #### L 500.4050 ####[facility] [address] [place], [address] T PROT 6.9 g/dL Normal 6.4-8.2 [facility] Comment on above: Performed By: #### L [id number] ####[facility] [address] [place], [address] Urea nitrogen [Mass/Vol] 12 mg/dL Normal 7-18 [facility] Comment on above: Performed By: #### L 500.4050 ####[facility] [address] [place], [address] Emergency Department Summary on 04-23-2024 Emergency Department Summary [facility] Medical Records Department [address] [place] [address] Emergency Department Summary 04/23/24 MR#: [id number] Acct: [id number] Name: RALPH DELAROSA Rep #: [id number] : 1950 73 From: Brittany Clifford DO PCP: [facility] Status:DEP ER Location: ED HPI HPI - GI History of Present Illness Chief Complaint: Abd Pain Informant: patient Narrative Narrative: Patient is a 73-year-old male with history of hypertension, hyperlipidemia and, diabetes mellitus and reports chronic constipation. He is presenting today for worsening lower abdominal pain that raise to his left back. He feels that is been worsening for the past month. Is becoming more constant. He describes as a cramping sensation. Usually an appointment to see the GI doctor at the [facility] last month but is canceled and rescheduled for the end of this month. He denies any associated nausea or vomiting, fever or chills. He denies any chest pain. States he sometimes has some mild shortness of breath but none currently. Denies any urinary symptoms such as hematuria or dysuria. States that he had a small bowel movement today that was liquid and some small granules. Denies any black or blood in his stool. Denies a sensation of pressure or stool stuck in his rectum. Is taking MiraLAX and senna with no improvement of his symptoms. Denies any other, concerns at this time. [facility] Medical History Abdominal pain Constipation COPD (chronic obstructive pulmonary disease) CPAP (continuous positive airway pressure) dependence Diabetes Diabetic acetonemia Fatty liver GERD (gastroesophageal reflux disease) High cholesterol Hypertension JOANNA on CPAP Sleep apnea Smoker Wears dentures Wears glasses Home Medications ???Medication ???Instructions ???Recorded ???Last Taken ???Type amlodipine 5 mg tablet 10 mg PO DAILY 12/20/20 Unknown History aspirin 81 mg chewable tablet 81 mg PO DAILY@0800 12/20/20 Unknown History atorvastatin 80 mg tablet 80 mg PO QHS 12/20/20 Unknown History budesonide-formoterol HFA 160 2 puff IH BID 12/20/20 Unknown History mcg-4.5 mcg/actuation aerosol inhaler cholecalciferol (vitamin D3) 50 2,000 unit PO DAILY 12/20/20 Unknown History mcg (2,000 unit) capsule empagliflozin 10 mg tablet 12.5 mg PO DAILY 12/20/20 Unknown History losartan 100 mg tablet 25 mg PO QHS 12/20/20 Unknown History nitroglycerin 0.4 mg sublingual 0.4 mg sublingual Q5M PRN Chest 12/20/20 Unknown History tablet Pain hydralazine 50 mg tablet 50 mg PO 4XD 02/11/23 Unknown History semaglutide 0.25 mg or 0.5 mg (2 0.25 mg subcut QWEEK 02/11/23 Unknown History mg/3 mL) subcutaneous pen injector (Ozempic) insulin glargine 100 unit/mL (3 32 unit subcut QHS 06/07/23 Unknown History mL) subcutaneous pen metformin 1,000 mg tablet 1,000 mg PO DAILY 06/07/23 Unknown History metformin 500 mg tablet 500 mg PO DAILY 06/07/23 Unknown History polyethylene glycol 3350 17 gram 17 g PO BID 06/07/23 Unknown History oral powder packet (Miralax) dicyclomine 10 mg capsule 10 mg PO TID PRN abdominal pain 06/11/23 Unknown Rx #30 caps albuterol sulfate 90 mcg/actuation 2 puff inhalation Q6H PRN PRN Sob 07/02/23 Unknown Rx aerosol inhaler /Or Wheezing #6.7 grams pantoprazole 40 mg tablet,delayed 40 mg PO DAILY #30 tabs 07/02/23 Unknown Rx release (Protonix) dicyclomine 20 mg tablet 20 mg PO TID #20 tabs 12/15/23 Unknown Rx ondansetron 4 mg disintegrating 4 mg PO Q6H PRN nausea and 12/15/23 Unknown Rx tablet vomiting #20 tabs dicyclomine 10 mg capsule 20 mg (2 x 10 mg) PO TIDAC #20 04/23/24 Unknown Rx CAPSULES magnesium citrate 150 ml PO BID PRN constipation 04/23/24 Unknown Rx #296 mL psyllium husk 0.4 gram capsule 1.2 g (3 x 0.4 gram) PO DAILY 30 04/23/24 Unknown Rx (Fiber (psyllium husk)) days #90 caps Allergy/AdvReac Type Severity Reaction Status Date / Time chlorthalidone Allergy NEEDS Verified 04/23/24 09:25 FOLLOW-UP hydrochlorothiazide Allergy NEEDS Verified 04/23/24 09:25 FOLLOW-UP Family History Mother Diabetes Hypertension Brother Diabetes Hypertension Surgical History H/O heart artery stent History of appendectomy (Unknown) History of cardiac catheterization Social History Smoking Status: Current every day smoker tobacco type: cigarettes alcohol intake: current alcohol intake frequency: holidays/special occasions only substance use type: does not use ROS ROS ED Constitutional Constitutional ED: Denies chills or fever(s) Cardiovascular Cardiovascular: Denies chest pain Respiratory/Ch (more content not included)... Normal [facility] Urinalysis, Completeon 04-23 BACTERIA 0 SEEN Normal None Seen [facility] Comment on above: Order Comment: CLEAN CATCH Performed By: #### L 400.0001 ####[facility] [address] [place], [address] EPI,SQUAMOUS 0 SEEN Normal 0-5 [facility] Comment on above: Order Comment: CLEAN CATCH Performed By: #### L 400.0001 ####[facility] [address] [place], [address] Mucus Ql (Urine sed) 0 SEEN Normal [facility] Comment on above: Order Comment: CLEAN CATCH Performed By: #### L 400.0001 ####[facility] [address] [place], [address] RBC 0 SEEN Normal 0-5 [facility] Comment on above: Order Comment: CLEAN CATCH Performed By: #### L 400.0001 ####[facility] [address] [place], [address] WBC 0 SEEN Normal 0-5 [facility] Comment on above: Order Comment: CLEAN CATCH Performed By: #### L 400.0001 ####[facility] [address] [place], [address] Absolute lymphocyte countOrd ered By: Chris Reynolds on 01-02-2024 Lymphocytes Auto (Unsp spec) [#/Vol] 1.53 10*3/uL 0.83-4.51 [facility] Automated lymphocyte count a s percentage of total leukocytesOrdered By: Chris Reynolds on 01-02-2024 Lymphocytes/100 WBC Auto (Unsp spec) 14.9 % 19-41 [facility] Basophil percentageOrdered B y: Chris Reynolds on 01-02-2024 Basophils/100 WBC (Bld) 0.7 % 0-[address] [facility] Eosinophils/100 WBC (Bld) 0.4 % 0-5 [facility] Hemoglobin (Bld) [Mass/Vol] 16.9 g/dL 13.0-16.5 [facility] Monocytes/100 WBC (Bld) 6.6 % 0-10 [facility] Neutrophils (Bld) [#/Vol] 7.9 10*3/uL 2.0-7.7 [facility] Neutrophils/100 WBC (Bld) 76.8 % 47-70 [facility] WBC (Bld) [#/Vol] 10.3 10*3/uL 4.4-11.0 [facility] Chloride [Moles/Vol] 99 mmol/L 98-107 [facility] Glucose [Mass/Vol] 265 mg/dL 74-106 [facility] Comment on above: Glucose result great er than or equal to 200 mg/dLsuggests DIABETES MELLITUS per A.D.A. criteria. Potassium [Moles/Vol] 3.6 mmol/L 3.5-5.1 [facility] Sodium [Moles/Vol] 135 mmol/L 136-145 [facility] Determination of erythrocyte mean corpuscular volume (MCV)Ordered By: Chris Reynolds on 01-02-2024 MCV (RBC) [Entitic vol] 89.5 fL 80-[address] [facility] Erythrocyte distribution wid th ratioOrdered By: Chris Reynolds on 01-02-2024 Erythrocyte distribution width (RBC) [Ratio] 12.9 % 11.6-14.6 [facility] Erythrocyte distribution wid th standard deviationOrdered By: Chris Reynolds on 01-02-2024 Erythrocyte distribution width (RBC) [Entitic vol] 42.2 fL 35.1-43.9 [facility] Hematocrit Auto (Bld) [Volum e fraction]Ordered By: Chris Reynolds on 01-02-2024 Hematocrit (Bld) [Volume fraction] 51.0 % 40-54 [facility] Immature granulocytes/100 WB C Auto (Bld)Ordered By: Chris Reynolds on 01-02-2024 Immature granulocytes/100 WBC (Bld) 0.600 % 0.0-0.9 [facility] Comment on above: IG% - Immature Granu locytes (promyelocytes, myelocytes and metamyelocytes) > 1% indicates that a LEFT SHIFT is Present. Laboratory - Chemistry and C hemistry - challengeOrdered By: Chris Reynolds on 01-02-2024 CO2 [Moles/Vol] 31.0 mmol/L 21.0-32.0 [facility] Urea nitrogen/Creatinine [Mass ratio] 5.8 mg/mg 10-20 [facility] - Hematology and Cell countsOrdered By: Chris Reynolds on 01-02-2024 MCH (RBC) [Entitic mass] 29.6 pg 27.0-32.0 [facility] MCHC (RBC) [Mass/Vol] 33.1 g/dL 32-36 [facility] Nucleated RBC/100 WBC (Bld) [Ratio] 0 % 0-5 [facility] Platelet mean volume (Bld) [Entitic vol] 9.3 fL 6.2-12.0 [facility] Platelets (Bld) [#/Vol] 261 10*3/uL 150-450 [facility] Lower GI hemoglobin IA Ql (S tl)Ordered By: Chris Reynolds on 01-02-2024 Stool Occult Blood (JASMIN) Positive [facility] No Panel InformationOrdered By: Chris Reynolds on 01-02-2024 Estimated Creatinine Clearance Calc 72.06 ml/min [facility] Estimated GFR (MDRD) Amer 91 mL/min >60 [facility] Comment on above: GFR Calc Estimated GFR (MDRD) Non-Af Amer 75 mL/min >60 [facility] Comment on above: Non- GFR Calc RBC Auto (Bld) [#/Vol]Ordere d By: Chris Reynolds on 01-02-2024 RBC (Bld) [#/Vol] 5.70 10*6/uL 4.6-6.2 [facility] Serum or plasma calcium jada urement (mass/volume)Ordered By: Chris Reynolds on 01-02-2024 Calcium [Mass/Vol] 9.8 mg/dL 8.5-10.1 [facility] Serum or plasma creatinine m easurement (mass/volume)Ordered By: Chris Reynolds on 01-02-2024 Creatinine [Mass/Vol] 1.03 mg/dL 0.70-1.30 [facility] Comment on above: The validity of the calculated GFR & GFRAA in patients over 70 years has not been determined. Clinical correlation is essential. Serum or plasma urea nitroge n measurement (mass/volume)Ordered By: Chris Reynolds on 01-02-2024 Urea nitrogen [Mass/Vol] 6 mg/dL 7-18 [facility] Thin prep Papanicolaou smear with manual screeningOrdered By: Chris Reynolds on 01-02-2024 Thin prep Papanicolaou smear with manual screening 5 5-15 [facility] Absolute lymphocyte countOrd ered By: Rodolfo Birmingham on 12-15-2023 Lymphocytes Auto (Unsp spec) [#/Vol] 1.41 10*3/uL 0.83-4.51 [facility] Automated lymphocyte count a s percentage of total leukocytesOrdered By: Rodolfo Birmingham on 12-15-2023 Lymphocytes/100 WBC Auto (Unsp spec) 12.9 % 19-41 [facility] Basophil percentageOrdered B y: Rodolfo Birmingham on 12-15-2023 Basophils/100 WBC (Bld) 0.6 % 0-[address] [facility] Bilirubin [Mass/Vol] 1.60 mg/dL 0.20-1.00 [facility] Comment on above: For patients on eltr ombopag therapy, use of Dimension [place] TBIL is not recommended. Chloride [Moles/Vol] 100 mmol/L 98-107 [facility] Eosinophils/100 WBC (Bld) 0.1 % 0-5 [facility] Glucose [Mass/Vol] 179 mg/dL 74-106 [facility] Comment on above: Fasting Glucose resu lt greater than or equal to 126 mg/dL suggests DIABETES MELLITUS per A.D.A. criteria. Hemoglobin (Bld) [Mass/Vol] 17.7 g/dL 13.0-16.5 [facility] Monocytes/100 WBC (Bld) 6.1 % 0-[address] [facility] Neutrophils (Bld) [#/Vol] 8.7 10*3/uL 2.0-7.7 [facility] Neutrophils/100 WBC (Bld) 79.7 % 47-70 [facility] Potassium [Moles/Vol] 3.9 mmol/L 3.5-5.1 [facility] Protein [Mass/Vol] 7.7 g/dL 6.4-8.2 [facility] Sodium [Moles/Vol] 132 mmol/L 136-145 [facility] WBC (Bld) [#/Vol] 10.9 10*3/uL 4.4-11.0 [facility] Basophil percentage 0 SEEN /hpf 0-5 [facility] Bilirubin Test strip Ql (U)O rdered By: Rodolfo Birmingham on 12-15-2023 Bilirubin Ql (U) Negative Negative [facility] Determination of erythrocyte mean corpuscular volume (MCV)Ordered By: Rodolfo Birmingham on 12-15-2023 MCV (RBC) [Entitic vol] 84.9 fL 80-[address] [facility] Erythrocyte distribution wid th ratioOrdered By: Rodolfo Birmingham on 12-15-2023 Erythrocyte distribution width (RBC) [Ratio] 12.5 % 11.6-14.6 [facility] Erythrocyte distribution wid th standard deviationOrdered By: Rodolfo Birmingham on 12-15-2023 Erythrocyte distribution width (RBC) [Entitic vol] 38.5 fL 35.1-43.9 [facility] Hematocrit Auto (Bld) [Volum e fraction]Ordered By: Rodolfo Birmingham on 12-15-2023 Hematocrit (Bld) [Volume fraction] 51.2 % 40-54 [facility] Immature granulocytes/100 WB C Auto (Bld)Ordered By: Rodolfo Birmingham on 12-15-2023 Immature granulocytes/100 WBC (Bld) 0.600 % 0.0-0.9 [facility] Comment on above: IG% - Immature Granu locytes (promyelocytes, myelocytes and metamyelocytes) > 1% indicates that a LEFT SHIFT is Present. Ketones Test strip Ql (U)Ord ered By: Rodolfo Birmingham on 12-15-2023 Ketones Ql (U) Negative Negative [facility] - Chemistry and C hemistry - challengeOrdered By: Rodolfo Birmingham on 12-15-2023 Albumin/Globulin [Mass ratio] 1.3 {ratio} 0.9-2.4 [facility] ALP [Catalytic activity/Vol] 90 U/L 45-117 [facility] ALT [Catalytic activity/Vol] 18 U/L 16-61 [facility] CO2 [Moles/Vol] 25.0 mmol/L 21.0-32.0 [facility] Globulin (S) [Mass/Vol] 3.4 g/dL 2.2-4.[address] [facility] Lipase [Catalytic activity/Vol] 42 U/L 13-75 [facility] Comment on above: Please note:LIPASE r evised reference range effective 22. New Lipase methodology. Expected to produce lower values than the previous assay method. NEW Reference Range: 13 - 75 U/L Urea nitrogen/Creatinine [Mass ratio] 12.3 mg/mg 10-20 [facility] - Hematology and Cell countsOrdered By: Rodolfo Birmingham on 12-15-2023 MCH (RBC) [Entitic mass] 29.4 pg 27.0-32.0 [facility] MCHC (RBC) [Mass/Vol] 34.6 g/dL 32-36 [facility] Nucleated RBC/100 WBC (Bld) [Ratio] 0 % 0-5 [facility] Platelet mean volume (Bld) [Entitic vol] 9.6 fL 6.2-12.0 [facility] Platelets (Bld) [#/Vol] 227 10*3/uL 150-450 [facility] Mucus LM Ql (Urine sed)Order ed By: Rodolfo Birmingham on 12-15-2023 Mucus Ql (Urine sed) 0 SEEN /hpf [facility] Nitrite Test strip Ql (U)Ord ered By: Rodolfo Birmingham on 12-15-2023 Nitrite Ql (U) Negative Negative [facility] No Panel InformationOrdered By: Rodolfo Birmingham on 12-15-2023 Estimated Creatinine Clearance Calc 69.32 ml/min [facility] Estimated GFR (MDRD) Amer 97 mL/min >60 [facility] Comment on above: GFR Calc Estimated GFR (MDRD) Non-Af Amer 80 mL/min >60 [facility] Comment on above: Non- GFR Calc Troponin I High Sensitivity 25 pg/mL 3.0-78.0 [facility] Comment on above: Please Note: [place] t Units and Gender Specific Reference Ranges. For more information see Policy Stat Procedure [place] High Sensitivity Troponin (TNIH) and attachments. Urine RBC 0 SEEN /hpf 0-5 [facility] Protein Test strip Ql (U)Ord ered By: Rodolfo Birmingham on 12-15-2023 Protein Ql (U) 15 mg/dl Negative [facility] RBC Auto (Bld) [#/Vol]Ordere d By: Rodolfo Birmingham on 12-15-2023 RBC (Bld) [#/Vol] 6.03 10*6/uL 4.6-6.2 [facility] Serum or plasma calcium jada urement (mass/volume)Ordered By: Rodolfo Birmingham on 12-15-2023 Calcium [Mass/Vol] 9.6 mg/dL 8.5-10.1 [facility] Serum or plasma creatinine m easurement (mass/volume)Ordered By: Rodolfo Birmingham on 12-15-2023 Creatinine [Mass/Vol] 0.98 mg/dL 0.70-1.30 [facility] Comment on above: The validity of the calculated GFR & GFRAA in patients over 70 years has not been determined. Clinical correlation is essential. Serum or plasma urea nitroge n measurement (mass/volume)Ordered By: Rodolfo Birmingham on 12-15-2023 Urea nitrogen [Mass/Vol] 12 mg/dL 7-18 [facility] Squamous epithelial cells de tection in urine sediment by light microscopyOrdered By: Rodolfo Birmingham on 12-15-2023 Epithelial cells.squamous LM Ql (Urine sed) 0-5 SEEN /hpf 0-5 [facility] Thin prep Papanicolaou smear with manual screeningOrdered By: Rodolfo Birmingham on 12-15-2023 Thin prep Papanicolaou smear with manual screening 4.3 g/dL 3.2-5.0 [facility] Thin prep Papanicolaou smear with manual screening 20 U/L 15-37 [facility] Thin prep Papanicolaou smear with manual screening 7 5-15 [facility] Urine blood detectionOrdered By: Rodolfo Birmingham on 12-15-2023 RBC Ql (U) Negative Negative [facility] Urine clarityOrdered By: Tiffanie Birmingham on 12-15-2023 Clarity (U) Clear Clear [facility] Urine color determinationOrd ered By: Rodolfo Birmingham on 12-15-2023 Color (U) Yellow Yellow [facility] Urine glucose detectionOrder ed By: Rodolfo Birmingham on 12-15-2023 Glucose Ql (U) 1000 mg/dl Normal [facility] Urine leukocyte esterase det ection by dipstickOrdered By: Rodolfo Birmingham on 12-15-2023 Leukocyte esterase Test strip Ql (U) Negative Negative [facility] Urine pHOrdered By: Rodolfo mora on 12-15-2023 pH (U) 7.0 [pH] 5.0 - 8.0 [facility] Urine sediment bacteria coun t by microscopy (number/high power field)Ordered By: Rodolfo Birmingham on 12-15-2023 Bacteria LM.HPF (Urine sed) [#/Area] 0 /[HPF] None Seen [facility] Urine specific gravity measu rementOrdered By: Rodolfo Birmingham on 12-15-2023 Specific gravity (U) [Rel density] 1.010 1.002-1.030 [facility] Urine urobilinogen measureme ntOrdered By: Rodolfo Birmingham on 12-15-2023 Urobilinogen Ql (U) Normal mg/dl Normal [facility] Absolute lymphocyte countOrd ered By: Alex Carolina on 07-04-2023 Lymphocytes Auto (Unsp spec) [#/Vol] 0.89 10*3/uL 0.83-4.51 [facility] Basophil percentageOrdered B y: Alex Carolina on 07-04-2023 Basophil percentage 0 SEEN /hpf 0-5 [facility] Basophils/100 WBC (Bld) 0.2 % 0-[address] [facility] Bilirubin [Mass/Vol] 1.20 mg/dL 0.20-1.00 [facility] Comment on above: For patients on eltr ombopag therapy, use of Dimension [place] TBIL is not recommended. Chloride [Moles/Vol] 99 mmol/L 98-107 [facility] Eosinophils/100 WBC (Bld) 0.0 % 0-5 [facility] Glucose [Mass/Vol] 226 mg/dL 74-106 [facility] Comment on above: Glucose result great er than or equal to 200 mg/dLsuggests DIABETES MELLITUS per A.D.A. criteria. Neutrophils (Bld) [#/Vol] 13.4 10*3/uL 2.0-7.7 [facility] Neutrophils/100 WBC (Bld) 90.6 % 47-70 [facility] Potassium [Moles/Vol] 4.7 mmol/L 3.5-5.1 [facility] Protein [Mass/Vol] 6.8 g/dL 6.4-8.2 [facility] Sodium [Moles/Vol] 132 mmol/L 136-145 [facility] WBC (Bld) [#/Vol] 14.8 10*3/uL 4.4-11.0 [facility] Bilirubin Test strip Ql (U)O rdered By: Alex Carolina on 07-04-2023 Bilirubin Ql (U) Negative Negative [facility] Blood erythrocytes count (nu mber/volume)Ordered By: Alex Carolina on 07-04-2023 RBC (Bld) [#/Vol] 5.51 10*6/uL 4.6-6.2 [facility] Blood hemoglobin measurement (mass/volume)Ordered By: Alex Carolian on 07-04-2023 Hemoglobin (Bld) [Mass/Vol] 16.4 g/dL 13.0-16.5 [facility] Blood lymphocytes/100 leukoc ytesOrdered By: Alex Carolina on 07-04-2023 Lymphocytes/100 WBC (Bld) 6.0 % 19-41 [facility] Blood monocytes/100 leukocyt esOrdered By: Alex Carolina on 07-04-2023 Monocytes/100 WBC (Bld) 2.5 % 0-[address] [facility] Blood platelet mean volumeOr dered By: Alex Carolina on 07-04-2023 Platelet mean volume (Bld) [Entitic vol] 9.4 fL 6.2-12.0 [facility] Determination of erythrocyte mean corpuscular volume (MCV)Ordered By: Alex Carolina on 07-04-2023 MCV (RBC) [Entitic vol] 88.6 fL 80-[address] [facility] Hematocrit Auto (Bld) [Volum e fraction]Ordered By: Alex Carolina on 07-04-2023 Hematocrit (Bld) [Volume fraction] 48.8 % 40-54 [facility] Ketones Test strip Ql (U)Ord ered By: Alex Carolina on 07-04-2023 Ketones Ql (U) Negative Negative [facility] Laboratory - Chemistry and C hemistry - challengeOrdered By: Alex Carolina on 07-04-2023 ALP [Catalytic activity/Vol] 74 U/L 45-117 [facility] ALT [Catalytic activity/Vol] 28 U/L 16-61 [facility] CO2 [Moles/Vol] 25.0 mmol/L 21.0-32.0 [facility] Globulin (S) [Mass/Vol] 3.1 g/dL 2.2-4.[address] [facility] Lipase [Catalytic activity/Vol] 29 U/L 13-75 [facility] Comment on above: Please note:LIPASE r evised reference range effective 22. New Lipase methodology. Expected to produce lower values than the previous assay method. NEW Reference Range: 13 - 75 U/L Urea nitrogen/Creatinine [Mass ratio] 25.7 mg/mg 10-20 [facility] - Hematology and Cell countsOrdered By: Alex Carolina on 07-04-2023 Erythrocyte distribution width (RBC) [Entitic vol] 43.0 fL 35.1-43.9 [facility] Erythrocyte distribution width (RBC) [Ratio] 13.2 % 11.6-14.6 [facility] Immature granulocytes/100 WBC (Bld) 0.700 % 0.0-0.9 [facility] Comment on above: IG% - Immature Granu locytes (promyelocytes, myelocytes and metamyelocytes) > 1% indicates that a LEFT SHIFT is Present. MCH (RBC) [Entitic mass] 29.8 pg 27.0-32.0 [facility] Nucleated RBC/100 WBC (Bld) [Ratio] 0 % 0-5 [facility] MCHC Auto (RBC) [Mass/Vol]Or dered By: Alex Carolina on 07-04-2023 MCHC (RBC) [Mass/Vol] 33.6 g/dL 32-36 [facility] Mucus LM Ql (Urine sed)Order ed By: Alex Carolina on 07-04-2023 Mucus Ql (Urine sed) 0 SEEN /hpf [facility] Nitrite Test strip Ql (U)Ord ered By: Alex Carolina on 07-04-2023 Nitrite Ql (U) Negative Negative [facility] No Panel InformationOrdered By: Alex Carolina on 07-04-2023 Estimated Creatinine Clearance Calc 71.08 ml/min [facility] Estimated GFR (MDRD) Amer 97 mL/min >60 [facility] Comment on above: GFR Calc Estimated GFR (MDRD) Non-Af Amer 80 mL/min >60 [facility] Comment on above: Non- GFR Calc Troponin I High Sensitivity 36 pg/mL 3.0-78.0 [facility] Comment on above: Please Note: New [place] t Units and Gender Specific Reference Ranges. For more information see Policy Stat Procedure [place] High Sensitivity Troponin (TNIH) and attachments. Platelets bldOrdered By: Radhames Carolina on 07-04-2023 Platelets (Bld) [#/Vol] 247 10*3/uL 150-450 [facility] Protein Test strip Ql (U)Ord ered By: Alex Carolina on 07-04-2023 Protein Ql (U) 30 mg/dl Negative [facility] Serum or plasma albumin jada urement (mass/volume)Ordered By: Alex Carolina on 07-04-2023 Albumin [Mass/Vol] 3.7 g/dL 3.2-5.0 [facility] Serum or plasma albumin/glob ulin mass ratioOrdered By: Alex Carolina on 07-04-2023 Albumin/Globulin [Mass ratio] 1.2 {ratio} 0.9-2.4 [facility] Serum or plasma calcium jada urement (mass/volume)Ordered By: Alex Carolina on 07-04-2023 Calcium [Mass/Vol] 9.0 mg/dL 8.5-10.1 [facility] Serum or plasma creatinine m easurement (mass/volume)Ordered By: Alex Carolina on 07-04-2023 Creatinine [Mass/Vol] 0.97 mg/dL 0.70-1.30 [facility] Comment on above: The validity of the calculated GFR & GFRAA in patients over 70 years has not been determined. Clinical correlation is essential. Serum or plasma urea nitroge n measurement (mass/volume)Ordered By: Alex Carolina on 07-04-2023 Urea nitrogen [Mass/Vol] 25 mg/dL 7-18 [facility] Squamous epithelial cells de tection in urine sediment by light microscopyOrdered By: Alex Carolina on 07-04-2023 Epithelial cells.squamous LM Ql (Urine sed) 0 SEEN /hpf 0-5 [facility] Thin prep Papanicolaou smear with manual screeningOrdered By: Alex Carolina on 07-04-2023 Thin prep Papanicolaou smear with manual screening 35 U/L 15-37 [facility] Thin prep Papanicolaou smear with manual screening 8 5-15 [facility] Urine blood detectionOrdered By: Alex Carolina on 07-04-2023 RBC Ql (U) Negative Negative [facility] RBC Ql (U) 0 SEEN /hpf 0-5 [facility] Urine clarityOrdered By: Radhames Carolina on 07-04-2023 Clarity (U) Clear Clear [facility] Urine color determinationOrd ered By: Alex Carolina on 07-04-2023 Color (U) Yellow Yellow [facility] Urine glucose detectionOrder ed By: Alex Carolina on 07-04-2023 Glucose Ql (U) 1000 mg/dl Normal [facility] Urine leukocyte esterase det ection by dipstickOrdered By: Alex Carolina on 07-04-2023 Leukocyte esterase Test strip Ql (U) Negative Negative [facility] Urine pHOrdered By: Alex Carolina on 07-04-2023 pH (U) 6.0 [pH] 5.0 - 8.0 [facility] Urine sediment bacteria coun t by microscopy (number/high power field)Ordered By: Alex Carolina on 07-04-2023 Bacteria LM.HPF (Urine sed) [#/Area] 0 /[HPF] None Seen [facility] Urine specific gravity measu rementOrdered By: Alex Carolina on 07-04-2023 Specific gravity (U) [Rel density] 1.010 1.002-1.030 [facility] Urobilinogen Auto test strip Ql (U)Ordered By: Alex Carolina on 07-04-2023 Urobilinogen Ql (U) Normal mg/dl Normal [facility] Absolute lymphocyte countOrd ered By: Brittany Clifford on 07-02-2023 Lymphocytes Auto (Unsp spec) [#/Vol] 1.77 10*3/uL 0.83-4.51 [facility] Basophil percentageOrdered B y: Brittany Clifford on 07-02-2023 Basophils/100 WBC (Bld) 0.6 % 0-1 [facility] Bilirubin [Mass/Vol] 0.90 mg/dL 0.20-1.00 [facility] Comment on above: For patients on eltr ombopag therapy, use of Dimension [place] TBIL is not recommended. Chloride [Moles/Vol] 102 mmol/L 98-107 [facility] Eosinophils/100 WBC (Bld) 0.3 % 0-5 [facility] Glucose [Mass/Vol] 132 mg/dL 74-106 [facility] Comment on above: Fasting Glucose resu lt greater than or equal to 126 mg/dL suggests DIABETES MELLITUS per A.D.A. criteria. Neutrophils (Bld) [#/Vol] 7.4 10*3/uL 2.0-7.7 [facility] Neutrophils/100 WBC (Bld) 73.9 % 47-70 [facility] Potassium [Moles/Vol] 3.7 mmol/L 3.5-5.1 [facility] Protein [Mass/Vol] 7.2 g/dL 6.4-8.2 [facility] Sodium [Moles/Vol] 136 mmol/L 136-145 [facility] WBC (Bld) [#/Vol] 10.0 10*3/uL 4.4-11.0 [facility] Basophil percentage 0 SEEN /hpf 0-5 [facility] Bilirubin Test strip Ql (U)O rdered By: Brittany Clifford on 07-02-2023 Bilirubin Ql (U) Negative Negative [facility] Blood erythrocytes count (nu mber/volume)Ordered By: Brittany Clifford on 07-02-2023 RBC (Bld) [#/Vol] 5.40 10*6/uL 4.6-6.2 [facility] Blood hemoglobin measurement (mass/volume)Ordered By: Brittany Clifford on 07-02-2023 Hemoglobin (Bld) [Mass/Vol] 16.0 g/dL 13.0-16.5 [facility] Blood lymphocytes/100 leukoc ytesOrdered By: Brittany Clifford on 07-02-2023 Lymphocytes/100 WBC (Bld) 17.8 % 19-41 [facility] Blood monocytes/100 leukocyt esOrdered By: Brittany Clifford on 07-02-2023 Monocytes/100 WBC (Bld) 6.6 % 0-[address] [facility] Blood platelet mean volumeOr dered By: Brittany Clifford on 07-02-2023 Platelet mean volume (Bld) [Entitic vol] 9.4 fL 6.2-12.0 [facility] Determination of erythrocyte mean corpuscular volume (MCV)Ordered By: Brittany Clifford on 07-02-2023 MCV (RBC) [Entitic vol] 87.0 fL 80-[address] [facility] Glucose Glucometer (BldC) [M ass/Vol]Ordered By: Brittany Clifford on 07-02-2023 Glucose [Mass/Vol] 122 mg/dL 74-106 [facility] Comment on above: MANAGEMENT OF PATIEN T CARE PER NURSING PROTOCOL Hematocrit Auto (Bld) [Volum e fraction]Ordered By: Brittany Clifford on 07-02-2023 Hematocrit (Bld) [Volume fraction] 47.0 % 40-54 [facility] Influenza virus A and B and SARS-CoV-2 (COVID-19) Ag panel - Upper respiratory specimOrdered By: Brittany Clifford on 07-02-2023 SARS-CoV-2 (COVID-19) RNA PIETRO+probe Ql (Resp) [facility] Ketones Test strip Ql (U)Ord ered By: Brittany Clifford on 07-02-2023 Ketones Ql (U) Negative Negative [facility] - Chemistry and C hemistry - challengeOrdered By: Brittany Clifford on 07-02-2023 ALP [Catalytic activity/Vol] 81 U/L 45-117 [facility] ALT [Catalytic activity/Vol] 25 U/L 16-61 [facility] CO2 [Moles/Vol] 24.0 mmol/L 21.0-32.0 [facility] Globulin (S) [Mass/Vol] 3.2 g/dL 2.2-4.[address] [facility] Lipase [Catalytic activity/Vol] 43 U/L 13-75 [facility] Comment on above: Please note:LIPASE r evised reference range effective 22. New Lipase methodology. Expected to produce lower values than the previous assay method. NEW Reference Range: 13 - 75 U/L Urea nitrogen/Creatinine [Mass ratio] 12.6 mg/mg 10-20 [facility] - Hematology and Cell countsOrdered By: Brittany Clifford on 07-02-2023 Erythrocyte distribution width (RBC) [Entitic vol] 41.6 fL 35.1-43.9 [facility] Erythrocyte distribution width (RBC) [Ratio] 13.1 % 11.6-14.6 [facility] Immature granulocytes/100 WBC (Bld) 0.800 % 0.0-0.9 [facility] Comment on above: IG% - Immature Granu locytes (promyelocytes, myelocytes and metamyelocytes) > 1% indicates that a LEFT SHIFT is Present. MCH (RBC) [Entitic mass] 29.6 pg 27.0-32.0 [facility] Nucleated RBC/100 WBC (Bld) [Ratio] 0 % 0-5 [facility] MCHC Auto (RBC) [Mass/Vol]Or dered By: Brittany Clifford on 07-02-2023 MCHC (RBC) [Mass/Vol] 34.0 g/dL 32-36 [facility] Mucus LM Ql (Urine sed)Order ed By: Brittany Clifford on 07-02-2023 Mucus Ql (Urine sed) 0 SEEN /hpf [facility] Nitrite Test strip Ql (U)Ord ered By: Brittany Clifford on 07-02-2023 Nitrite Ql (U) Negative Negative [facility] No Panel InformationOrdered By: Brittany Clifford on 07-02-2023 Estimated Creatinine Clearance Calc 79.25 ml/min [facility] Estimated GFR (MDRD) Amer 110 mL/min >60 [facility] Comment on above: GFR Calc Estimated GFR (MDRD) Non-Af Amer 91 mL/min >60 [facility] Comment on above: Non- GFR Calc Platelets bldOrdered By: Marilee Clifford on 07-02-2023 Platelets (Bld) [#/Vol] 215 10*3/uL 150-450 [facility] Protein Test strip Ql (U)Ord ered By: Brittany Clifford on 07-02-2023 Protein Ql (U) 15 mg/dl Negative [facility] Serum or plasma albumin jada urement (mass/volume)Ordered By: Brittany Clifford on 07-02-2023 Albumin [Mass/Vol] 4.0 g/dL 3.2-5.0 [facility] Serum or plasma albumin/glob ulin mass ratioOrdered By: Brittany Clifford on 07-02-2023 Albumin/Globulin [Mass ratio] 1.2 {ratio} 0.9-2.4 [facility] Serum or plasma calcium jada urement (mass/volume)Ordered By: Brittany Clifford on 07-02-2023 Calcium [Mass/Vol] 9.3 mg/dL 8.5-10.1 [facility] Serum or plasma creatinine m easurement (mass/volume)Ordered By: Brittany Clifford on 07-02-2023 Creatinine [Mass/Vol] 0.87 mg/dL 0.70-1.30 [facility] Comment on above: The validity of the calculated GFR & GFRAA in patients over 70 years has not been determined. Clinical correlation is essential. Serum or plasma urea nitroge n measurement (mass/volume)Ordered By: Brittany Clifford on 07-02-2023 Urea nitrogen [Mass/Vol] 11 mg/dL 7-18 [facility] Squamous epithelial cells de tection in urine sediment by light microscopyOrdered By: Brittany Clifford on 07-02-2023 Epithelial cells.squamous LM Ql (Urine sed) 0 SEEN /hpf 0-5 [facility] Thin prep Papanicolaou smear with manual screeningOrdered By: Brittany Clifford on 07-02-2023 Thin prep Papanicolaou smear with manual screening 19 U/L 15-37 [facility] Thin prep Papanicolaou smear with manual screening 10 5-15 [facility] Urine blood detectionOrdered By: Brittany Clifford on 07-02-2023 RBC Ql (U) Negative Negative [facility] RBC Ql (U) 0 SEEN /hpf 0-5 [facility] Urine clarityOrdered By: Marilee Clifford on 07-02-2023 Clarity (U) Clear Clear [facility] Urine color determinationOrd ered By: Brittany Clifford on 07-02-2023 Color (U) Straw Yellow [facility] Urine glucose detectionOrder ed By: Brittany Clifford on 07-02-2023 Glucose Ql (U) 1000 mg/dl Normal [facility] Urine leukocyte esterase det ection by dipstickOrdered By: Brittany Clifford on 07-02-2023 Leukocyte esterase Test strip Ql (U) Negative Negative [facility] Urine pHOrdered By: Brittany mitchell on 07-02-2023 pH (U) 6.5 [pH] 5.0 - 8.0 [facility] Urine sediment bacteria coun t by microscopy (number/high power field)Ordered By: Brittany Clifford on 07-02-2023 Bacteria LM.HPF (Urine sed) [#/Area] 0 /[HPF] None Seen [facility] Urine specific gravity measu rementOrdered By: Brittany Clifford on 07-02-2023 Specific gravity (U) [Rel density] 1.005 1.002-1.030 [facility] Urobilinogen Auto test strip Ql (U)Ordered By: Brittany Clifford on 07-02-2023 Urobilinogen Ql (U) Normal mg/dl Normal [facility] Absolute lymphocyte countOrd ered By: Kye Thao on 06-11-2023 Lymphocytes Auto (Unsp spec) [#/Vol] 1.65 10*3/uL 0.83-4.51 [facility] Basophil percentageOrdered B y: Kye Thao on 06-11-2023 Basophil percentage 0 SEEN /hpf 0-5 [facility] Basophils/100 WBC (Bld) 0.7 % 0-[address] [facility] Bilirubin [Mass/Vol] 1.40 mg/dL 0.20-1.00 [facility] Comment on above: For patients on eltr ombopag therapy, use of Dimension [place] TBIL is not recommended. Chloride [Moles/Vol] 97 mmol/L 98-107 [facility] Eosinophils/100 WBC (Bld) 0.6 % 0-5 [facility] Glucose [Mass/Vol] 175 mg/dL 74-106 [facility] Comment on above: Fasting Glucose resu lt greater than or equal to 126 mg/dL suggests DIABETES MELLITUS per A.D.A. criteria. Neutrophils (Bld) [#/Vol] 7.2 10*3/uL 2.0-7.7 [facility] Neutrophils/100 WBC (Bld) 73.8 % 47-70 [facility] Potassium [Moles/Vol] 3.7 mmol/L 3.5-5.1 [facility] Protein [Mass/Vol] 8.2 g/dL 6.4-8.2 [facility] Sodium [Moles/Vol] 131 mmol/L 136-145 [facility] WBC (Bld) [#/Vol] 9.8 10*3/uL 4.4-11.0 [facility] Bilirubin Test strip Ql (U)O rdered By: Kye Thao on 06-11-2023 Bilirubin Ql (U) Negative Negative [facility] Blood erythrocytes count (nu mber/volume)Ordered By: Kye Thao on 06-11-2023 RBC (Bld) [#/Vol] 5.88 10*6/uL 4.6-6.2 [facility] Blood hemoglobin measurement (mass/volume)Ordered By: Kye Thao on 06-11-2023 Hemoglobin (Bld) [Mass/Vol] 17.4 g/dL 13.0-16.5 [facility] Blood lymphocytes/100 leukoc ytesOrdered By: Kye Thao on 06-11-2023 Lymphocytes/100 WBC (Bld) 16.9 % 19-41 [facility] Blood monocytes/100 leukocyt esOrdered By: Kye Thao on 06-11-2023 Monocytes/100 WBC (Bld) 6.9 % 0-[address] [facility] Blood platelet mean volumeOr dered By: Kye Thao on 06-11-2023 Platelet mean volume (Bld) [Entitic vol] 9.9 fL 6.2-12.0 [facility] Determination of erythrocyte mean corpuscular volume (MCV)Ordered By: Kye Thao on 06-11-2023 MCV (RBC) [Entitic vol] 90.0 fL 80-[address] [facility] Direct bilirubinOrdered By: Kye Thao on 06-11-2023 Bilirubin.direct [Mass/Vol] 0.37 mg/dL 0.00-0.30 [facility] Hematocrit Auto (Bld) [Volum e fraction]Ordered By: Kye Thao on 06-11-2023 Hematocrit (Bld) [Volume fraction] 52.9 % 40-54 [facility] Ketones Test strip Ql (U)Ord ered By: Kye Thao on 06-11-2023 Ketones Ql (U) Negative Negative [facility] - Chemistry and C hemistry - challengeOrdered By: Kye Thao on 06-11-2023 ALP [Catalytic activity/Vol] 99 U/L 45-117 [facility] ALT [Catalytic activity/Vol] 21 U/L 16-61 [facility] CO2 [Moles/Vol] 28.0 mmol/L 21.0-32.0 [facility] Globulin (S) [Mass/Vol] 3.6 g/dL 2.2-4.[address] [facility] Lipase [Catalytic activity/Vol] 53 U/L 13-75 [facility] Comment on above: Please note:LIPASE r evised reference range effective 22. New Lipase methodology. Expected to produce lower values than the previous assay method. NEW Reference Range: 13 - 75 U/L Urea nitrogen/Creatinine [Mass ratio] 12.3 mg/mg 10-20 [facility] - Hematology and Cell countsOrdered By: Kye Thao on 06-11-2023 Erythrocyte distribution width (RBC) [Entitic vol] 43.6 fL 35.1-43.9 [facility] Erythrocyte distribution width (RBC) [Ratio] 13.2 % 11.6-14.6 [facility] Immature granulocytes/100 WBC (Bld) 1.100 % 0.0-0.9 [facility] Comment on above: IG% - Immature Granu locytes (promyelocytes, myelocytes and metamyelocytes) > 1% indicates that a LEFT SHIFT is Present. MCH (RBC) [Entitic mass] 29.6 pg 27.0-32.0 [facility] Nucleated RBC/100 WBC (Bld) [Ratio] 0 % 0-5 [facility] MCHC Auto (RBC) [Mass/Vol]Or dered By: Kye Thao on 06-11-2023 MCHC (RBC) [Mass/Vol] 32.9 g/dL 32-36 [facility] Mucus LM Ql (Urine sed)Order ed By: Kye Thao on 06-11-2023 Mucus Ql (Urine sed) 0 SEEN /hpf [facility] Nitrite Test strip Ql (U)Ord ered By: Kye Thao on 06-11-2023 Nitrite Ql (U) Negative Negative [facility] No Panel InformationOrdered By: Kye Thao on 06-11-2023 Estimated Creatinine Clearance Calc 77.47 ml/min [facility] Estimated GFR (MDRD) Amer 108 mL/min >60 [facility] Comment on above: GFR Calc Estimated GFR (MDRD) Non-Af Amer 89 mL/min >60 [facility] Comment on above: Non- GFR Calc Platelets bldOrdered By: Jimmie Thao on 06-11-2023 Platelets (Bld) [#/Vol] 255 10*3/uL 150-450 [facility] Protein Test strip Ql (U)Ord ered By: Kye Thao on 06-11-2023 Protein Ql (U) 15 mg/dl Negative [facility] Serum or plasma albumin jada urement (mass/volume)Ordered By: Kye Thao on 06-11-2023 Albumin [Mass/Vol] 4.6 g/dL 3.2-5.0 [facility] Serum or plasma calcium jada urement (mass/volume)Ordered By: Kye Thao on 06-11-2023 Calcium [Mass/Vol] 9.9 mg/dL 8.5-10.1 [facility] Serum or plasma creatinine m easurement (mass/volume)Ordered By: Kye Thao on 06-11-2023 Creatinine [Mass/Vol] 0.89 mg/dL 0.70-1.30 [facility] Comment on above: The validity of the calculated GFR & GFRAA in patients over 70 years has not been determined. Clinical correlation is essential. Serum or plasma urea nitroge n measurement (mass/volume)Ordered By: Kye Thao on 06-11-2023 Urea nitrogen [Mass/Vol] 11 mg/dL 7-18 [facility] Squamous epithelial cells de tection in urine sediment by light microscopyOrdered By: Kye Thao on 06-11-2023 Epithelial cells.squamous LM Ql (Urine sed) 0 SEEN /hpf 0-5 [facility] Thin prep Papanicolaou smear with manual screeningOrdered By: Kye Thao on 06-11-2023 Thin prep Papanicolaou smear with manual screening 14 U/L 15-37 [facility] Thin prep Papanicolaou smear with manual screening 6 5-15 [facility] Urine blood detectionOrdered By: Kye Thao on 06-11-2023 RBC Ql (U) Negative Negative [facility] RBC Ql (U) 0 SEEN /hpf 0-5 [facility] Urine clarityOrdered By: Jimmie Thao on 06-11-2023 Clarity (U) Clear Clear [facility] Urine color determinationOrd ered By: Kye Thao on 06-11-2023 Color (U) Straw Yellow [facility] Urine glucose detectionOrder ed By: Kye Thao on 06-11-2023 Glucose Ql (U) 1000 mg/dl Normal [facility] Urine leukocyte esterase det ection by dipstickOrdered By: Kye Thao on 06-11-2023 Leukocyte esterase Test strip Ql (U) Negative Negative [facility] Urine pHOrdered By: Kye trinidad on 06-11-2023 pH (U) 7.0 [pH] 5.0 - 8.0 [facility] Urine sediment bacteria coun t by microscopy (number/high power field)Ordered By: Kye Thao on 06-11-2023 Bacteria LM.HPF (Urine sed) [#/Area] 0 /[HPF] None Seen [facility] Urine specific gravity measu rementOrdered By: Kye Thao on 06-11-2023 Specific gravity (U) [Rel density] 1.005 1.002-1.030 [facility] Urobilinogen Auto test strip Ql (U)Ordered By: Kye Thao on 06-11-2023 Urobilinogen Ql (U) Normal mg/dl Normal [facility] Absolute lymphocyte countOrd ered By: Lois Navarro on 05-05-2023 Lymphocytes Auto (Unsp spec) [#/Vol] 1.42 10*3/uL 0.83-4.51 [facility] Basophil percentageOrdered B y: Lois Navarro on 05-05-2023 Basophil percentage 0 SEEN /hpf 0-5 [facility] Basophils/100 WBC (Bld) 0.8 % 0-1 [facility] Bilirubin [Mass/Vol] 1.10 mg/dL 0.20-1.00 [facility] Comment on above: For patients on eltr ombopag therapy, use of Dimension [place] TBIL is not recommended. Chloride [Moles/Vol] 100 mmol/L 98-107 [facility] Eosinophils/100 WBC (Bld) 0.4 % 0-5 [facility] Glucose [Mass/Vol] 131 mg/dL 74-106 [facility] Comment on above: Fasting Glucose resu lt greater than or equal to 126 mg/dL suggests DIABETES MELLITUS per A.D.A. criteria. Neutrophils (Bld) [#/Vol] 5.7 10*3/uL 2.0-7.7 [facility] Neutrophils/100 WBC (Bld) 72.1 % 47-70 [facility] Potassium [Moles/Vol] 3.8 mmol/L 3.5-5.1 [facility] Protein [Mass/Vol] 6.9 g/dL 6.4-8.2 [facility] Sodium [Moles/Vol] 132 mmol/L 136-145 [facility] WBC (Bld) [#/Vol] 7.8 10*3/uL 4.4-11.0 [facility] Bilirubin Test strip Ql (U)O rdered By: Lois Navarro on 05-05-2023 Bilirubin Ql (U) Negative Negative [facility] Blood erythrocytes count (nu mber/volume)Ordered By: Lois Navarro on 05-05-2023 RBC (Bld) [#/Vol] 5.53 10*6/uL 4.6-6.2 [facility] Blood hemoglobin measurement (mass/volume)Ordered By: Lois Navarro on 05-05-2023 Hemoglobin (Bld) [Mass/Vol] 16.3 g/dL 13.0-16.5 [facility] Blood lymphocytes/100 leukoc ytesOrdered By: Lois Navarro on 05-05-2023 Lymphocytes/100 WBC (Bld) 18.1 % 19-41 [facility] Blood monocytes/100 leukocyt esOrdered By: Lois Navarro on 05-05-2023 Monocytes/100 WBC (Bld) 7.7 % 0-[address] [facility] Blood platelet mean volumeOr dered By: Lois Navarro on 05-05-2023 Platelet mean volume (Bld) [Entitic vol] 9.5 fL 6.2-12.0 [facility] Determination of erythrocyte mean corpuscular volume (MCV)Ordered By: Lois Navarro on 05-05-2023 MCV (RBC) [Entitic vol] 87.7 fL 80-94 [facility] [facility] Direct bilirubinOrdered By: Lois Navarro on 05-05-2023 Bilirubin.direct [Mass/Vol] 0.28 mg/dL 0.00-0.30 [facility] Hematocrit Auto (Bld) [Volum e fraction]Ordered By: Lois Navarro on 05-05-2023 Hematocrit (Bld) [Volume fraction] 48.5 % 40-54 [facility] Ketones Test strip Ql (U)Ord ered By: Lois Navarro on 05-05-2023 Ketones Ql (U) Negative Negative [facility] Laboratory - Chemistry and C hemistry - challengeOrdered By: Lois Navarro on 05-05-2023 ALP [Catalytic activity/Vol] 77 U/L 45-117 [facility] ALT [Catalytic activity/Vol] 17 U/L 16-61 [facility] CO2 [Moles/Vol] 23.0 mmol/L 21.0-32.0 [facility] Globulin (S) [Mass/Vol] 3.1 g/dL 2.2-4.[address] [facility] Lipase [Catalytic activity/Vol] 42 U/L 13-75 [facility] Comment on above: Please note:LIPASE r evised reference range effective 22. New Lipase methodology. Expected to produce lower values than the previous assay method. NEW Reference Range: 13 - 75 U/L Urea nitrogen/Creatinine [Mass ratio] 15.4 mg/mg 10-20 [facility] - Hematology and Cell countsOrdered By: Lois Navarro on 05-05-2023 Erythrocyte distribution width (RBC) [Entitic vol] 43.3 fL 35.1-43.9 [facility] Erythrocyte distribution width (RBC) [Ratio] 13.5 % 11.6-14.6 [facility] Immature granulocytes/100 WBC (Bld) 0.900 % 0.0-0.9 [facility] Comment on above: IG% - Immature Granu locytes (promyelocytes, myelocytes and metamyelocytes) > 1% indicates that a LEFT SHIFT is Present. MCH (RBC) [Entitic mass] 29.5 pg 27.0-32.0 [facility] Nucleated RBC/100 WBC (Bld) [Ratio] 0 % 0-5 [facility] MCHC Auto (RBC) [Mass/Vol]Or dered By: Lois Navarro on 05-05-2023 MCHC (RBC) [Mass/Vol] 33.6 g/dL 32-36 [facility] Mucus LM Ql (Urine sed)Order ed By: Lois Navarro on 05-05-2023 Mucus Ql (Urine sed) 0 SEEN /hpf [facility] Nitrite Test strip Ql (U)Ord ered By: Lois Navarro on 05-05-2023 Nitrite Ql (U) Negative Negative [facility] No Panel InformationOrdered By: Lois Navarro on 05-05-2023 Estimated Creatinine Clearance Calc 82.08 ml/min [facility] Estimated GFR (MDRD) Amer 115 mL/min >60 [facility] Comment on above: GFR Calc Estimated GFR (MDRD) Non-Af Amer 95 mL/min >60 [facility] Comment on above: Non- GFR Calc Platelets bldOrdered By: Chery Navarro on 05-05-2023 Platelets (Bld) [#/Vol] 206 10*3/uL 150-450 [facility] Protein Test strip Ql (U)Ord ered By: Lois Navarro on 05-05-2023 Protein Ql (U) 15 mg/dl Negative [facility] Serum or plasma albumin jada urement (mass/volume)Ordered By: Lois Navarro on 05-05-2023 Albumin [Mass/Vol] 3.8 g/dL 3.2-5.0 [facility] Serum or plasma calcium jada urement (mass/volume)Ordered By: Lois Navarro on 05-05-2023 Calcium [Mass/Vol] 9.1 mg/dL 8.5-10.1 [facility] Serum or plasma creatinine m easurement (mass/volume)Ordered By: Lois Navarro on 05-05-2023 Creatinine [Mass/Vol] 0.84 mg/dL 0.70-1.30 [facility] Comment on above: The validity of the calculated GFR & GFRAA in patients over 70 years has not been determined. Clinical correlation is essential. Serum or plasma urea nitroge n measurement (mass/volume)Ordered By: Lois Navarro on 05-05-2023 Urea nitrogen [Mass/Vol] 13 mg/dL 7-18 [facility] Squamous epithelial cells de tection in urine sediment by light microscopyOrdered By: Lois Navarro on 05-05-2023 Epithelial cells.squamous LM Ql (Urine sed) 0-5 SEEN /hpf 0-5 [facility] Thin prep Papanicolaou smear with manual screeningOrdered By: Lois Navarro on 05-05-2023 Thin prep Papanicolaou smear with manual screening 22 U/L 15-37 [facility] Thin prep Papanicolaou smear with manual screening 9 5-15 [facility] Urine blood detectionOrdered By: Lois Navarro on 05-05-2023 RBC Ql (U) Negative Negative [facility] RBC Ql (U) 0 SEEN /hpf 0-5 [facility] Urine clarityOrdered By: Chery Navarro on 05-05-2023 Clarity (U) Clear Clear [facility] Urine color determinationOrd ered By: Lois Navarro on 05-05-2023 Color (U) Yellow Yellow [facility] Urine glucose detectionOrder ed By: Lois Navarro on 05-05-2023 Glucose Ql (U) 1000 mg/dl Normal [facility] Urine leukocyte esterase det ection by dipstickOrdered By: Lois Navarro on 05-05-2023 Leukocyte esterase Test strip Ql (U) Negative Negative [facility] Urine pHOrdered By: Lois Navarro on 05-05-2023 pH (U) 6.5 [pH] 5.0 - 8.0 [facility] Urine sediment bacteria coun t by microscopy (number/high power field)Ordered By: Lois Navarro on 05-05-2023 Bacteria LM.HPF (Urine sed) [#/Area] 0 /[HPF] None Seen [facility] Urine specific gravity measu rementOrdered By: Lois Navarro on 05-05-2023 Specific gravity (U) [Rel density] 1.010 1.002-1.030 [facility] Urobilinogen Auto test strip Ql (U)Ordered By: Lois Navarro on 05-05-2023 Urobilinogen Ql (U) Normal mg/dl Normal [facility] Absolute lymphocyte countOrd ered By: Randy Hernandez on 05-03-2023 Lymphocytes Auto (Unsp spec) [#/Vol] 1.08 10*3/uL 0.83-4.51 [facility] Amorphous sediment detection in urine sediment by light microscopyOrdered By: Randy Hernandez on 05-03-2023 Amorphous sediment LM Ql (Urine sed) 1+ URATE [facility] Basophil percentageOrdered B y: Randy Hernandez on 05-03-2023 Basophil percentage 0 SEEN /hpf 0-5 [facility] Basophils/100 WBC (Bld) 0.7 % 0-[address] [facility] Bilirubin [Mass/Vol] 1.40 mg/dL 0.20-1.00 [facility] Comment on above: For patients on eltr ombopag therapy, use of Dimension [place] TBIL is not recommended. Chloride [Moles/Vol] 100 mmol/L 98-107 [facility] Eosinophils/100 WBC (Bld) 0.2 % 0-5 [facility] Glucose [Mass/Vol] 144 mg/dL 74-106 [facility] Comment on above: Fasting Glucose resu lt greater than or equal to 126 mg/dL suggests DIABETES MELLITUS per A.D.A. criteria. Neutrophils (Bld) [#/Vol] 10.1 10*3/uL 2.0-7.7 [facility] Neutrophils/100 WBC (Bld) 83.3 % 47-70 [facility] Potassium [Moles/Vol] 4.6 mmol/L 3.5-5.1 [facility] Protein [Mass/Vol] 7.4 g/dL 6.4-8.2 [facility] Sodium [Moles/Vol] 131 mmol/L 136-145 [facility] WBC (Bld) [#/Vol] 12.2 10*3/uL 4.4-11.0 [facility] Bilirubin Test strip Ql (U)O rdered By: Randy Hernandez on 05-03-2023 Bilirubin Ql (U) Negative Negative [facility] Blood erythrocytes count (nu mber/volume)Ordered By: Randy Hernandez on 05-03-2023 RBC (Bld) [#/Vol] 5.92 10*6/uL 4.6-6.2 [facility] Blood hemoglobin measurement (mass/volume)Ordered By: Randy Hernandez on 05-03-2023 Hemoglobin (Bld) [Mass/Vol] 17.5 g/dL 13.0-16.5 [facility] Blood lymphocytes/100 leukoc ytesOrdered By: Randy Hernandez on 05-03-2023 Lymphocytes/100 WBC (Bld) 8.9 % 19-41 [facility] Blood monocytes/100 leukocyt esOrdered By: Randy Hernandez on 05-03-2023 Monocytes/100 WBC (Bld) 6.1 % 0-[address] [facility] Blood platelet mean volumeOr dered By: Randy Hernandez on 05-03-2023 Platelet mean volume (Bld) [Entitic vol] 9.8 fL 6.2-12.0 [facility] COVID-19 virus antigen assay Ordered By: Randy Hernandez on 05-03-2023 SARS-CoV-2 (COVID-19) Ag IA.rapid Ql (Resp) [facility] Determination of erythrocyte mean corpuscular volume (MCV)Ordered By: Randy Hernandez on 05-03-2023 MCV (RBC) [Entitic vol] 87.7 fL 80-[address] [facility] Hematocrit Auto (Bld) [Volum e fraction]Ordered By: Randy Hernandez on 05-03-2023 Hematocrit (Bld) [Volume fraction] 51.9 % 40-54 [facility] Ketones Test strip Ql (U)Ord ered By: Randy Hernandez on 05-03-2023 Ketones Ql (U) 15 mg/dl Negative [facility] Laboratory - Chemistry and C hemistry - challengeOrdered By: Randy Hernandez on 05-03-2023 ALP [Catalytic activity/Vol] 91 U/L 45-117 [facility] ALT [Catalytic activity/Vol] 16 U/L 16-61 [facility] CO2 [Moles/Vol] 23.0 mmol/L 21.0-32.0 [facility] Globulin (S) [Mass/Vol] 3.5 g/dL 2.2-4.[address] [facility] Lipase [Catalytic activity/Vol] 41 U/L 13-75 [facility] Comment on above: Please note:LIPASE r evised reference range effective 22. New Lipase methodology. Expected to produce lower values than the previous assay method. NEW Reference Range: 13 - 75 U/L Urea nitrogen/Creatinine [Mass ratio] 13.1 mg/mg 10-20 [facility] - Hematology and Cell countsOrdered By: Randy Hernandez on 05-03-2023 Erythrocyte distribution width (RBC) [Entitic vol] 43.2 fL 35.1-43.9 [facility] Erythrocyte distribution width (RBC) [Ratio] 13.4 % 11.6-14.6 [facility] Immature granulocytes/100 WBC (Bld) 0.800 % 0.0-0.9 [facility] Comment on above: IG% - Immature Granu locytes (promyelocytes, myelocytes and metamyelocytes) > 1% indicates that a LEFT SHIFT is Present. MCH (RBC) [Entitic mass] 29.6 pg 27.0-32.0 [facility] Nucleated RBC/100 WBC (Bld) [Ratio] 0 % 0-5 [facility] MCHC Auto (RBC) [Mass/Vol]Or dered By: Randy Hernandez on 05-03-2023 MCHC (RBC) [Mass/Vol] 33.7 g/dL 32-36 [facility] Mucus LM Ql (Urine sed)Order ed By: Randy Hernandez on 05-03-2023 Mucus Ql (Urine sed) 0 SEEN /hpf [facility] Nitrite Test strip Ql (U)Ord ered By: Randy Hernandez on 05-03-2023 Nitrite Ql (U) Negative Negative [facility] No Panel InformationOrdered By: Randy Hernandez on 05-03-2023 Estimated Creatinine Clearance Calc 75.76 ml/min [facility] Estimated GFR (MDRD) Amer 105 mL/min >60 [facility] Comment on above: GFR Calc Estimated GFR (MDRD) Non-Af Amer 87 mL/min >60 [facility] Comment on above: Non- GFR Calc Troponin I High Sensitivity 15 pg/mL 3.0-78.0 [facility] Comment on above: Please Note: New [place] t Units and Gender Specific Reference Ranges. For more information see Policy Stat Procedure [place] High Sensitivity Troponin (TNIH) and attachments. Platelets bldOrdered By: Lilibeth Hernandez on 05-03-2023 Platelets (Bld) [#/Vol] 224 10*3/uL 150-450 [facility] Protein Test strip Ql (U)Ord ered By: Randy Hernandez on 05-03-2023 Protein Ql (U) 30 mg/dl Negative [facility] Serum or plasma albumin jada urement (mass/volume)Ordered By: Randy Hernandez on 05-03-2023 Albumin [Mass/Vol] 3.9 g/dL 3.2-5.0 [facility] Serum or plasma albumin/glob ulin mass ratioOrdered By: Randy Hernandez on 05-03-2023 Albumin/Globulin [Mass ratio] 1.1 {ratio} 0.9-2.4 [facility] Serum or plasma calcium jada urement (mass/volume)Ordered By: Randy Hernandez on 05-03-2023 Calcium [Mass/Vol] 9.2 mg/dL 8.5-10.1 [facility] Serum or plasma creatinine m easurement (mass/volume)Ordered By: Randy Hernandez on 05-03-2023 Creatinine [Mass/Vol] 0.91 mg/dL 0.70-1.30 [facility] Comment on above: The validity of the calculated GFR & GFRAA in patients over 70 years has not been determined. Clinical correlation is essential. Serum or plasma urea nitroge n measurement (mass/volume)Ordered By: Randy Hernandez on 05-03-2023 Urea nitrogen [Mass/Vol] 12 mg/dL 7-18 [facility] Squamous epithelial cells de tection in urine sediment by light microscopyOrdered By: Randy Hernandez on 05-03-2023 Epithelial cells.squamous LM Ql (Urine sed) 0-5 SEEN /hpf 0-5 [facility] Thin prep Papanicolaou smear with manual screeningOrdered By: Randy Hernandez on 05-03-2023 Thin prep Papanicolaou smear with manual screening 20 U/L 15-37 [facility] Thin prep Papanicolaou smear with manual screening 8 5-15 [facility] Urine blood detectionOrdered By: Randy Hernandez on 05-03-2023 RBC Ql (U) Negative Negative [facility] RBC Ql (U) 0 SEEN /hpf 0-5 [facility] Urine clarityOrdered By: Lilibeth Hernandez on 05-03-2023 Clarity (U) Sl. Cloudy Clear [facility] Urine color determinationOrd ered By: Randy Hernandez on 05-03-2023 Color (U) Yellow Yellow [facility] Urine glucose detectionOrder ed By: Randy Hernandez on 05-03-2023 Glucose Ql (U) 1000 mg/dl Normal [facility] Urine leukocyte esterase det ection by dipstickOrdered By: Randy Hernandez on 05-03-2023 Leukocyte esterase Test strip Ql (U) Negative Negative [facility] Urine pHOrdered By: Randy corey on 05-03-2023 pH (U) 6.0 [pH] 5.0 - 8.0 [facility] Urine sediment bacteria coun t by microscopy (number/high power field)Ordered By: Randy Hernandez on 05-03-2023 Bacteria LM.HPF (Urine sed) [#/Area] 0 /[HPF] None Seen [facility] Urine specific gravity measu rementOrdered By: Randy Hernandez on 05-03-2023 Specific gravity (U) [Rel density] 1.010 1.002-1.030 [facility] Urobilinogen Auto test strip Ql (U)Ordered By: Randy Hernandez on 05-03-2023 Urobilinogen Ql (U) Normal mg/dl Normal [facility] Absolute lymphocyte countOrd ered By: Aristides Toscano on 02-11-2023 Lymphocytes Auto (Unsp spec) [#/Vol] 1.86 10*3/uL 0.83-4.51 [facility] Basophil percentageOrdered B y: Aristides Toscano on 02-11-2023 Basophil percentage 0 SEEN /hpf 0-5 [facility] Basophils/100 WBC (Bld) 0.8 % 0-1 [facility] Bilirubin [Mass/Vol] 1.60 mg/dL 0.20-1.00 [facility] Comment on above: For patients on eltr ombopag therapy, use of Dimension [place] TBIL is not recommended. Chloride [Moles/Vol] 101 mmol/L 98-107 [facility] Eosinophils/100 WBC (Bld) 0.8 % 0-5 [facility] Glucose [Mass/Vol] 151 mg/dL 74-106 [facility] Comment on above: Fasting Glucose resu lt greater than or equal to 126 mg/dL suggests DIABETES MELLITUS per A.D.A. criteria. Neutrophils (Bld) [#/Vol] 6.3 10*3/uL 2.0-7.7 [facility] Neutrophils/100 WBC (Bld) 68.3 % 47-70 [facility] Potassium [Moles/Vol] 3.7 mmol/L 3.5-5.1 [facility] Protein [Mass/Vol] 7.2 g/dL 6.4-8.2 [facility] Sodium [Moles/Vol] 133 mmol/L 136-145 [facility] WBC (Bld) [#/Vol] 9.1 10*3/uL 4.4-11.0 [facility] Bilirubin Test strip Ql (U)O rdered By: Aristides Toscano on 02-11-2023 Bilirubin Ql (U) Negative Negative [facility] Blood erythrocytes count (nu mber/volume)Ordered By: Aristides Toscano on 02-11-2023 RBC (Bld) [#/Vol] 5.85 10*6/uL 4.6-6.2 [facility] Blood hemoglobin measurement (mass/volume)Ordered By: Aristides Toscano on 02-11-2023 Hemoglobin (Bld) [Mass/Vol] 16.9 g/dL 13.0-16.5 [facility] Blood lymphocytes/100 leukoc ytesOrdered By: Aristides Toscano on 02-11-2023 Lymphocytes/100 WBC (Bld) 20.4 % 19-41 [facility] Blood monocytes/100 leukocyt esOrdered By: Aristides Toscano on 02-11-2023 Monocytes/100 WBC (Bld) 8.9 % 0-[address] [facility] Blood platelet mean volumeOr dered By: Aristides Toscano on 02-11-2023 Platelet mean volume (Bld) [Entitic vol] 9.3 fL 6.2-12.0 [facility] Determination of erythrocyte mean corpuscular volume (MCV)Ordered By: Aristides Toscano on 02-11-2023 MCV (RBC) [Entitic vol] 86.7 fL 80-[address] [facility] Glucose Glucometer (BldC) [M ass/Vol]Ordered By: Daily Alberts on 02-11-2023 Glucose [Mass/Vol] 103 mg/dL 74-106 [facility] Comment on above: MANAGEMENT OF PATIEN T CARE PER NURSING PROTOCOL Hematocrit Auto (Bld) [Volum e fraction]Ordered By: Aristides Toscano on 02-11-2023 Hematocrit (Bld) [Volume fraction] 50.7 % 40-54 [facility] Ketones Test strip Ql (U)Ord ered By: Aristides Toscano on 02-11-2023 Ketones Ql (U) Negative Negative [facility] Laboratory - Chemistry and C hemistry - challengeOrdered By: Aristides Toscano on 02-11-2023 ALP [Catalytic activity/Vol] 98 U/L 45-117 [facility] ALT [Catalytic activity/Vol] 19 U/L 16-61 [facility] CO2 [Moles/Vol] 24.0 mmol/L 21.0-32.0 [facility] Globulin (S) [Mass/Vol] 3.4 g/dL 2.2-4.[address] [facility] Lipase [Catalytic activity/Vol] 33 U/L 13-75 [facility] Comment on above: Please note:LIPASE r evised reference range effective 22. New Lipase methodology. Expected to produce lower values than the previous assay method. NEW Reference Range: 13 - 75 U/L Urea nitrogen/Creatinine [Mass ratio] 16.4 mg/mg 10-20 [facility] - Hematology and Cell countsOrdered By: Aristides Toscano on 02-11-2023 Erythrocyte distribution width (RBC) [Entitic vol] 41.1 fL 35.1-43.9 [facility] Erythrocyte distribution width (RBC) [Ratio] 13.1 % 11.6-14.6 [facility] Immature granulocytes/100 WBC (Bld) 0.800 % 0.0-0.9 [facility] Comment on above: IG% - Immature Granu locytes (promyelocytes, myelocytes and metamyelocytes) > 1% indicates that a LEFT SHIFT is Present. MCH (RBC) [Entitic mass] 28.9 pg 27.0-32.0 [facility] Nucleated RBC/100 WBC (Bld) [Ratio] 0 % 0-5 [facility] MCHC Auto (RBC) [Mass/Vol]Or dered By: Aristides Toscano on 02-11-2023 MCHC (RBC) [Mass/Vol] 33.3 g/dL 32-36 [facility] Mucus LM Ql (Urine sed)Order ed By: Aristides Toscano on 02-11-2023 Mucus Ql (Urine sed) 0 SEEN /hpf [facility] Nitrite Test strip Ql (U)Ord ered By: Aristides Toscano on 02-11-2023 Nitrite Ql (U) Negative Negative [facility] No Panel InformationOrdered By: Daily Alberts on 02-11-2023 Troponin I High Sensitivity 27 pg/mL 3.0-78.0 [facility] Comment on above: Please Note: [place] t Units and Gender Specific Reference Ranges. For more information see Policy Stat Procedure [place] High Sensitivity Troponin (TNIH) and attachments. No Panel InformationOrdered By: Aristides Toscano on 02-11-2023 Estimated Creatinine Clearance Calc 71.08 ml/min [facility] Estimated GFR (MDRD) Amer 97 mL/min >60 [facility] Comment on above: GFR Calc Estimated GFR (MDRD) Non-Af Amer 80 mL/min >60 [facility] Comment on above: Non- GFR Calc Platelets bldOrdered By: Shannan Toscano on 02-11-2023 Platelets (Bld) [#/Vol] 208 10*3/uL 150-450 [facility] Protein Test strip Ql (U)Ord ered By: Aristides Toscano on 02-11-2023 Protein Ql (U) Negative Negative [facility] Serum or plasma albumin jada urement (mass/volume)Ordered By: Aristides Toscano on 02-11-2023 Albumin [Mass/Vol] 3.8 g/dL 3.2-5.0 [facility] Serum or plasma albumin/glob ulin mass ratioOrdered By: Aristides Toscano on 02-11-2023 Albumin/Globulin [Mass ratio] 1.1 {ratio} 0.9-2.4 [facility] Serum or plasma calcium jada urement (mass/volume)Ordered By: Aristides Toscano on 02-11-2023 Calcium [Mass/Vol] 9.0 mg/dL 8.5-10.1 [facility] Serum or plasma creatinine m easurement (mass/volume)Ordered By: Aristides Toscano on 02-11-2023 Creatinine [Mass/Vol] 0.97 mg/dL 0.70-1.30 [facility] Comment on above: The validity of the calculated GFR & GFRAA in patients over 70 years has not been determined. Clinical correlation is essential. Serum or plasma urea nitroge n measurement (mass/volume)Ordered By: Aristides Toscano on 02-11-2023 Urea nitrogen [Mass/Vol] 16 mg/dL 7-18 [facility] Squamous epithelial cells de tection in urine sediment by light microscopyOrdered By: Aristides Toscano on 02-11-2023 Epithelial cells.squamous LM Ql (Urine sed) 0 SEEN /hpf 0-5 [facility] Thin prep Papanicolaou smear with manual screeningOrdered By: Aristides Toscano on 02-11-2023 Thin prep Papanicolaou smear with manual screening 16 U/L 15-37 [facility] Thin prep Papanicolaou smear with manual screening 8 5-15 [facility] Urine blood detectionOrdered By: Aristides Toscano on 02-11-2023 RBC Ql (U) Negative Negative [facility] RBC Ql (U) 0 SEEN /hpf 0-5 [facility] Urine clarityOrdered By: Shannan Toscano on 02-11-2023 Clarity (U) Clear Clear [facility] Urine color determinationOrd ered By: Aristides Toscano on 02-11-2023 Color (U) Yellow Yellow [facility] Urine glucose detectionOrder ed By: Aristides Toscano on 02-11-2023 Glucose Ql (U) 1000 mg/dl Normal [facility] Urine leukocyte esterase det ection by dipstickOrdered By: Aristides Toscano on 02-11-2023 Leukocyte esterase Test strip Ql (U) Negative Negative [facility] Urine pHOrdered By: Aristides vasquez on 02-11-2023 pH (U) 6.5 [pH] 5.0 - 8.0 [facility] Urine sediment bacteria coun t by microscopy (number/high power field)Ordered By: Aristides Toscano on 02-11-2023 Bacteria LM.HPF (Urine sed) [#/Area] 0 /[HPF] None Seen [facility] Urine specific gravity measu rementOrdered By: Aristides Toscano on 02-11-2023 Specific gravity (U) [Rel density] 1.005 1.002-1.030 [facility] Urobilinogen Auto test strip Ql (U)Ordered By: Aristides Toscano on 02-11-2023 Urobilinogen Ql (U) Normal mg/dl Normal [facility] Vital Signs Date Time Vital Sign Value Performing Clinician Faci lity 11-12-2024 14:54-0400 Body temperature 98.1 [degF] [facility] 11-12-2024 14:54-0400 Diastolic blood pressure 70 mm[Hg] [facility] 11-12-2024 14:54-0400 Heart rate 75 /min [facility] 11-12-2024 14:54-0400 Respiratory rate 18 /min [facility] 11-12-2024 14:54-0400 SaO2% (BldA) [Mass fraction] 96 % [facility] 11-12-2024 14:54-0400 Systolic blood pressure 142 mm[Hg] [facility] 11-12-2024 10:50-0400 Body height 177.8 cm [facility] 11-12-2024 10:50-0400 Body mass index (BMI) [Ratio] 26.4 kg/m2 [facility] 11-12-2024 10:50-0400 Body weight 83.46 kg [facility] 11-11-2024 10:50-0500 Body temperature 98 [degF] [facility] 11-11-2024 10:50-0500 Diastolic blood pressure 68 mm[Hg] [facility] 11-11-2024 10:50-0500 Heart rate 69 /min [facility] 11-11-2024 10:50-0500 Respiratory rate 16 /min [facility] 11-11-2024 10:50-0500 SaO2% (BldA) [Mass fraction] 100 % [facility] 11-11-2024 10:50-0500 Systolic blood pressure 146 mm[Hg] [facility] 11-11-2024 08:59-0500 Body height 177.8 cm [facility] 11-11-2024 08:59-0500 Body mass index (BMI) [Ratio] 26.8 kg/m2 [facility] 11-11-2024 08:59-0500 Body weight 84.82 kg [facility] 10-16-2024 22:00-0500 Body temperature 98.5 [degF] [facility] 10-16-2024 22:00-0500 Diastolic blood pressure 64 mm[Hg] [facility] 10-16-2024 22:00-0500 Heart rate 68 /min [facility] 10-16-2024 22:00-0500 Respiratory rate 18 /min [facility] 10-16-2024 22:00-0500 SaO2% (BldA) [Mass fraction] 98 % [facility] 10-16-2024 22:00-0500 Systolic blood pressure 149 mm[Hg] [facility] 10-16-2024 18:38-0500 Body mass index (BMI) [Ratio] 26.6 kg/m2 [facility] 10-16-2024 18:38-0500 Body weight 84.09 kg [facility] 01-02-2024 13:30-0400 Body temperature 97.6 [degF] [facility] 01-02-2024 13:30-0400 Diastolic blood pressure 66 mm[Hg] [facility] 01-02-2024 13:30-0400 Heart rate 64 /min [facility] 01-02-2024 13:30-0400 Respiratory rate 18 /min [facility] 01-02-2024 13:30-0400 SaO2% (BldA) [Mass fraction] 99 % [facility] 01-02-2024 13:30-0400 Systolic blood pressure 131 mm[Hg] [facility] 01-02-2024 08:31-0400 Body height 177.8 cm [facility] 01-02-2024 08:31-0400 Body mass index (BMI) [Ratio] 28.4 kg/m2 [facility] 01-02-2024 08:31-0400 Body weight 89.9 kg [facility] 12-15-2023 17:28-0400 Body temperature 97.7 [degF] [facility] 12-15-2023 17:28-0400 Diastolic blood pressure 95 mm[Hg] [facility] 12-15-2023 17:28-0400 Heart rate 74 /min [facility] 12-15-2023 17:28-0400 Respiratory rate 16 /min [facility] 12-15-2023 17:28-0400 SaO2% (BldA) [Mass fraction] 93 % [facility] 12-15-2023 17:28-0400 Systolic blood pressure 146 mm[Hg] [facility] 12-15-2023 13:39-0400 Body height 177.8 cm [facility] 12-15-2023 13:39-0400 Body mass index (BMI) [Ratio] 27.3 kg/m2 [facility] 12-15-2023 13:39-0400 Body weight 86.5 kg [facility] 07-04-2023 14:04-0400 Diastolic blood pressure 71 mm[Hg] [facility] 07-04-2023 14:04-0400 Systolic blood pressure 151 mm[Hg] [facility] 07-04-2023 12:48-0400 Body height 177.8 cm [facility] 07-04-2023 12:48-0400 Body mass index (BMI) [Ratio] 27.2 kg/m2 [facility] 07-04-2023 12:48-0400 Body temperature 96.6 [degF] [facility] 07-04-2023 12:48-0400 Body weight 86.13 kg [facility] 07-04-2023 12:48-0400 Heart rate 67 /min [facility] 07-04-2023 12:48-0400 Respiratory rate 16 /min [facility] 07-04-2023 12:48-0400 SaO2% (BldA) [Mass fraction] 97 % [facility] 07-02-2023 23:17-0400 Body temperature 98.1 [degF] [facility] 07-02-2023 23:17-0400 Diastolic blood pressure 69 mm[Hg] [facility] 07-02-2023 23:17-0400 Heart rate 61 /min [facility] 07-02-2023 23:17-0400 Respiratory rate 18 /min [facility] 07-02-2023 23:17-0400 SaO2% (BldA) [Mass fraction] 98 % [facility] 07-02-2023 23:17-0400 Systolic blood pressure 169 mm[Hg] [facility] 07-02-2023 17:08-0400 Body mass index (BMI) [Ratio] 27.8 kg/m2 [facility] 07-02-2023 17:08-0400 Body weight 87.99 kg [facility] 06-11-2023 11:19-0400 Diastolic blood pressure 66 mm[Hg] [facility] 06-11-2023 11:19-0400 Heart rate 71 /min [facility] 06-11-2023 11:19-0400 Respiratory rate 15 /min [facility] 06-11-2023 11:19-0400 SaO2% (BldA) [Mass fraction] 98 % [facility] 06-11-2023 11:19-0400 Systolic blood pressure 124 mm[Hg] [facility] 06-11-2023 08:25-0400 Body mass index (BMI) [Ratio] 27.9 kg/m2 [facility] 06-11-2023 08:25-0400 Body temperature 97.6 [degF] [facility] 06-11-2023 08:25-0400 Body weight 88.26 kg [facility] 06-07-2023 15:14-0400 Body mass index (BMI) [Ratio] 28.2 kg/m2 [facility] 06-07-2023 15:14-0400 Body temperature 98.3 [degF] [facility] 06-07-2023 15:14-0400 Body weight 89.13 kg [facility] 06-07-2023 15:14-0400 Diastolic blood pressure 82 mm[Hg] [facility] 06-07-2023 15:14-0400 Heart rate 73 /min [facility] 06-07-2023 15:14-0400 Respiratory rate 18 /min [facility] 06-07-2023 15:14-0400 SaO2% (BldA) [Mass fraction] 97 % [facility] 06-07-2023 15:14-0400 Systolic blood pressure 159 mm[Hg] [facility] 05-05-2023 10:27-0400 Diastolic blood pressure 64 mm[Hg] [facility] 05-05-2023 10:27-0400 Heart rate 76 /min [facility] 05-05-2023 10:27-0400 Respiratory rate 18 /min [facility] 05-05-2023 10:27-0400 SaO2% (BldA) [Mass fraction] 99 % [facility] 05-05-2023 10:27-0400 Systolic blood pressure 156 mm[Hg] [facility] 05-05-2023 08:52-0400 Body height 177.8 cm [facility] 05-05-2023 08:52-0400 Body mass index (BMI) [Ratio] 28 kg/m2 [facility] 05-05-2023 08:52-0400 Body temperature 97.6 [degF] [facility] 05-05-2023 08:52-0400 Body weight 88.63 kg [facility] 05-03-2023 23:01-0400 Diastolic blood pressure 69 mm[Hg] [facility] 05-03-2023 23:01-0400 Heart rate 71 /min [facility] 05-03-2023 23:01-0400 Respiratory rate 18 /min [facility] 05-03-2023 23:01-0400 SaO2% (BldA) [Mass fraction] 98 % [facility] 05-03-2023 23:01-0400 Systolic blood pressure 146 mm[Hg] [facility] 05-03-2023 18:25-0400 Diastolic blood pressure 78 mm[Hg] [facility] 05-03-2023 18:25-0400 Heart rate 57 /min [facility] 05-03-2023 18:25-0400 Respiratory rate 18 /min [facility] 05-03-2023 18:25-0400 SaO2% (BldA) [Mass fraction] 95 % [facility] 05-03-2023 18:25-0400 Systolic blood pressure 160 mm[Hg] [facility] 05-03-2023 16:48-0400 Body height 177.8 cm [facility] 05-03-2023 16:48-0400 Body mass index (BMI) [Ratio] 27.6 kg/m2 [facility] 05-03-2023 16:48-0400 Body temperature 99 [degF] [facility] 05-03-2023 16:48-0400 Body weight 87.2 kg [facility] 02-11-2023 20:10-0400 Diastolic blood pressure 70 mm[Hg] [facility] 02-11-2023 20:10-0400 Heart rate 61 /min [facility] 02-11-2023 20:10-0400 Respiratory rate 18 /min [facility] 02-11-2023 20:10-0400 SaO2% (BldA) [Mass fraction] 98 % [facility] 02-11-2023 20:10-0400 Systolic blood pressure 147 mm[Hg] [facility] 02-11-2023 16:30-0400 Body mass index (BMI) [Ratio] 29.7 kg/m2 [facility] 02-11-2023 16:30-0400 Body temperature 96.7 [degF] [facility] 02-11-2023 16:30-0400 Body weight 93.89 kg [facility] Encounters Encounter Date Encounter Type Care Provider Facility Start: 02-01-2025 End: 02-01-[address] [facility] Work Phone: Start: 02-01-2025 End: 02-01-2025 Patient encounter procedure Jasmin Wheatley NP-C -Ultrasound [facility] Work Phone: Start: 02-01-2025 End: 02-01-2025 ambulatory [facility] Facility:[facility] Start: 11-12-2024 End: 11-12-2024 Emergency department patient visit [facility]Emergency Department Work Phone: Start: 11-11-2024 End: 11-11-2024 Emergency department patient visit [facility]Emergency Department Work Phone: Start: 10-16-2024 End: 10-16-2024 Emergency department patient visit Dr. Antoine Moeller -Emergency Department Work Phone: Start: 04-23-2024 End: 04-23-2024 Emergency department patient visit [facility] Facility:[facility] Start: 01-02-2024 End: 01-02-2024 Emergency department patient visit [facility] Work Phone: Start: 12-15-2023 End: 12-15-2023 Emergency department patient visit [facility] Work Phone: Start: 07-04-2023 End: 07-04-2023 Emergency department patient visit [facility] Work Phone: Start: 07-02-2023 End: 07-02-2023 Emergency department patient visit [facility] Work Phone: Start: 06-11-2023 End: 06-11-2023 Emergency department patient visit [facility] Work Phone: Start: 06-07-2023 End: 06-07-2023 Patient encounter procedure [facility] Work Phone: Start: 05-05-2023 End: 05-05-2023 Emergency department patient visit [facility] Work Phone: Start: 05-03-2023 End: 05-03-2023 Emergency department patient visit [facility] Work Phone: Start: 02-11-2023 End: 02-11-2023 Emergency department patient visit [facility] Work Phone: Start: 11-18-2022 Non-patient / Non-visit Dr. Lavern Humphrey Work Phone: [facility] Start: 11-18-2022 End: 11-18-[address] Jac Humphrey Work Phone: [facility] Work Phone: Start: 11-18-2022 End: 11-18-[address] Jac Humphrey Work Phone: [facility] Procedures Date Procedure Procedure Detail Performing Clinician Start: [facility] Start: 11-12-2024 SARS-CoV-2, Influenz a & RSV (PCR) [facility] Start: 11-12-2024 Estimated creatinine clearance [facility] Start: 11-11-2024 Plain x-ray of humerus [facility] Start: 11-11-2024 Plain X-ray of shoulder [facility] Start: 11-11-2024 X-ray of chest, PA a nd lateral views [facility] Start: 11-11-2024 X-ray of unilateral ribs, two views without x-ray of chest [facility] Start: 10-16-2024 [facility] Start: 10-16-2024 Estimated creatinine clearance [facility] Start: 10-16-2024 Measurement of renal function [facility] Comment on above: GFR Calc Start: 10-16-2024 SARS-CoV-2, Influenz a & RSV (PCR) [facility] Start: 01-02-2024 Measurement of occul t blood in stool specimen using immunoassay Start: 12-15-2023 US scan of gallbladder Start: 12-15-2023 Computed tomography of abdomen and pelvis with intravenous contrast Start: 07-04-2023 [facility] Start: 07-02-2023 [facility] Start: 07-02-2023 SARS-CoV-2 & FLU Antigen (Rapid) [facility] Start: 06-11-2023 Computed tomography of abdomen and pelvis with intravenous contrast [facility] Start: 05-03-2023 Viral antigen assay Start: 02-11-2023 Plain chest X-ray History of appendectomy History of append ectomy Plan of Treatment Date Care Activity Detail Author Start: 11-12-2024 End: 11-12-2024 [facility] Start: 11-11-2024 [facility] Start: 10-16-2024 [facility] Start: 10-16-2024 [facility] Start: 01-02-2024 [facility] Start: 12-15-2023 [facility] Start: 07-02-2023 [facility] Start: 06-11-2023 [facility] Start: 05-03-2023 SARS-CoV-2 Antigen (Rapid) SARS-CoV-2 Antigen (Rapid) [facility] Start: 02-11-2023 [facility] Bilirubin measuremen t, urine [facility] Colonoscopy [facility] Hemoglobin [Presence ] in Urine [facility] Measurement of keton es in urine using dipstick [facility] Microscopic urinalysis [facility] Patient Education [facility] Work Phone: Patient referral [facility] Work Phone: pH of Urine [facility] SARS-CoV-2 (COVID-19 ) Ag [Presence] in Respiratory specimen by Rapid immunoassay [facility] Specific gravity of Urine [facility] Urinalysis, blood, qualitative [facility] Urine dipstick for glucose [facility] Urine dipstick for leukocyte esterase [facility] Urine dipstick for nitrite [facility] Urine dipstick for protein [facility] Urine examination [facility] Urine microscopy: epithelial cells [facility] Urine Microscopy: wh ite cells [facility] Urobilinogen [Presen ce] in Urine [facility] Payers Date Payer Category Payer Unknown [id number] 24 2024 Self-pay [id number] 2024 Unknown [id number] Medicare MEDICARE A ONLY [id number] Unknown [id number] [id number] Unknown [id number] [id number] Unknown [id number] [id number] Unknown [id number] [id number] Unknown [id number] [id number] Social History Date Type Detail Facility Start: 12-20-2020 End: 01-02-2024 Tobacco smoking status NMIS Unknown if ever smoked [facility] Start: 1950 Sex Assigned At Male W [facility] Start: 11-11-2024 Tobacco smoking stat [facility] Ex-smoker (finding) [facility] Start: 11-11-2024 End: 11-12-2024 Sex Male (finding) [facility] Start: 11-12-2024 Tobacco smoking stat [facility] Current Light tobacco smoker [facility] Mental Status Date Assessment Result Facility 11-11-2024 Cognitive function Voice/Name [facility] Work Phone: 10-16-2024 Cognitive function Voice/Name [facility] Work Phone: 07-02-2023 Cognitive function Level Of Cons ciousness Awake;Alert;Appropriate;Follow s Commands [facility] Work Phone: Clinical Notes 07-04-2023 to 02-01-2025 Note Date & Type Note Facility 02-01-2025 Radiology Diagnostic study note [facility] [address] [place] [address] Abdomen Complete MR#: [id number] Acct: [id number] Name: RALPH DELAROSA Rep #: [id number] : 1950 M 74 From: Lorenzo Murrieta MD PCP: [facility] Status: REG CLI Study:Abdomen Complete Date of Exam: Exam# [id number] Ordering Dr: Dea Wheatley PROCEDURE: ABDOMEN COMPLETE 02/01/2025 REASON FOR EXAM: EVALUATE H/O GALLSTONES AND GI COMPLAINTS TECHNIQUE: Complete abdominal ultrasound norman-scale images with color doppler. PATIENT PREPARATION: Per protocol COMPARISON: Prior CT scan of the abdomen and pelvis dated April 23, 2024. FINDINGS: Liver: Diffusely echogenic suggesting fatty infiltration. The liver is not enlarged. Gallbladder: No stones, sludge, wall thickening or tenderness. Common bile duct: Normal measuring 7 mm. . Pancreas: Obscured by bowel gas. Kidneys: The right kidney measures 11.3 cm 6.2 cm 5 cm. Renal cortex measures 1.4 cm.. The left kidney measures 11.7 cm 5.5 cm 5.6 cm. Renal cortex measures 1.4 cm. Spleen: Normal in size and echotexture measuring the spleen measures 11.3 cm 4.8cm 4.4 cm. Aorta: Visualized abdominal aorta is of normal size. IVC: Visualized inferior vena cava is unremarkable. Peritoneal Findings: No ascites identified. US/Abdomen Complete IMPRESSION: Mild diffuse fatty infiltration of the liver. The liver is not enlarged. Reading Location: [id number] CC: TIANA Wheatley; [facility] ~ Electronic Transaction Implementer: Signed [facility] 11-12-2024 Discharge summary [facility] 11-12-2024 Discharge summary Note Date/Time November 12, 2024 2:56pm [facility] Medical Records Department [address] [place] [id number] Emergency Department Summary 11/12/24 MR#: [id number] Acct: [id number] Name: RALPH DELAROSA Rep #:[id number] : 1950 74 From: Leonides Morrison MD PCP: [facility] Status:REG ER Location: ED HPI History of Present Illness Chief Complaint: Nausea/Vomiting Detail of Chief Complaint: Nausea without vomiting. Informant: patient Onset/Context/Timing Onset: Today Context: Gradual Onset Timing: Continuous Current Severity: Mild Maximum Severity: Mild Narrative Narrative: 74-year-old male history of COPD, diabetes and hypertension. Was seen in emergency room yesterday. [place] tripped and fell landing on his left shoulder and left rib cage. X-rays were obtained and were negative. He was discharged to home. He denies any head injury or LOC. He is on no bloodthinners. He was discharged home yesterday from the emergency department with amuscle relaxant, lidocaine patches and narcotic pain medication. He said he does not need to use the muscle relaxant. He thinks the pain medication may be making him nauseated. He denies any vomiting or diarrhea. No fever or dysuria. Prior similar symptoms: No Recent Illness/Hospitalization: No PFSH PFS Medical History Wears glasses Wears dentures Fatty liver Smoker CPAP (continuous positive airway pressure) dependence Abdominal pain COPD (chronic obstructive pulmonary disease) Sleep apnea JOANNA on CPAP High cholesterol GERD (gastroesophageal reflux disease) Constipation Hypertension Diabetes Diabetic acetonemia Home Medications ?Medication ?Instructions ?Recorded ?Last Taken ?Type amlodipine 5 mg tablet 10 mg PO DAILY 12/20/20 Unkn own History aspirin 81 mg chewable tablet 81 mg PO DAILY@0800 12/0510/16/24 09:00 History atorvastatin 80 mg tablet 80 mg PO QHS 12/20/20 Unknow n History budesonide-formoterol HFA 160 2 puff IH BID 12/20/20 U nknown History mcg-4.5 mcg/actuation aerosol inhaler cholecalciferol (vitamin D3) 50 2,000 unit PO DAILY Unknown History mcg (2,000 unit) capsule empagliflozin 10 mg tablet 5 mg PO DAILY 12/20/20 Unkn own History losartan 100 mg tablet 50 mg PO QHS 12/20/20 Unknow n History nitroglycerin 0.4 mg sublingual 0.4 mg sublingual Q5M PRN Chest 12/20/20 Unknown History tablet Pain hydralazine 50 mg tablet 50 mg PO 4XD 02/11/23 Unknow n History insulin glargine 100 unit/mL (3 10 unit subcut QHS 10/29 Unknown History mL) subcutaneous pen metformin 1,000 mg tablet 1,000 mg PO DAILY 06/07/23 U nknown History metformin 500 mg tablet 500 mg PO DAILY 06/07/23 Unk nown History polyethylene glycol 3350 17 gram 17 g PO BID 06/07/23 Unknown History oral powder packet (Miralax) albuterol sulfate 90 mcg/actuation 2 puff inhalation Q 6H PRN PRN Sob 07/02/23 Unknown Rx aerosol inhaler &/Or Wheezing #6.7 grams magnesium citrate 150 ml PO BID PRN constipati on 04/23/24 Unknown Rx #296 mL oseltamivir 75 mg capsule (Tamiflu) 75 mg PO BID 5 day s #10 caps 10/16/24 Unknown Rx psyllium husk 0.4 gram capsule 1.2 g PO BID 10/16/24 U nknown History (Fiber (psyllium husk)) cyclobenzaprine 5 mg tablet 5 mg PO TID PRN 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 #14 11/11/24 Unknown Rx tabs lidocaine 5 % topical patch 1 patch topical DAILY #15 ea 11/11/24 Unknown Rx (Lidoderm) ondansetron 4 mg disintegrating 4 mg PO Q6H PRN nausea and 11/11/24 Unknown Rx tablet vomiting #30 tabs oxycodone-acetaminophen 5 mg-325 1 tab PO Q6H PRN pain 2 days #8 11/11/24 Unknown Rx mg tablet (Endocet) tabs ondansetron 4 mg disintegrating 4 mg PO Q6H PRN nausea and 11/12/24 Unknown Rx tablet vomiting #7 tabs Allergy/AdvReac Type Severity Reaction Status Date / Time chlorthalidone Allergy NEEDS Verified 11/12/24 10:52 FOLLOW-UP hydrochlorothiazide Allergy NEEDS Verified 11/12/24 10:52 FOLLOW-UP Family History Mother Diabetes Hypertension Brother Diabetes Hypertension Surgical History History of cardiac catheterization History of appendectomy (Unknown) H/O heart artery stent Social History Smoking Status: Light Smoker (<10/day) alcohol intake: current alcohol intake frequency: holidays/special occasions only substance use type: does not use ROS ROS ED ROS Narrative Nausea no vomiting or diarrhea. No fever. Constitutional Constitutional ED: Denies chills or fever(s) Eyes Eyes: Denies blurry vision ENT ENT ED: Denies ear pain Cardiovascular Cardiovascular: Denies chest pain Respiratory/Chest Respiratory/Chest: Denies cough or dyspnea Gastrointestinal Gastrointestinal: Denies abdominal pain Genitourinary Genitourinary ED: Denies dysuria or hematuria Musculoskeletal Musculoskeletal: Denies arthralgias Integumentary Denies abscess Neurologic Neurologic: Denies headache(s) Psychiatric Psychiatric: Denies anxiety or depression Endocrine Endocrinology: Denies cold intolerance Hematologic/Lymphatic Hematologic/Lymphatic: Reports none Allergic/Immunologic Allergic/Immunologic ED: Denies mouth swelling, tongue swelling or urticaria EXAM Physical Exam Narrative Exam Narrative: 74-year-old male sitting upright in bed. Holding an emesis bag but not activelyvomiting. Vital signs are stable afebrile. He does not look septic or toxic. He is in no distress. No family is present in room at this time. H EENT exam pupils round reactive light. There is no signs of trauma to his face or scalp. Moist mucous membranes. Neck nontender. Trachea midline. Back and spine nontender. No bruising. Lungs are clear equal and symmetrical bilaterally. Heart regular rhythm rate about 60 no murmur. Mild tenderness on the left lateral rib cage. No bruising. No crepitance or subcu air. No bony deformity. Sternum and anterior ribs are nontender. Abdomen is soft and nontender. No bruising or peritoneal signs. Pelvic girdle intact. Moving all 4 extremities. Mild tenderness left shoulder no deformity. Hips are nontender. Normal dorsi plantarflexion. Neurologically is awake alert no focal motor deficits. Const Vital Signs: 11/12/24 10:50 Temperature 98.1 F Temperature Source Temporal Pulse Rate 61 Respiratory Rate 15 Blood Pressure 142/70 H Blood Pressure Mean 94 Pulse Ox 98 Oxygen Delivery Method Room Air Positive well nourished and well developed; Negative for obese, cachectic, contractures or unkempt General Appearance ED: well developed and NAD; Negative for unkempt, cachectic, contractures, cyanotic, diaphoretic or pallor Nutritional Appearance: Negative for cachectic or obese HEENT Reports moist mucous membranes Negative for trauma or tenderness Eyes PERRL and EOMs intact bilaterally General Eye ED: Negative for pale conjunctiva Neck no lymphadenopathy, supple and no JVD General: Negative for tenderness Chest Wall inspection of chest normal and palpation of chest normal Resp normal respiratory effort and clear to auscultation bilaterally Effort and Inspection: Negative for retractions Auscultation: Negative for rales, rhonchi, wheezes or diminished lung sounds Cardio regular rate, regular rhythm, S1 normal heart sound, S2 normal heart sound and no murmurs Palpation: Negative for palpable S3 or palpable S4 Rate: Negative for bradycardia, tachycardic or other Rhythm: Negative for abnormal rhythm GI normal to inspection, nondistended, normoactive bowel sounds, non-tender, non-distended and no masses Auscultation: normoactive bowel sounds Palpation: soft; Negative for tender, guarding or rebound tenderness present Back/Spine no CVA tenderness General Back: Negative for CVA tenderness or other Cervical Spine: Negative for cervical spine tenderness Thoracic Spine / Upper Back: Negative for thoracic spinal tenderness or paraspinal muscle tenderness Lumbar Spine / Lower Back: Negative for lumbar spinal tenderness Extremity normal to inspection General Extremety ED: Negative for edema or tenderness General Extremity: Negative for edema Neuro oriented x3 and CN's II-XII intact bilaterally Sensorium / Orientation: alert; Negative for orientation impaired, lethargic or stuporous Sensory Exam: No sensory level loss detected Motor Exam: strength 5/5 throughout; Negative for general weakness or strength abnormal Psych mental status grossly normal Appearance: Negative for unkempt Attitude: No agitated Mood & Affect: Negative for depressed, anxious or tearful Skin no rashes or lesions noted, no wounds and skin turgor normal General Skin Exam: elasticity normal; Negative for jaundice or pallor Lesions: No lesion noted Rashes: No rashes noted Trauma: Negative for abrasion Wounds: Negative for wounds noted MDM MDM MDM Narrative Medical decision making narrative: 74-year-old male who fell yesterday tripped and fell was seen in the emergency department had negative x-rays. Nausea may just be secondary to the pain medication he was put on. He will be given Zofran. 500 cc of saline. CBC and chemistry be obtained. Exam is pretty benign other than the sore on his rib cage and shoulder from the fall. Prior x-rays were negative. Abdomen is totally benign and nontender. Repeat exam at 12:14 PM patient still has some mild nausea is given another doseof Zofran. His exam is unchanged. He is sore in his left shoulder but when I raise it he can hold it up there is no signs of a rotator cuff tear. He will bereassessed after his second dose of Zofran. Repeat exam at 1:12 PM. Patient is concerned he has picked up a virus. Wanted me to get a COVID and flu test. Exam otherwise benign. Repeat exam patient doing well at 2:50 PM. He is feeling better. Headache is resolving with Tylenol. Nausea is resolved and Zofran. He is current being discharged home. He will stop the narcotic pain medication. Use the patches that he was prescribed. He will use Zofran for nausea. He is comfortable with discharge. History & Record Review Discussion w/independent historian: Patient Additional record(s) reviewed:: Prior inpatient record, Prior outpatient record,Prior ED visit and Prior labs Lab Data Attestation: I reviewed the patient's lab results. Lab results narrative: CBC normal. White count of 10. H&H 15 and 43. Platelets 165. Electrolytes show sodium 131. Gap 15. Normal BUN of 16 and creatinine 0.8. Glucose 166. Similar prior labs with a prior hyponatremia. Labs: Laboratory Results - last 24 hr 11/12/24 11:27 WBC 10.9 RBC 5.11 Hgb 15.2 Hct 43.8 MCV 85.7 MCH 29.7 MCHC 34.7 RDW Std Deviation 41.9 RDW Coeff of Aldair 13.3 Plt Count 165 MPV 9.4 Immature Gran % (Auto) 0.700 Neut % (Auto) 77.4 H Lymph % (Auto) 11.0 L [place] % (Auto) 10.3 H Eos % (Auto) 0.2 Baso % (Auto) 0.4 Absolute Neuts (auto) 8.4 H Absolute Lymphs (auto) 1.19 Nucleated RBC % 0 Sodium 131 L Potassium 4.2 Chloride 95 L Carbon Dioxide 20.6 L Anion Gap 15 BUN 16 Creatinine 0.80 Estim Creat Clear Calc 83.65 Est GFR (MDRD) Non-Af 93 BUN/Creatinine Ratio 19.4 Glucose 166 H Calcium 8.9 Discharge Plan Triage Chief Complaint: Nausea/Vomiting ED Provider: Leonides Morrison Dx/Rx/DC Orders Clinical Impression: Fall, Contusion of left shoulder, Contusion of rib, Nausea Instructions: ED Chest Wall Contusion, ED Vomiting (Adult) Prescriptions: New ondansetron 4 mg tablet,disintegrating 4 mg PO Q6H PRN (Reason: nausea and vomiting) Qty: 7 0RF No Action metformin 1,000 mg tablet 1,000 mg PO DAILY Rx Instructions: with dinner atorvastatin 80 MG tablet 80 mg PO QHS amlodipine 5 MG tablet 10 mg PO DAILY nitroglycerin 0.4 MG tablet, sublingual 0.4 mg SL Q5M PRN (Reason: Chest Pain) aspirin 81 MG tablet,chewable 81 mg PO DAILY@0800 losartan 100 MG tablet 50 mg PO QHS Patient Comments: 0NE 50 MG TABLET budesonide-formoterol 10.2 GM HFA aerosol inhaler 2 puff IH BID cholecalciferol (vitamin D3) 2,000 UNIT capsule 2,000 unit PO DAILY empagliflozin 10 MG tablet 5 mg PO DAILY insulin glargine 100 unit/mL (3 mL) insulin pen 10 unit SC QHS hydralazine 50 mg Tablet 50 mg PO 4XD polyethylene glycol 3350 [Miralax] 17 gram powder in packet 17 g PO BID metformin 500 mg tablet 500 mg PO DAILY Rx Instructions: with breakfast albuterol sulfate 1 PUFF inhaler 2 puff INHALATION Q6H PRN PRN (Reason: Sob &/Or Wheezing) Qty: 6.7 0RF magnesium citrate Solution 150 ml PO BID PRN (Reason: constipation) Qty: 296 0RF Rx Instructions: Drink half the bottle and then wait a couple hours and then drink the other half the bottle or until you have adequate results. psyllium husk [Fiber (psyllium husk)] 0.4 gram capsule 1.2 g PO BID oseltamivir [Tamiflu] 75 mg capsule 75 mg PO BID 5 Days Qty: 10 0RF cyclobenzaprine 5 mg tablet 5 mg PO TID PRN (Reason: muscle spasm) Qty: 14 0RF lidocaine [Lidoderm] 5 % adhesive patch,medicated 1 patch topical DAILY Qty: 15 0RF Rx Instructions: leave on most painful area for up to 12 hrs oxycodone-acetaminophen [Endocet] 5-325 mg tablet 1 tab PO Q6H PRN (Reason: pain) 2 Days Qty: 8 0RF ondansetron 4 mg tablet,disintegrating 4 mg PO Q6H PRN (Reason: nausea and vomiting) Qty: 30 0RF [facility] [Primary Care Provider] - 3-5 Days if not improving Activity Restrictions/Additional Instructions: The nausea may be caused by the pain medication. Zofran as needed for nausea. You can swallow or let dissolve under your tongue. Use Tylenol for pain. Follow-up with your primary care provider if not improving. Return if feeling worse. Print Language: Vincentian Disposition Disposition: Home, Self Care What to do if you have Problems For any increased pain, shortness of breath, bleeding, nausea or vomiting, chestpain, or any unexpected problems, contact your Primary Care Provider. Call [facility] ([phone]) or report to the closest Emergency Room. Call 911 if necessary. 11/12/24 4397 <Electronically signed by Leonides Morrison MD> Cosign Signature (if applicable): CC: [facility] ~ Signed [facility] Work Phone: [phone] Discharge summary [facility] Medical Records Department [address] [place] [address] Emergency Department Summary 11/11/24 MR#: [id number] Acct: [id number] Name: RALPH DELAROSA Rep #:[id number] : 1950 74 From: Alexander Perales DO PCP: [facility] Status:REG ER Location: ED HPI History of Present Illness Chief Complaint: Chest Other Narrative Narrative: Patient is a 74-year-old male past medical history of COPD, hypercholesteremia, hypertension, diabetes who presents to the emergency department the chief complaint of left shoulder and rib pain. Patient states that last night he was bowling and noted that his foot stuck when he went to [facility] to fall and land on his left side. He states that he not hit his head he did not pass out he remembers entire event. He denies any blood thinner medications. Patient states that it was painful for him to attempt to lift his shoulder this morning and on the left rib cage therefore he came here for the valuation management. Patient states that he did not get chest pain lightheaded dizziness prior to this episode he states that he simply fell because his foot got caught on the floor. [facility] Medical History Wears glasses Wears dentures Fatty liver Smoker CPAP (continuous positive airway pressure) dependence Abdominal pain COPD (chronic obstructive pulmonary disease) Sleep apnea JOANNA on CPAP High cholesterol GERD (gastroesophageal reflux disease) Constipation Hypertension Diabetes Diabetic acetonemia Home Medications ?Medication ?Instructions ?Recorded ?Last Taken ?Type amlodipine 5 mg tablet 10 mg PO DAILY 12/20/20 Unkn own History aspirin 81 mg chewable tablet 81 mg PO DAILY@0800 12/0510/16/24 09:00 History atorvastatin 80 mg tablet 80 mg PO QHS 12/20/20 Unknow n History budesonide-formoterol HFA 160 2 puff IH BID 12/20/20 U nknown History mcg-4.5 mcg/actuation aerosol inhaler cholecalciferol (vitamin D3) 50 2,000 unit PO DAILY Unknown History mcg (2,000 unit) capsule empagliflozin 10 mg tablet 5 mg PO DAILY 12/20/20 Unkn own History losartan 100 mg tablet 50 mg PO QHS 12/20/20 Unknow n History nitroglycerin 0.4 mg sublingual 0.4 mg sublingual Q5M PRN Chest 12/20/20 Unknown History tablet Pain hydralazine 50 mg tablet 50 mg PO 4XD 02/11/23 Unknow n History insulin glargine 100 unit/mL (3 10 unit subcut QHS 10/29 Unknown History mL) subcutaneous pen metformin 1,000 mg tablet 1,000 mg PO DAILY 06/07/23 U nknown History metformin 500 mg tablet 500 mg PO DAILY 06/07/23 Unk nown History polyethylene glycol 3350 17 gram 17 g PO BID 06/07/23 Unknown History oral powder packet (Miralax) albuterol sulfate 90 mcg/actuation 2 puff inhalation Q 6H PRN PRN Sob 07/02/23 Unknown Rx aerosol inhaler &/Or Wheezing #6.7 grams magnesium citrate 150 ml PO BID PRN constipati on 04/23/24 Unknown Rx #296 mL oseltamivir 75 mg capsule (Tamiflu) 75 mg PO BID 5 day s #10 caps 10/16/24 Unknown Rx psyllium husk 0.4 gram capsule 1.2 g PO BID 10/16/24 U nknown History (Fiber (psyllium husk)) cyclobenzaprine 5 mg tablet 5 mg PO TID PRN 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 #14 11/11/24 Unknown Rx tabs lidocaine 5 % topical patch 1 patch topical DAILY #15 ea 11/11/24 Unknown Rx (Lidoderm) ondansetron 4 mg disintegrating 4 mg PO Q6H PRN nausea and 11/11/24 Unknown Rx tablet vomiting #30 tabs oxycodone-acetaminophen 5 mg-325 1 tab PO Q6H PRN pain 2 days #8 11/11/24 Unknown Rx mg tablet (Endocet) tabs Allergy/AdvReac Type Severity Reaction Status Date / Time chlorthalidone Allergy NEEDS Verified 11/11/24 09:01 FOLLOW-UP hydrochlorothiazide Allergy NEEDS Verified 11/11/24 09:01 FOLLOW-UP Family History Mother Diabetes Hypertension Brother Diabetes Hypertension Surgical History History of cardiac catheterization History of appendectomy (Unknown) H/O heart artery stent Social History Smoking Status: Former smoker alcohol intake: current alcohol intake frequency: holidays/special occasions only substance use type: does not use ROS ROS ED ROS Narrative Constitutional: Denies headache, fever, chills, lightness, dizziness Eyes: Denies change in vision double vision blurry vision Cardiovascular: Denies chest pain or palpitations Respiratory: Denies shortness of breath Abdomen: Denies abdominal pain nausea vomit diarrhea : Denies urinary symptoms Neurological: Denies numbness, weakness, tingling Musculoskeletal: Patient complains of left shoulder pain and rib pain on the left side as noted above Skin: Denies rashes or lesions EXAM Physical Exam Narrative Exam Narrative: General: Patient is lying in bed rest comfortably did not appear to be in acute distress Head: Atraumatic, normocephalic Eyes: PERRL bilaterally, EOMI bilaterally, no conjunctival injection noted Neck: Soft, supple, trachea midline Cardiovascular: Regular rate and rhythm no murmurs gallops rubs noted Respiratory: Clear to auscultation bilaterally Abdomen: Soft, nondistended, nontender to palpation Musculoskeletal: Patient has pain with attempted range of motion of his left shoulder, although bony prominences palpated and joints taken to full range of motion no pain elicited Extremities: Radial pulses +2/4 in the bilateral upper extremities, no pedal edema on exam Neurological: Patient follow commands and that he was at [facility] years 2024 Skin: Warm, dry, intact no rashes or lesions noted Const Vital Signs: 11/11/24 08:59 11/11/24 09:31 Temperature 98.2 F Temperature Source Temporal Pulse Rate 73 Respiratory Rate 15 Respiratory Effort Normal Blood Pressure 156/59 H Blood Pressure Mean 91 Pulse Ox 97 Oxygen Delivery Method Room Air MDM MDM MDM Narrative Medical decision making narrative: Patient is a 74-year-old male who presented to the emergency department the chief complaint of leftshoulder pain and left rib pain. On the differential diagnose includes but not limited to rib fractures, proximal humerus fracture, dislocation. Once workup is obtained reviewed he will be reevaluated. Patient's shoulder x-ray was reviewed by myself by radiology showed no acute fracture degenerative arthrosis noted. Patient's x-ray of the ribs reviewed by myself and by radiology showed no acute fractures no rib displaced no suspiciouslytic or blastic rib lesions. Patient's humerus x-ray reviewed by myself by radiology showed no acute fracture or dislocation degenerative osteoarthrosis noted. Patient chest x-ray reviewed by myself and by radiology showed no acute cardiopulmonary processes. Did discuss results with the patient he would like to go home at this point time. Patient would like a sling for comfort. He is advised to take Tylenol for mild to moderate pain and use the Endocet and Zofran for severe pain. He will be given Lidoderm patches and muscle relaxer for his left rib pain and I discussed with him there is a chance we missed nondisplaced rib fractures however the treatment would be the same with pain control and time letting theseheal on their own. He is advised to follow-up his primary care physician returnwith any other concerns. His family member at bedside is also agreed this plan all question concerns answered is discharged home in stable condition. Radiography Diagnostic Testing: Clinical Impression(s) from Imaging Studies Chest X-Ray 11/11/24 09:17 IMPRESSION: NEGATIVE CHEST Reading Location: [facility] Humerus X-Ray 11/11/24 09:17 IMPRESSION: DEGENERATIVE OSTEOARTHROSIS. NO ACUTE FINDINGS. Reading Location: [facility] Ribs X-Ray 11/11/24 09:17 IMPRESSION: NO EVIDENCE OF ACUTE RIB FRACTURE OR PNEUMOTHORAX. Reading Location: [facility] Shoulder X-Ray 11/11/24 09:17 IMPRESSION: Degenerative arthrosis. No acute fracture. Reading Location: [facility] Discharge Plan Triage Chief Complaint: Chest Other ED Provider: Alexander Perales Dx/Rx/DC Orders Clinical Impression: Rib pain on left side, Left shoulder pain, Fall Prescriptions: New cyclobenzaprine 5 mg tablet 5 mg PO TID PRN (Reason: muscle spasm) Qty: 14 0RF lidocaine [Lidoderm] 5 % adhesive patch,medicated 1 patch topical DAILY Qty: 15 0RF Rx Instructions: leave on most painful area for up to 12 hrs oxycodone-acetaminophen [Endocet] 5-325 mg tablet 1 tab PO Q6H PRN (Reason: pain) 2 Days Qty: 8 0RF ondansetron 4 mg tablet,disintegrating 4 mg PO Q6H PRN (Reason: nausea and vomiting) Qty: 30 0RF No Action metformin 1,000 mg tablet 1,000 mg PO DAILY Rx Instructions: with dinner atorvastatin 80 MG tablet 80 mg PO QHS amlodipine 5 MG tablet 10 mg PO DAILY nitroglycerin 0.4 MG tablet, sublingual 0.4 mg SL Q5M PRN (Reason: Chest Pain) aspirin 81 MG tablet,chewable 81 mg PO DAILY@0800 losartan 100 MG tablet 50 mg PO QHS Patient Comments: 0NE 50 MG TABLET budesonide-formoterol 10.2 GM HFA aerosol inhaler 2 puff IH BID cholecalciferol (vitamin D3) 2,000 UNIT capsule 2,000 unit PO DAILY empagliflozin 10 MG tablet 5 mg PO DAILY insulin glargine 100 unit/mL (3 mL) insulin pen 10 unit SC QHS hydralazine 50 mg Tablet 50 mg PO 4XD polyethylene glycol 3350 [Miralax] 17 gram powder in packet 17 g PO BID metformin 500 mg tablet 500 mg PO DAILY Rx Instructions: with breakfast albuterol sulfate 1 PUFF inhaler 2 puff INHALATION Q6H PRN PRN (Reason: Sob &/Or Wheezing) Qty: 6.7 0RF magnesium citrate Solution 150 ml PO BID PRN (Reason: constipation) Qty: 296 0RF Rx Instructions: Drink half the bottle and then wait a couple hours and then drink the other half the bottle or until you have adequate results. psyllium husk [Fiber (psyllium husk)] 0.4 gram capsule 1.2 g PO BID oseltamivir [Tamiflu] 75 mg capsule 75 mg PO BID 5 Days Qty: 10 0RF Primary Care Provider: [facility] Referrals[facility] [Primary Care Provider] - Activity Restrictions/Additional Instructions: Follow-up your primary care physician in the outpatient eye. Your x-rays did not try thing broken. Use the prescription as prescribed do not operating thingin the influence of the Endocet or the muscle relaxer as this can make you sleepy. You should take Tylenol for mild to moderate pain and use the Lidoderm patches as prescribed. Use the Endocet/narcotic as prescribed take Zofran with this as this will upset your stomach if not. Ensure that you are taking your arm out of the sling and do pendulum swings as we discussed here so you do not develop frozen shoulder. Return with any other concern Print Language: Vincentian Disposition Disposition: Home, Self Care What to do if you have Problems For any increased pain, shortness of breath, bleeding, nausea or vomiting, chestpain, or any unexpected problems, contact your Primary Care Provider. Call [facility] ([phone]) or report tothe closest Emergency Room. Call 911 if necessary. 11/11/24 1044 Cosigner Signature (if applicable): CC: [facility] ~ Signed [facility]03-08-2025 Radiology Diagnostic study note [facility] Imaging Services [address] [place] [address] Shoulder min 2 Views MR#: [id number] Acct: [id number] Name: RALPH DELAROSA Rep #: [id number] : 1950 M 74 From: Noelle Arreola MD PCP: [facility] Status: REG ER Study:Shoulder min 2 Views Date of Exam: 11/11/24 Exam# [id number] Ordering Dr: Jose Perales DO PROCEDURE: SHOULDER MIN 2 VIEWS REASON FOR EXAM: 74-year-old male, fall onto left side. TECHNIQUE: 4 view(s) of the left shoulder COMPARISON: None. FINDINGS: No acute fracture. No suspicious bone lesion. Arthrosis of the glenohumeral and acromioclavicular joints. Soft tissues are unremarkable. RAD/Shoulder min 2 Views IMPRESSION: Degenerative arthrosis. No acute fracture. Reading Location: [facility] CC: Dr. Alexander Perales DO; [facility] ~ Electronic Transaction Implementer: Signed [facility]03-08-2025 Radiology Diagnostic study note [facility] Imaging Services [address] [place], [place] [id number] Humerus min 2 Views MR#: [id number] Acct: [id number] Name: RALPH DELAROSA Rep #: [id number] : 1950 M 74 From: Noelle Arreola MD PCP: [facility] Status: REG ER Study:Humerus min 2 Views Date of Exam: 11/11/24 Exam# [id number] Ordering Dr: Jose Perales DO PROCEDURE: HUMERUS MIN 2 VIEWS REASON FOR EXAM: 74-year-old male, fall onto left side. TECHNIQUE: 2 view(s) of the left humerus COMPARISON: None. FINDINGS: No fracture. No suspicious bone lesion. Moderate arthrosis of the left glenohumeral and acromioclavicular joints. Soft tissues are unremarkable. RAD/Humerus min 2 Views IMPRESSION: DEGENERATIVE OSTEOARTHROSIS. NO ACUTE FINDINGS. Reading Location: [facility] CC: Dr. Alexander Perales DO; [facility] ~ Electronic Transaction Implementer: Signed [facility]03-08-2025 Radiology Diagnostic study note [facility] Imaging Services [address] [place] [address] Chest PA and Lateral MR#: [id number] Acct: [id number] Name: RALPH DELAROSA Rep #: [id number] : 1950 M 74 From: Noelle Arreola MD PCP: [facility] Status: REG ER Study:Chest PA and Lateral Date of Exam: 11/11/24 Exam# [id number] Ordering Dr: Jose Perales DO PROCEDURE: CHEST PA AND LATERAL REASON FOR EXAM: 74-year-old male, left rib pain after fall. TECHNIQUE: Frontal and lateral views of the chest. COMPARISON: Chest radiograph 10/16/2024. FINDINGS: The heart size is normal. The mediastinal contour is unremarkable. No focal consolidation, pleural effusion or pneumothorax. Degenerative changes are identified within the thoracic spine. RAD/Chest PA and Lateral IMPRESSION: NEGATIVE CHEST Reading Location: [facility] CC: Dr. Alexander Perales DO; [facility] ~ Electronic Transaction Implementer: Signed [facility]03-08-2025 Radiology Diagnostic study note [facility] Imaging Services [address] [place] [address] Ribs Unil 2V No CXR MR#: [id number] Acct: [id number] Name: RALPH DELAROSA Rep #: [id number] : 1950 M 74 From: Noelle Arreola MD PCP: [facility] Status: REG ER Study:Ribs Unil 2V No CXR Date of Exam: 11/11/24 Exam# [id number] Ordering Dr: Jose Perales DO PROCEDURE: RIBS UNIL 2V NO CXR REASON FOR EXAM: 74-year-old male, fall, left axillary pain. TECHNIQUE: Frontal and bilateral oblique views of the bilateral ribs. COMPARISON: None. FINDINGS: No displaced rib fractures are identified. No suspicious lytic or blastic rib lesions. RAD/Ribs Unil 2V No CXR IMPRESSION: NO EVIDENCE OF ACUTE RIB FRACTURE OR PNEUMOTHORAX. Reading Location: [id number] CC: Dr. Alexander Perales, ; [facility] ~ Electronic Transaction Implementer: Signed [facility]04-28-2024 Discharge summary Author Chris Reynolds [facility] January 02, 2024 1:02pm Note Date/Time January 02, 2024 8:4 9am [facility] Medical Records Department [address] [place] [address] Emergency Department Summary 01/02/24 MR#: [id number] Acct: [id number] Name: RALPH DELAROSA Rep #:[id number] : 1950 73 From: Chris Reynolds MD PCP: [facility] Status:REG ER Location: ED HPI HPI - GI History of Present Illness Chief Complaint: GI Bleed Informant: patient Narrative Narrative: 73-year-old male presents after having diarrhea that was black this morning. This happened 1 time and has never happened before. No history of stomach ulcers that he knows of but he does take famotidine and pantoprazole daily for GERD. He is on no antiplatelet or anticoagulant medications except for a baby aspirin every day. He has been having diffuse mid periumbilical abdominal pain and some constipation and small bowel movements, for which he saw GI at the [place] several days ago, they advised him to go on a pure liquid diet for 3 days and today's day #3. Also placed on MiraLAX which she is doing so in the last 3 dayshe has been having diarrhea but this is the first time it was black. He denies any lightheadedness or syncope/presyncope. He denies any discomfort with eatingor drinking. He has seen no bright red blood. No nausea or vomiting. He feelsotherwise well and at baseline, he states the abdominal cramping is actually less than it had been right now. Patient denies eating anything or drinking anything dark/black except for some various colored/flavored popsicles. [facility] Medical History Abdominal pain Constipation COPD (chronic obstructive pulmonary disease) CPAP (continuous positive airway pressure) dependence Diabetes Diabetic acetonemia Fatty liver GERD (gastroesophageal reflux disease) High cholesterol Hypertension JOANNA on CPAP Sleep apnea Smoker Wears dentures Wears glasses Home Medications amlodipine 5 mg tablet 10 mg PO DAILY 12/20/20 [History Last Taken Unknown] aspirin 81 mg chewable tablet 81 mg PO DAILY@0800 12/20/20 [History Last Taken Unknown] atorvastatin 80 mg tablet 80 mg PO QHS 12/20/20 [History Last Taken Unknown] budesonide-formoterol HFA 160 mcg-4.5 mcg/actuation aerosol inhaler 2 puff IH BID 12/20/20 [History Last Taken Unknown] cholecalciferol (vitamin D3) 50 mcg (2,000 unit) capsule 2,000 unit PO DAILY 12/20/20 [History Last Taken Unknown] empagliflozin 10 mg tablet 12.5 mg PO DAILY 12/20/20 [History Last Taken Unknown] losartan 100 mg tablet 25 mg PO QHS 12/20/20 [History Last Taken Unknown] nitroglycerin 0.4 mg sublingual tablet 0.4 mg sublingual Q5M PRN Chest Pain 12/20/20 [History Last Taken Unknown] hydralazine 50 mg tablet 50 mg PO 4XD 02/11/23 [History Last Taken Unknown] semaglutide 0.25 mg or 0.5 mg (2 mg/3 mL) subcutaneous pen injector (Ozempic) 0.25 mg subcut QWEEK 02/11/23 [History Last Taken Unknown] insulin glargine 100 unit/mL (3 mL) subcutaneous pen 32 unit subcut QHS 06/07/23[History Last Taken Unknown] metformin 1,000 mg tablet 1,000 mg PO DAILY 06/07/23 [History Last Taken Unknown] metformin 500 mg tablet 500 mg PO DAILY 06/07/23 [History Last Taken Unknown] polyethylene glycol 3350 17 gram oral powder packet (Miralax) 17 g PO BID 06/07/23 [History Last Taken Unknown] dicyclomine 10 mg capsule 10 mg PO TID PRN abdominal pain #30 caps 06/11/23 [Rx Last Taken Unknown] albuterol sulfate 90 mcg/actuation aerosol inhaler 2 puff inhalation Q6H PRN PRNSob &/Or Wheezing #6.7 grams 07/02/23 [Rx Last Taken Unknown] pantoprazole 40 mg tablet,delayed release (Protonix) 40 mg PO DAILY #30 tabs 07/02/23 [Rx Last Taken Unknown] dicyclomine 20 mg tablet 20 mg PO TID #20 tabs 12/15/23 [Rx Last Taken Unknown] ondansetron 4 mg disintegrating tablet 4 mg PO Q6H PRN nausea and vomiting #20 tabs 12/15/23 [Rx Last Taken Unknown] Allergy/AdvReac Type Severity Reaction Status Date / Time chlorthalidone Allergy NEEDS Verified 01/02/24 08:31 FOLLOW-UP hydrochlorothiazide Allergy NEEDS Verified 01/02/24 08:31 FOLLOW-UP Family History Mother Diabetes Hypertension Brother Diabetes Hypertension Surgical History H/O heart artery stent History of appendectomy (Unknown) History of cardiac catheterization Social History Smoking Status: Current every day smoker tobacco type: cigarettes alcohol intake: current alcohol intake frequency: holidays/special occasions only substance use type: does not use ROS ROS ED Constitutional Constitutional ED: Denies chills or fever(s) Eyes Eyes: Denies change in vision or diplopia ENT ENT ED: Denies rhinorrhea or sore throat Cardiovascular Cardiovascular: Denies chest pain, lightheadedness, palpitations or syncope Respiratory/Chest Respiratory/Chest: Denies cough or dyspnea Gastrointestinal Gastrointestinal: Reports as per HPI, abdominal pain and diarrhea; Denies nauseaor vomiting Genitourinary Genitourinary ED: Denies dysuria or hematuria Musculoskeletal Musculoskeletal: Denies back pain or neck pain Integumentary Denies abscess or rash Neurologic Neurologic: Denies headache(s), paresthesias or weakness Psychiatric Psychiatric: Denies anxiety or suicidal thoughts EXAM Physical Exam Const Vital Signs: 01/02/24 08:31 01/02/24 09:23 01/02/24 09:23 Temperature 97.6 F L Temperature Source Temporal Pulse Rate 67 Pulse Rate [Lying] 67 Pulse Rate [Sitting (for 1 minute prior to obtaining)] 67 Pulse Rate [Standing (for 1 minute prior to obtaining)] 72 Respiratory Rate 18 Blood Pressure 153/62 H Blood Pressure [Lying] 142/65 H Blood Pressure [Sitting (for 1 minute prior to obtaining)] 152/71 H Blood Pressure [Standing (for 1 minute prior to obtaining)] 135/70 H Blood Pressure Mean 92 Blood Pressure Mean [Lying] 90 Blood Pressure Mean [Sitting (for 1 minute prior to obtaining)] 98 Blood Pressure Mean [Standing (for 1 minute prior to obtaining)] 91 Pulse Ox 98 Oxygen Delivery Method Room Air 01/02/24 10:29 01/02/24 12:00 Temperature Temperature Source Pulse Rate 67 67 Pulse Rate [Lying] Pulse Rate [Sitting (for 1 minute prior to obtaining)] Pulse Rate [Standing (for 1 minute prior to obtaining)] Respiratory Rate 16 16 Blood Pressure 142/64 H 143/76 H Blood Pressure [Lying] Blood Pressure [Sitting (for 1 minute prior to obtaining)] Blood Pressure [Standing (for 1 minute prior to obtaining)] Blood Pressure Mean 90 98 Blood Pressure Mean [Lying] Blood Pressure Mean [Sitting (for 1 minute prior to obtaining)] Blood Pressure Mean [Standing (for 1 minute prior to obtaining)] Pulse Ox 99 98 Oxygen Delivery Method Room Air Positive well nourished and well developed General Appearance ED: well developed and NAD HEENT Reports moist mucous membranes normocephalic and atraumatic Eyes PERRL and EOMs intact bilaterally Neck full ROM and supple Resp normal respiratory effort and clear to auscultation bilaterally Cardio regular rate, regular rhythm and no murmurs GI non-tender and non-distended GI Narrative: Rectal nontender no blood or melena/black stool, there is yellow-brown scant specimen that was sent for Hemoccult. Auscultation: normoactive bowel sounds Palpation: soft Back/Spine no CVA tenderness General Back: other FROM Extremity normal to inspection General Extremety ED: Negative for edema, pulses abnormal or tenderness General Extremity: Negative for edema or pulses abnormal Neuro oriented x3, CN's II-XII intact bilaterally and no sensory deficits noted Sensorium / Orientation: awake and alert Motor Exam: strength 5/5 throughout Psych mental status grossly normal and thought process normal Skin no rashes or lesions noted and no wounds MDM MDM MDM Narrative Medical decision making narrative: Obtain blood counts, his hemoglobin is excellent at 16.9, and chemistries show that everything is normal, his BUN is not elevated it is 6, all of this arguing against an active upper GI bleed. I did a rectal send the Hemoccult it is negative there was a small amount of specimen available, and a little while later he needed to have a bowel movement so nurses sent a sample of that diarrhea for Hemoccult and it was positive. He is doing well hemodynamically and clinically has no symptoms. Given this, I reviewed his recent endoscopy. He had colonoscopy and EGD in July here. The EGD showed erosive esophagitiswithout evidence of bleeding, there were biopsies of that and a couple areas of the stomach sent, there was no dysplasia and his H. pylori was negative. If he was having black stools due to bleeding, it would be most likely coming from hisarea of esophagitis. Therefore I recommend he double his metoprolol to twice daily for the next week or so or until he talks to his digital artist who hesaw this past week. He is comfortable with that plan at this time I think it safe for him to be discharged home. Lab Data Attestation: I reviewed the patient's lab results. Labs: Laboratory Results - last 24 hr 01/02/24 01/02/24 08:45 09:30 WBC 10.3 RBC 5.70 Hgb 16.9 H Hct 51.0 MCV 89.5 MCH 29.6 MCHC 33.1 RDW Std Deviation 42.2 RDW Coeff of Aldair 12.9 Plt Count 261 MPV 9.3 Immature Gran % (Auto) 0.600 Neut % (Auto) 76.8 H Lymph % (Auto) 14.9 L [place] % (Auto) 6.6 Eos % (Auto) 0.4 Baso % (Auto) 0.7 Absolute Neuts (auto) 7.9 H Absolute Lymphs (auto) 1.53 Nucleated RBC % 0 Sodium 135 L Potassium 3.6 Chloride 99 Carbon Dioxide 31.0 Anion Gap 5 BUN 6 L Creatinine 1.03 Estim Creat Clear Calc 72.06 Est GFR (MDRD) Af Amer 91 Est GFR (MDRD) Non-Af 75 BUN/Creatinine Ratio 5.8 L Glucose 265 H Calcium 9.8 Discharge Plan Triage Chief Complaint: GI Bleed ED Provider: Chris Reynolds Dx/Rx/DC Orders Clinical Impression: Black stool, Occult GI bleeding Instructions: ED Upper GI Bleeding (Stable) Prescriptions: No Action metformin 1,000 mg tablet 1,000 mg PO DAILY Rx Instructions: with dinner atorvastatin 80 MG tablet 80 mg PO QHS amlodipine 5 MG tablet 10 mg PO DAILY nitroglycerin 0.4 MG tablet, sublingual 0.4 mg SL Q5M PRN (Reason: Chest Pain) aspirin 81 MG tablet,chewable 81 mg PO DAILY@0800 losartan 100 MG tablet 25 mg PO QHS budesonide-formoterol 10.2 GM HFA aerosol inhaler 2 puff IH BID cholecalciferol (vitamin D3) 2,000 UNIT capsule 2,000 unit PO DAILY empagliflozin 10 MG tablet 12.5 mg PO DAILY insulin glargine 100 unit/mL (3 mL) insulin pen 32 unit SC QHS hydralazine 50 mg Tablet 50 mg PO 4XD Ozempic 0.25 mg or 0.5 mg (2 mg/3 mL) Pen Injector 0.25 mg SUBCUT QWEEK Rx Instructions: for 4 weeks polyethylene glycol 3350 [Miralax] 17 gram powder in packet 17 g PO BID metformin 500 mg tablet 500 mg PO DAILY Rx Instructions: with breakfast dicyclomine 10 mg capsule 10 mg PO TID PRN (Reason: abdominal pain) Qty: 30 0RF pantoprazole [Protonix] 40 mg tablet,delayed release (DR/EC) 40 mg PO DAILY Qty: 30 0RF albuterol sulfate 1 PUFF inhaler 2 puff INHALATION Q6H PRN PRN (Reason: Sob &/Or Wheezing) Qty: 6.7 0RF ondansetron 4 mg tablet,disintegrating 4 mg PO Q6H PRN (Reason: nausea and vomiting) Qty: 20 0RF dicyclomine 20 mg tablet 20 mg PO TID Qty: 20 0RF [facility] [Primary Care Provider] - (Follow-up with your digital artist at the [facility] as soon as possible.) Activity Restrictions/Additional Instructions: Your BUN is 6 and your hemoglobin is 16.9. Double your pantoprazole to your taking 1 tablet in the morning and 1 tablet in the evening. What to do if you have Problems For any increased pain, shortness of breath, bleeding, nausea or vomiting, chestpain, or any unexpected problems, contact your Primary Care Provider. Call [facility] ([phone]) or report to the closest Emergency Room. Call 911 if necessary. 01/02/24 1302 <Electronically signed by Chris Reynolds MD> Cosigner Signature (if applicable): CC: [facility] ~ Signed [facility] Work Phone: [phone]) 750-412104-28-2024 Hospital Discharge instructions Additional Instructions Your BUN is 6 and your hemoglobin is 16.9. Double your pantoprazole to your taking 1 tablet in the morning and 1 tablet in the evening.[facility] Work Phone: 1(530) 192-868904-10-2024 Discharge summary Author Rodolfo Birmingham [facility] December 15, 2023 5:17pm Note Date/Time December 15, 2023 2:2 3pm [facility] Medical Records Department [address] [place] [address] Emergency Department Summary 12/15/23 MR#: [id number] Acct: [id number] Name: RALPH DELAROSA Rep #:[id number] : 1950 73 From: Rodolfo Birmingham MD PCP: [facility] Status:REG ER Location: ED HPI HPI - GI History of Present Illness Chief Complaint: Abd Pain Narrative Narrative: 73-year-old male past medical history of hypertension, diabetes, states that he has had abdominal pain for the last month. He was seen in the emergency department, states he followed up and had upper and lower endoscopy performed but does not know the results. He relates history that he has had diffuse abdominal pain for a month, but today when he woke up, was more severe. He denies any fever but states he was chilled. He was nauseated and vomited once without any blood in his emesis. He also had loose stool and then another episode of diarrhea without any blood in his stool. No exacerbating or alleviating factors but he complains of diffuse periumbilical abdominal pain. Past surgical history includes remote appendectomy. [facility] Medical History Abdominal pain Constipation COPD (chronic obstructive pulmonary disease) CPAP (continuous positive airway pressure) dependence Diabetes Diabetic acetonemia Fatty liver GERD (gastroesophageal reflux disease) High cholesterol Hypertension JOANNA on CPAP Sleep apnea Smoker Wears dentures Wears glasses Home Medications amlodipine 5 mg tablet 10 mg PO DAILY 12/20/20 [History Last Taken Unknown] aspirin 81 mg chewable tablet 81 mg PO DAILY@0800 12/20/20 [History Last Taken Unknown] atorvastatin 80 mg tablet 80 mg PO QHS 12/20/20 [History Last Taken Unknown] budesonide-formoterol HFA 160 mcg-4.5 mcg/actuation aerosol inhaler 2 puff IH BID 12/20/20 [History Last Taken Unknown] cholecalciferol (vitamin D3) 50 mcg (2,000 unit) capsule 2,000 unit PO DAILY 12/20/20 [History Last Taken Unknown] empagliflozin 10 mg tablet 12.5 mg PO DAILY 12/20/20 [History Last Taken Unknown] losartan 100 mg tablet 25 mg PO QHS 12/20/20 [History Last Taken Unknown] nitroglycerin 0.4 mg sublingual tablet 0.4 mg sublingual Q5M PRN Chest Pain 12/20/20 [History Last Taken Unknown] hydralazine 50 mg tablet 50 mg PO 4XD 02/11/23 [History Last Taken Unknown] semaglutide 0.25 mg or 0.5 mg (2 mg/3 mL) subcutaneous pen injector (Ozempic) 0.25 mg subcut QWEEK 02/11/23 [History Last Taken Unknown] insulin glargine 100 unit/mL (3 mL) subcutaneous pen 32 unit subcut QHS 06/07/23[History Last Taken Unknown] metformin 1,000 mg tablet 1,000 mg PO DAILY 06/07/23 [History Last Taken Unknown] metformin 500 mg tablet 500 mg PO DAILY 06/07/23 [History Last Taken Unknown] polyethylene glycol 3350 17 gram oral powder packet (Miralax) 17 g PO BID 06/07/23 [History Last Taken Unknown] dicyclomine 10 mg capsule 10 mg PO TID PRN abdominal pain #30 caps 06/11/23 [Rx Last Taken Unknown] albuterol sulfate 90 mcg/actuation aerosol inhaler 2 puff inhalation Q6H PRN PRNSob &/Or Wheezing #6.7 grams 07/02/23 [Rx Last Taken Unknown] pantoprazole 40 mg tablet,delayed release (Protonix) 40 mg PO DAILY #30 tabs 07/02/23 [Rx Last Taken Unknown] dicyclomine 20 mg tablet 20 mg PO TID #20 tabs 12/15/23 [Rx Last Taken Unknown] ondansetron 4 mg disintegrating tablet 4 mg PO Q6H PRN nausea and vomiting #20 tabs 12/15/23 [Rx Last Taken Unknown] Allergy/AdvReac Type Severity Reaction Status Date / Time chlorthalidone Allergy NEEDS Verified 12/15/23 13:41 FOLLOW-UP hydrochlorothiazide Allergy NEEDS Verified 12/15/23 13:41 FOLLOW-UP Family History Mother Diabetes Hypertension Brother Diabetes Hypertension Surgical History H/O heart artery stent History of appendectomy (Unknown) History of cardiac catheterization Social History Smoking Status: Current every day smoker tobacco type: cigarettes alcohol intake: current alcohol intake frequency: holidays/special occasions only substance use type: does not use ROS ROS ED ROS Narrative Constitutional: No fever, positive chills. HEENT: No sore throat. No neck pain. No loss of vision. No rhinorrhea. Cardiovascular: No chest pain. No palpitations. No pedal edema. Respiratory: No cough, no shortness of breath. Abdominal: Positive diffuse to periumbilical abdominal pain. Positive nausea with 1 episode of vomiting today. No hematemesis. 2 episodes of loose stool/diarrhea, no melena or rectal bleeding. Genitourinary: No dysuria. No hematuria. Musculoskeletal: No myalgias. No arthralgias. Neurologic: No headaches. No dizziness. No lightheadedness. Skin: No rash. No change in color. Psychiatric: No depression. No anxiety. EXAM Physical Exam Const Vital Signs: 12/15/23 13:39 12/15/23 15:39 Temperature 97.6 F L Temperature Source Temporal Pulse Rate 70 71 Respiratory Rate 17 16 Blood Pressure 155/81 H 157/73 H Blood Pressure Mean 105 101 Pulse Ox 98 99 Oxygen Delivery Method Room Air Room Air MDM MDM MDM Narrative Medical decision making narrative: In the differential diagnosis is partial small bowel obstruction versus small bowel obstruction versus diverticulitis versus colitis versus nonspecific abdominal pain. I reviewed his prior records. I do feel that he needs repeat imaging of his abdomen to help rule out an obstructive process or infectious process. He was bolused normal saline and administered ondansetron. I will check a CBC, CMP, and lipase along with UA. Lower on the differential would be ureterolithiasis or UTI. In order to help rule out any cardiac etiology, EKG and single troponin will be obtained. I reviewed his prior records, and he has not been seen here in this emergency department since 2022 back in June. EKG was obtained and interpreted by myself independently as normal sinus rhythm at 70 bpm without ectopy or acute STchanges. No STEMI. I reviewed his laboratory work and he has normal white count of 10.9, hemoglobin slightly hemoconcentrated at 17.7 hematocrit 51.2, platelet count normal at 227. Sodium is slightly low at 132, he was bolused normal saline, potassium normal at 3.9, glucose elevated at 179 consistent with his diabetes but he has a normal anion gap of 7 so I have low concern for diabetic ketoacidosis. AST and ALT are normal at 20 and 18 respectively, alk phos 90. He does have slightly elevated total bilirubin but this appears chronic. Urinalysis is negative for infection. CT of the abdomen pelvis shows no acute process but there are stones in the neck of the gallbladder. I do not feel that he necessarily has biliary disease as he complains of pain more in hislower abdomen and periumbilical area, however he will be given morphine and a second dose of Zofran. He states that he received something from his prior visit, and realized that it was not a month or 2 ago but actually last year. I reviewed his ED visit, and he had a prescription for Bentyl that was written forhim. As long as his gallbladder ultrasound does not show acute cholecystitis, Bud feel that he would be able to be discharged home with follow-up for nonspecific abdominal pain. I reviewed the radiology report for the gallbladder ultrasound which shows no acute process in the right upper quadrant, no pericholecystic fluid, common bileduct normal at 6 mm. At this point in time, he is resting comfortably upon repeat examination. I have low concern for any emergent surgical or admittable process. He was written a prescription for Bentyl and Zofran as he has receivedBentyl in the past. He will start a clear liquid diet and advance as tolerated. I feel he can be discharged safely home with follow-up. Return instructions were reviewed. Disposition is discharged home in stable condition. History & Record Review Discussion w/independent historian: Patient Additional record(s) reviewed:: Prior ED visit and Prior labs Lab Data Attestation: I reviewed the patient's lab results. Labs: Laboratory Results - last 24 hr 12/15/23 12/15/23 14:30 14:35 WBC 10.9 RBC 6.03 Hgb 17.7 H Hct 51.2 MCV 84.9 MCH 29.4 MCHC 34.6 RDW Std Deviation 38.5 RDW Coeff of Aldair 12.5 Plt Count 227 MPV 9.6 Immature Gran % (Auto) 0.600 Neut % (Auto) 79.7 H Lymph % (Auto) 12.9 L [place] % (Auto) 6.1 Eos % (Auto) 0.1 Baso % (Auto) 0.6 Absolute Neuts (auto) 8.7 H Absolute Lymphs (auto) 1.41 Nucleated RBC % 0 Sodium 132 L Potassium 3.9 Chloride 100 Carbon Dioxide 25.0 Anion Gap 7 BUN 12 Creatinine 0.98 Estim Creat Clear Calc 69.32 Est GFR (MDRD) Af Amer 97 Est GFR (MDRD) Non-Af 80 BUN/Creatinine Ratio 12.3 Glucose 179 H Calcium 9.6 Total Bilirubin 1.60 H AST 20 ALT 18 Alkaline Phosphatase 90 Troponin I High Sens 25 Total Protein 7.7 Albumin 4.3 Globulin 3.4 Albumin/Globulin Ratio 1.3 Lipase 42 Urine Color Yellow Urine Clarity Clear Urine pH 7.0 Ur Specific [place] 1.010 Urine Protein 15 H Urine Glucose (UA) 1000 H Urine Ketones Negative Urine Occult Blood Negative Urine Nitrite Negative Urine Bilirubin Negative Urine Urobilinogen Normal Ur Leukocyte Esterase Negative Urine RBC 0 SEEN Urine WBC 0 SEEN Ur Squamous Epith Cells 0-5 SEEN Urine Bacteria 0 SEEN Urine Mucus 0 SEEN Radiography Diagnostic Testing: Clinical Impression(s) from Imaging Studies Abdomen/Pelvis CT 12/15/23 14:19 IMPRESSION: Distended urinary bladder. Possible tiny gallstones in the neck of the gallbladder. Electronically Signed: Lincoln Murrieta MD at 15:44 EDT , Gallbladder Ultrasound 12/15/23 16:01 IMPRESSION: Normal right upper quadrant ultrasound examination. Electronically Signed: Alex Pugh MD at 17:08 EDT , Discharge Plan Triage Chief Complaint: Abd Pain ED Provider: Rodolfo Birmingham Dx/Rx/DC Orders Clinical Impression: Diarrhea, Nausea and vomiting, Abdominal pain Instructions: ED Diarrhea, Unknown Cause, ED Diet Vomiting Diarrhea, ED Abdominal Pain Unkn Cause Male... Prescriptions: New ondansetron 4 mg tablet,disintegrating 4 mg PO Q6H PRN (Reason: nausea and vomiting) Qty: 20 0RF dicyclomine 20 mg tablet 20 mg PO TID Qty: 20 0RF No Action metformin 1,000 mg tablet 1,000 mg PO DAILY Rx Instructions: with dinner atorvastatin 80 MG tablet 80 mg PO QHS amlodipine 5 MG tablet 10 mg PO DAILY nitroglycerin 0.4 MG tablet, sublingual 0.4 mg SL Q5M PRN (Reason: Chest Pain) aspirin 81 MG tablet,chewable 81 mg PO DAILY@0800 losartan 100 MG tablet 25 mg PO QHS budesonide-formoterol 10.2 GM HFA aerosol inhaler 2 puff IH BID cholecalciferol (vitamin D3) 2,000 UNIT capsule 2,000 unit PO DAILY empagliflozin 10 MG tablet 12.5 mg PO DAILY insulin glargine 100 unit/mL (3 mL) insulin pen 32 unit SC QHS hydralazine 50 mg Tablet 50 mg PO 4XD Ozempic 0.25 mg or 0.5 mg (2 mg/3 mL) Pen Injector 0.25 mg SUBCUT QWEEK Rx Instructions: for 4 weeks polyethylene glycol 3350 [Miralax] 17 gram powder in packet 17 g PO BID metformin 500 mg tablet 500 mg PO DAILY Rx Instructions: with breakfast dicyclomine 10 mg capsule 10 mg PO TID PRN (Reason: abdominal pain) Qty: 30 0RF pantoprazole [Protonix] 40 mg tablet,delayed release (DR/EC) 40 mg PO DAILY Qty: 30 0RF albuterol sulfate 1 PUFF inhaler 2 puff INHALATION Q6H PRN PRN (Reason: Sob &/Or Wheezing) Qty: 6.7 0RF [facility] [Primary Care Provider] - 3-5 Days if not improving Activity Restrictions/Additional Instructions: Start a clear liquid diet and advance as tolerated. Return with fever, increased pain, new or worsening symptoms. Disposition Disposition: Home, Self Care What to do if you have Problems For any increased pain, shortness of breath, bleeding, nausea or vomiting, chestpain, or any unexpected problems, contact your Primary Care Provider. Call [facility] ([phone]) or report to the closest Emergency Room. Call 911 if necessary. 12/15/231716 <Electronically signed by Rodolfo Birmingham MD> Cosigner Signature (if applicable): CC: [facility] ~ Signed [facility] Work Phone: [phone]) 987-260510-29-2023 Discharge summary Author Alex Carolina [facility] July 04, 2023 3:21pm Note Date/Time July 04, 2023 3 :21pm [facility] Medical Records Department [address] [place] [address] Emergency Department Summary 07/04/23 MR#: [id number] Acct: [id number] Name: RALPH DELAROSA Rep #:[id number] : 1950 72 From: Alex Carolina DO PCP: [facility] Status:REG ER Location: ED HPI History of Present Illness Chief Complaint: Cough Narrative Narrative: Patient is a 72-year-old male who is presenting to the ER today with chief complaint of sinus congestion, cough. Patient is having mild midepigastric tenderness to palpation. Patient woke up this morning having a mild headache and feeling shaky. Patient came to the ER for evaluation. Patient lives at home. Patient was just in the ER 2 days ago with her evaluation. Patient was prescribed prednisone, Protonix, and a Z-Александр. Patient has a history of COPD. When patient woke up he felt shaky with mild headache and some mild midepigastric discomfort so he came into the ER for evaluation. Patient was also in the ER week prior to that. Patient currently has minimal headache. No neck pain. No chest pain or shortness of breath, no nausea, vomiting, patient does have some vague midepigastric tenderness. Patient does have a EGD and colonoscopy scheduled for November 17. [facility] well[facility] Abdominal pain Constipation COPD (chronic obstructive pulmonary disease) Diabetes Diabetic acetonemia GERD (gastroesophageal reflux disease) High cholesterol Hypertension JOANNA on CPAP Sleep apnea Home Medications amlodipine 5 mg tablet 10 mg PO DAILY 12/20/20 [History Last Taken Unknown] aspirin 81 mg chewable tablet 81 mg PO DAILY@0800 12/20/20 [History Last Taken Unknown] atorvastatin 80 mg tablet 80 mg PO QHS 12/20/20 [History Last Taken Unknown] budesonide-formoterol HFA 160 mcg-4.5 mcg/actuation aerosol inhaler 2 puff IH BID 12/20/20 [History Last Taken Unknown] cholecalciferol (vitamin D3) 50 mcg (2,000 unit) capsule 2,000 unit PO DAILY 12/20/20 [History Last Taken Unknown] empagliflozin 10 mg tablet 12.5 mg PO DAILY 12/20/20 [History Last Taken Unknown] losartan 100 mg tablet 25 mg PO QHS 12/20/20 [History Last Taken Unknown] nitroglycerin 0.4 mg sublingual tablet 0.4 mg sublingual Q5M PRN Chest Pain 12/20/20 [History Last Taken Unknown] famotidine 40 mg tablet 40 mg PO DAILY 02/11/23 [History Last Taken Unknown] hydralazine 50 mg tablet 50 mg PO 4XD 02/11/23 [History Last Taken Unknown] semaglutide 0.25 mg or 0.5 mg (2 mg/3 mL) subcutaneous pen injector (Ozempic) 0.25 mg subcut QWEEK 02/11/23 [History Last Taken Unknown] insulin glargine 100 unit/mL (3 mL) subcutaneous pen 32 unit subcut QHS 06/07/23[History Last Taken Unknown] metformin 1,000 mg tablet 1,000 mg PO DAILY 06/07/23 [History Last Taken Unknown] metformin 500 mg tablet 500 mg PO DAILY 06/07/23 [History Last Taken Unknown] polyethylene glycol 3350 17 gram oral powder packet (Miralax) 17 g PO BID 06/07/23 [History Last Taken Unknown] dicyclomine 10 mg capsule 10 mg PO TID PRN abdominal pain #30 caps 06/11/23 [Rx Last Taken Unknown] albuterol sulfate 90 mcg/actuation aerosol inhaler 2 puff inhalation Q6H PRN PRNSob &/Or Wheezing #6.7 grams 07/02/23 [Rx Last Taken Unknown] azithromycin 250 mg tablet See Rx Instructions PO .COMPLEX #6 tabs 07/02/23 [Rx Last Taken Unknown] pantoprazole 40 mg tablet,delayed release (Protonix) 40 mg PO DAILY #30 tabs 07/02/23 [Rx Last Taken Unknown] prednisone 20 mg tablet 40 mg (2 x 20 mg) PO DAILY #8 tabs 07/02/23 [Rx Last Taken Unknown] Allergy/AdvReac Type Severity Reaction Status Date / Time chlorthalidone Allergy NEEDS Verified 07/02/23 17:08 FOLLOW-UP hydrochlorothiazide Allergy NEEDS Verified 07/02/23 17:08 FOLLOW-UP Family History Mother Diabetes Hypertension Brother Diabetes Hypertension Surgical History H/O heart artery stent History of appendectomy (Unknown) Social History Smoking Status: Current some day smoker tobacco type: cigarettes alcohol intake: current alcohol intake frequency: holidays/special occasions only substance use type: does not use ROS ROS ED ROS Narrative REVIEW OF SYSTEMS: Unless otherwise stated in this report the patient's positiveand negative responses for review of systems for constitutional, eyes, ENT, cardiovascular, respiratory, gastrointestinal, neurological, , musculoskeletal, and integument systems and related systems to the presenting problem are either stated in the history of present illness or were not pertinent or were negative for the symptoms and/or complaints related to the presenting medical problem. EXAM Physical Exam Narrative Exam Narrative: Vital signs reviewed and patient is not hypoxic. General: The patient appears well and in no apparent distress. Patient is resting comfortably on cart. Not toxic, lethargic, or listless. Skin: Warm, dry, no pallor noted. There is no rash noted. Head: Normocephalic, atraumatic, minimal tenderness to palpation to bilateral frontal and maxillary sinus. Eye: Normal conjunctiva, no drainage, EOMI. PERRL. Ears, Nose, Mouth, and Throat: oral mucosa is moist. Nares patent. Mouth withoutvesicles. Patient has clear drainage to the posterior pharynx, mild cobblestoning noted. No unilateral swelling. No airway compromise. Cardiovascular: Regular Rate and Rhythm, no murmurs, gallops, or rubs Respiratory: Patient is in no distress, no accessory muscle use, lungs are clearto auscultation, no wheezing, rales or rhonchi Back: non-tender, no CVA tenderness bilaterally to percussion. NO CTLS midline or paraspinal tenderness to palpation. GI: Soft, obese, no tenderness to palpation, no masses appreciated. No rebound, guarding, or rigidity noted. Musculoskeletal: The patient has full range of motion of all extremities and joints with no difficulty. Patient has no motor, no sensory deficits. Neurological: A&O x4, normal speech, no focal neurological deficits. Psychiatric: Cooperative Const Vital Signs: 07/04/23 12:48 07/04/23 12:47 07/04/23 14:04 Temperature 96.6 F L Temperature Source Temporal Pulse Rate 67 Respiratory Rate 16 Respiratory Effort Normal Non-Labored Respiratory Depth Normal Respiratory Pattern Normal Blood Pressure 146/70 H 151/71 H Blood Pressure Mean 95 97 Pulse Ox 97 Oxygen Delivery Method Room Air MDM MDM MDM Narrative Medical decision making narrative: Patient had mild headache, patient was asking something mild to help with headache at discharge, he is doing 1 dose of IV Toradol. Patient chest x-ray and lab work shows no acute findings. Patient was just in the ER 2 days ago. Patient will be discharged to continue medications that he is already taking, along with continuing DayQuil, NyQuil and Flonase which she has not. Patient will increase fluids. Patient will follow-up with PCP Lab Data Attestation: I reviewed the patient's lab results. Lab results narrative: Patient is currently taking prednisone, patient has white blood cell count of 14patient is known diabetic.. Labs: Laboratory Results - last 24 hr 07/04/23 07/04/23 13:55 14:40 WBC 14.8 H RBC 5.51 Hgb 16.4 Hct 48.8 MCV 88.6 MCH 29.8 MCHC 33.6 RDW Std Deviation 43.0 RDW Coeff of [place] 13.2 Plt Count 247 MPV 9.4 Immature Gran % (Auto) 0.700 Neut % (Auto) 90.6 H Lymph % (Auto) 6.0 L [place] % (Auto) 2.5 Eos % (Auto) 0.0 Baso % (Auto) 0.2 Absolute Neuts (auto) 13.4 H Absolute Lymphs (auto) 0.89 Nucleated RBC % 0 Sodium 132 L Potassium 4.7 Chloride 99 Carbon Dioxide 25.0 Anion Gap 8 BUN 25 H Creatinine 0.97 Estim Creat Clear Calc 71.08 Est GFR (MDRD) Af Amer 97 Est GFR (MDRD) Non-Af 80 BUN/Creatinine Ratio 25.7 H Glucose 226 H Calcium 9.0 Total Bilirubin 1.20 H AST 35 ALT 28 Alkaline Phosphatase 74 Troponin I High Sens 36 Total Protein 6.8 Albumin 3.7 Globulin 3.1 Albumin/Globulin Ratio 1.2 Lipase 29 Urine Color Yellow Urine Clarity Clear Urine pH 6.0 Ur Specific [place] 1.010 Urine Protein 30 H Urine Glucose (UA) 1000 H Urine Ketones Negative Urine Occult Blood Negative Urine Nitrite Negative Urine Bilirubin Negative Urine Urobilinogen Normal Ur Leukocyte Esterase Negative Urine RBC 0 SEEN Urine WBC 0 SEEN Ur Squamous Epith Cells 0 SEEN Urine Bacteria 0 SEEN Urine Mucus 0 SEEN Radiography Chest X-Ray - ED: Read by ED Physician (Chest x-ray shows no acute cardial pulm disease, no infiltrate, no effusion) Diagnostic Testing: Clinical Impression(s) from Imaging Studies Chest X-Ray 07/04/23 14:05 IMPRESSION: There are no acute findings. Electronically Signed: Leon Dukes MD at 14:22 EDT Reading Location ID and State: [facility] / [place] , Service support , Discharge Plan Triage Chief Complaint: Cough Other Complaint: Nausea/Vomiting ED Provider: Alex Carolina Dx/Rx/DC Orders Clinical Impression: Sinus congestion Instructions: Causes of Sinusitis Prescriptions: No Action metformin 1,000 mg tablet 1,000 mg PO DAILY Rx Instructions: with dinner atorvastatin 80 MG tablet 80 mg PO QHS amlodipine 5 MG tablet 10 mg PO DAILY nitroglycerin 0.4 MG tablet, sublingual 0.4 mg SL Q5M PRN (Reason: Chest Pain) aspirin 81 MG tablet,chewable 81 mg PO DAILY@0800 losartan 100 MG tablet 25 mg PO QHS budesonide-formoterol 10.2 GM HFA aerosol inhaler 2 puff IH BID cholecalciferol (vitamin D3) 2,000 UNIT capsule 2,000 unit PO DAILY empagliflozin 10 MG tablet 12.5 mg PO DAILY insulin glargine 100 unit/mL (3 mL) insulin pen 32 unit SC QHS famotidine 40 mg Tablet 40 mg PO DAILY hydralazine 50 mg Tablet 50 mg PO 4XD Ozempic 0.25 mg or 0.5 mg (2 mg/3 mL) Pen Injector 0.25 mg SUBCUT QWEEK Rx Instructions: for 4 weeks polyethylene glycol 3350 [Miralax] 17 gram powder in packet 17 g PO BID metformin 500 mg tablet 500 mg PO DAILY Rx Instructions: with breakfast dicyclomine 10 mg capsule 10 mg PO TID PRN (Reason: abdominal pain) Qty: 30 0RF azithromycin 250 mg tablet See Rx Instructions .ROUTE .COMPLEX Qty: 6 0RF Rx Instructions: For 250 mg dose pack: take 500 mg today (day 1), then 250 mg for 4 days (days 2- 5) prednisone 20 mg tablet 40 mg PO DAILY Qty: 8 0RF pantoprazole [Protonix] 40 mg tablet,delayed release (DR/EC) 40 mg PO DAILY Qty: 30 0RF albuterol sulfate 1 PUFF inhaler 2 puff INHALATION Q6H PRN PRN (Reason: Sob &/Or Wheezing) Qty: 6.7 0RF [facility] [facility] [Primary [facility] Provider] - Activity Restrictions/Additional Instructions: Use [id number] DayQuil, NyQuil, and Flonase. Continue medications as prescribed Follow-up with PCP. Increase fluids Disposition Disposition: Home, Self Care What to do if you have Problems For any increased pain, shortness of breath, bleeding, nausea or vomiting, chestpain, or any unexpected problems, contact your Primary Care Provider. Call [facility] ([phone]) or report to the closest Emergency Room. Call 911 if necessary. 07/04/23 1521 <Electronically signed by Alex Carolina DO> Cosigner Signature (if applicable): CC: [facility] ~ Signed [facility] Work Phone: Discharge summary Author Alexander Perales [facility] Note Date/Time November 11, 2024 10:4 4am [facility] Medical Records Department [address] [place] [address] Emergency Department Summary 11/11/24 MR#: [id number] Acct: [id number] Name: RALPH DELAROSA Rep #:[id number] 74 From: Alexander Perales DO PCP: [facility] Status:REG ER Location: ED HPI History of Present Illness Chief Complaint: Chest Other Narrative Narrative: Patient is a 74-year-old male past medical history of COPD, hypercholesteremia, hypertension, diabetes who presents to the emergency department the chief complaint of left shoulder and rib pain. Patient states that last night he was bowling and noted that his foot stuck when he went to bowl causing him to fall and land on his left side. He states that he not hit his head he did not pass out he remembers entire event. He denies any blood thinner medications. Patient states that it was painful for him to attempt to lift his shoulder this morning and on the left rib cage therefore he came here for the valuation management. Patient states that he did not get chest pain lightheaded dizziness prior to this episode he states that he simply fell because his foot got caught on the floor. [facility] Medical History Wears glasses Wears dentures Fatty liver Smoker CPAP (continuous positive airway pressure) dependence Abdominal pain COPD (chronic obstructive pulmonary disease) Sleep apnea JOANNA on CPAP High cholesterol GERD (gastroesophageal reflux disease) Constipation Hypertension Diabetes Diabetic acetonemia Home Medications ?Medication ?Instructions ?Recorded ?Last Taken ?Type amlodipine 5 mg tablet 10 mg PO DAILY 12/20/20 Unkn own History aspirin 81 mg chewable tablet 81 mg PO DAILY@0800 12/0510/16/24 09:00 History atorvastatin 80 mg tablet 80 mg PO QHS 12/20/20 Unknow n History budesonide-formoterol HFA 160 2 puff IH BID 12/20/20 U nknown History mcg-4.5 mcg/actuation aerosol inhaler cholecalciferol (vitamin D3) 50 2,000 unit PO DAILY Unknown History mcg (2,000 unit) capsule empagliflozin 10 mg tablet 5 mg PO DAILY 12/20/20 Unkn own History losartan 100 mg tablet 50 mg PO QHS 12/20/20 Unknow n History nitroglycerin 0.4 mg sublingual 0.4 mg sublingual Q5M PRN Chest 12/20/20 Unknown History tablet Pain hydralazine 50 mg tablet 50 mg PO 4XD 02/11/23 Unknow n History insulin glargine 100 unit/mL (3 10 unit subcut QHS 10/29 Unknown History mL) subcutaneous pen metformin 1,000 mg tablet 1,000 mg PO DAILY 06/07/23 U nknown History metformin 500 mg tablet 500 mg PO DAILY 06/07/23 Unk nown History polyethylene glycol 3350 17 gram 17 g PO BID 06/07/23 Unknown History oral powder packet (Miralax) albuterol sulfate 90 mcg/actuation 2 puff inhalation Q 6H PRN PRN Sob 07/02/23 Unknown Rx aerosol inhaler &/Or Wheezing #6.7 grams magnesium citrate 150 ml PO BID PRN constipati on 04/23/24 Unknown Rx #296 mL oseltamivir 75 mg capsule (Tamiflu) 75 mg PO BID 5 day s #10 caps 10/16/24 Unknown Rx psyllium husk 0.4 gram capsule 1.2 g PO BID 10/16/24 U nknown History (Fiber (psyllium husk)) cyclobenzaprine 5 mg tablet 5 mg PO TID PRN 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 #14 11/11/24 Unknown Rx tabs lidocaine 5 % topical patch 1 patch topical DAILY #15 ea 11/11/24 Unknown Rx (Lidoderm) ondansetron 4 mg disintegrating 4 mg PO Q6H PRN nausea and 11/11/24 Unknown Rx tablet vomiting #30 tabs oxycodone-acetaminophen 5 mg-325 1 tab PO Q6H PRN pain 2 days #8 11/11/24 Unknown Rx mg tablet (Endocet) tabs Allergy/AdvReac Type Severity Reaction Status Date / Time chlorthalidone Allergy NEEDS Verified 11/11/24 09:01 FOLLOW-UP hydrochlorothiazide Allergy NEEDS Verified 11/11/24 09:01 FOLLOW-UP Family History Mother Diabetes Hypertension Brother Diabetes Hypertension Surgical History History of cardiac catheterization History of appendectomy (Unknown) H/O heart artery stent Social History Smoking Status: Former smoker alcohol intake: current alcohol intake frequency: holidays/special occasions only substance use type: does not use ROS ROS ED ROS Narrative Constitutional: Denies headache, fever, chills, lightness, dizziness Eyes: Denies change in vision double vision blurry vision Cardiovascular: Denies chest pain or palpitations Respiratory: Denies shortness of breath Abdomen: Denies abdominal pain nausea vomit diarrhea : Denies urinary symptoms Neurological: Denies numbness, weakness, tingling Musculoskeletal: Patient complains of left shoulder pain and rib pain on the left side as noted above Skin: Denies rashes or lesions EXAM Physical Exam Narrative Exam Narrative: General: Patient is lying in bed rest comfortably did not appear to be in acute distress Head: Atraumatic, normocephalic Eyes: PERRL bilaterally, EOMI bilaterally, no conjunctival injection noted Neck: Soft, supple, trachea midline Cardiovascular: Regular rate and rhythm no murmurs gallops rubs noted Respiratory: Clear to auscultation bilaterally Abdomen: Soft, nondistended, nontender to palpation Musculoskeletal: Patient has pain with attempted range of motion of his left shoulder, although bony prominences palpated and joints taken to full range of motion no pain elicited Extremities: Radial pulses +2/4 in the bilateral upper extremities, no pedal edema on exam Neurological: Patient follow commands and that he was at [facility] years 2024 Skin: Warm, dry, intact no rashes or lesions noted Const Vital Signs: 11/11/24 08:59 11/11/24 09:31 Temperature 98.2 F Temperature Source Temporal Pulse Rate 73 Respiratory Rate 15 Respiratory Effort Normal Blood Pressure 156/59 H Blood Pressure Mean 91 Pulse Ox 97 Oxygen Delivery Method Room Air MDM MDM MDM Narrative Medical decision making narrative: Patient is a 74-year-old male who presented to the emergency department the chief complaint of left shoulder pain and left rib pain. On the differential diagnose includes but not limited to rib fractures, proximal humerus fracture, dislocation. Once workup is obtained reviewed he will be reevaluated. Patient's shoulder x-ray was reviewed by myself by radiology showed no acute fracture degenerative arthrosis noted. Patient's x-ray of the ribs reviewed by myself and by radiology showed no acute fractures no rib displaced no suspiciouslytic or blastic rib lesions. Patient's humerus x-ray reviewed by myself by radiology showed no acute fracture or dislocation degenerative osteoarthrosis noted. Patient chest x-ray reviewed by myself and by radiology showed no acute cardiopulmonary processes. Did discuss results with the patient he would like to go home at this point time. Patient would like a sling for comfort. He is advised to take Tylenol for mild to moderate pain and use the Endocet and Zofran for severe pain. He will be given Lidoderm patches and muscle relaxer for his left rib pain and I discussed with him there is a chance we missed nondisplaced rib fractures however the treatment would be the same with pain control and time letting theseheal on their own. He is advised to follow-up his primary care physician returnwith any other concerns. His family member at bedside is also agreed this plan all question concerns answered is discharged home in stable condition. Radiography Diagnostic Testing: Clinical Impression(s) from Imaging Studies Chest X-Ray 11/11/24 09:17 IMPRESSION: NEGATIVE CHEST Reading Location: [facility] Humerus X-Ray 11/11/24 09:17 IMPRESSION: DEGENERATIVE OSTEOARTHROSIS. NO ACUTE FINDINGS. Reading Location: [facility] Ribs X-Ray 11/11/24 09:17 IMPRESSION: NO EVIDENCE OF ACUTE RIB FRACTURE OR PNEUMOTHORAX. Reading Location: [facility] Shoulder X-Ray 11/11/24 09:17 IMPRESSION: Degenerative arthrosis. No acute fracture. Reading Location: [facility] Discharge Plan Triage Chief Complaint: Chest Other ED Provider: Alexander Perales Dx/Rx/DC Orders Clinical Impression: Rib pain on left side, Left shoulder pain, Fall Prescriptions: New cyclobenzaprine 5 mg tablet 5 mg PO TID PRN (Reason: muscle spasm) Qty: 14 0RF lidocaine [Lidoderm] 5 % adhesive patch,medicated 1 patch topical DAILY Qty: 15 0RF Rx Instructions: leave on most painful area for up to 12 hrs oxycodone-acetaminophen [Endocet] 5-325 mg tablet 1 tab PO Q6H PRN (Reason: pain) 2 Days Qty: 8 0RF ondansetron 4 mg tablet,disintegrating 4 mg PO Q6H PRN (Reason: nausea and vomiting) Qty: 30 0RF No Action metformin 1,000 mg tablet 1,000 mg PO DAILY Rx Instructions: with dinner atorvastatin 80 MG tablet 80 mg PO QHS amlodipine 5 MG tablet 10 mg PO DAILY nitroglycerin 0.4 MG tablet, sublingual 0.4 mg SL Q5M PRN (Reason: Chest Pain) aspirin 81 MG tablet,chewable 81 mg PO DAILY@0800 losartan 100 MG tablet 50 mg PO QHS Patient Comments: 0NE 50 MG TABLET budesonide-formoterol 10.2 GM HFA aerosol inhaler 2 puff IH BID cholecalciferol (vitamin D3) 2,000 UNIT capsule 2,000 unit PO DAILY empagliflozin 10 MG tablet 5 mg PO DAILY insulin glargine 100 unit/mL (3 mL) insulin pen 10 unit SC QHS hydralazine 50 mg Tablet 50 mg PO 4XD polyethylene glycol 3350 [Miralax] 17 gram powder in packet 17 g PO BID metformin 500 mg tablet 500 mg PO DAILY Rx Instructions: with breakfast albuterol sulfate 1 PUFF inhaler 2 puff INHALATION Q6H PRN PRN (Reason: Sob &/Or Wheezing) Qty: 6.7 0RF magnesium citrate Solution 150 ml PO BID PRN (Reason: constipation) Qty: 296 0RF Rx Instructions: Drink half the bottle and then wait a couple hours and then drink the other half the bottle or until you have adequate results. psyllium husk [Fiber (psyllium husk)] 0.4 gram capsule 1.2 g PO BID oseltamivir [Tamiflu] 75 mg capsule 75 mg PO BID 5 Days Qty: 10 0RF [facility] [facility] [facility] [Primary [facility] Provider] - Activity Restrictions/Additional Instructions: Follow-up your primary care physician in the outpatient eye. Your x-rays did not try thing broken. Use the prescription as prescribed do not operating thingin the influence of the Endocet or the muscle relaxer as this can make you sleepy. You should take Tylenol for mild to moderate pain and use the Lidoderm patches as prescribed. Use the Endocet/narcotic as prescribed take Zofran with this as this will upset your stomach if not. Ensure that you are taking your arm out of the sling and do pendulum swings as we discussed here so you do not develop frozen shoulder. Return with any other concern Print Language: Vincentian Disposition Disposition: Home, Self Care What to do if you have Problems For any increased pain, shortness of breath, bleeding, nausea or vomiting, chestpain, or any unexpected problems, contact your Primary Care Provider. Call [facility] ([phone]) or report to the closest Emergency Room. Call 911 if necessary. 11/11/24 1044 <Electronically signed by Alexander Perales DO> Cosigner Signature (if applicable): CC: [facility] ~ Signed [facility] Work Phone: Evaluation noteNo assessment information available [facility] Work Phone: Evaluation note* Diagnosis Onset Date Resolution Status Personal history of colonic polyps acute [facility] Work Phone: Hospital Discharge instructions Additional Instructions Use [id number] DayQuil, NyQuil, and Flonase. Continue medications as prescribed Follow-up with PCP. [facility]WooThe [facility] Work Phone: Hospital Discharge instructions Additional Instructions Start a clear liquid diet and advance as tolerated. Return with fever, increased pain, new or worsening symptoms.[facility] Work Phone: Hospital Discharge instructions Additional Instructions Follow-up your primary care physician in the outpatient eye. Your x-rays did not try thing broken. Use the prescription as prescribed do not operating thing in the influence of the Endocet or the muscle relaxer as this can make you sleepy. You should take Tylenol for mild to moderate pain and use the Lidoderm patches as prescribed. Use the Endocet/narcotic as prescribed take Zofran with this as this will upset your stomach if not. Ensure that you are taking your arm out of the sling and do pendulum swings as we discussed here so you do not develop frozen shoulder. Return with any other concernWMercy Health St. [facility] Work Phone: Hospital Discharge instructions Additional Instructions The nausea may be caused by the pain medication. Zofran as needed for nausea. You can swallow or let dissolve under your tongue. Use Tylenol for pain. Follow-up with your primary care provider if not improving. Return if feeling worse.[facility] Work Phone: Reason for referral (narrative)No reason for referral information availableWMercy Health St. [facility] Work Phone: Chief Complaint and Reason for Visit Chief Complaint [facility]ENH[facility]ST [facility] L T EYE Chief Complaint nausea/vomitting, sh aky, SOB ABD Chief Complaint nausea/vomitting, sh aky, SOB ABD nausea Chief Complaint ABD nausea SCREENING SCOPE ABD PAIN NOT FEELING WELL COUGH Reason for Visit Personal history of colonic polyps Chief Complaint Abd Pain Chief Complaint Abd Pain GI BLEED Chief Complaint Admit Date CHEST PAIN October 16, 2024 6:36pm LEFT RIB/SHOULDER PAIN November 11, 2024 8 :58am Chief Complaint Admit Date CHEST PAIN October 16, 2024 6:36pm LEFT RIB/SHOULDER PAIN November 11, 2024 8 :58am NAUSEA November 12, 2024 10:5 0am Chief Complaint Admit Date CHEST PAIN October 16, 2024 6:36pm LEFT RIB/SHOULDER PAIN November 11, 2024 8 :58am NAUSEA November 12, 2024 10:5 0am EVALUATE H/O GALLSTONES AND GI COMPLAINT S February 01, 2025 7:52am Advance Directives Advance Directive Response Recorded Date/ Time Living Will No December 20, 2020 2:15pm Power of Tool Drawing Checker No December 20 2:15pm Advance Directive Response Recorded Date/ Time Living Will Yes February 11, 2023 4 :33pm Power of Tool Drawing Checker No February 11, 2023 4:33pm Advance Directive Response Recorded Date/ Time Living Will No May 05 9:21am Power of Tool Drawing Checker No May 05, 9:21am Advance Directive Response Recorded Date/ Time Living Will No July 04 12:47pm Power of Tool Drawing Checker No July 04, 2023 12:47pm Advance Directive Response Recorded Date/ Time Living Will Yes December 15, 2023 2:44pm Power of Tool Drawing Checker Yes December 14 2:44pm Name of Medical Power of Tool Drawing Checker SARAH DELAROSA December 15, 2023 2:44pm Advance Directive Response Recorded Date/ Time Living Will No January 02, 2024 8:56am Power of Tool Drawing Checker No January 01 8:56am Name of Medical Power of Tool Drawing Checker SARAH DELAROSA December 15, 2023 2:44pm Advance Directive Response Recorded Date/ Time Living Will No October 16 6:46pm Power of Tool Drawing Checker Yes October 16, 2024 6:46pm Name of Medical Power of Tool Drawing Checker SARAH DELAROSA October 16, 2024 6:46pm Living Will No November 11, 2024 9:31am Power of Tool Drawing Checker No November 11 9:31am Advance Directive Response Recorded Date/ Time Living Will No October 16 7:46pm Power of Tool Drawing Checker Yes October 16, 2024 7:46pm Name of Medical Power of Tool Drawing Checker SARAH DELAROSA October 16, 2024 7:46pm Living Will No November 11, 2024 10:31am Power of Tool Drawing Checker No November 11 10:31am Living Will Yes November 12, 2024 10:59am Power of Tool Drawing Checker Yes November 12 10:59am Name of Medical Power of Tool Drawing Checker Sarah Delarosa November 12, 2024 10:59am Advance Directive Response Recorded Date/ Time Living Will No October 16 7:46pm Do you have a Healthcare Power of Tool Drawing Checker? Yes October 16, 2024 7:46pm Name of Medical Power of Tool Drawing Checker SARAH DELAROSA October 16, 2024 7:46pm Living Will No November 11, 2024 10:31am Do you have a Healthcare Power of Tool Drawing Checker? No November 11, 2024 10:31am Living Will Yes November 12, 2024 10:59am Do you have a Healthcare Power of Tool Drawing Checker? Yes November 12, 2024 10:59am Name of Medical Power of Tool Drawing Checker Sarah Delarosa November 12, 2024 10:59am Family History Relationship Condition Age at Onset Recorded Date/T bebo mother Diabetes mellitus Unknown Hypertension Unknown brother Diabetes mellitus Unknown Summary Purpose Additional Source Comments Care Teams (unrecognized sec tion and content) Team Status: Active Member Role Status Dates Dr. Jac Humphrey MD Attending Provider Active Team Status: Inactive Member Role Status Dates GRAHAM MCDOWELL Attending Provider Active SIMONE RÍOS Primary Care Provider Active Team Status: Active Member Role Status Dates [facility] Primary Care Provider Active Team Status: Inactive Member Role Status Dates Dr. Daily Alberts DO Attending Provider, Emergency Pro vider Active [facility] Primary Care Provider Active Team Status: Inactive Member Role Status Dates [facility] Primary Care Provider Active Dr. Randy Hernandez MD Emergency Provider Active Team Status: Inactive Member Role Status Dates [facility] Primary Care Provider Active Dr. Lois Navarro MD Emergency Provider Active Team Status: Inactive Member Role Status Dates [facility] Primary Care Provider, Referring Provider Active Dr. Jac Humphrey MD Attending Provider Active Team Status: Inactive Member Role Status Dates [facility] Primary Care Provider Active Dr. Alex Carolina DO Emergency Provider Active Team Status: Inactive Member Role Status Dates [facility] Primary Care Provider Active Dr. Randy Hernandez MD Attending Provider, Emergency Provider Active Team Status: Inactive Member Role Status Dates [facility] Primary Care Provider Active Dr. Lois Navarro MD Attending Provider, Emergency Provider Active Team Status: Inactive Member Role Status Dates [facility] Primary Care Provider Active Dr. Kye Thao DO Attending Provider, Emergency P [place] Active Team Status: Inactive Member Role Status Dates [facility] Primary Care Provider Active Dr. Brittany Clifford DO Emergency Provider Active Team Status: Inactive Member Role Status Dates [facility] Primary Care Provider Active Rodolfo Birmingham MD Emergency Provider Active Team Status: Inactive Member Role Status Dates [facility] Primary Care Provider Active Dr. Chris Reynolds MD Emergency Provider Active Team Status: Inactive Member Role Status Dates [facility] Primary Care Provider Active Rodolfo Birmingham MD Attending Provider, Emergency Provid er Active Team Status: Inactive Member Role Status Dates [facility] Primary Care Provider Active Start: October 16, 2024 End: October 16, 2024 Dr. Antoine Means DO Attending Provider Active Start : October 16, 2024 End: October 16, 2024 Dr. Antoine Means DO Emergency Provider Active Start : October 16, 2024 End: October 16, 2024 Team Status: Inactive Member Role Status Dates [facility] Primary Care Provider Active Start: November 11, 2024 End: November 11, 2024 Dr. Alexander Perales DO Emergency Provider Active Start: November 11, 2024 End: November 11, 2024 Team Status: Inactive Member Role Status Dates [facility] Primary Care Provider Active Start: November 12, 2024 End: November 12, 2024 Dr. Leonides Morrison MD Emergency Provider Active S tart: November 12, 2024 End: November 12, 2024 Team Status: Inactive Member Role Status Dates [facility] Primary Care Provider Active Start: November 11, 2024 End: November 11, 2024 Dr. Alexander Perales DO Attending Provider Active Start: November 11, 2024 End: November 11, 2024 Dr. Alexander Perales DO Emergency Provider Active Start: November 11, 2024 End: November 11, 2024 Team Status: Inactive Member Role Status Dates [facility] Primary Care Provider Active Start: November 12, 2024 End: November 12, 2024 Dr. Leonides Morrison MD Attending Provider Active S tart: November 12, 2024 End: November 12, 2024 Dr. Leonides Morrison MD Emergency Provider Active S tart: November 12, 2024 End: November 12, 2024 Team Status: Inactive Member Role Status Dates [facility] Primary Care Provider Active Start: February 01, 2025 End: February 01, 2025 TIANA Dooley Attending Provider Active Start: February 01, 2025 End: February 01, 2025 TIANA Dooley Referring Provider Active Start: February 01, 2025 End: February 01, 2025 Goals (unrecognized section and content) Goals may be documented in a n alternate sectionGoals may be documented in an alternate sectionGoals may be documented in an alternate sectionGoals may be documented in an alternate sectionGoals may be documented in an alternate sectionGoals may be documented in an alternate sectionGoals may be documented in an alternate sectionGoals may be documented in an alternate sectionGoals may be documented in an alternate section (unrecognized sect ion and content) No Status Records Found INFORMATION SOURCE (unrecogn ized section and content) DATE CREATED AUTHOR 02/07/2025 [facility] FOR RECORDS PERTAINING TO PATIENTS WHO ARE OR HAVE BEEN ENROLLED IN A CHEMICAL DEPENDENCY/SUBSTANCEABUSE PROGRAM, SOME INFORMATION MAY BE OMITTED. This clinical summary was aggregated from multiple sources. Caution should be exercised in using it in the provision of clinical care. This summary normalizes information from multiple sources, and as a consequence, information in this document may materially change the coding, format and clinical context of patient data. In addition, data may be omitted in some cases. CLINICAL DECISIONS SHOULD BE BASED ON THE PRIMARY CLINICAL RECORDS. [employer] [facility] provides no warranty or guarantee of the accuracy or completeness of information in this document.
[2025-03-04] MEDS: Aspirin 81 MG TAB.CHEW 324 MG PO (17:17)
[2025-03-04] MEDS: Nitroglycerin SL (ED/IMG/CATH) 0.4 MG TABLET SL (17:18)
[2025-03-04 17:25] LABS: Absolute Lymphocyte Count 2.47 X10^3/uL (0.83-4.51); Absolute Neutrophil Count 6.5 X10^3/uL (2.0-7.7); Basophil# 0.09 X10^3/uL; Basophil% 0.9 % (0-1); Hematocrit 47.1 % (40-54); Hemoglobin 16.3 g/dL (13.0-16.5); Lymphocyte # 2.47 X10^3/ul (0.83-4.51); Lymphocyte % 24.7 % (19-41); Mean Corp Hgb Conc 34.6 g/dL (32-36); Mean Corpuscular Volume 86.6 fL (80-94); Monocyte# 0.77 X10^3/uL; Monocyte% 7.7 % (0-10); NRBC Flagged by Analyzer 0 % (0-5); Neutrophil # 6.48 X10^3/uL (2.7-7.7); Platelet Count 206 K/mm3 (150-450); RBC Distribution Width CV 12.6 % (11.6-14.6); RBC Distribution Width SD 39.3 fl (35.1-43.9); Red Blood Count 5.44 M/mm3 (4.6-6.2)
[2025-03-04 17:53] LABS: Anion Gap 15 (5-15); BUN 15 mg/dL (4-19); BUN/Creat Ratio 16.8 RATIO (10-20); Calcium,Total 9.4 mg/dL (7.6-11.0); Carbon Dioxide 20.7 mmol/L (21.0-32.0); Chloride 99 mmol/L (98-108); Creatinine, Serum 0.91 mg/dL (0.70-1.20); EST Glomerular Filtration Rate 88 (>60); Estimated Creatinine Clearance 73.53 ml/min (50-250); Glucose 156 mg/dL (70-99); Potassium 4.4 mmol/L (3.3-5.1); Sodium Level 134 mmol/L (133-145); Troponin T High Sensitivity 23 ng/L (<=22)
[2025-03-04 19:47] LABS: Troponin T High Sens 2 HR 16 ng/L (<=22)
== END 2025-03-04 20:24 | disposition home or self-care (01) ==
PROVIDERS: Emergency Provider Emergency Medicine; Visit Provider Emergency Medicine
DX: R07.89 Other chest pain (principal); J44.9 Chronic obstructive pulmonary disease, unspecified; E11.9 Type 2 diabetes mellitus without complications; Z79.4 Long term (current) use of insulin; R00.2 Palpitations; R06.02 Shortness of breath; I10 Essential (primary) hypertension; K21.9 Gastro-esophageal reflux disease without esophagitis; E78.00 Pure hypercholesterolemia, unspecified; G47.33 Obstructive sleep apnea (adult) (pediatric); F17.200 Nicotine dependence, unspecified, uncomplicated; Z79.82 Long term (current) use of aspirin; Z79.84 Long term (current) use of oral hypoglycemic drugs; Z79.51 Long term (current) use of inhaled steroids; Z79.899 Other long term (current) drug therapy
CPT/HCPCS: 71045; 80048; 84484; 85025; 93005; 99285; A4216

== ENCOUNTER 2025-03-15 09:40 | Observation (INO) | payer OTHER, MEDICARE, SELFPAY ==
[2025-03-15] VITALS (15 sets, daily range): BP systolic 128–166; BP diastolic 62–88; PULSE 51–70; RESP 14–19; TEMP 36.4–36.9; O2SAT 96–98; BMI 26.8; BMI 26.2
--- NOTE | 2025-03-15 09:49 | ED.VIS.CHEST ---
HPI History of Present Illness Chief Complaint: Chest Pain Informant: patient Onset/Context/Timing Onset: Today Activity at onset: sudden Timing: Continuous Quality: Positive for Tightness Location: Left Chest Worsened By: Nothing Relieved By: Nothing Associated Symptoms: Positive for Dyspnea, Cough, Acid Reflux and Palpitations; Negative for Nausea, Vomiting, Diaphoresis, Fever or Lightheadedness Narrative Narrative: Patient presents with chest pain that began approximately 4 hours prior to arrival. Patient states he woke up with the pain. Patient describes it as tightness. Patient states it has been constant for the past 4 hours. Patient admits to some tingling down into his left arm. Patient states this gets better if he moves his arm. Patient states nothing makes his chest tightness any better or any worse. Patient admits to a cough. Patient admits to some slight shortness of breath. Patient also admits to some palpitations where he feels his heart skipping occasionally. CVD Risk Factors: Positive for Hypertension, Diabetes and Smoking; Negative for Hypercholesterolemia or Family History 1' </=55 PE Risk Factors: Negative for Recent Travel/Surgery, Recent Immobilization, Prior DVT or PE, Cancer or OCP + Smoking + >/=35 [facility] Medical History (Updated 03/15/25 @ 13:[address] Stefan Smith, DO) CKD (chronic kidney disease), stage II Tobacco use Hyperlipidemia Wears glasses Wears dentures Fatty liver COPD (chronic obstructive pulmonary disease) Sleep apnea JOANNA on CPAP GERD (gastroesophageal reflux disease) Constipation Hypertension Diabetes Home Medications Medication Instructions Recorded Last Taken Type amlodipine 5 mg tablet 10 mg PO DAILY 12/20/20 03/15/25 History aspirin 81 mg chewable tablet 81 mg PO DAILY@0800 12/20/20 03/15/25 History atorvastatin 80 mg tablet 80 mg PO QHS 12/20/20 03/14/25 History cholecalciferol (vitamin D3) 50 2,000 unit PO DAILY 12/20/20 03/15/25 History mcg (2,000 unit) capsule empagliflozin 10 mg tablet 5 mg PO DAILY 12/20/20 03/15/25 History losartan 100 mg tablet 25 mg PO QHS 12/20/20 03/14/25 History nitroglycerin 0.4 mg sublingual 0.4 mg sublingual Q5M PRN Chest 12/20/20 Unknown History tablet Pain hydralazine 50 mg tablet 50 mg PO 4XD 06/08/23 07/10/25 History insulin glargine 100 unit/mL (3 10 unit subcut QHS 06/07/23 Unknown History mL) subcutaneous pen metformin 500 mg tablet 500 mg PO BID 06/07/23 03/15/25 History polyethylene glycol 3350 17 gram 17 g PO BID 06/07/23 Unknown History oral powder packet (Miralax) albuterol sulfate 90 mcg/actuation 2 puff inhalation Q6H PRN PRN Sob 07/02/23 Unknown Rx aerosol inhaler &/Or Wheezing #6.7 grams magnesium citrate 150 ml PO BID PRN constipation 04/23/24 Unknown Rx #296 mL psyllium husk 0.4 gram capsule 1.2 g PO BID 10/16/24 Unknown History (Fiber (psyllium husk)) ondansetron 4 mg disintegrating 4 mg PO Q6H PRN nausea and 11/11/24 Unknown Rx tablet vomiting #30 tabs ondansetron 4 mg disintegrating 4 mg PO Q6H PRN nausea and 11/12/24 Unknown Rx tablet vomiting #7 tabs Allergy/AdvReac Type Severity Reaction Status Date / Time chlorthalidone Allergy NEEDS Verified 03/15/25 09:41 FOLLOW-UP hydrochlorothiazide Allergy NEEDS Verified 03/15/25 09:41 FOLLOW-UP Family History Mother Diabetes Hypertension Brother Diabetes Hypertension Father , from trauma. No problems noted. Surgical History History of cardiac catheterization History of appendectomy (Unknown) H/O heart artery stent Social History household members: none Smoking Status: Current every day smoker tobacco type: cigarettes alcohol intake: current alcohol intake frequency: holidays/special occasions only substance use type: does not use ROS ROS ED Constitutional Constitutional ED: Denies chills or fever(s) Eyes Eyes: Denies blurry vision or change in vision ENT ENT ED: Denies rhinorrhea or sore throat Cardiovascular Cardiovascular: Reports as per HPI, chest pain and palpitations Respiratory/Chest Respiratory/Chest: Reports cough and dyspnea Gastrointestinal Gastrointestinal: Denies nausea or vomiting Genitourinary Genitourinary ED: Denies dysuria or hematuria Musculoskeletal Musculoskeletal: Reports back pain; Denies neck pain Integumentary Denies abscess or rash Neurologic Neurologic: Denies headache(s) or weakness Allergic/Immunologic Allergic/Immunologic ED: Denies mouth swelling or urticaria EXAM Physical Exam Const Vital Signs: 03/15/25 09:41 03/15/25 09:46 03/15/25 10:40 Temperature 97.5 F L Temperature Source Oral Pulse Rate 68 69 Respiratory Rate 19 H Blood Pressure 166/69 H 136/62 H Blood Pressure Mean 101 Pulse Ox 98 97 Oxygen Delivery Method Room Air 03/15/25 10:40 03/15/25 11:00 03/15/25 12:00 Temperature Temperature Source Pulse Rate 70 66 51 L Respiratory Rate 14 14 Blood Pressure 136/62 H 140/71 H 135/69 H Blood Pressure Mean 86 94 91 Pulse Ox 98 97 97 Oxygen Delivery Method Room Air Positive well nourished and well developed General Appearance ED: well developed and NAD HEENT Reports moist mucous membranes normocephalic and atraumatic Neck supple and no JVD Resp normal respiratory effort and clear to auscultation bilaterally Cardio regular rate and regular rhythm GI soft to palpation, non-tender and non-distended Extremity normal to inspection General Extremety ED: Negative for edema or tenderness General Extremity: Negative for edema Neuro oriented x3, CN's II-XII intact bilaterally and no sensory deficits noted Sensorium / Orientation: awake and alert Motor Exam: strength 5/5 throughout Psych mental status grossly normal Heart Score History: Slightly/Non-Suspicious ECG: Nonspecific Repolarization Age: >/= 65 years Risk Factors: >/= 3 Risk Factors or History of CAD Troponin: >1 - <3 Normal Limit Score: 6 MDM MDM MDM Narrative Medical decision making narrative: Differential diagnosis includes cardiac dysrhythmia, cardiac ischemia, pneumonia, bronchitis, electrolyte abnormality, gastroesophageal reflux disease, musculoskeletal pain, and anxiety. EKG will be obtained to assess for cardiac dysrhythmia and cardiac ischemia. Chest x-ray will be obtained to assess for pneumonia and bronchitis. CBC will be obtained to assess for leukocytosis and anemia. Basic metabolic profile will be obtained to assess for electrolyte abnormality and renal function. High-sensitivity troponin will be obtained to assess for cardiac ischemia. 2-hour repeat high-sensitivity troponin will be obtained to assess for ongoing cardiac ischemia. History & Record Review Additional record(s) reviewed:: Prior ED visit and Prior labs Lab Data Attestation: I reviewed the patient's lab results. Lab results narrative: CBC was reviewed and was within normal limits. Basic metabolic profile was reviewed. Glucose was slightly elevated at 258. The remainder is within normal limits. D-dimer was reviewed and was 0.50. This is normal for the patient's age. Initial high-sensitivity troponin was reviewed and was slightly elevated at 27. Labs: Laboratory Results - last 24 hr 03/15/25 09:43 WBC 8.9 RBC 5.42 Hgb 16.3 Hct 47.4 MCV 87.5 MCH 30.1 MCHC 34.4 RDW Std Deviation 40.2 RDW Coeff of [place] 12.6 Plt Count 219 MPV 9.9 Immature Gran % (Auto) 1.000 H Neut % (Auto) 68.7 Lymph % (Auto) 20.5 [place] % (Auto) 8.0 Eos % (Auto) 0.8 Baso % (Auto) 1.0 Absolute Neuts (auto) 6.1 Absolute Lymphs (auto) 1.82 Nucleated RBC % 0 D-Dimer Quant (PE/DVT) 0.50 H Sodium 134 Potassium 4.5 Chloride 99 Carbon Dioxide 22.3 Anion Gap 13 BUN 14 Creatinine 0.98 Estim Creat Clear Calc 68.28 Est GFR (MDRD) Non-Af 81 BUN/Creatinine Ratio 14.5 Glucose 258 H Calcium 9.3 Troponin T High Sens 27 H D Radiography Chest X-Ray - ED: 1 View, Read by ED Physician, Read by Radiologist and No Acute Disease Diagnostic Testing: Clinical Impression(s) from Imaging Studies Chest X-Ray 03/15/25 10:05 IMPRESSION: No Acute Findings. Reading Location: [facility] Portable 1 view chest x-ray was obtained. On my independent interpretation, lung fallon are clear. There is normal cardiac silhouette. Bony thorax is normal. There is no acute process noted. Radiologist also interpreted the x-ray and agrees. EKG Initial EKG: Attestation: I personally reviewed and interpreted this EKG as follows: Interpretation: Sinus Rhythm (64) and Non-Specific ST Changes Comments: EKG was obtained. On my independent interpretation, it showed a normal sinus rhythm with a rate of 64. MS interval, QRS interval, and QTc intervals were all normal. There is left axis deviation -53. There are nonspecific ST-T wave changes. Prior EKG tracings: available for review Prior: Unchanged (03/04/2025) Treatment and Re-Evaluation :: Patient was given aspirin and sublingual nitroglycerin here. Patient was feeling better on reevaluation. Patient was advised of his findings. Patient has a HEART score of 6. Because of this, recommended admission to the hospital. Patient is agreeable with this. Case was discussed with the hospitalist. She will admit the patient to PCU for observation. Patient understood and was agreeable with the plan. All questions were answered. Discharge Plan Triage Chief Complaint: Chest Pain ED Provider: Stefan Smith Dx/Rx/DC Orders Clinical Impression: Chest pain, Diabetes, Hypertension Prescriptions: No Action atorvastatin 80 MG tablet 80 mg PO QHS amlodipine 5 MG tablet 10 mg PO DAILY nitroglycerin 0.4 MG tablet, sublingual 0.4 mg SL Q5M PRN (Reason: Chest Pain) aspirin 81 MG tablet,chewable 81 mg PO DAILY@0800 losartan 100 MG tablet 25 mg PO QHS cholecalciferol (vitamin D3) 2,000 UNIT capsule 2,000 unit PO DAILY empagliflozin 10 MG tablet 5 mg PO DAILY Patient Comments: Pt unsure if he takes 5 mg or 12.5 mg insulin glargine 100 unit/mL (3 mL) insulin pen 10 unit SC QHS hydralazine 50 mg Tablet 50 mg PO 4XD polyethylene glycol 3350 [Miralax] 17 gram powder in packet 17 g PO BID metformin 500 mg tablet 500 mg PO BID Patient Comments: take 1 tab in the morning and 2 at dinner Rx Instructions: with breakfast albuterol sulfate 1 PUFF inhaler 2 puff INHALATION Q6H PRN PRN (Reason: Sob &/Or Wheezing) Qty: 6.7 0RF magnesium citrate Solution 150 ml PO BID PRN (Reason: constipation) Qty: 296 0RF Rx Instructions: Drink half the bottle and then wait a couple hours and then drink the other half the bottle or until you have adequate results. psyllium husk [Fiber (psyllium husk)] 0.4 gram capsule 1.2 g PO BID ondansetron 4 mg tablet,disintegrating 4 mg PO Q6H PRN (Reason: nausea and vomiting) Qty: 30 0RF ondansetron 4 mg tablet,disintegrating 4 mg PO Q6H PRN (Reason: nausea and vomiting) Qty: 7 0RF [facility] [Primary Care Provider] - Print Language: Greenlandic Disposition Disposition: Acute Care Hospital [facility]
[2025-03-15 09:57] LABS: Hematocrit 47.4 % (40-54); Hemoglobin 16.3 g/dL (13.0-16.5); Immature Granulocytes Count 0.090 X10^3/uL (0.0-0.0); Mean Corp Hgb Conc 34.4 g/dL (32-36); Mean Corpuscular Volume 87.5 fL (80-94); Mean Platelet Vol. 9.9 fl (6.2-12.0); NRBC Flagged by Analyzer 0 % (0-5); Platelet Count 219 K/mm3 (150-450); RBC Distribution Width CV 12.6 % (11.6-14.6); RBC Distribution Width SD 40.2 fl (35.1-43.9); Red Blood Count 5.42 M/mm3 (4.6-6.2); White Blood Count 8.9 K/mm3 (4.4-11.0)
--- NOTE | 2025-03-15 10:05 | RAD_ITS ---
PROCEDURE: CHEST 1 VIEW (PORTABLE) 03/15/2025 REASON FOR EXAM: CHEST PAIN TECHNIQUE: Frontal view of the chest. COMPARISON: Prior study dated March 04, 2025. FINDINGS: Hardware: EKG electrodes are seen. Heart: The heart size is normal. Lungs: The lungs are clear. Bones: Healed left rib fractures. Other: RAD/Chest 1 View (Portable) IMPRESSION: No Acute Findings. Reading Location: [place] [id number]
[2025-03-15 10:36] LABS: Anion Gap 13 (5-15); BUN 14 mg/dL (4-19); BUN/Creat Ratio 14.5 RATIO (10-20); Calcium,Total 9.3 mg/dL (7.6-11.0); Carbon Dioxide 22.3 mmol/L (21.0-32.0); Chloride 99 mmol/L (98-108); Estimated Creatinine Clearance 68.28 ml/min (50-250); Glucose 258 mg/dL (70-99); Potassium 4.5 mmol/L (3.3-5.1)
[2025-03-15 10:38] LABS: Troponin T High Sensitivity 27 ng/L (<=22)
[2025-03-15] MEDS: Nitroglycerin SL (ED/IMG/CATH) 0.4 MG TABLET SL (10:40)
[2025-03-15 10:41] LABS: D-Dimer Quantitative (DVT/PE) 0.50 FEU/ug/m (0.27-0.49)
--- NOTE | 2025-03-15 13:07 | PCM.HP.STD ---
HPI - General General Date of Admission: 03/15/25 Date of Service: 03/15/25 Chief Complaint: Chest pain/tightness HPI Narrative The patient is a 74 y/o M w/ PMHx: Overweight, CAD s/p PCI, HTN, HLD, JOANNA on CPAP q HS, CKD stage II per GFR trending, COPD, Tobacco use, GERD, Chronic constipation who presents to the [facility] ED on 03/15/2025 with history of onset of chest discomfort described as a tightness with associated dyspnea and increased GERD sensations as well as palpitations noted that he awoke with the discomfort approximately 4 hours prior to original ED arrival and has been constant since with mild tingling down his left upper extremity however it improves if he moves his arm with recent mild cough but no purulent sputum and slight dyspnea occasionally feeling as though his heart skips a beat prompting eventual ED evaluation to be cautious. Patient notes his chest pain was 45/10 in severity at its worse. Upon evaluation he notes chest pain has resolved. He notes it improved after SL NG administration. He denies any current dyspnea. Workup in the ED included T97.5, heart rate 68, BP 166/69, respiratory rate 19, 98% on room air with most recent repeat vitals heart rate 51, BP 135/69, respiratory rate 14, 97% on room air, CBC with WBC 8.9, he 116.3, platelet 219 with mildly increased immature granulocytes, D-dimer 0.50 which is normal for age adjustment, BMP with glucose 258, initial troponin 27 with repeat delta troponin pending upon evaluation, chest x-ray with no acute cardiopulmonary findings, EKG with sinus rhythm with nonspecific ST-T wave changes unchanged from previous with no acute evidence of ischemia. In the ED patient ministered full-strength aspirin therapy and sublingual nitroglycerin. FORMERLY [facility] Medical History CKD (chronic kidney disease), stage II Tobacco use Hyperlipidemia Wears glasses Wears dentures Fatty liver COPD (chronic obstructive pulmonary disease) Sleep apnea JOANNA on CPAP GERD (gastroesophageal reflux disease) Constipation Hypertension Diabetes Home Medications Medication Instructions Recorded Last Taken Type amlodipine 5 mg tablet 10 mg PO DAILY 12/20/20 03/15/25 History aspirin 81 mg chewable tablet 81 mg PO DAILY@0800 12/20/20 03/15/25 History atorvastatin 80 mg tablet 80 mg PO QHS 12/20/20 03/14/25 History cholecalciferol (vitamin D3) 50 2,000 unit PO DAILY 12/20/20 03/15/25 History mcg (2,000 unit) capsule empagliflozin 10 mg tablet 5 mg PO DAILY 12/20/20 03/15/25 History losartan 100 mg tablet 25 mg PO QHS 12/20/20 03/14/25 History nitroglycerin 0.4 mg sublingual 0.4 mg sublingual Q5M PRN Chest 12/20/20 Unknown History tablet Pain hydralazine 50 mg tablet 50 mg PO 4XD 02/11/23 03/15/25 History insulin glargine 100 unit/mL (3 10 unit subcut QHS 06/07/23 Unknown History mL) subcutaneous pen metformin 500 mg tablet 500 mg PO BID 06/07/23 03/15/25 History polyethylene glycol 3350 17 gram 17 g PO BID 06/07/23 Unknown History oral powder packet (Miralax) albuterol sulfate 90 mcg/actuation 2 puff inhalation Q6H PRN PRN Sob 07/02/23 Unknown Rx aerosol inhaler &/Or Wheezing #6.7 grams magnesium citrate 150 ml PO BID PRN constipation 04/23/24 Unknown Rx #296 mL psyllium husk 0.4 gram capsule 1.2 g PO BID 10/16/24 Unknown History (Fiber (psyllium husk)) ondansetron 4 mg disintegrating 4 mg PO Q6H PRN nausea and 11/11/24 Unknown Rx tablet vomiting #30 tabs ondansetron 4 mg disintegrating 4 mg PO Q6H PRN nausea and 11/12/24 Unknown Rx tablet vomiting #7 tabs Allergy/AdvReac Type Severity Reaction Status Date / Time chlorthalidone Allergy NEEDS Verified 03/15/25 09:41 FOLLOW-UP hydrochlorothiazide Allergy NEEDS Verified 03/15/25 09:41 FOLLOW-UP Family History (Updated 03/15/25 @ 13:[address] Darlene Bliss MD) Mother Diabetes Hypertension Brother Diabetes Hypertension Father , from trauma. No problems noted. Surgical History History of cardiac catheterization History of appendectomy (Unknown) H/O heart artery stent Social History (Updated 03/15/25 @ 13:[address] Darlene Bliss MD) household members: none Smoking Status: Current every day smoker tobacco type: cigarettes alcohol intake: current alcohol intake frequency: holidays/special occasions only substance use type: does not use ROS ROS Narrative Admission Review of Systems: CONSTITUTIONAL: No weight loss, fever, chills, + weakness or fatigue. HEENT: Eyes: No visual loss, blurred vision, double vision or yellow sclerae. Ears, Nose, Throat: No hearing loss, sneezing, congestion, runny nose or sore throat. SKIN: No rash or itching, lesions, wounds. CARDIOVASCULAR: + Chest pain, palpitations. + edema, orthopnea, syncopal events. RESPIRATORY: + Dyspnea, nonproductive cough. No productive sputum, wheezing, hemoptysis. GASTROINTESTINAL: No anorexia, nausea, vomiting or diarrhea, abdominal pain, melena, BRBPR. GENITOURINARY: No dysuria, frequency, urgency or retention. NEUROLOGICAL: No headache, dizziness, syncope, paralysis, ataxia, numbness or tingling in the extremities, focal weakness, change in bowel or bladder control, seizure. MUSCULOSKELETAL: + muscle, back pain, joint pain or stiffness. HEMATOLOGIC: No anemia. + Easy bleeding/bruising. LYMPHATICS: No enlarged nodes. No history of splenectomy. PSYCHIATRIC: No history of depression or anxiety. ENDOCRINOLOGIC: No reports of sweating, cold or heat intolerance. No polyuria or polydipsia. ALLERGIES: No history of asthma, hives, eczema or rhinitis. Vital Signs Vital Signs Vital Signs: 03/15/25 09:41 03/15/25 09:46 03/15/25 10:40 Temperature 97.5 F L Temperature Source Oral Pulse Rate 68 69 Respiratory Rate 19 H Blood Pressure 166/69 H 136/62 H Blood Pressure Mean 101 Pulse Ox 98 97 Oxygen Delivery Method Room Air 03/15/25 10:40 03/15/25 11:00 03/15/25 12:00 Temperature Temperature Source Pulse Rate 70 66 51 L Respiratory Rate 14 14 Blood Pressure 136/62 H 140/71 H 135/69 H Blood Pressure Mean 86 94 91 Pulse Ox 98 97 97 Oxygen Delivery Method Room Air Weight Weight: 186 lb 11.704 oz Body Mass Index (BMI) 26.8 Physical Exam Narrative Physical Examination: General: Awake, alert, oriented x 3 and cooperative, seated upright in the ED bed in no apparent distress, denies any current chest pain, currently resolved. Skin: Normal color, normal turgor, no icterus, no cyanosis. HEENT: AT/NC, EOMI, PERRLA, MMM, no carotid bruits or JVD noted. Lungs: Diminished, > bases, appropriate effort, no rales, ronchi or wheezing. Heart: Regular rate and rhythm; no gallop, rub audible. Abdomen: Soft, overweight, NTTP, ND, normal BS, no appreciated HSM. Extremities: No cyanosis, clubbing, or edema. Neurological: Patient awake, alert, oriented as noted, cognitive function intact; pupils equally reactive to light and accommodation, cranial nerves grossly normal, moving all 4 extremities, no focal deficits, strength mildly globally decreased. Psychiatric: Affect appears normal, no acute evidence of depressive or anxiety feelings. Results Lab / Micro Data 03/15/25 09:43 03/15/25 09:43 Labs: Laboratory Results - last 24 hr 03/15/25 09:43: WBC 8.9, RBC 5.42, Hgb 16.3, Hct 47.4, MCV 87.5, MCH 30.1, MCHC 34.4, RDW Std Deviation 40.2, RDW Coeff of Aldair 12.6, Plt Count 219, MPV 9.9, Immature Gran % (Auto) 1.000 H, Neut % (Auto) 68.7, Lymph % (Auto) 20.5, [place] % (Auto) 8.0, Eos % (Auto) 0.8, Baso % (Auto) 1.0, Absolute Neuts (auto) 6.1, Absolute Lymphs (auto) 1.82, Nucleated RBC % 0, D-Dimer Quant (PE/DVT) 0.50 H, Sodium 134, Potassium 4.5, Chloride 99, Carbon Dioxide 22.3, Anion Gap 13, BUN 14, Creatinine 0.98, Estim Creat Clear Calc 68.28, Est GFR (MDRD) Non-Af 81, BUN/Creatinine Ratio 14.5, Glucose 258 H, Calcium 9.3, Troponin T High Sens 27 H D Imaging Radiology Impression Chest X-Ray 03/15/25 10:05 IMPRESSION: No Acute Findings. Reading Location: [facility] Assessment & Plan Assessment/Plan (1) Chest pain: PLAN: Plan The patient is a 74 y/o M w/ PMHx: Overweight, CAD s/p PCI, HTN, HLD, JOANNA on CPAP q HS, CKD stage II per GFR trending, COPD, Tobacco use, GERD, Chronic constipation who presents to the [facility] ED on 03/15/2025 with history of onset of chest discomfort described as a tightness with associated dyspnea and increased GERD sensations as well as palpitations noted that he awoke with the discomfort approximately 4 hours prior to original ED arrival and has been constant since with mild tingling down his left upper extremity however it improves if he moves his arm with recent mild cough but no purulent sputum and slight dyspnea occasionally feeling as though his heart skips a beat prompting eventual ED evaluation to be cautious. #1. Chest Pain: EKG in ED with sinus rhythm with nonspecific ST-T wave changes unchanged from previous with no acute evidence of ischemia, CXR w/ no acute cardiopulmonary findings, initial trop 27 with repeat delta pending upon request evaluation of patient. Will admit to PCU, place on a monitored bed to assure no acute myocardial infarction with serial cardiac enzymes and EKGs. Magnesium level requested. FLP in AM. If repeat serum cardiac enzymes and EKGs remain unremarkable or similar to current will plan to pursue a.m. cardiac stress testing however if rise significantly would initiate on heparin drip and request cardiology involvement. ASA, NG. #2. Chronic Kidney Disease Stage II primarily per GFR trending although has vacillated: Admission BUN/Cr 14/0.98, GFR 81, baseline renal function primarily 0.8-0.9, repeat BMP in AM. #3. Chronic COPD: Will temporally hold home inhaler in the interim transition to ATC budesonide therapy, PRN albuterol, HOB, IS parameters, encourage tobacco cessation. #4. CAD: Status post previous PCI, will continue aspirin, statin, losartan, not on beta-ángela therapy likely secondary to chronic bradycardia. #5. Chronic constipation: Will continue patient home fiber and MiraLAX bowel regimen. Encourage appropriate hydration. #6. Diabetes mellitus type II with hyperglycemia: Hold oral home regimen, continue home insulin regimen, ADA diet, accu checks w/ ISS, HgbA1c requested. #7. Hypertension: Continue home regimen including amlodipine, hydralazine, losartan, PRN hydralazine. #8. Hyperlipidemia: Continue home statin regimen. AM FLP. #9. Overweight: Weight loss and lifestyle changes encouraged. #10. Tobacco Abuse: Encouraged cessation, inpatient consultation per RT, NR if desired. #11. JOANNA: CPAP nightly. #12. DVT prophylaxis: Lovenox. #13. CODE status: Patient HANS is his brother and [facility] Discussed CODE status at length including difference between FULL code, DNR-CCA and DNR-CC status. Following discussions about the differences in these status, requested Full Code status. Advanced Care Planning Face to Face Time: 16 minutes. Charges/Coding Visit Charges Inpatient E&M: 02422 Init Hosp L2 Procedures Hospitalists Procedures: 94815 Advncd Care Plan 30 Min
[2025-03-15 13:11] LABS: Troponin T High Sens 2 HR 24 ng/L (<=22)
--- NOTE | 2025-03-15 13:15 | ED.RN ---
THIS RN [facility] TO [facility]. THEY STATE THEY CANNOT TELL US AT THIS TIME IF THEY HAVE ANY OPEN BEDS BUT REQUEST THE PATIENT CHART BE FAXED TO THEM. PT CHART IS FAXED. PT WAITING FOR ADMISSION TO [facility] CURRENTLY.
--- NOTE | 2025-03-15 13:29 | ED.RN ---
[facility] notified of Pt admission. [facility] states no bed available at [facility]. Jann following at [facility]. Jann number [phone]. extension [phone]
[2025-03-15 13:46] LABS: Magnesium 2.3 mg/dL (1.5-2.2)
[2025-03-15] MEDS: Nitroglycerin Oint 1 INCH PACKET 0.5 INCH TD (15:38)
[2025-03-15 16:08] LABS: Troponin T High Sens 4 HR 24 ng/L (<=22)
[2025-03-15] MEDS: 0.9% Saline Lock 10 ML Syringe IV (19:46)
[2025-03-15] MEDS: Senna/Docusate Sodium 1 Tablet 2 TABLET PO (21:58)
[2025-03-15] MEDS: Psyllium 1 PACKET PO (21:58)
[2025-03-15] MEDS: Polyethylene Glycol 3350 17 GM PACKET PO (21:58)
[2025-03-15] MEDS: Insulin Glargine-YFGN 100 UNIT/ML Pen 10 UNIT SC (22:01)
[2025-03-15] MEDS: 0.9% Normal Saline (1000mL) 1,000 ML 100 ML IV (22:07)
[2025-03-16] VITALS (16 sets, daily range): BP systolic 127–162; BP diastolic 61–82; PULSE 50–69; RESP 11–19; TEMP 36.6–36.8; O2SAT 88–99; BMI 26.2
[2025-03-16 05:48] LABS: Hematocrit 43.7 % (40-54); Hemoglobin 15.0 g/dL (13.0-16.5); Immature Granulocytes Count 0.100 X10^3/uL (0.0-0.0); Mean Corp Hgb Conc 34.3 g/dL (32-36); Mean Corpuscular Volume 87.2 fL (80-94); Mean Platelet Vol. 9.7 fl (6.2-12.0); NRBC Flagged by Analyzer 0 % (0-5); Platelet Count 190 K/mm3 (150-450); RBC Distribution Width CV 12.4 % (11.6-14.6); RBC Distribution Width SD 39.5 fl (35.1-43.9); Red Blood Count 5.01 M/mm3 (4.6-6.2); White Blood Count 8.2 K/mm3 (4.4-11.0)
[2025-03-16 06:37] LABS: AST(SGOT) 23 U/L (<=37); Alanine Aminotransfer ALT/SGPT 12 U/L (<=46); Albumin, Serum 4.0 g/dL (3.4-4.8); Alkaline Phosphatase 77 U/L (40-129); Anion Gap 9 (5-15); BUN 14 mg/dL (4-19); BUN/Creat Ratio 15.6 RATIO (10-20); Calcium,Total 9.1 mg/dL (7.6-11.0); Carbon Dioxide 24.5 mmol/L (21.0-32.0); Chloride 103 mmol/L (98-108); Estimated Creatinine Clearance 76.04 ml/min (50-250); Globulin 2.2 g/dL (2.2-4.2); Glucose 108 mg/dL (70-99); Potassium 4.0 mmol/L (3.3-5.1)
--- NOTE | 2025-03-16 07:06 | PN.HOSP_ITS ---
Reason for Visit Reason for Visit: Diagnoses Chest pain, unspecified (03/15/25) Subjective Subjective Patient with no acute events overnight per self and per nursing report. He notes continued resolution of chest discomfort. Patient status post rest testing comfortably seated in the PCU bed. Discussed plan of care which included possible discharge if stress testing was negative with follow-up outpatient with the [facility] otherwise if stress test was positive plan would be to obtain an echocardiogram and consult cardiology for possible cardiac catheterization which was amenable. Patient denies fevers, chills, nausea, emesis, abdominal pain, chest pain or dyspnea. Objective Data Objective Data Vital Signs: Vital Signs Temp Pulse Resp BP Pulse Ox O2 Del Method O2 Flow Rate 97.9 F 50 L 18 134/63 H 99 Nasal Cannula 2 03/16/25 06:05 03/16/25 06:05 03/16/25 06:05 03/16/25 06:05 03/16/25 06:05 03/16/25 06:05 03/16/25 06:05 Oxygen Flow Rate (L/min) 2 Oxygen Delivery Method Nasal Cannula Weight: 182 lb 15.739 oz Body Mass Index (BMI) 26.2 Intake & Output: Intake and Output for Last 24 Hours 03/14/25 03/15/25 03/16/25 23:59 23:59 23:59 Intake Total 900 / 900 750 / 750 Balance 900 / 900 750 / 750 Lab / Micro Data 03/16/25 05:20 03/16/25 05:20 Labs: Laboratory Results - last 24 hr 03/15/25 09:43: WBC 8.9, RBC 5.42, Hgb 16.3, Hct 47.4, MCV 87.5, MCH 30.1, MCHC 34.4, RDW Std Deviation 40.2, RDW Coeff of Aldair 12.6, Plt Count 219, MPV 9.9, I mmature Gran % (Auto) 1.000 H, Neut % (Auto) 68.7, Lymph % (Auto) 20.5, [place] % (Auto) 8.0, Eos % (Auto) 0.8, Baso % (Auto) 1.0, Absolute Neuts (auto) 6.1, Absolute Lymphs (auto) 1.82, Nucleated RBC % 0, D-Dimer Quant (PE/DVT) 0.50 H, Sodium 134, Potassium 4.5, Chloride 99, Carbon Dioxide 22.3, Anion Gap 13, BUN 14, Creatinine 0.98, Estim Creat Clear Calc 68.28, Est GFR (MDRD) Non-Af 81, BUN/Creatinine Ratio 14.5, Glucose 258 H, Calcium 9.3, Troponin T High Sens 27 H D 03/15/25 12:10: Magnesium 2.3 H, Troponin T Hi Sens 2 Hr 24 H 03/15/25 14:31: Troponin T Hi Sens 4Hr 24 H 03/15/25 14:37: POC Glucose 128 H 03/15/25 22:00: POC Glucose 196 H 03/16/25 05:20: WBC 8.2, RBC 5.01, Hgb 15.0, Hct 43.7, MCV 87.2, MCH 29.9, MCHC 34.3, RDW Std Deviation 39.5, RDW Coeff of [place] 12.4, Plt Count 190, MPV 9.7, I mmature Gran % (Auto) 1.200 H, Neut % (Auto) 63.8, Lymph % (Auto) 23.9, [place] % (Auto) 8.7, Eos % (Auto) 1.5, Baso % (Auto) 0.9, Absolute Neuts (auto) 5.2, Absolute Lymphs (auto) 1.95, Nucleated RBC % 0, Sodium 137, Potassium 4.0, Chloride 103, Carbon Dioxide 24.5, Anion Gap 9, BUN 14, Creatinine 0.88, Estim Creat Clear Calc 76.04, Est GFR (MDRD) Non-Af 90, BUN/Creatinine Ratio 15.6, G lucose 108 H, Calcium 9.1, Total Bilirubin 0.75, AST 23, ALT 12, Alkaline Phosphatase 77, Total Protein 6.2, Albumin 4.0, Globulin 2.2, Albumin/Globulin Ratio 1.9 03/16/25 06:19: POC Glucose 116 H Radiography Diagnostic Testing: Radiology Impression Chest X-Ray 03/15/25 10:05 IMPRESSION: No Acute Findings. Reading Location: [place] [address] Physical Exam Narrative Physical Examination: General: Awake, alert, oriented x 3 and cooperative, seated upright in the PCU at the bedside, denies any current chest discomfort or recurrence. Skin: Normal color, normal turgor, no icterus, no cyanosis. HEENT: AT/NC, EOMI, PERRLA, MMM. Lungs: Diminished, > bases, appropriate effort, no rales, ronchi or wheezing. Heart: Regular rate and rhythm; no gallop, rub audible. Abdomen: Soft, overweight, NTTP, normal BS, no obvious distention. Extremities: No cyanosis, clubbing, or edema. Neurological: Patient awake, alert, oriented as noted, cognitive function intact; pupils equally reactive to light and accommodation, cranial nerves grossly normal, moving all 4 extremities, no focal deficits, strength mildly globally decreased. Psychiatric: Affect appears normal, no acute evidence of depressive or anxiety feelings. Assessment & Plan Assessment/Plan (1) Chest pain: PLAN: Plan The patient is a 74 y/o M w/ PMHx: Overweight, CAD s/p PCI, HTN, HLD, JOANNA on CPAP q HS, CKD stage II per GFR trending, COPD, Tobacco use, GERD, Chronic constipation who presents to the [facility] ED on 03/15/2025 with history of onset of chest discomfort described as a tightness with associated dyspnea and increased GERD sensations as well as palpitations noted that he awoke with the discomfort approximately 4 hours prior to original ED arrival and has been constant since with mild tingling down his left upper extremity however it improves if he moves his arm with recent mild cough but no purulent sputum and slight dyspnea occasionally feeling as though his heart skips a beat prompting eventual ED evaluation to be cautious. #1. Chest Pain: EKG in ED with sinus rhythm with nonspecific ST-T wave changes unchanged from previous with no acute evidence of ischemia, CXR w/ no acute cardiopulmonary findings, initial trop 27 with repeat delta 24. Patient was admitted to the PCU, maintain on monitor, magnesium 2.3, FLP with triglyceride 79, total cholesterol 92, LDL 42, VLDL 16, HDL 34. 03/16/2025 cardiac stress testing performed and awaiting results, discussed with patient that if is unremarkable would plan discharge to home however if positive would plan to obtain echocardiogram request cardiology evaluation. ASA, NG. #2. Chronic Kidney Disease Stage II primarily per GFR trending although has vacillated: Admission BUN/Cr 14/0.98, GFR 81, baseline renal function primarily 0.8-0.9, 03/16/2025 BUN/Cr 14/0.88. #3. Chronic COPD: Will temporally hold home inhaler in the interim transition to ATC budesonide therapy, PRN albuterol, HOB, IS parameters, encourage tobacco cessation. #4. CAD: Status post previous PCI, will continue aspirin, statin, losartan, not on beta-ángela therapy likely secondary to chronic bradycardia. #5. Chronic constipation: Will continue patient home fiber and MiraLAX bowel regimen. Encourage appropriate hydration. #6. Diabetes mellitus type II with hyperglycemia: Hold oral home regimen, continue home insulin regimen, ADA diet, accu checks w/ ISS, HgbA1c 7.5%. #7. Hypertension: Continue home regimen including amlodipine, hydralazine, losartan, PRN hydralazine. #8. Hyperlipidemia: Continue home statin regimen. AM FLP triglyceride 79, total cholesterol 92, LDL 42, VLDL 16, HDL 34. #9. Overweight: Weight loss and lifestyle changes encouraged. #10. Tobacco Abuse: Encouraged cessation, inpatient consultation per RT, NR if desired. #11. JOANNA: CPAP nightly. #12. DVT prophylaxis: Lovenox. #13. CODE status: Patient HANS is his brother and [facility] Discussed CODE status at length including difference between FULL code, DNR-CCA and DNR-CC status. Following discussions about the differences in these status, requested Full Code status. Advanced Care Planning Face to Face Time: 16 minutes.
[2025-03-16 09:23] LABS: Cholesterol 92 mg/dL (<=200); Low Density Lipoprotein Calc. 42 mg/dL; Triglycerides 79 mg/dL; Very Low Density Lipoprotein 16 mg/dL (5-40); cholesterol:hdl ratio screen 2.72
--- NOTE | 2025-03-16 11:19 | STRESSREP_ITS ---
Stress Test Report Pharmacologic myocardial perfusion stress test. 74-year-old male with past medical history of JOANNA on CPAP, CKD stage III , COPD, fatty liver GERD, hyperlipidemia, smoker, diabetic history of remote PCI undergoing stress test for chest pain evaluation. Resting EKG demonstrates [sinus bradycardia] with a rate of 60 bpm. Resting blood pressure is 142/60 mmHg. 0.4 mg of regadenoson was infused per usual protocol followed by rapid intravenous saline flush injection. Continuous EKG monitoring was performed. The maximum heart rate was 80 bpm which was 54% of max impacted heart rate the maximum workload was 1 metabolic equivalent. At rest there were no ST or T wave changes noted to suggest ischemia and at peak infusion nonspecific ST changes were noted which did not meet the criteria for ischemia. No clinical angina is noted. The final blood pressure was 142/60 mmHg. Myocardial perfusion protocol. [11.2 ] mCi of technetium 99m sestamibi was injected at rest. 0.4 mg of regadenoson was infused per usual protocol. At peak infusion [32.1] mCi of technetium 99m sestamibi was injected stress images were obtained stress and rest images were reconstructed and compared in the short axis vertical long and horizontal long axis. Gated images were also obtained. Perfusion SPECT analysis: Review of the stress images demonstrate decrease uptake of tracer noted in anteroseptal area of the myocardium. The resting images similar demonstrated normal uptake of tracer noted in all areas of the myocardium. Small size rever sibility are noted in the anterior septal area to suggest ischemia and no previous infarct is noted. TID is 1.24.. Gated SPECT analysis: The gated ejection fraction is 63%. Conclusion: Abnormal pharmacologic myocardial perfusion stress test. Small size reversible ischemia noted in the anterior septal area of the myocardium. Preserved ejection fraction.
--- NOTE | 2025-03-16 11:38 | ECHOD_ITS ---
Reason For Study Reason For Study: CAD, ABNL STRESS TEST. Procedure This was a 2D Doppler, Color Flow transthoracic echocardiogram. The study was technically difficult. D/T lighting in room, unable to get blinds closed. Exam performed in department. Left Ventricle Concentric left ventricular hypertrophy. The LV ejection fraction is 45 %. Stage 1 diastolic dysfunction. There are regional wall motion abnormalities as specified. Basal inferoseptal: Hypokinetic. Mid-anteroseptal : Hypokinetic. Infero-Basal: Hypokinetic. Right Ventricle Normal right ventricle. Normal systolic function. Atria Normal left atrium. Mitral Valve The mitral valve is structurally normal. No prolapse or stenosis seen. No mitral valve insufficiency. Tricuspid Valve Unable to estimate RV systolic pressure due to insufficient tricuspid regurgitant envelope. Aortic Valve The aortic valve is not well visualized. Pulmonic Valve No pulmonic valve insufficiency. Great Vessels Normal sized aortic root. Pericardium/Pleural No pericardial effusion. MMode/2D Measurements & Calculations LVIDd: 4.8 cm IVSd: 1.5 cm Ao root diam: 3.3 cm LVIDs: 3.4 cm LVPWd: 1.4 cm RVDd: 3.1 cm FS: 29.1 % LAV(MOD-bp): 43.4 ml LVAd ap4: 23.6 cm2 SV(MOD-sp4): 27.9 ml LAV(MOD-bp) Indexed: 21.6 ml/m2 LVLd ap4: 7.8 cm SI(MOD-sp4): 13.9 ml/m2 LAV(MOD-sp2): 43.0 ml EDV(MOD-sp4): 58.1 ml LAV(MOD-sp4): 40.9 ml EDV(sp4-el): 60.3 ml LVAs ap4: 15.0 cm2 LVLs ap4: 6.1 cm ESV(MOD-sp4): 30.2 ml ESV(sp4-el): 31.0 ml EF(MOD-sp4): 48.0 % EF(sp4-el): 48.6 % SV(sp4-el): 29.3 ml LA A4 area: 15.5 cm2 LA dimension(2D): 3.6 cm RA A4 area: 15.8 cm2 TAPSE: 2.3 cm Time Measurements MV dec time: 0.34 sec Doppler Measurements & Calculations MV E max vic: 43.0 cm/sec Lat Peak E' Vic: 8.2 cm/sec Med Peak E' Vic: 6.3 cm/sec MV A max vic: 81.9 cm/sec E/E' lat: 5.3 E/E' med: 6.8 MV E/A: 0.53 MV V2 max: 86.3 cm/sec MV P1/2t max vic: 46.2 cm/sec Ao V2 max: 118.2 cm/sec MV max P.0 mmHg MV P1/2t: 95.9 msec Ao max P.6 mmHg MV V2 mean: 41.2 cm/sec Ao V2 mean: 79.0 cm/sec MV mean P.79 mmHg MV dec slope: 141.0 cm/sec2 Ao mean P.8 mmHg MV V2 VTI: 26.8 cm MVA(P1/2t): 2.3 cm2 Ao V2 VTI: 23.7 cm AV (velocity ratio): 0.63 LV V1 max: 76.0 cm/sec PA V2 max: 85.5 cm/sec LV V1 max P.3 mmHg LV V1 mean P.3 mmHg LV V1 mean: 53.7 cm/sec LV V1 VTI: 14.8 cm ECHO/Echo Complete Interpretation Summary The LV ejection fraction is 45 %. Stage 1 diastolic dysfunction. There are regional wall motion abnormalities as specified. Ordering Physician: Darlene Bliss Referring Physician: [facility] Performed By: Angeli Flores, CHARO, RVT
--- NOTE | 2025-03-16 12:49 | PCM.CONS.C ---
Assessment & Plan Assessment/Plan (1) NSTEMI (non-ST elevated myocardial infarction): PLAN: Continue with aspirin 81 mg daily Continue with atorvastatin 80 mg daily Keep n.p.o. for left heart catheterization today in the setting of NSTEMI and abnormal stress test. Start metoprolol tartrate 12.5 mg twice daily (2) CAD (coronary artery disease): QUALIFIERS: Coronary Disease-Associated Artery/Lesion type: [place] artery [place] vs. transplanted heart: [place] heart Associated angina: with unstable angina Qualified Code(s): I25.110 - Atherosclerotic heart disease of [place] coronary artery with unstable angina pectoris PLAN: Continue with aspirin and statin. He had a history of PCI to diagonal and LAD. HPI Consult Data Date of Consult: 03/16/25 HPI Narrative HPI Narrative: RALPH DELAROSA, is a 74 year old male with PMHx of CAD s/p remote PCI to LAD and diagonal in [facility] ( 2.5 and 3.5 BRE), HTN, HLD, JOANNA on CPAP , CKD stage II , COPD, Tobacco use, GERD, Chronic constipation who presents to the [facility] ED on 03/15/2025 with chest discomfort described as a tightness with associated dyspnea . He notes it improved after SL NG administration. He denies any current dyspnea. He complains of chest pain on exertion for the last year and it has been coming progressively worsening. initial troponin 27, EKG with sinus rhythm with nonspecific ST-T wave changes unchanged from previous with no acute evidence of ischemia. Underwent nuclear stress test which showed Small-moderate size reversible ischemia noted in the anterior septal area of the myocardium. [facility] Medical History CKD (chronic kidney disease), stage II Tobacco use Hyperlipidemia Wears glasses Wears dentures Fatty liver COPD (chronic obstructive pulmonary disease) Sleep apnea JOANNA on CPAP GERD (gastroesophageal reflux disease) Constipation Hypertension Diabetes Home Medications Medication Instructions Recorded Last Taken Type amlodipine 5 mg tablet 10 mg PO DAILY 12/20/20 03/15/25 History aspirin 81 mg chewable tablet 81 mg PO DAILY@0800 12/20/20 03/15/25 History atorvastatin 80 mg tablet 80 mg PO QHS 12/20/20 03/14/25 History cholecalciferol (vitamin D3) 50 2,000 unit PO DAILY 12/20/20 03/15/25 History mcg (2,000 unit) capsule empagliflozin 10 mg tablet 5 mg PO DAILY 12/20/20 03/15/25 History losartan 100 mg tablet 25 mg PO QHS 12/20/20 03/14/25 History nitroglycerin 0.4 mg sublingual 0.4 mg sublingual Q5M PRN Chest 12/20/20 Unknown History tablet Pain hydralazine 50 mg tablet 50 mg PO 4XD 02/11/23 03/15/25 History insulin glargine 100 unit/mL (3 20 unit subcut QHS 06/07/23 03/14/25 History mL) subcutaneous pen metformin 500 mg tablet 500 mg PO BID 06/07/23 03/15/25 History polyethylene glycol 3350 17 gram 17 g PO BID 06/07/23 Unknown History oral powder packet (Miralax) albuterol sulfate 90 mcg/actuation 2 puff inhalation Q6H PRN PRN Sob 07/02/23 Unknown Rx aerosol inhaler &/Or Wheezing #6.7 grams dicyclomine 10 mg capsule 10 mg PO 4X/DAY PRN muscle spasm 03/15/25 Unknown History famotidine 40 mg tablet 40 mg PO DAILY 03/15/25 03/15/25 History nystatin 100,000 unit/mL oral 5 ml PO 4X/DAY 03/15/25 03/15/25 History suspension pantoprazole 20 mg tablet,delayed 20 mg PO DAILY 03/15/25 Unknown History release sennosides 8.6 mg capsule (senna) 17.2 mg PO QDAY 03/15/25 03/14/25 History Allergy/AdvReac Type Severity Reaction Status Date / Time chlorthalidone Allergy NEEDS Verified 03/15/25 09:41 FOLLOW-UP hydrochlorothiazide Allergy NEEDS Verified 03/15/25 09:41 FOLLOW-UP Family History Mother Diabetes Hypertension Brother Diabetes Hypertension Father , from trauma. No problems noted. Surgical History History of cardiac catheterization History of appendectomy (Unknown) H/O heart artery stent Social History household members: none Smoking Status: Current every day smoker tobacco type: cigarettes alcohol intake: current alcohol intake frequency: holidays/special occasions only substance use type: does not use ROS Constitutional Constitutional: Reports systems reviewed and no addt'l complaints, except as documented Eyes Eyes: Reports systems reviewed and no addt'l complaints, except as documented ENT HEENT: Reports systems reviewed and no addt'l complaints, except as documented Cardiovascular Cardiovascular: Reports systems reviewed and no addt'l complaints, except as documented Respiratory/Chest Respiratory/Chest: Reports systems reviewed and no addt'l complaints, except as documented Gastrointestinal Gastrointestinal: Reports systems reviewed and no addt'l complaints, except as documented Genitourinary Genitourinary: Reports systems reviewed and no addt'l complaints, except as documented Integumentary Integumentary: Reports systems reviewed and no addt'l complaints, except as documented Neurologic Neurologic: Reports systems reviewed and no addt'l complaints, except as documented Physical Exam Const alert HEENT normocephalic Eyes PERRL Neck full ROM Lymph Lymphatic: no lymphadenopathy noted Resp normal respiratory effort Cardio regular rate Heart Sounds: S1 normal no CVA tenderness Risk Stratification Risk Stratification Applicable: Yes Age >/= 65: Yes >/= 3 CAD Risk Factors (HTN, HLD, DM, family hx of CAD, or current smoker): Yes Aspirin Use in the Past 7 Days: Yes Severe Angina (>/= episodes in 24 hours): Yes EKG ST Changes >/= 0.5mm: No Positive Cardiac Marker: Yes REY Risk Stratification Score: 5 REY % Risk: 25% Risk Objective Data Vital Signs: Vital Signs Temp Pulse Resp BP Pulse Ox O2 Del Method O2 Flow Rate 97.8 F 69 18 158/75 H 95 Room Air 2 03/16/25 09:43 03/16/25 11:06 03/16/25 09:43 03/16/25 09:43 03/16/25 09:43 03/16/25 10:00 03/16/25 06:05 Oxygen Flow Rate (L/min) 2 Oxygen Delivery Method Room Air Weight: 182 lb 15.739 oz Body Mass Index (BMI) 26.2 Intake & Output: Intake and Output for Last 24 Hours 07/09/25 07/10/25 07/11/25 23:59 23:59 23:59 Intake Total 900 / 900 950 / 950 Balance 900 / 900 950 / 950 Lab / Micro Data 03/16/25 05:20 03/16/25 05:20 Labs: Laboratory Results - last 24 hr 03/15/25 12:10: Magnesium 2.3 H, Troponin T Hi Sens 2 Hr 24 H 03/15/25 14:31: Troponin T Hi Sens 4Hr 24 H 03/15/25 14:37: POC Glucose 128 H 03/15/25 22:00: POC Glucose 196 H 03/16/25 05:20: WBC 8.2, RBC 5.01, Hgb 15.0, Hct 43.7, MCV 87.2, MCH 29.9, MCHC 34.3, RDW Std Deviation 39.5, RDW Coeff of [place] 12.4, Plt Count 190, MPV 9.7, Immature Gran % (Auto) 1.200 H, Neut % (Auto) 63.8, Lymph % (Auto) 23.9, [place] % (Auto) 8.7, Eos % (Auto) 1.5, Baso % (Auto) 0.9, Absolute Neuts (auto) 5.2, Absolute Lymphs (auto) 1.95, Nucleated RBC % 0, Sodium 137, Potassium 4.0, Chloride 103, Carbon Dioxide 24.5, Anion Gap 9, BUN 14, Creatinine 0.88, Estim Creat Clear Calc 76.04, Est GFR (MDRD) Non-Af 90, BUN/Creatinine Ratio 15.6, Glucose 108 H, Hemoglobin A1c 7.5 H, Calcium 9.1, Total Bilirubin 0.75, AST 23, ALT 12, Alkaline Phosphatase 77, Total Protein 6.2, Albumin 4.0, Globulin 2.2, Albumin/Globulin Ratio 1.9, Triglycerides 79, Cholesterol 92, LDL Cholesterol, Calc 42, VLDL Cholesterol 16, HDL Cholesterol 34 L, Cholesterol/HDL Ratio 2.72 03/16/25 06:19: POC Glucose 116 H 03/16/25 11:09: POC Glucose 192 H Cardiology Labs/Tests 03/15/25 12:10: Magnesium 2.3 H 03/16/25 05:20: WBC 8.2, RBC 5.01, Hgb 15.0, Hct 43.7, MCV 87.2, MCH 29.9, MCHC 34.3, Plt Count 190, MPV 9.7, Immature Gran % (Auto) 1.200 H, Neut % (Auto) 63.8, Lymph % (Auto) 23.9, [place] % (Auto) 8.7, Eos % (Auto) 1.5, Baso % (Auto) 0.9, Absolute Neuts (auto) 5.2, Nucleated RBC % 0, Sodium 137, Potassium 4.0, Chloride 103, Carbon Dioxide 24.5, Anion Gap 9, BUN 14, Creatinine 0.88, Est GFR (MDRD) Non-Af 90, BUN/Creatinine Ratio 15.6, Glucose 108 H, Hemoglobin A1c 7.5 H, Calcium 9.1, Total Bilirubin 0.75, Triglycerides 79, Cholesterol 92, VLDL Cholesterol 16, HDL Cholesterol 34 L, Cholesterol/HDL Ratio 2.72 Rhythm: EKG: ECHO: Stress Test: Cardiac Cath: PCI: CT Surgery: Holter monitor: EPS: PPM: CXR: Chest CT Scan:
--- NOTE | 2025-03-16 13:22 | PCIREPORT_ITS ---
PCI Cardiac Cath Report PCI Report: DATE OF PROCEDURE: 03/16/2025 PROCEDURES PERFORMED: 1. Selective left and right coronary angiography. 2. Moderate conscious sedation Indications FOR PROCEDURE: NSTEMI Complications: NONE Specimen: NONE Access: Right Radial Artery Hemostasis: TR band DESCRIPTION OF PROCEDURE: After informed consent was obtained, the patient was brought down to the specialist employee labor relations in a fasting state. Right wrist area was prepped, draped and sterilized in the usual fashion. Moderate conscious sedation, administration, documentation and physiologic monitoring of the IV conscious sedation was performed under my direct supervision by a trained registered nurse. Intraservice time started at 1:05 and ended at 1:15. Using modified Seldinger technique, right radial artery was then cannulated. A 6-Cam[place] sheath was inserted, sheath was flushed. 4F JR4 catheter was used to engage the right coronary and 5f JL-4 catheter was used to engage Left coronary artery. Multiple orthogonal images were then taken. Aortic valve was crossed After reviewing angiogram, Wire and catheter were taken out. TR band was appli ed. The patient was sent to floor in stable condition. HEMODYNAMICS: LVEDP 15 DESCRIPTION OF CORONARY ANATOMY: The left main originates from the left coronary sinus of Valsalva in the usual fashion. There was good reflux of dye from this vessel into the coronary sinus, there was no ventriculization or dampening of pressure noted. The LM bifurcates into LAD and LCX . It has no significant CAD noted. The left anterior descending artery originates from the left main in the usual fashion. It runs in the anterior interventricular groove giving rise to large size diagonal branch and multiple septal perforators and continues distally to wrap around the apex. There was 30% ISR in proximal LAD and 40% lesion in proximal LAD. Left circumflex artery originates from the bifurcation in the usual fashion, then courses its way down the lateral atrioventricular groove, giving rise to 2 large-sized OM branches and continues distally as a left PDA which make it Codominant artery with the RCA. There was no significant epicardial coronary artery disease involving the system. RCA originates from the right coronary sinus of Valsalva in the usual fashion, There was good reflux if dye from this vessel into the coronary sinus, there was no ventriculization or dampening of pressure noted. It then courses its way down the lateral atrioventricular groove, giving rise to acute marginal branch and continues distally supply right PDA, which makes it Codominant artery. There was no significant epicardial coronary artery disease involving the system. CONCLUSION: 1. There was no obstructive coronary artery disease noted. Recommendations: Continue with aspirin and high intensity statin. Start BB Continue to follow-up the patient on telemetry
--- NOTE | 2025-03-16 13:40 | PCM.DC.SUM ---
Providers Date of Admission: 03/15/25 Date of Discharge: 03/16/25 Primary Care Physician: [place] [facility] Consultations 03/16/25 11:37 Consult: Cardiology Routine Consulting Provider: Amaris Urrutia Reason for Consult: Abnormal stress testing, chest pain admission EMERGENT Consult: No MD Notified: Yes Date Notified: 03/16/25 Time Notified: 11:37 Method of Notification: Verbal Reason For Visit: CHEST PAIN Diagnosis Discharge Diagnosis (1) NSTEMI (non-ST elevated myocardial infarction): Status: Acute Code(s): I21.4 - Non-ST elevation (NSTEMI) myocardial infarction (2) CAD (coronary artery disease): Status: Acute Code(s): I25.10 - Atherosclerotic heart disease of [place] coronary artery without angina pectoris Qualifiers: Coronary Disease-Associated Artery/Lesion type: [place] artery [place] vs. transplanted heart: [place] heart Associated angina: with unstable angina Qualified Code(s): I25.110 - Atherosclerotic heart disease of [place] coronary artery with unstable angina pectoris Plan: DISCHARGE DIAGNOSES: #1. Chest Pain, RULED OUT ACS w/ abnormal stress testing w/ inducible ischemia in the anterioseptal region w/ follow-up cardiac catheterization with noted 40% stenosis just proximal to the prior PCI #2. Chronic Kidney Disease Stage II primarily per GFR trending although has vacillated #3. Chronic COPD #4. CAD status post previous PCI #5. Chronic constipation #6. Diabetes mellitus type II with hyperglycemia #7. Hypertension #8. Hyperlipidemia #9. Overweight #10. Tobacco Abuse #11. JOANNA on CPAP nightly. Medications at Discharge Home Medications amlodipine 5 mg tablet 10 mg PO DAILY 12/20/20 aspirin 81 mg chewable tablet 81 mg PO DAILY@0800 12/20/20 atorvastatin 80 mg tablet 80 mg PO QHS 12/20/20 cholecalciferol (vitamin D3) 50 mcg (2,000 unit) capsule 2,000 unit PO DAILY 12/20/20 empagliflozin 10 mg tablet 5 mg PO DAILY 12/20/20 losartan 100 mg tablet 25 mg PO QHS 12/20/20 nitroglycerin 0.4 mg sublingual tablet 0.4 mg sublingual Q5M PRN Chest Pain 12/20/20 hydralazine 50 mg tablet 50 mg PO 4XD 02/11/23 insulin glargine 100 unit/mL (3 mL) subcutaneous pen 20 unit subcut QHS 06/07/23 metformin 500 mg tablet 500 mg PO BID 06/07/23 polyethylene glycol 3350 17 gram oral powder packet (Miralax) 17 g PO BID 06/07/23 albuterol sulfate 90 mcg/actuation aerosol inhaler 2 puff inhalation Q6H PRN PRN Sob &/Or Wheezing #6.7 grams 07/02/23 dicyclomine 10 mg capsule 10 mg PO 4X/DAY PRN muscle spasm 03/15/25 famotidine 40 mg tablet 40 mg PO DAILY 03/15/25 nystatin 100,000 unit/mL oral suspension 5 ml PO 4X/DAY 03/15/25 pantoprazole 20 mg tablet,delayed release 20 mg PO DAILY 03/15/25 sennosides 8.6 mg capsule (senna) 17.2 mg PO QDAY 03/15/25 metoprolol tartrate 25 mg tablet 12.5 mg (1/2 x 25 mg) PO DAILY 30 days #15 tabs 03/16/25 Hospital Course Operations None Procedures Cardiac catheterization and EKG Summary of Care Provided Minutes Spent on Discharge: 35 Hospital Course: The patient is a 74 y/o M w/ PMHx: Overweight, CAD s/p PCI, HTN, HLD, JOANNA on CPAP q HS, CKD stage II per GFR trending, COPD, Tobacco use, GERD, Chronic constipation who presented to the [facility] ED on 03/15/2025 with history of onset of chest discomfort described as a tightness with associated dyspnea and increased GERD sensations as well as palpitations noted that he awoke with the discomfort approximately 4 hours prior to original ED arrival and has been constant since with mild tingling down his left upper extremity however it improves if he moves his arm with recent mild cough but no purulent sputum and slight dyspnea occasionally feeling as though his heart skips a beat prompting eventual ED evaluation to be cautious. EKG in ED with sinus rhythm with nonspecific ST-T wave changes unchanged from previous with no acute evidence of ischemia, CXR w/ no acute cardiopulmonary findings, initial trop 27 with repeat delta 24. Patient was admitted to the PCU, maintained on monitor, magnesium 2.3, FLP with triglyceride 79, total cholesterol 92, LDL 42, VLDL 16, HDL 34. 03/16/2025 cardiac stress testing performed with noted evidence of induced ischemia in the anteroseptal region. Patient then underwent 03/16/25 cardiac catheterization with noted with no acute disease findings, no need for PCI, noted ~ 40% stenosis just proximal to prior PCI. Cardiology recommended addition of low dose BB therapy and given noted mild bradycardia chronically, requested at discharge patient monitor HR and hold parameters placed. Patient per Cardiology clearance discharged to home with medication adjustments as noted with [facility] Weight / BMI Weight Weight: 182 lb 15.739 oz Body Mass Index (BMI) 26.2 ABG / Lab / Microbiology Data 03/16/25 05:20 03/16/25 05:20 Laboratory: Laboratory Results - last 24 hr 03/15/25 12:10: Magnesium 2.3 H 03/15/25 14:31: Troponin T Hi Sens 4Hr 24 H 03/15/25 14:37: POC Glucose 128 H 03/15/25 22:00: POC Glucose 196 H 03/16/25 05:20: WBC 8.2, RBC 5.01, Hgb 15.0, Hct 43.7, MCV 87.2, MCH 29.9, MCHC 34.3, RDW Std Deviation 39.5, RDW Coeff of [place] 12.4, Plt Count 190, MPV 9.7, Immature Gran % (Auto) 1.200 H, Neut % (Auto) 63.8, Lymph % (Auto) 23.9, [place] % (Auto) 8.7, Eos % (Auto) 1.5, Baso % (Auto) 0.9, Absolute Neuts (auto) 5.2, Absolute Lymphs (auto) 1.95, Nucleated RBC % 0, Sodium 137, Potassium 4.0, Chloride 103, Carbon Dioxide 24.5, Anion Gap 9, BUN 14, Creatinine 0.88, Estim Creat Clear Calc 76.04, Est GFR (MDRD) Non-Af 90, BUN/Creatinine Ratio 15.6, Glucose 108 H, Hemoglobin A1c 7.5 H, Calcium 9.1, Total Bilirubin 0.75, AST 23, ALT 12, Alkaline Phosphatase 77, Total Protein 6.2, Albumin 4.0, Globulin 2.2, Albumin/Globulin Ratio 1.9, Triglycerides 79, Cholesterol 92, LDL Cholesterol, Calc 42, VLDL Cholesterol 16, HDL Cholesterol 34 L, Cholesterol/HDL Ratio 2.72 03/16/25 06:19: POC Glucose 116 H 03/16/25 11:09: POC Glucose 192 H D/C Instructions Discharge Diet: Low fat / Low cholesterol and 1800 Calorie Control Diet May resume sexual activity in: 10-14 days Weight Bearing Status: Weight bearing as tolerated Call your doctor if your incision/area has: Continuous Slow Oozing, Sudden Increased Bleeding, Increased Pain/ Swelling, Increased Redness, Foul Smelling Discharge and Swelling at the incision site Call your doctor if you observe: Fever of 101 or Higher, Shortness of breath, Dizziness, Swelling in the ankles, Chest pain, Increased palpitations (irregular heartbeat), Calf discomfort and Uncontrolled pain DC O2, CPAP, BIPAP Needs Home O2 Discharge instructions: No Meaningful Use Info Meaningful Use Meaningful Use Diagnoses (Choose all that apply): None applicable Discharge Plan Admission Admit Date/Time: 03/15/25 12:43 Primary Reason for Your Visit: Chest pain w/ abnormal stress testing w/ no severe stenotic disease on cath Attending Provider: Darlene Bliss Primary Care Provider: [facility],[place] Consulting Providers: Amaris Urrutia Instructions Additional Instructions / Restrictions: ADDITIONAL FOLLOW-UP INSTRUCTIONS/INFORMATION: #1. Chest Pain evaluation, ACS ruled out: --EKG in ED with sinus rhythm with nonspecific ST-T wave changes unchanged from previous with no acute evidence of ischemia --CXR w/ no acute cardiopulmonary findings, initial trop 27 with repeat delta 24. --Magnesium 2.3, FLP with triglyceride 79, total cholesterol 92, LDL 42, VLDL 16, HDL 34. --03/16/2025 cardiac stress testing performed with noted inducible ischemia in the anterioseptal regions. --03/16/2025 follow-up Cardiac catheterization with no acute disease findings, no need for PCI, noted ~ 40% stenosis just proximal to prior PCI. --Cardiology requested addition of low dose metoprolol 12.5 mg twice daily. You have noted chronic low heart rate thus please thus please assure you monitor your heart rate and if with this medication your heart rate decreases less than 55 then please hold the regimen and contact your senior web services developer for further instruction. Discharge Orders/Prescriptions Prescriptions: New metoprolol tartrate 25 mg tablet 12.5 mg PO DAILY 30 Days Qty: 15 0RF Rx Instructions: Please hold for HR < 55 or SBP < 110. Continued atorvastatin 80 MG tablet 80 mg PO QHS amlodipine 5 MG tablet 10 mg PO DAILY nitroglycerin 0.4 MG tablet, sublingual 0.4 mg SL Q5M PRN (Reason: Chest Pain) aspirin 81 MG tablet,chewable 81 mg PO DAILY@0800 losartan 100 MG tablet 25 mg PO QHS cholecalciferol (vitamin D3) 2,000 UNIT capsule 2,000 unit PO DAILY empagliflozin 10 MG tablet 5 mg PO DAILY Patient Comments: Pt unsure if he takes 5 mg or 12.5 mg insulin glargine 100 unit/mL (3 mL) insulin pen 20 unit SC QHS hydralazine 50 mg Tablet 50 mg PO 4XD polyethylene glycol 3350 [Miralax] 17 gram powder in packet 17 g PO BID Patient Comments: take 2 tabs in the morning and 1 at HS. metformin 500 mg tablet 500 mg PO BID Patient Comments: take 1 tab in the morning and 2 at dinner Rx Instructions: with breakfast albuterol sulfate 1 PUFF inhaler 2 puff INHALATION Q6H PRN PRN (Reason: Sob &/Or Wheezing) Qty: 6.7 0RF dicyclomine 10 mg capsule 10 mg PO 4X/DAY PRN (Reason: muscle spasm) famotidine 40 mg tablet 40 mg PO DAILY pantoprazole 20 mg tablet,delayed release (DR/EC) 20 mg PO DAILY nystatin 100,000 unit/mL suspension 5 ml PO 4X/DAY Rx Instructions: swish and swallow senna 8.6 mg capsule 17.2 mg PO QDAY Referrals / Follow Up: Paige Phipps PA [Med Staff - Adv Practice Prof] - (If you are unable to [facility] please do not hesitate to follow-up with [facility], may see [employer].) [facility] [Primary Care Provider] - (Please [facility] with the [facility] within 3-5 days to review admission. Ideally, prefer that you follow-up with your primary [facility] care and cardiology [facility] care also.) Disposition Disposition (needs filled in before D/C Order can be placed): Home, Self Care Charges/Coding Visit Charges Inpatient E&M: 05970 Disch Hosp >30min
--- NOTE | 2025-03-16 14:25 | CASEMGMT ---
Addendum entered by Julio Gtz 03/16/25 17:31: [facility] printed off and reviewed with pt. Addendum entered by Julio Gtz 03/16/25 17:27: Correction: He can also call [facility] for a Community Care referral to get approval for non-[facility] cardiology appt. [phone]. EXTENSION: [id number] Addendum entered by Julio Gtz 03/16/25 17:08: Call received from WONG Fox. Dominique states has placed the order that PCP appt can be scheduled, but the shipping room supervisor has left for the day. She states there is a note in from TALON Perea stating pt can be referred to a non-VA assembly machine set up mechanic, but that he did not place the referral himself. She also states, TALON Perea note states an appt can be scheduled on or around April 04. She states the referral should come from TALON Perea & she is not sure why he has not placed the referral himself. She states pt can do the followin. Call [facility] to schedule an appt. 2. Call [facility]/cardiology to inquire if they have any earlier appts available. 3. He can also call [facility] for a Community Care referral to get approval for non-VA cardiology appt. [phone]. Pt was made aware of the above and this info was also placed in pt's discharge plan. Pt voices understanding and denies having any further discharge needs or concerns. Jose WHALEY RN, CM Addendum entered by Julio Gtz 03/16/25 15:26: Call received back from WONG Fox @ [facility]. She states [facility] up mechanic will need to put in a Community Care consult for pt to be able to go to an outside assembly machine set up mechanic d/t high wait time. She states Community Care would then determine who is in network w/[facility], as she is uncertain if [facility] is in network. She transferred me to [facility] and this RN CM spoke w/Jasmin. She was made of above and that pt would like to go to [facility] cardiology She states she will send a message to pt's provider, TALON Perea (pt's assembly machine set up mechanic) and his CM, Gail re: same and will request Community Care consult. She states once the consult is placed, pt should be contacted by Community Care who will let him know if he can go to [facility]. Pt made aware of above & voices understanding. Original Note: RN CM NOTE: Discharge order is in. RN CM to room. Resting in bed, recovering after heart cath. Introduced self and role. Pt lives alone, is independent, and drives. PCP is @ [facility] and he sees [facility] assembly machine set up mechanic. Pt aware he is to f/u @ [facility] w/in 3-5 days. He has an appt scheduled @ [facility] on 04-23. RN CM placed call to [facility] to schedule hospital f/u visit w/in 3-5 days. Per [facility] scheduling, WONG Fox will need to enter order before appt can be scheduled. This RN CM was transferred to [place]. No answer. Detailed VM left re: need for f/u appt w/in 3-5 days. This RN CM also placed call to [facility] to schedule f/u appt w/pt's assembly machine set up mechanic. Pt already has an appt scheduled 05/30/25 @ 11:30 AM, which pt is aware of. Per [facility] scheduling they do not have an earlier appt than 05/30. Pt states he would be wiling to go to [facility] cardiology, but will need [facility] to send referral for that in order for them to pay for it. This info was also left on WONG Fox's VM. Pt has been up independently in room prior to heart cath. He uses no DME to ambulate. He has a functioning glucometer w/supplies @ home that he gets through the [facility] and also a CPAP through the [facility]. He denies having any discharge concerns or needs. He states he is able to medicinal plant picker new Rx's @ [facility] today. Jose DUONG RN, CM
--- NOTE | 2025-03-16 15:01 | CASEMGMT ---
Met with patient to complete PITTS form. PITTS form and its content were verbally explained and patient's questions were answered to the best of my ability. Patient voiced understanding and signed PITTS form. Patient provided a copy of signed PITTS form and original placed in patient's chart. Patient had no further questions. Anitra Alcaraz, Discharge Planning Asst
--- NOTE | 2025-03-16 15:11 | CASEMGMT ---
Discharge Planning Discharge summary and instructions faxed to [facility], attn; Dominique. Fax confirmation rec'd. Anitra Alcaraz DC Planning Asst.
== END 2025-03-16 13:28 | disposition home or self-care (01) ==
LOC: ED 13:09 → PCU 13:19
PROVIDERS: Admitting Provider Family Medicine; Emergency Provider Emergency Medicine; Visit Provider Family Medicine
DX: I25.110 Atherosclerotic heart disease of native coronary artery with unstable angina pectoris (principal); J44.9 Chronic obstructive pulmonary disease, unspecified; E11.65 Type 2 diabetes mellitus with hyperglycemia; E11.22 Type 2 diabetes mellitus with diabetic chronic kidney disease; Z79.4 Long term (current) use of insulin; K21.9 Gastro-esophageal reflux disease without esophagitis; Z79.899 Other long term (current) drug therapy; K59.09 Other constipation; Z79.84 Long term (current) use of oral hypoglycemic drugs; Z82.49 Family history of ischemic heart disease and other diseases of the circulatory system; I12.9 Hypertensive chronic kidney disease with stage 1 through stage 4 chronic kidney disease, or unspecified chronic kidney disease; G47.33 Obstructive sleep apnea (adult) (pediatric); E78.5 Hyperlipidemia, unspecified; Z79.82 Long term (current) use of aspirin; F17.210 Nicotine dependence, cigarettes, uncomplicated; R94.39 Abnormal result of other cardiovascular function study
CPT/HCPCS: 36415; 71045; 78452; 80048; 80053; 80061; 82962; 83036; 83735; 84484; 85025; 85379; 93005; 93017; 93306; 93458; 94668; 96360; 96361; 97802; 99152; 99221; 99285; A9500; Q9967; A4216; C1769; C1894; G0378; J2785

== ENCOUNTER → 2025-04-11 | Outpatient (CLI) | payer OTHER, SELFPAY ==
--- NOTE | 2025-04-11 14:00 | PCM.CR.HP2 ---
CR - History & Physical General Arrival date:: 04/11/25 Arrival time:: 14:01 Date of Referral:: 04/06/25 Date of CR Evaluation:: 04/11/25 Referring Physician: [facility] Primary Diagnosis: coronary atherosclerosis due to calcified coronary artery, NSTEMI History of Present Cardiac Event Onset Date Acute Myocardial Infarction within 12 months:: Yes (04/06/2025) Medications Ambulatory Orders ?Medication ?Instructions ?Recorded aspirin 81 mg chewable tablet 81 mg PO DAILY@0800 heart health 12/20/20 atorvastatin 80 mg tablet 80 mg PO QHS cholesterol 12/20/20 cholecalciferol (vitamin D3) 50 2,000 unit PO DAILY vitamin 12/20/20 mcg (2,000 unit) capsule nitroglycerin 0.4 mg sublingual 0.4 mg sublingual Q5M PRN Chest 12/20/20 tablet Pain hydralazine 50 mg tablet 50 mg PO 4XD blood pressure 02/11/23 insulin glargine 100 unit/mL (3 20 unit subcut QHS diabetes 06/07/23 mL) subcutaneous pen metformin 500 mg tablet 500 mg PO BID diabetes 06/07/23 polyethylene glycol 3350 17 gram 17 g PO BID constipation 06/07/23 oral powder packet (Miralax) albuterol sulfate 90 mcg/actuation 2 puff inhalation Q6H PRN PRN Sob 07/02/23 aerosol inhaler &/Or Wheezing #6.7 grams famotidine 40 mg tablet 40 mg PO DAILY reflux 03/15/25 nystatin 100,000 unit/mL oral 5 ml PO 4X/DAY yeast 03/15/25 suspension sennosides 8.6 mg capsule (senna) 17.2 mg PO QDAY constipation 03/15/25 amlodipine 10 mg tablet 10 mg PO QDAY 03/29/25 budesonide-formoterol HFA 160 2 puff inhalation BID 03/29/25 mcg-4.5 mcg/actuation aerosol inhaler (Symbicort) dicyclomine 20 mg tablet 10 mg PO 4X/DAY 03/29/25 empagliflozin 25 mg tablet 12.5 mg PO QAM 03/29/25 (Jardiance) losartan 100 mg tablet 100 mg PO QHS blood pressure 03/29/25 pantoprazole 40 mg tablet,delayed 40 mg PO QDAY 07/24/25 release Allergies Allergies chlorthalidone Allergy (Verified 03/29/25 13:03) NEEDS FOLLOW-UP hydrochlorothiazide Allergy (Verified 03/29/25 13:03) NEEDS FOLLOW-UP Sleep Disorder Evaluation Hx of Sleep Apnea: Yes Do you snore loudly (louder than talking or can be heard through closed doors)?: No Do you often feel tired/ fatigued/ sleepy during daytime?: No Has anyone observed you stop breathing during sleep?: No History of Hypertension (for STOP score): No STOP Results: Negative Advanced Directives Advanced Directives Do you have a Healthcare Power of Insurance Claims Clerk?: No Living Will: No Advance Directives Information Provided: No Advance Directives on File: No Past Medical History Covid-19 Screening Physicial Symptoms Other Clinical Concerns Exposure Risk Pertinent Comorbidities 65 years or older:: Yes Has a chronic lung disease or moderate to severe asthma:: Yes Has a serious heart condition:: Yes Diabetic:: Yes Past Medical Illness Past Medical History (Updated 03/29/25 @ 13:38 by Paige PATEL, PA) Cardiomyopathy I42.9 CAD (coronary artery disease) I25.10 NSTEMI (non-ST elevated myocardial infarction) I21.4 CKD (chronic kidney disease), stage II N18.2 Tobacco use Z72.0 Hyperlipidemia E78.5 Wears glasses Z97.3 Wears dentures Z97.2 UPPER AND LOWER Fatty liver K76.0 COPD (chronic obstructive pulmonary disease) J44.9 Sleep apnea G47.30 JOANNA on CPAP G47.33, Z99.89 GERD (gastroesophageal reflux disease) K21.9 Constipation K59.00 Hypertension I10 Diabetes E11.9 Past Surgical History Past Surgical History History of cardiac catheterization (03/16/25) Z98.890 06/28/2015 History of appendectomy (Unknown) Z90.49 H/O heart artery stent Z95.5 Family History Summary Family History Mother Diabetes Hypertension Brother Diabetes Hypertension Father , from trauma. No problems noted. Social History Smoking History Smoking Status: Current every day smoker Years Smokin (1-2 cigarettes a day) Alcohol Use Alcohol Usage: Yes (rare) Occupation Occupation (List type of work in comments):: Retired Social Environment Status Marital Status: Current Living Arrangements Living Environment:: Alone Children How many children do you have?: 0 Safety Do you feel safe in your surroundings?: Yes Assistance Do you need any assistance at home?: no Review of Systems Review of Systems Hints Review of Present Symptoms: Reports Shortness of Breath with Exertion, Appetite - Normal, Appetite - Special Diet and Sleep - Normal; Denies Shortness of Breath at Rest, PVD, Operative Discomfort, Angina, Wound Healing, Dizziness/Lightheadedness, Fatigue, Heart Arrhythmia/Irregularities or Sexual Changes Pain Is Patient Pain Free?: Yes Risk Factor Assessment Chief Complaint Chief Complaint: coronary atherosclerosis due to calcified coronary artery, NSTEMI Vital Signs Pulse Ox: 94 Blood Pressure: 130/60 Pulse Pulse Rate: 72 Pulse Rhythm: Regular Hypertension Blood Pressure Sitting - Right Arm: 130/60 Diabetes Diabetic History: Type II Nutrition Referral for Diabetes: Yes Obesity Height: 5 ft 10 in Weight:: 188 lb Weight in Pounds: 188.0 lbs Body Mass Index (BMI): 26.9 Nutritional Referral for Obesity: No Physical Inactivity Physical Inactivity: None Risk Stratification Risk Guidelines: Moderate Risk: Risk Factor for Obesity, Risk Factor for Sedentary Lifestyle and Risk Factor for Depression and Highest Risk: Risk Factor for Smoking, Risk Factor for Dyslipidemia, Risk Factor for Diabetes and Risk Factor for Hypertension For Smoking Smoking Risk Guidelines For Dyslipidemia Dyslipidemia Risk Guidelines For Diabetes Mellitus Diabetes Risk Guidelines For Obesity/Overweight Obesity/Overweight Risk Guidelines For Hypertension Hypertension Risk Guidelines For Sedentary Lifestyle Sedentary Lifestyle Risk Guidelines For Depression Depression Risk Guidelines Family History Family History Mother Diabetes Hypertension Brother Diabetes Hypertension Father , from trauma. No problems noted. Motivation Motivation to Participate On a scale of 1 to 10, how prepared are you to commit to attending program?: 8 What do you see as barriers to successfully being able to complete the program?: nothing Are there issues you are dealing with that will interfere with completing the program?: no Do you have a spouse or signficant other, family or friends who will help support you to complete the program?: yes
--- NOTE | 2025-04-11 14:09 | PCM.CR.ITP ---
Diagnosis General Information Admitting Diagnosis: coronary atherosclerosis due to calcified coronary artery, NSTEMI Personal Learning Style:: Audio/Visual Barriers to Learning: No Barriers Stage of change r/t lifestyle modifications:: Contemplation Gave educational material for:: Treating Heart Disease, How The Heart Works, What it means to have Heart Disease, How Coronary Artery Disease is Diagnosed, Heart Procedures, What Heart Medications Do, Risk Factors & Modifications, Living an Active Life, Nutrition, Emotions & Heart Disease, Stress Management & Relaxation and Sleep Disorders & Heart Disease Education/Goals Cardiac Rehabilitation Goals Personal Goals: Initial Assessment: Improve management of stress and emotions, Improve energy level, Participate in home exercise program, Get back to work, or to resume activities faster, Improve knowledge of cardiac disease, Improve muscle strength and endurance, Improve diet and eating habits (eat healthier) and Control risk factors (learn risk factor modification) Scale for measuring improvement of personal goals Diagnosis & Disease Process Outcomes/Goals: Pt IDs own risk factors & lifestyle modifications by Session 10, Verbalizes symptoms of angina & response by session 3., Pt independently manages and Other Additional Outcomes/Goals: Plan/Interventions: Assist Pt to ID & engage in lifestyle modification to reduce CVD risk, Instruct on individual risk factors, Review symptoms of angina & emergency actions, Review secondary diagnosis & identify educational needs. and Other see comment 30 day Reassessments:: Not Met 30 day Reassessments:: Not Met 30 day Reassessments:: Not Met 30 day Reassessments:: Not Met Final Reassessments:: Not Met Safety Referral to Physical Therapy: No Referral to [facility] Case Management: No Fall Risk Assessed:: Yes Assistive Devices:: None Exercise - Initial Assessment Visit Date of Eval: 04/11/25 (initial eval ) Mets: Pre-: >3 METS for 30 minutes by discharge, >5 METS for 30 minutes by discharge, >7 METS for 30 minutes by discharge and Unable to meet goal due to: (see comment below) Physician Prescribed Exercise Modalities: Treadmill, Rower, [place] AD-7, SciFit Stepper, SciFit Pro-II Ergometer and 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 Frequency: 3x/week for 12 weeks [36 sessions] Intensity: 60-80% of age predicted maximum heart rate reserve Duration: 30 - 45 minutes Current METSs:: 3 Target Heart Rate:: 88-110 Resting Blood Pressure: 130/60 EKG Type: SB Outcomes & Goals Goals:: Verbalizes understanding of THR, RPE & goal METS by session 6, Documents in home exercise log/reports 30 min aerobic 5 day/wk by DC, Demonstrates accurate pulse taking by DC and Other additional outcome/goals: see below Intervention & Plan Exercise Program Goals: Instruct on personal THR & RPE, Instruct on MET level & personal MET goal, Show patient to take own pulse /validate performance until accurate, Instruct on home exercise and Other additional plan/int Physical Activity Home Exercise Physical Activity - Home Exercise: Safe Exercise, Warm-up, Self-monitoring, Cool-Down, Home Exercise > 30 min Daily and Sitting Time <3 hours/daily Outcomes & Goals Outcomes/Goals: Demonstrates correct Warm-up/exercise Cool-Down (S3) if = 2.5 METs, Verbalizes symptoms of exercise intolerance by Session 3 (S3), Demonstrate safe equipment use (S3) & follows exercise prescrition (6) and Other: See below Intervention & Plan Plan/Intervention: Instruct warm-up & cool-down if exercising at > 2 METs, Instruct on symptoms of exercise intolerance & actions to take, Instruct & monitor on saf, Assess intial functional capacity & safety risk and Other See below Nutrition - Initial Assessment Program Goals Nutrition Program Goals Patient has diagnosis of Hyperlipidemia (ICD E78)?: Yes Visit Date of Eval: 04/11/25 (initial eval) Cholesterol/Lipids (Other Core Measures) Determine presence & major risk factors that modify LDL goal: Cigarette smoking, Hypertension or hypertensive medication, Low HDL cholesterol <40 mg/dL*, Family history of premature CHD in Male < 55 years: female <65 yearsFa and Age men > 45 years; women >/= 55 years Outcomes/Goals: Pt IDs own risk factors & lifestyle modifications by Session 10, Verbalizes symptoms of angina & response by session 3., Pt independently manages and Other Additional Outcomes/Goals: Intervention/Plan: Advocate for lipid panel cholesterol medication if applicable, Instruct on personal lipid levels & lipid goals/NCEP guidelines, Instruct on cholesterol and Other additional plan/int Referral to dietitian:: Yes Diabetes (Other Core Measures) Diabetes Type: Diagnosis Type II ICD-10 E11 Insulin dependent injection/pump?: Yes Non-Insulin Dependent?: Yes Do you monitor your blood sugar at home?: Yes Referral to Diabetic Clinic:: Yes Weight Mgt (Other Care) Height: 5 ft 10 in Weight:: 188 lb BMI: 26.9 Diagnosis Overweight/Obesity BMI> 30% ICD-10 E66: No Diagnosis High BMI/Morbid Obesity BMI> 35% ICD-10 Z68: No Outcomes/Goals: Pt sets, maintains & shows weight loss goal & trend during rehab and Other additional outcomes/goals Intervention/Plan: Instruct on ideal BMI & set weight loss goal w/patient, Assist pt to ID & incorporate diet changes for weight loss by S9, Refer to Structured Weight Loss program as appropriate, Encourage goal of using 250-300dcal per session for weight loss and Other additional plan/interventions Healthy Eating Habits Will attend diet classes:: Yes Outcomes/Goals:: Consume diet rich in vegs,fruits,whole grain/high fiber,fish,lean meat, Limit sat/trans fats,cholesterol & added salts & sugars and Other additional outcome/goals: Intervention/Plan:: Assess current eating habits and Other Additional plan/interventions Education Gave educational materials for:: Signs & symptoms of hypoglycemia, Signs & symptoms of hyperglycemia, Relate diabetes to coronary artery disease and Healthy eating Core - Initial Assessment Visit Date of Eval: 04/11/25 (initial eval) Medication Compliance Preventative Medication(s):: Aspirin, Statin/lipid and ARB (Angiotensi Rcap) H/O mental health issues: depression, anxiety, or addiction?: No Doesn?t believe in the benefits of treatment?: No Believes medications are unnecessary or harmful?: No Has a concern about medication side effects?: No Expresses concern over the cost of medications?: No Outcomes/Goals: Verbalizes medications,desired effect & common side effects @ DC, Pt self-reports following medication regimen, Keeps card in wallet w/medications listed by DC and Other additional outcome/goals: Interventions/plans: Instruct on medication effects & side effects, Review medication list w/patient every two weeks, Instruct importance of taking meds as ordered & assist problem solving and Other additional Tobacco Use Tobacco Use: Cigarettes How many cigarettes do you smoke per day?: 2 Years Smokin Do you use smokeless tobacco?: No Outcomes/Goals: Smoking cessation achieved or maintained by discharge, Identify aids/strategies for achieving smoking cessation by session 6 and Other additional outcome/goals Interventions/plan: Instruct on effects of smoking & provide smoking cessation resource, Assist pt to set quit date & provide encouragement, Assist pt to develop strategies to achieve/maintain quit date, Assist pt w/nicotine replacement & medication for cessation success and Other additional plan/interventions Hypertension Hypertension Diagnosis:: Hypertension ICD-10 I10 Resting Blood Pressure:: 130/60 [place] [employer] Hypertension Guidelines Outcomes/Goals: Able to verbalize/achieve optimal blood pressure <130/80, Incorporates diet changes & exercise for blood pressure control by DC and Other additional outcomes/goals Interventions/plan: Instruct on optimal blood pressure, hypertension & medications, Instruct on effects of sodium, alcohol, stress, exercise &hypertension and Other additional plan/interventions Tobacco Cessation Referral Education Schedule Given:: Yes Psychosocial - Initial Assess VIsit Date of Eval: 04/11/25 (initial eval ) History of previous Mental disease:: No Target Goals Target Goals Psychosocial Test Tool Used:: PHQ-9 Questionnaire phq-9 Severity See PHQ-9 Score: 0 Referral to Behavioral Health PS - Interventions: Yes: Attend Stress Management Classes Outcomes/Goals: See list Psychosocial Outcomes/Goals:: ID's personal stressors & 2 strategies to manage stress by discharge and Other Additional outcome/goals: Intervention/Plan: See List Interventions/Plan:: Assess stressors,coping strategies & signs of derpression on admission, Instruct/assist pt to develop coping & personal stress Mgt strategies, Refer to Behavioral Health if appropriate, Refer to Physician if appropriate, Instruct patient to recognize signs & symptoms of depression, Instruct patient to recog and Other additional plan/intervention Patient Health Questionnaire PHQ-9 Screening Initial Assessment: 1. Little interest or pleasure in doing things: Not at all 2. Feeling down, depressed, or hopeless: Not at all 3. Trouble falling or staying asleep, or sleeping too much: Not at all 4. Feeling tired or having little energy: Not at all 5. Poor appetite or overeating: Not at all 6. Feeling bad about yourself -- or that you are a failure or have let yourself or your family down: Not at all 7. Trouble concentrating on things, such as reading the newspaper or watching television: Not at all 8. Moving or speaking so slowly that other people could have noticed. Or the opposite - being so fidgety or restless that you have been moving around a lot more than usual: Not at all 9. Thoughts that you would be better off , or of hurting yourself in some way: Not at all How difficult have these problems made it for you to do your work, take care of things at home, or get along with other people?: Not difficult at all Total Score: 0 ZACARIAS-Q SV Test Statements CAD is a disease of the arteries in the heart: I Don't Know Examples of risk factors for heart disease: I Don't Know Angina is chest pain or discomfort: I Don't Know The benefits of resistance training include: I Don't Know Eating more meat and dairy products: I Don't Know Anti-platelet medications such as aspirin are important: I Don't Know The only effective way to manage stress: I Don't Know An exercise warm-up slowly increases heart rate: I Don't Know Prepared, processed foods usually have high sodium: I Don't Know Depression is common after a heart attack: I Don't Know The statin medications lower cholesterol: I Don't Know To control blood pressure, lower the amount of sodium: I Don't Know If someone gets chest discomfort during walking: I Don't Know Transfats are partially hydrogenated vegetable oils: I Don't Know Sleep apnea that is not treated increases the risk: I Don't Know To control cholesterol, one should become a vegetarian: I Don't Know Someone knows if he/she is exercising at the right level: I Don't Know Diabetes cannot be prevented with exercise & health eating: False Stress is a large risk for heart attack: I Don't Know A diet that can help lower blood pressure is rich in: I Don't Know Total Score Total Correct Responses: 1 Self-Efficacy 6-Item Scale Initial Assessment: We would like to know how confident you are in doing certain activities. Please select your confidence level for: Fatigue Select Number: 1 Physical Discomfort or Pain Select Number: 1 Emotional Distress Select Number: 1 Other Symptoms or Health Problems Select Number: 1 Different Tasks and Activities Select Number: 1 Medication Select Number: 1 Total Score:: 1 Nutrition Survey Nutrition Survey Instructions Scoring Instructions Nutrition Survey Initial: Have you lost >10 lbs over the past 2 months without trying?: No Are you following a special diet at home for diabetes, low fat, or low salt?: Yes Are you interested in meeting with a dietitian for help understanding your diet?: Yes Do you eat less than 3 meals a day?: Yes Do you eat fatty meats ([place], sausage, ribs, etc), fried foods, desserts, large amounts of salad dressings, margarine, butter, or cheese most days?: Yes Do you have food allergies? [Enter types in comment field]: No Do you eat in restaurants more than 3 times a week?: No Do you season food with salt, seasoning salt, or garlic salt?: No Do you used canned, boxed, frozen meals, or soups, seasoning packets?: No Total Score:: 4 Exercise - 30-day Assessment Physician Prescribed Exercise Modalities: Treadmill, Rower, [place] AD-7, SciFit Stepper, SciFit Pro-II Ergometer and SciFit Lateral [place] Exercise - 60-day Assessment Physician Prescribed Exercise Modalities: Treadmill, Rower, [place] AD-7, SciFit Stepper, SciFit Pro-II Ergometer and SciFit Lateral [place] Exercise - 90-day Assessment Physician Prescribed Exercise Modalities: Treadmill, Rower, [place] AD-7, SciFit Stepper, SciFit Pro-II Ergometer and SciFit Lateral [place] Exercise - Final/Discharge Physician Prescribed Exercise Modalities: Treadmill, Rower, [place] AD-7, SciFit Stepper, SciFit Pro-II Ergometer and 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 Frequency: 3x/week for 12 weeks [36 sessions] Intensity: 60-80% of age predicted maximum heart rate reserve Current METSs:: 3 Target Heart Rate:: 88-110 Nutrition - 30-Day Assessment Weight Mgt (Other Care) Height: 5 ft 10 in Weight:: 188 lb BMI: 26.9 Nutrition - 60-Day Assessment Weight Mgt (Other Care) Height: 5 ft 10 in Weight:: 188 lb BMI: 26.9 Core - 30-Day Assessment Tobacco Use Years Smokin Core - Final Assessment Hypertension Resting Blood Pressure:: 130/60 [place] [employer] Hypertension Guidelines Core - 60-Day Assessment Hypertension Resting Blood Pressure:: 130/60 [place] [employer] Hypertension Guidelines Psychosocial - 30-Day Assess Target Goals Target Goals Referral to Behavioral Health PS - Interventions: Yes: Attend Stress Management Classes Psychosocial - 60-Day Assess Target Goals Target Goals Referral to Behavioral Health PS - Interventions: Yes: Attend Stress Management Classes Psychosocial - 90-Day Assess Target Goals Target Goals Referral to Behavioral Health PS - Interventions: Yes: Attend Stress Management Classes Psychosocial - Final Assessmen Target Goals Target Goals Psychosocial Test phq-9 Severity See PHQ-9 Score: 0 Referral to Behavioral Health PS - Interventions: Yes: Attend Stress Management Classes Nutrition - 90-Day Assessment Weight Mgt (Other Care) Height: 5 ft 10 in Weight:: 188 lb BMI: 26.9 Nutrition - Final Assessment Program Goals Patient has diagnosis of Hyperlipidemia (ICD E78)?: Yes Weight Mgt (Other Care) Height: 5 ft 10 in Weight:: 188 lb BMI: 26.9
[2025-04-11 14:20] VITALS: PULSE 72; O2SAT 94
[2025-04-11 14:25] VITALS: BP 130/60
[2025-04-11 15:01] VITALS: BP 130/60; BMI 26.9
[2025-04-11 15:02] VITALS: BMI 26.9
== END | disposition home or self-care (01) ==
DX: I25.10 Atherosclerotic heart disease of native coronary artery without angina pectoris (principal); J44.9 Chronic obstructive pulmonary disease, unspecified; Z79.4 Long term (current) use of insulin; E11.22 Type 2 diabetes mellitus with diabetic chronic kidney disease; E78.5 Hyperlipidemia, unspecified; I12.9 Hypertensive chronic kidney disease with stage 1 through stage 4 chronic kidney disease, or unspecified chronic kidney disease; I25.2 Old myocardial infarction; N18.2 Chronic kidney disease, stage 2 (mild); K21.9 Gastro-esophageal reflux disease without esophagitis; K76.0 Fatty (change of) liver, not elsewhere classified; K59.00 Constipation, unspecified; G47.30 Sleep apnea, unspecified; F17.210 Nicotine dependence, cigarettes, uncomplicated; Z95.5 Presence of coronary angioplasty implant and graft; Z79.82 Long term (current) use of aspirin; Z79.84 Long term (current) use of oral hypoglycemic drugs; Z79.899 Other long term (current) drug therapy

== ENCOUNTER 2025-04-18 08:36 | Emergency (ER) | payer OTHER, SELFPAY ==
[2025-04-11 15:01] VITALS: BMI 26.9
[2025-04-18 08:37] VITALS: BP 155/74; PULSE 56; RESP 16; TEMP 36.6; O2SAT 99; BMI 26.8
--- NOTE | 2025-04-18 09:08 | CT_ITS ---
PROCEDURE: BRAIN/HEAD WITHOUT CONTRAST 04/18/2025 REASON FOR EXAM: EPISODE OF DIZZINESS, HEADACHE TECHNIQUE: BRAIN/HEAD WITHOUT CONTRAST Coronal and Sagittal reconstruction series were provided. One or more dose reduction techniques were used (e.g., Automated exposure control, adjustment of the mA and/or kV according to patient size, use of iterative reconstruction technique. RADIATION DOSE SUMMARY: CTDlvol: 45 mGy DLP: 863 mGycm COMPARISON: None FINDINGS: Brain: There is no evidence of hemorrhage, acute ischemia or mass. No extra- axial fluid collection, midline shift or mass effect. Minimal low-density in the periventricular white matter. CSF Spaces: Mild generalized cerebral atrophy Sinuses/Mastoids: Small mucous retention cyst or polyp in the inferior right maxillary sinus. Bones: No fracture CT/Brain/Head without Contrast IMPRESSION: 1. No evidence of intracranial hemorrhage or acute ischemia. 2. Mild chronic microvascular ischemia and volume loss. Reading Location: [id number]
--- NOTE | 2025-04-18 09:18 | EX.ED.DYSGE1 ---
HPI History of Present Illness Chief Complaint: Dizziness Narrative Narrative: Chief complaint and HPI: History taken by patient as well as medical record. 74-year-old male with past medical history of CAD status post PCI, HTN, HLD, JOANNA, CKD, COPD, tobacco abuse, GERD presents for evaluation of an episode of palpitations and lightheadedness last night. Patient states last night around 10 PM he developed an episode of dizziness, heart palpitations, diaphoresis. States it lasted several minutes but then resolved. States he is currently asymptomatic but is worried given his heart history. Triage note states that he has mild chest discomfort and abdominal pain however he denies this to me. States he never had any chest pain. He denies any fever, chills, shortness of breath, chest pain, URI symptoms, abdominal pain, nausea, vomiting, dysuria, numbness/tingling, neurological deficit, weakness, difficulty speaking. Review of systems: See HPI Medications: As listed on the chart Allergies: As listed on the chart PFSH: Per chart Vital signs: As listed on the chart. Reviewed. Physical exam: Gen: A&O x3, NAD Head: Normocephalic, atraumatic Eyes: No sclera icterus, conjunctiva clear ENT: Moist mucous membranes Neck: Trachea midline, No JVD CV: RRR, no murmurs, no peripheral edema Resp: Lungs CTA BL, no w/r/c GI: Abd soft, non-distended, non-tender, no r/r/g Musc: Full ROM, no deformity Skin: Warm, dry Neuro: Alert, oriented, grossly intact, sensation intact Psych: Cooperative, appropriate mood and affect [facility] Medical History Cardiomyopathy CAD (coronary artery disease) NSTEMI (non-ST elevated myocardial infarction) CKD (chronic kidney disease), stage II Tobacco use Hyperlipidemia Wears glasses Wears dentures Fatty liver COPD (chronic obstructive pulmonary disease) Sleep apnea JOANNA on CPAP GERD (gastroesophageal reflux disease) Constipation Hypertension Diabetes Home Medications ?Medication ?Instructions ?Recorded ?Last Taken ?Type aspirin 81 mg chewable tablet 81 mg PO DAILY@0800 heart health 12/20/20 03/15/25 History atorvastatin 80 mg tablet 80 mg PO QHS cholesterol 12/20/20 03/14/25 History cholecalciferol (vitamin D3) 50 2,000 unit PO DAILY vitamin 12/20/20 03/15/25 History mcg (2,000 unit) capsule nitroglycerin 0.4 mg sublingual 0.4 mg sublingual Q5M PRN Chest 12/20/20 Unknown History tablet Pain hydralazine 50 mg tablet 50 mg PO 4XD blood pressure 02/11/23 03/15/25 History insulin glargine 100 unit/mL (3 20 unit subcut QHS diabetes 06/07/23 03/14/25 History mL) subcutaneous pen metformin 500 mg tablet 500 mg PO BID diabetes 06/07/23 03/15/25 History polyethylene glycol 3350 17 gram 17 g PO BID constipation 06/07/23 Unknown History oral powder packet (Miralax) albuterol sulfate 90 mcg/actuation 2 puff inhalation Q6H PRN PRN Sob 07/02/23 Unknown Rx aerosol inhaler &/Or Wheezing #6.7 grams famotidine 40 mg tablet 40 mg PO DAILY reflux 03/15/25 03/15/25 History nystatin 100,000 unit/mL oral 5 ml PO 4X/DAY yeast 03/15/25 03/15/25 History suspension sennosides 8.6 mg capsule (senna) 17.2 mg PO QDAY constipation 03/15/25 03/14/25 History amlodipine 10 mg tablet 10 mg PO QDAY 03/29/25 Unknown History budesonide-formoterol HFA 160 2 puff inhalation BID 03/29/25 Unknown History mcg-4.5 mcg/actuation aerosol inhaler (Symbicort) dicyclomine 20 mg tablet 10 mg PO 4X/DAY 03/29/25 Unknown History empagliflozin 25 mg tablet 12.5 mg PO QAM 03/29/25 Unknown History (Jardiance) losartan 100 mg tablet 100 mg PO QHS blood pressure 03/29/25 Unknown History pantoprazole 40 mg tablet,delayed 40 mg PO QDAY 03/29/25 Unknown History release Allergy/AdvReac Type Severity Reaction Status Date / Time chlorthalidone Allergy NEEDS Verified 04/18/25 08:37 FOLLOW-UP hydrochlorothiazide Allergy NEEDS Verified 04/18/25 08:37 FOLLOW-UP Family History Mother Diabetes Hypertension Brother Diabetes Hypertension Father , from trauma. No problems noted. Surgical History History of cardiac catheterization (03/16/25) History of appendectomy (Unknown) H/O heart artery stent Social History household members: none Smoking Status: Current every day smoker tobacco type: cigarettes alcohol intake: current alcohol intake frequency: holidays/special occasions only substance use type: does not use caffeine: Yes Type: carbonated beverages EXAM Physical Exam Const Vital Signs: 04/18/25 08:37 04/18/25 09:36 04/18/25 11:00 Temperature 97.8 F Temperature Source Oral Pulse Rate 56 L 89 56 L Respiratory Rate 16 18 12 Blood Pressure 155/74 H 151/66 H 155/66 H Blood Pressure Mean 101 94 95 Pulse Ox 99 98 96 Oxygen Delivery Method Room Air Room Air Room Air MDM MDM MDM Narrative Medical decision making narrative: 74-year-old male with past medical history of CAD status post PCI, HTN, HLD, JOANNA, CKD, COPD, tobacco abuse, GERD presents for evaluation of an episode of palpitations and lightheadedness last night. Patient states last night around 10 PM he developed an episode of dizziness, heart palpitations, diaphoresis. States it lasted several minutes but then resolved. States he is currently asymptomatic but is worried given his heart history. Triage note states that he has mild chest discomfort and abdominal pain however he denies this to me. States he never had any chest pain. On chart review, patient was recently discharged from the hospital on 03/16/2025. He was admitted for chest pain. On 03/16 cardiac stress testing performed which noted evidence of induced ischemia in the anterior septal region. Underwent a heart catheterization with no acute disease findings, no need for PCI, noted 40% stenosis just proximal to the prior PCI. Differential diagnosis includes but is not limited to electrolyte abnormality, dehydration, arrhythmia, palpitations, thyroid disease, UTI, ACS, CHF, suspect less likely intracranial abnormality. Exam and HPI not consistent with CVA. Aspirin ordered in case patient does have ACS. EKG and chest x-ray reviewed. CBC unremarkable. Coagulation panel unremarkable. BMP relatively unremarkable. Magnesium unremarkable. Thyroid unremarkable. BNP unremarkable. Troponin 25 and 24. Patient's baseline on previous labs. He UA negative for UTI. CT of the head negative for any acute intracranial abnormality. On reevaluation, patient has remained asymptomatic. His vitals are stable other than mild hypertension. At this point in time no clear etiology for patient's episode yesterday evening. Follow-up with PCP. Return precautions explained. He confirmed understand the plan. Patient will discharge home EKG: Interpreted by me/EM physician: EKG shows sinus bradycardia without any acute ischemic changes. Heart rate 58 Diagnostic: Interpreted by me/EM physician: Chest x-ray pneumonia, effusion, cardiomegaly, pneumothorax. Radiology in agreement. Impression: 1. Dizziness, resolved 2. Palpitations, resolved Lab Data Labs: Laboratory Results - last 24 hr 04/18/25 04/18/25 04/18/25 09:16 10:00 11:37 WBC 8.8 RBC 5.45 Hgb 16.4 Hct 47.4 MCV 87.0 MCH 30.1 MCHC 34.6 RDW Std Deviation 40.3 RDW Coeff of [place] 13.0 Plt Count 210 MPV 9.8 Immature Gran % (Auto) 0.900 Neut % (Auto) 74.1 H Lymph % (Auto) 16.2 L [place] % (Auto) 7.5 Eos % (Auto) 0.5 Baso % (Auto) 0.8 Absolute Neuts (auto) 6.6 Absolute Lymphs (auto) 1.43 Nucleated RBC % 0 PT 13.5 INR 1.0 APTT 27.0 Sodium 132 L Potassium 4.5 Chloride 97 L Carbon Dioxide 21.4 Anion Gap 14 BUN 13 Creatinine 0.90 Estim Creat Clear Calc 74.35 Est GFR (MDRD) Non-Af 90 BUN/Creatinine Ratio 13.9 Glucose 217 H Calcium 9.6 Magnesium 2.2 Troponin T High Sens 25 H D Troponin T Hi Sens 2 Hr 24 H NT pro BNP II 393 TSH 3.060 Urine Color Straw Urine Clarity Clear Urine pH 7.0 Ur Specific [place] 1.005 Urine Protein 15 H Urine Glucose (UA) 1000 H Urine Ketones Negative Urine Occult Blood Negative Urine Nitrite Negative Urine Bilirubin Negative Urine Urobilinogen Normal Ur Leukocyte Esterase Negative Urine RBC 0 SEEN Urine WBC 0 SEEN Ur Squamous Epith Cells 0 SEEN Urine Bacteria 0 SEEN Urine Mucus 0 SEEN Radiography Diagnostic Testing: Clinical Impression(s) from Imaging Studies Brain CT 04/18/25 09:08 IMPRESSION: 1. No evidence of intracranial hemorrhage or acute ischemia. 2. Mild chronic microvascular ischemia and volume loss. Reading Location: [id number] Chest X-Ray 04/18/25 09:30 IMPRESSION: NO ACUTE FINDINGS. Reading Location: [id number] Discharge Plan Triage Chief Complaint: Dizziness ED Provider: Charles Lyon Dx/Rx/DC Orders Prescriptions: No Action dicyclomine 20 mg tablet 10 mg PO 4X/DAY amlodipine 10 mg tablet 10 mg PO QDAY pantoprazole 40 mg tablet,delayed release (DR/EC) 40 mg PO QDAY budesonide-formoterol [Symbicort] 160-4.5 mcg/actuation HFA aerosol inhaler 2 puff inhalation BID Jardiance 25 mg tablet 12.5 mg PO QAM atorvastatin 80 MG tablet 80 mg PO QHS nitroglycerin 0.4 MG tablet, sublingual 0.4 mg SL Q5M PRN (Reason: Chest Pain) aspirin 81 MG tablet,chewable 81 mg PO DAILY@0800 cholecalciferol (vitamin D3) 2,000 UNIT capsule 2,000 unit PO DAILY insulin glargine 100 unit/mL (3 mL) insulin pen 20 unit SC QHS losartan 100 mg tablet 100 mg PO QHS hydralazine 50 mg Tablet 50 mg PO 4XD polyethylene glycol 3350 [Miralax] 17 gram powder in packet 17 g PO BID Patient Comments: take 2 tabs in the morning and 1 at HS. metformin 500 mg tablet 500 mg PO BID Patient Comments: take 1 tab in the morning and 2 at dinner Rx Instructions: with breakfast albuterol sulfate 1 PUFF inhaler 2 puff INHALATION Q6H PRN PRN (Reason: Sob &/Or Wheezing) Qty: 6.7 0RF famotidine 40 mg tablet 40 mg PO DAILY nystatin 100,000 unit/mL suspension 5 ml PO 4X/DAY Rx Instructions: swish and swallow senna 8.6 mg capsule 17.2 mg PO QDAY Primary Care Provider: [facility] Referrals: Hospital,[facility] [Primary Care Provider] - Print Language: Australian
[2025-04-18 09:24] LABS: Hematocrit 47.4 % (40-54); Hemoglobin 16.4 g/dL (13.0-16.5); Immature Granulocytes Count 0.080 X10^3/uL (0.0-0.0); Mean Corp Hgb Conc 34.6 g/dL (32-36); Mean Corpuscular Volume 87.0 fL (80-94); Mean Platelet Vol. 9.8 fl (6.2-12.0); NRBC Flagged by Analyzer 0 % (0-5); Platelet Count 210 K/mm3 (150-450); RBC Distribution Width CV 13.0 % (11.6-14.6); RBC Distribution Width SD 40.3 fl (35.1-43.9); Red Blood Count 5.45 M/mm3 (4.6-6.2); White Blood Count 8.8 K/mm3 (4.4-11.0)
--- NOTE | 2025-04-18 09:30 | RAD_ITS ---
PROCEDURE: CHEST PA AND LATERAL 04/18/2025 REASON FOR EXAM: PALPITATIONS TECHNIQUE: CHEST PA AND LATERAL COMPARISON: Prior study dated March 04, 2025. FINDINGS: Hardware: EKG electrodes are seen. Heart: The heart is not enlarged. Mediastinum: The mediastinal contour is unremarkable. Lungs: The lungs are clear. Bones: Healed left rib fractures. RAD/Chest PA and Lateral IMPRESSION: NO ACUTE FINDINGS. Reading Location: [id number]
[2025-04-18 09:36] VITALS: BP 151/66; PULSE 89; RESP 18; O2SAT 98
[2025-04-18 09:41] LABS: Partial Thromboplast Time 27.0 Seconds (24.1-36.2); Prothrombin Time (Protime)PT. 13.5 SECONDS (11.7-14.9)
[2025-04-18 10:06] LABS: Mucous, Urine 0 SEEN /hpf (<or=2+); Red Blood Cells-Urine 0 SEEN /hpf (0-5); Squamous Epithelial Cells - UA 0 SEEN /hpf (0-5)
[2025-04-18 10:07] LABS: Color, Urine Straw (Yellow); Glucose, Dipstick 1000 mg/dl (Normal); Ketone-Dipstick Negative (Negative); Leukocyte Esterase-Dipstick Negative /ul (Negative); Nitrite-Dipstick Negative (Negative); Occult Blood-Urine Negative /ul (Negative); Protein-Dipstick 15 mg/dl (Negative); Specific Gravity, Urine 1.005 (1.002-1.030); Urine Bilirubin Dipstick Negative (Negative)
[2025-04-18 10:19] LABS: Anion Gap 14 (5-15); BUN 13 mg/dL (4-19); BUN/Creat Ratio 13.9 RATIO (10-20); Calcium,Total 9.6 mg/dL (7.6-11.0); Carbon Dioxide 21.4 mmol/L (21.0-32.0); Chloride 97 mmol/L (98-108); Estimated Creatinine Clearance 74.35 ml/min (50-250); Glucose 217 mg/dL (70-99); Potassium 4.5 mmol/L (3.3-5.1); Pro- Brain NATRIURETIC PEPTIDE 393 pg/mL (<=900)
[2025-04-18 10:21] LABS: Magnesium 2.2 mg/dL (1.5-2.2); Troponin T High Sensitivity 25 ng/L (<=22)
[2025-04-18 11:00] VITALS: BP 155/66; PULSE 56; RESP 12; O2SAT 96
[2025-04-18 12:00] VITALS: BP 136/78; PULSE 61; RESP 18; TEMP 36.6; O2SAT 99
[2025-04-18 12:20] LABS: Troponin T High Sens 2 HR 24 ng/L (<=22)
== END 2025-04-18 12:52 | disposition home or self-care (01) ==
PROVIDERS: Emergency Provider Surgery; Visit Provider Surgery
DX: R42 Dizziness and giddiness (principal); E11.22 Type 2 diabetes mellitus with diabetic chronic kidney disease; Z79.4 Long term (current) use of insulin; R00.2 Palpitations; I12.9 Hypertensive chronic kidney disease with stage 1 through stage 4 chronic kidney disease, or unspecified chronic kidney disease; I25.10 Atherosclerotic heart disease of native coronary artery without angina pectoris; I25.2 Old myocardial infarction; N18.2 Chronic kidney disease, stage 2 (mild); F17.210 Nicotine dependence, cigarettes, uncomplicated; Z95.5 Presence of coronary angioplasty implant and graft; Z79.51 Long term (current) use of inhaled steroids; Z79.82 Long term (current) use of aspirin; Z79.84 Long term (current) use of oral hypoglycemic drugs; Z79.899 Other long term (current) drug therapy
CPT/HCPCS: 70450; 71046; 80048; 81001; 83735; 83880; 84443; 84484; 85025; 85610; 85730; 93005; 99284; A4216

== ENCOUNTER 2025-05-04 11:15 | Outpatient (RCR) | payer OTHER, SELFPAY ==
[2025-04-11 15:01] VITALS: BMI 26.9
== END 2025-05-06 23:59 ==
LOC: CR 11:15
DX: I25.84 Coronary atherosclerosis due to calcified coronary lesion (principal); I21.4 Non-ST elevation (NSTEMI) myocardial infarction; Z98.61 Coronary angioplasty status
CPT/HCPCS: 93798

== ENCOUNTER 2025-06-04 11:15 | Outpatient (RCR) | payer OTHER, SELFPAY ==
[2025-04-11 15:01] VITALS: BMI 26.9
--- NOTE | 2025-05-10 08:34 | CR.ITP_ITS ---
Exercise - Initial Assessment Visit Session #:: 3 Physician Prescribed Exercise Modalities: Treadmill, Schwinn Airdyne AD-7 and SciFit Stepper Nutrition - Initial Assessment Weight Mgt (Other Care) Height: 5 ft 10 in Weight:: 192 lb 8 oz BMI: 27.6 Core - Initial Assessment Tobacco Use Years Smokin Psychosocial - Initial Assess Target Goals Target Goals Referral to Behavioral Health PS - Interventions: Yes: Attend Stress Management Classes Self-Efficacy 6-Item Scale 30-Day Re-eval Assessment: We would like to know how confident you are in doing certain activities. Please select your confidence level for: Fatigue Select Number: 1 Physical Discomfort or Pain Select Number: 1 Emotional Distress Select Number: 1 Other Symptoms or Health Problems Select Number: 1 Different Tasks and Activities Select Number: 1 Medication Select Number: 1 Total Score:: 1 Nutrition Survey Nutrition Survey Instructions Scoring Instructions Exercise - 30-day Assessment Visit Date of Eval: 05/10/25 Session #:: 3 Physician Prescribed Exercise Modalities: Treadmill, Schwinn Airdyne AD-7 and SciFit Stepper Frequency: 3x/week for 12 weeks [36 sessions] Intensity: 60-80% of age predicted maximum heart rate reserve Duration: 30 - 45 minutes Current METSs:: 3 Target Heart Rate:: 88-110 Current RPE:: 13 Maximum Excercise HR:: 86 Resting Blood Pressure: 152/68 Maximum Exercise Blood Pressure: 170/70 EKG Type: SB to NSR with a rare PAC, PVC Outcomes & Goals Goals:: Verbalizes understanding of THR, RPE & goal METS by session 6, Documents in home exercise log/reports 30 min aerobic 5 day/wk by DC, Demonstrates accurate pulse taking by DC and Other additional outcome/goals: see below Intervention & Plan Exercise Program Goals: Instruct on personal THR & RPE, Instruct on MET level & personal MET goal, Show patient to take own pulse /validate performance until accurate, Instruct on home exercise and Other additional plan/int Physical Activity Home Exercise Physical Activity - Home Exercise: Safe Exercise, Warm-up, Self-monitoring, Cool-Down, Home Exercise > 30 min Daily and Sitting Time <3 hours/daily Outcomes & Goals Outcomes/Goals: Demonstrates correct Warm-up/exercise Cool-Down (S3) if = 2.5 METs, Verbalizes symptoms of exercise intolerance by Session 3 (S3), Demonstrate safe equipment use (S3) & follows exercise prescrition (6) and Other: See below Intervention & Plan Plan/Intervention: Instruct warm-up & cool-down if exercising at > 2 METs, Instruct on symptoms of exercise intolerance & actions to take, Instruct & monitor on saf, Assess intial functional capacity & safety risk and Other See below 30-day Reassessments 30 day Reassessments:: Progressing Reassessment Notes & Comments:: RPE explained to pt. Pt demonstrates understanding in his daily sessions. Exercise - 60-day Assessment Physician Prescribed Exercise Modalities: Treadmill, Schwinn Airdyne AD-7 and SciFit Stepper Exercise - 90-day Assessment Physician Prescribed Exercise Modalities: Treadmill, Schwinn Airdyne AD-7 and SciFit Stepper Exercise - Final/Discharge Physician Prescribed Exercise Modalities: Treadmill, Schwinn Airdyne AD-7 and SciFit Stepper Nutrition - 30-Day Assessment Program Goals Nutrition Program Goals Patient has diagnosis of Hyperlipidemia (ICD E78)?: Yes Visit Date of Eval: 05/10/25 Session #:: 3 Cholesterol/Lipids (Other Core Measures) Determine presence & major risk factors that modify LDL goal: Cigarette smoking, Hypertension or hypertensive medication, Low HDL cholesterol <40 mg/dL*, Family history of premature CHD in Male < 55 years: female <65 yearsFa and Age men > 45 years; women >/= 55 years Outcomes/Goals: Pt IDs own risk factors & lifestyle modifications by Session 10, Verbalizes symptoms of angina & response by session 3., Pt independently manages and Other Additional Outcomes/Goals: Intervention/Plan: Advocate for lipid panel cholesterol medication if applicable, Instruct on personal lipid levels & lipid goals/NCEP guidelines, Instruct on cholesterol and Other additional plan/int Diabetes (Other Core Measures) Diabetes Type: Diagnosis Type II ICD-10 E11 Insulin dependent injection/pump?: Yes Non-Insulin Dependent?: Yes Do you monitor your blood sugar at home?: Yes Referral to Diabetic Clinic:: Yes Weight Mgt (Other Care) Height: 5 ft 10 in Weight:: 192 lb 8 oz BMI: 27.6 Diagnosis Overweight/Obesity BMI> 30% ICD-10 E66: No Diagnosis High BMI/Morbid Obesity BMI> 35% ICD-10 Z68: No Outcomes/Goals: Pt sets, maintains & shows weight loss goal & trend during rehab and Other additional outcomes/goals Intervention/Plan: Instruct on ideal BMI & set weight loss goal w/patient, Assist pt to ID & incorporate diet changes for weight loss by S9, Refer to [facility] Weight Loss program as appropriate, Encourage goal of using 250-300dcal per session for weight loss and Other additional plan/interventions Healthy Eating Habits Will attend diet classes:: Yes Outcomes/Goals:: Consume diet rich in vegs,fruits,whole grain/high fiber,fish,lean meat, Limit sat/trans fats,cholesterol & added salts & sugars and Other additional outcome/goals: Intervention/Plan:: Assess current eating habits and Other Additional plan/interventions 30-day Reassessments:: Progressing Reassessment Notes & Comments:: Pt is scheduled to attend nutrition class. Low sodium heart healthy diet encouraged. Education Gave educational materials for:: Signs & symptoms of hypoglycemia, Signs & symptoms of hyperglycemia, Relate diabetes to coronary artery disease and Healthy eating Nutrition - 60-Day Assessment Weight Mgt (Other Care) Height: 5 ft 10 in Weight:: 192 lb 8 oz BMI: 27.6 Core - 30-Day Assessment Visit Date of Eval: 05/10/25 Session #:: 3 Medication Compliance Preventative Medication(s):: Aspirin, Statin/lipid and ARB (Angiotensi Rcap) H/O mental health issues: depression, anxiety, or addiction?: No Doesn’t believe in the benefits of treatment?: No Believes medications are unnecessary or harmful?: No Has a concern about medication side effects?: No Outcomes/Goals: Verbalizes medications,desired effect & common side effects @ DC, Pt self-reports following medication regimen, Keeps card in wallet w/medications listed by DC and Other additional outcome/goals: Interventions/plans: Instruct on medication effects & side effects, Review medication list w/patient every two weeks, Instruct importance of taking meds as ordered & assist problem solving and Other additional Tobacco Use Tobacco Use: Cigarettes How many cigarettes do you smoke per day?: 2 Years Smokin Outcomes/Goals: Smoking cessation achieved or maintained by discharge, Identify aids/strategies for achieving smoking cessation by session 6 and Other additional outcome/goals 30-day Reassessments:: Progressing Reassessment Notes & Comments:: Pt to attend smoking class. Hypertension Hypertension Diagnosis:: Hypertension ICD-10 I10 Resting Blood Pressure:: 152/68 [place] [employer] Hypertension Guidelines Peak Exercise Blood Pressure:: 170/70 Outcomes/Goals: Able to verbalize/achieve optimal blood pressure <130/80, Incorporates diet changes & exercise for blood pressure control by DC and Other additional outcomes/goals Interventions/plan: Instruct on optimal blood pressure, hypertension & medications, Instruct on effects of sodium, alcohol, stress, exercise &hypertension and Other additional plan/interventions Tobacco Cessation Referral Education Schedule Given:: Yes Psychosocial - 30-Day Assess VIsit Date of Eval: 05/10/25 Session #:: 3 History of previous Mental disease:: No Target Goals Target Goals Psychosocial Test Tool Used:: PHQ-9 Questionnaire phq-9 Severity See PHQ-9 Score: 0 Referral to Behavioral Health PS - Interventions: Yes: Attend Stress Management Classes Outcomes/Goals: See list Psychosocial Outcomes/Goals:: ID's personal stressors & 2 strategies to manage stress by discharge and Other Additional outcome/goals: Intervention/Plan: See List Interventions/Plan:: Assess stressors,coping strategies & signs of derpression on admission, Instruct/assist pt to develop coping & personal stress Mgt strategies, Refer to Behavioral Health if appropriate, Refer to Physician if appropriate, Instruct patient to recognize signs & symptoms of depression, Instruct patient to recog and Other additional plan/intervention 30-day Reassessments: 30 day Reassessments:: Progressing Reassessment Notes & Comments:: Pt to attend stress management class. Pt denies any psychosocial issues at this time. Psychosocial - 60-Day Assess Target Goals Target Goals Referral to Behavioral Health PS - Interventions: Yes: Attend Stress Management Classes Outcomes/Goals: See list Psychosocial Outcomes/Goals:: ID's personal stressors & 2 strategies to manage stress by discharge and Other Additional outcome/goals: Psychosocial - 90-Day Assess Target Goals Target Goals Referral to Behavioral Health PS - Interventions: Yes: Attend Stress Management Classes Psychosocial - Final Assessmen Target Goals Target Goals Referral to Behavioral Health PS - Interventions: Yes: Attend Stress Management Classes Nutrition - 90-Day Assessment Weight Mgt (Other Care) Height: 5 ft 10 in Weight:: 192 lb 8 oz BMI: 27.6 Nutrition - Final Assessment Weight Mgt (Other Care) Height: 5 ft 10 in Weight:: 192 lb 8 oz BMI: 27.6
[2025-05-10 08:46] VITALS: BP 152/68
[2025-05-10 09:13] VITALS: BMI 27.6
== END 2025-06-05 23:59 ==
LOC: CR 11:15
DX: I25.10 Atherosclerotic heart disease of native coronary artery without angina pectoris (principal); Z98.61 Coronary angioplasty status; I25.2 Old myocardial infarction
CPT/HCPCS: 93798

== ENCOUNTER 2025-07-04 11:15 | Outpatient (RCR) | payer OTHER, SELFPAY ==
[2025-05-10 09:13] VITALS: BMI 27.6
--- NOTE | 2025-06-07 08:40 | CR.ITP_ITS ---
Exercise - Initial Assessment Physician Prescribed Exercise Modalities: Treadmill, Schwinn Airdyne AD-7 and SciFit Stepper Nutrition - Initial Assessment Weight Mgt (Other Care) Height: 5 ft 10 in Weight:: 191 lb BMI: 27.3 Core - Initial Assessment Hypertension Resting Blood Pressure:: 120/54 [place] [employer] Hypertension Guidelines Psychosocial - Initial Assess Referral to Behavioral Health PS - Interventions: Yes: Attend Stress Management Classes Exercise - 30-day Assessment Physician Prescribed Exercise Modalities: Treadmill, Schwinn Airdyne AD-7 and SciFit Stepper Exercise - 60-day Assessment Visit Date of Eval: 06/07/25 Session #:: 13 Physician Prescribed Exercise Modalities: Treadmill, Schwinn Airdyne AD-7 and SciFit Stepper Frequency: 3x/week for 12 weeks [36 sessions] Intensity: 60-80% of age predicted maximum heart rate reserve Duration: 30 - 45 minutes Current METSs:: 5.2 Target Heart Rate:: 88-110 Current RPE:: 12-13 Maximum Excercise HR:: 86 Resting Blood Pressure: 140/60 Maximum Exercise Blood Pressure: 164/60 EKG Type: NSR w/ a rare PAC/PVC Outcomes & Goals Goals:: Verbalizes understanding of THR, RPE & goal METS by session 6, Documents in home exercise log/reports 30 min aerobic 5 day/wk by DC, Demonstrates accurate pulse taking by DC and Other additional outcome/goals: see below Intervention & Plan Exercise Program Goals: Instruct on personal THR & RPE, Instruct on MET level & personal MET goal, Show patient to take own pulse /validate performance until accurate, Instruct on home exercise and Other additional plan/int Physical Activity Home Exercise Physical Activity - Home Exercise: Safe Exercise, Warm-up, Self-monitoring, Cool-Down, Home Exercise > 30 min Daily and Sitting Time <3 hours/daily Outcomes & Goals Outcomes/Goals: Demonstrates correct Warm-up/exercise Cool-Down (S3) if = 2.5 METs, Verbalizes symptoms of exercise intolerance by Session 3 (S3), Demonstrate safe equipment use (S3) & follows exercise prescrition (6) and Other: See below Intervention & Plan Plan/Intervention: Instruct warm-up & cool-down if exercising at > 2 METs, Instruct on symptoms of exercise intolerance & actions to take, Instruct & monitor on saf, Assess intial functional capacity & safety risk and Other See below 30-day Reassessments 30 day Reassessments:: Progressing Reassessment Notes & Comments:: Proper warm up and cool down demonstrated and explained to pt. Pt is able to return demonstration in their daily sessions. Exercise - 90-day Assessment Physician Prescribed Exercise Modalities: Treadmill, Schwinn Airdyne AD-7 and SciFit Stepper Exercise - Final/Discharge Physician Prescribed Exercise Modalities: Treadmill, Schwinn Airdyne AD-7 and SciFit Stepper Nutrition - 30-Day Assessment Weight Mgt (Other Care) Height: 5 ft 10 in Weight:: 191 lb BMI: 27.3 Nutrition - 60-Day Assessment Program Goals Nutrition Program Goals Patient has diagnosis of Hyperlipidemia (ICD E78)?: Yes Visit Date of Eval: 06/07/25 Session #:: 13 (Nutrition survey score of 4.) Cholesterol/Lipids (Other Core Measures) Determine presence & major risk factors that modify LDL goal: Cigarette smoking, Hypertension or hypertensive medication, Low HDL cholesterol <40 mg/dL*, Family history of premature CHD in Male < 55 years: female <65 yearsFa and Age men > 45 years; women >/= 55 years Outcomes/Goals: Pt IDs own risk factors & lifestyle modifications by Session 10, Verbalizes symptoms of angina & response by session 3., Pt independently manages and Other Additional Outcomes/Goals: Intervention/Plan: Advocate for lipid panel cholesterol medication if applicable, Instruct on personal lipid levels & lipid goals/NCEP guidelines, Instruct on cholesterol and Other additional plan/int Diabetes (Other Core Measures) Diabetes Type: Diagnosis Type II ICD-10 E11 Insulin dependent injection/pump?: Yes Non-Insulin Dependent?: Yes Do you monitor your blood sugar at home?: Yes Referral to Diabetic Clinic:: Yes Weight Mgt (Other Care) Height: 5 ft 10 in Weight:: 191 lb BMI: 27.3 Diagnosis Overweight/Obesity BMI> 30% ICD-10 E66: No Diagnosis High BMI/Morbid Obesity BMI> 35% ICD-10 Z68: No Outcomes/Goals: Pt sets, maintains & shows weight loss goal & trend during rehab and Other additional outcomes/goals Intervention/Plan: Instruct on ideal BMI & set weight loss goal w/patient, Assist pt to ID & incorporate diet changes for weight loss by S9, Refer to Structured Weight Loss program as appropriate, Encourage goal of using 250- 300dcal per session for weight loss and Other additional plan/interventions 30 day Reassessments:: Progressing Reassessment Notes & Comments:: Pt is at a healthy weight. Pt is scheduled to attend nutrition classes with our physicians and surgeons. Heart healthy low sodium diet encouraged. Healthy Eating Habits Will attend diet classes:: Yes Outcomes/Goals:: Consume diet rich in vegs,fruits,whole grain/high fiber,fish,lean meat, Limit sat/trans fats,cholesterol & added salts & sugars and Other additional outcome/goals: Intervention/Plan:: Assess current eating habits and Other Additional plan/interventions 30-day Reassessments:: Progressing Reassessment Notes & Comments:: Pt is scheduled to attend nutrition classes with our physicians and surgeons. Heart healthy low sodium diet encouraged. Education Gave educational materials for:: Signs & symptoms of hypoglycemia, Signs & symptoms of hyperglycemia, Relate diabetes to coronary artery disease and Healthy eating Core - Final Assessment Tobacco Use How many cigarettes do you smoke per day?: 2 Years Smokin Hypertension Resting Blood Pressure:: 120/54 [place] [employer] Hypertension Guidelines Core - 60-Day Assessment Visit Date of Eval: 06/07/25 Session #:: 13 Medication Compliance Preventative Medication(s):: Aspirin, Statin/lipid and ARB (Angiotensi Rcap) H/O mental health issues: depression, anxiety, or addiction?: No Doesn’t believe in the benefits of treatment?: No Believes medications are unnecessary or harmful?: No Has a concern about medication side effects?: No Expresses concern over the cost of medications?: No Outcomes/Goals: Verbalizes medications,desired effect & common side effects @ DC, Pt self-reports following medication regimen, Keeps card in wallet w/medications listed by DC and Other additional outcome/goals: Interventions/plans: Instruct on medication effects & side effects, Review medication list w/patient every two weeks, Instruct importance of taking meds as ordered & assist problem solving and Other additional 30-day Reassessments:: Progressing Reassessment Notes & Comments:: Pt is currently taking meds as prescribed. Pt to attend cardiac meds class. Tobacco Use Tobacco Use: Cigarettes How many cigarettes do you smoke per day?: 2 Years Smokin Outcomes/Goals: Smoking cessation achieved or maintained by discharge, Identify aids/strategies for achieving smoking cessation by session 6 and Other additional outcome/goals Interventions/plan: Instruct on effects of smoking & provide smoking cessation resource, Assist pt to set quit date & provide encouragement, Assist pt to develop strategies to achieve/maintain quit date, Assist pt w/nicotine replacement & medication for cessation success and Other additional plan/interventions 30-day Reassessments:: Progressing Reassessment Notes & Comments:: Pt to attend smoking cessation class. Pt encouraged to participate in 1 on 1 smoking cessation. Hypertension Hypertension Diagnosis:: Hypertension ICD-10 I10 Resting Blood Pressure:: 140/60 Resting Blood Pressure:: 120/54 [place] [employer] Hypertension Guidelines Peak Exercise Blood Pressure:: 164/60 Outcomes/Goals: Able to verbalize/achieve optimal blood pressure <130/80, Incorporates diet changes & exercise for blood pressure control by DC and Other additional outcomes/goals Interventions/plan: Instruct on optimal blood pressure, hypertension & medications, Instruct on effects of sodium, alcohol, stress, exercise &hypertension and Other additional plan/interventions 30 day Reassessments:: Progressing Reassessment Notes & Comments:: Pt's BP's are within AHA normal limits on some days. Low sodium heart healthy diet encouraged. Will continue to monitor and report to pt's physician if necessary. Tobacco Cessation Referral Education Schedule Given:: Yes Psychosocial - 30-Day Assess Referral to Behavioral Health PS - Interventions: Yes: Attend Stress Management Classes Outcomes/Goals: See list Psychosocial Outcomes/Goals:: ID's personal stressors & 2 strategies to manage stress by discharge and Other Additional outcome/goals: Psychosocial - 60-Day Assess VIsit Date of Eval: 06/07/25 Session #:: 13 History of previous Mental disease:: No Psychosocial Test phq-9 Severity See PHQ-9 Score: 0 Referral to Behavioral Health PS - Interventions: Yes: Attend Stress Management Classes Outcomes/Goals: See list Psychosocial Outcomes/Goals:: ID's personal stressors & 2 strategies to manage stress by discharge and Other Additional outcome/goals: Intervention/Plan: See List Interventions/Plan:: Assess stressors,coping strategies & signs of derpression on admission, Instruct/assist pt to develop coping & personal stress Mgt strategies, Refer to Behavioral Health if appropriate, Refer to Physician if appropriate, Instruct patient to recognize signs & symptoms of depression, Instruct patient to recog and Other additional plan/intervention 30-day Reassessments: 30 day Reassessments:: Progressing Reassessment Notes & Comments:: Pt denies any psychosocial issues at this time. Pt to attend stress management class. Will reassess every 30 days. Psychosocial - 90-Day Assess Referral to Behavioral Health PS - Interventions: Yes: Attend Stress Management Classes Psychosocial - Final Assessmen Referral to Behavioral Health PS - Interventions: Yes: Attend Stress Management Classes Nutrition - 90-Day Assessment Weight Mgt (Other Care) Height: 5 ft 10 in Weight:: 191 lb BMI: 27.3 Nutrition - Final Assessment Weight Mgt (Other Care) Height: 5 ft 10 in Weight:: 191 lb BMI: 27.3
[2025-06-07 08:51] VITALS: BP 140/60; BMI 27.3
[2025-06-07 09:00] VITALS: BP 120/54; BP 140/60
--- NOTE | 2025-07-06 08:39 | PCM.CR.ITP ---
Exercise - Initial Assessment Physician Prescribed Exercise Modalities: Treadmill, Schwinn Airdyne AD-7 and SciFit Stepper Nutrition - Initial Assessment Weight Mgt (Other Care) Height: 5 ft 10 in Weight:: 193 lb BMI: 27.6 Psychosocial - Initial Assess Referral to Behavioral Health PS - Interventions: Yes: Attend Stress Management Classes Exercise - 30-day Assessment Physician Prescribed Exercise Modalities: Treadmill, Schwinn Airdyne AD-7 and SciFit Stepper Exercise - 60-day Assessment Physician Prescribed Exercise Modalities: Treadmill, Schwinn Airdyne AD-7 and SciFit Stepper Exercise - 90-day Assessment Visit Date of Eval: 07/06/25 Session #:: 25 Physician Prescribed Exercise Modalities: Treadmill, Schwinn Airdyne AD-7 and SciFit Stepper Frequency: 3x/week for 12 weeks [36 sessions] Intensity: 60-80% of age predicted maximum heart rate reserve Duration: 30 - 45 minutes Current METSs:: 4.7 Target Heart Rate:: 88-117 Current RPE:: 13 Maximum Excercise HR:: 90 Resting Blood Pressure: 136/58 Maximum Exercise Blood Pressure: 130/80 EKG Type: SB-NSR w/ rare PAC and PVC Outcomes & Goals Goals:: Verbalizes understanding of THR, RPE & goal METS by session 6, Documents in home exercise log/reports 30 min aerobic 5 day/wk by DC, Demonstrates accurate pulse taking by DC and Other additional outcome/goals: see below Intervention & Plan Exercise Program Goals: Instruct on personal THR & RPE, Instruct on MET level & personal MET goal, Show patient to take own pulse /validate performance until accurate, Instruct on home exercise and Other additional plan/int Physical Activity Home Exercise Physical Activity - Home Exercise: Safe Exercise, Warm-up, Self-monitoring, Cool-Down, Home Exercise > 30 min Daily and Sitting Time <3 hours/daily Outcomes & Goals Outcomes/Goals: Demonstrates correct Warm-up/exercise Cool-Down (S3) if = 2.5 METs, Verbalizes symptoms of exercise intolerance by Session 3 (S3), Demonstrate safe equipment use (S3) & follows exercise prescrition (6) and Other: See below Intervention & Plan Plan/Intervention: Instruct warm-up & cool-down if exercising at > 2 METs, Instruct on symptoms of exercise intolerance & actions to take, Instruct & monitor on saf, Assess intial functional capacity & safety risk and Other See below 30-day Reassessments 30 day Reassessments:: Progressing Reassessment Notes & Comments:: THR explained in exercise class. Pt is able to demonstrate understanding. METS explained in exercise class. Exercise - Final/Discharge Physician Prescribed Exercise Modalities: Treadmill, Schwinn Airdyne AD-7 and SciFit Stepper Nutrition - 30-Day Assessment Weight Mgt (Other Care) Height: 5 ft 10 in Weight:: 193 lb BMI: 27.6 Nutrition - 60-Day Assessment Weight Mgt (Other Care) Height: 5 ft 10 in Weight:: 193 lb BMI: 27.6 Core - 30-Day Assessment Hypertension [place] [employer] Hypertension Guidelines Reassessment Notes & Comments:: Pt taking antihypertensive meds as prescribed, pt instructed on optimal BP and effects of sodium on BP. Core - Final Assessment Hypertension [place] [employer] Hypertension Guidelines Reassessment Notes & Comments:: Pt taking antihypertensive meds as prescribed, pt instructed on optimal BP and effects of sodium on BP. Core - 90 Day Assessment Visit Date of Eval: 07/06/25 Session #:: 25 Medication Compliance Preventative Medication(s):: Aspirin, Statin/lipid and ARB (Angiotensi Rcap) H/O mental health issues: depression, anxiety, or addiction?: No Doesn’t believe in the benefits of treatment?: No Believes medications are unnecessary or harmful?: No Has a concern about medication side effects?: No Expresses concern over the cost of medications?: No Outcomes/Goals: Verbalizes medications,desired effect & common side effects @ DC, Pt self-reports following medication regimen, Keeps card in wallet w/medications listed by DC and Other additional outcome/goals: Interventions/plans: Instruct on medication effects & side effects, Review medication list w/patient every two weeks, Instruct importance of taking meds as ordered & assist problem solving and Other additional 30-day Reassessments:: Progressing Reassessment Notes & Comments:: 06/18 started Plavix 75 mg QD Tobacco Use Tobacco Use: Cigarettes How many cigarettes do you smoke per day?: 2 Years Smokin Outcomes/Goals: Smoking cessation achieved or maintained by discharge, Identify aids/strategies for achieving smoking cessation by session 6 and Other additional outcome/goals Interventions/plan: Instruct on effects of smoking & provide smoking cessation resource, Assist pt to set quit date & provide encouragement, Assist pt to develop strategies to achieve/maintain quit date, Assist pt w/nicotine replacement & medication for cessation success and Other additional plan/interventions 30-day Reassessments:: Progressing Reassessment Notes & Comments:: Pt is encouraged to attend smoking class. Pt is also encouraged to attend 1 on 1 smoking cessation counseling. Will continue to monitor and encourage. Hypertension Hypertension Diagnosis:: Hypertension ICD-10 I10 Resting Blood Pressure:: 136/58 [place] [employer] Hypertension Guidelines Peak Exercise Blood Pressure:: 130/80 Outcomes/Goals: Able to verbalize/achieve optimal blood pressure <130/80, Incorporates diet changes & exercise for blood pressure control by DC and Other additional outcomes/goals Interventions/plan: Instruct on optimal blood pressure, hypertension & medications, Instruct on effects of sodium, alcohol, stress, exercise &hypertension and Other additional plan/interventions 30 day Reassessments:: Progressing Reassessment Notes & Comments:: Pt taking antihypertensive meds as prescribed, pt instructed on optimal BP and effects of sodium on BP. Tobacco Cessation Referral Education Schedule Given:: Yes Psychosocial - 30-Day Assess Referral to Behavioral Health PS - Interventions: Yes: Attend Stress Management Classes Psychosocial - 60-Day Assess Referral to Behavioral Health PS - Interventions: Yes: Attend Stress Management Classes Psychosocial - 90-Day Assess VIsit Date of Eval: 07/06/25 Session #:: 25 History of previous Mental disease:: No Psychosocial Test Tool Used:: [employer] QOL Cardiac and PHQ-9 Questionnaire phq-9 Severity See PHQ-9 Score: 0 Referral to Behavioral Health PS - Interventions: Yes: Attend Stress Management Classes Outcomes/Goals: See list Psychosocial Outcomes/Goals:: ID's personal stressors & 2 strategies to manage stress by discharge and Other Additional outcome/goals: Intervention/Plan: See List Interventions/Plan:: Assess stressors,coping strategies & signs of derpression on admission, Instruct/assist pt to develop coping & personal stress Mgt strategies, Refer to Behavioral Health if appropriate, Refer to Physician if appropriate, Instruct patient to recognize signs & symptoms of depression, Instruct patient to recog and Other additional plan/intervention 30-day Reassessments: 30 day Reassessments:: Met Reassessment Notes & Comments:: Pt denies any psychosocial issues at this time. Pt to attend stress management class. Will reassess every 30 days. Psychosocial - Final Assessmen Referral to Behavioral Health PS - Interventions: Yes: Attend Stress Management Classes Nutrition - 90-Day Assessment Program Goals Nutrition Program Goals Patient has diagnosis of Hyperlipidemia (ICD E78)?: Yes Visit Date of Eval: 07/06/25 Session #:: 25 (Nutrition score of 4.) Cholesterol/Lipids (Other Core Measures) Determine presence & major risk factors that modify LDL goal: Cigarette smoking, Hypertension or hypertensive medication, Low HDL cholesterol <40 mg/dL*, Family history of premature CHD in Male < 55 years: female <65 yearsFa and Age men > 45 years; women >/= 55 years Outcomes/Goals: Pt IDs own risk factors & lifestyle modifications by Session 10, Verbalizes symptoms of angina & response by session 3., Pt independently manages and Other Additional Outcomes/Goals: Intervention/Plan: Advocate for lipid panel cholesterol medication if applicable, Instruct on personal lipid levels & lipid goals/NCEP guidelines, Instruct on cholesterol and Other additional plan/int Diabetes (Other Core Measures) Diabetes Type: Diagnosis Type II ICD-10 E11 Insulin dependent injection/pump?: Yes Non-Insulin Dependent?: Yes Do you monitor your blood sugar at home?: Yes 30-day Reassessments:: Progressing Reassessment Notes & Comments:: Pt encouraged to monitor her BS at home as instructed by her physician. Weight Mgt (Other Care) Height: 5 ft 10 in Weight:: 193 lb BMI: 27.6 Diagnosis Overweight/Obesity BMI> 30% ICD-10 E66: No Diagnosis High BMI/Morbid Obesity BMI> 35% ICD-10 Z68: No Outcomes/Goals: Pt sets, maintains & shows weight loss goal & trend during rehab and Other additional outcomes/goals Intervention/Plan: Instruct on ideal BMI & set weight loss goal w/patient, Assist pt to ID & incorporate diet changes for weight loss by S9, Refer to Structured Weight Loss program as appropriate, Encourage goal of using 250-300dcal per session for weight loss and Other additional plan/interventions Healthy Eating Habits Will attend diet classes:: Yes Outcomes/Goals:: Consume diet rich in vegs,fruits,whole grain/high fiber,fish,lean meat, Limit sat/trans fats,cholesterol & added salts & sugars and Other additional outcome/goals: Intervention/Plan:: Assess current eating habits and Other Additional plan/interventions 30-day Reassessments:: Progressing Reassessment Notes & Comments:: Pt is at a healthy weight. Pt is scheduled to attend nutrition classes with our artifacts conservator. Heart healthy low sodium diet encouraged. Education Gave educational materials for:: Signs & symptoms of hypoglycemia, Signs & symptoms of hyperglycemia, Relate diabetes to coronary artery disease and Healthy eating Nutrition - Final Assessment Weight Mgt (Other Care) Height: 5 ft 10 in Weight:: 193 lb BMI: 27.6
[2025-07-06 08:51] VITALS: BP 136/58; BMI 27.6
== END 2025-07-06 23:59 ==
LOC: CR 11:15
DX: I25.84 Coronary atherosclerosis due to calcified coronary lesion (principal); Z98.61 Coronary angioplasty status; I21.4 Non-ST elevation (NSTEMI) myocardial infarction
CPT/HCPCS: 93798

== ENCOUNTER 2025-08-01 11:15 | Outpatient (RCR) | payer OTHER, SELFPAY ==
--- NOTE | 2025-07-31 07:36 | CR.ITP_ITS ---
Exercise - Initial Assessment Physician Prescribed Exercise Modalities: Treadmill, Schwinn Airdyne AD-7 and SciFit Stepper Nutrition - Initial Assessment Weight Mgt (Other Care) Height: 5 ft 10 in Weight:: 186 lb BMI: 26.6 Exercise - 30-day Assessment Physician Prescribed Exercise Modalities: Treadmill, Schwinn Airdyne AD-7 and SciFit Stepper Exercise - 60-day Assessment Physician Prescribed Exercise Modalities: Treadmill, Schwinn Airdyne AD-7 and SciFit Stepper Exercise - 90-day Assessment Visit Date of Eval: 07/31/25 Session #:: 34 Comments:: 120 day treatment plan Physician Prescribed Exercise Modalities: Treadmill, Schwinn Airdyne AD-7 and SciFit Stepper Frequency: 3x/week for 12 weeks [36 sessions] Intensity: 60-80% of age predicted maximum heart rate reserve Duration: 30 - 45 minutes Current METSs:: 4.7 Target Heart Rate:: 88-117 Current RPE:: 13 Maximum Excercise HR:: 88 Resting Blood Pressure: 138/86 Maximum Exercise Blood Pressure: 150/72 EKG Type: SB -NSR with rare pac,pvc Outcomes & Goals Goals:: Verbalizes understanding of THR, RPE & goal METS by session 6, Documents in home exercise log/reports 30 min aerobic 5 day/wk by DC, Demonstrates accurate pulse taking by DC and Other additional outcome/goals: see below Intervention & Plan Exercise Program Goals: Instruct on personal THR & RPE, Instruct on MET level & personal MET goal, Show patient to take own pulse /validate performance until accurate, Instruct on home exercise and Other additional plan/int 30-day Reassessments 30 day Reassessments:: Progressing Reassessment Notes & Comments:: Pt is progressing in his exercise intensity. Will continue to encourage and increase intensity as tolerated Physical Activity Home Exercise Physical Activity - Home Exercise: Safe Exercise, Warm-up, Self-monitoring, Cool-Down, Home Exercise > 30 min Daily and Sitting Time <3 hours/daily Outcomes & Goals Outcomes/Goals: Demonstrates correct Warm-up/exercise Cool-Down (S3) if = 2.5 METs, Verbalizes symptoms of exercise intolerance by Session 3 (S3), Demonstrate safe equipment use (S3) & follows exercise prescrition (6) and Other: See below Intervention & Plan Plan/Intervention: Instruct warm-up & cool-down if exercising at > 2 METs, Instruct on symptoms of exercise intolerance & actions to take, Instruct & monitor on saf, Assess intial functional capacity & safety risk and Other See below 30-day Reassessments 30 day Reassessments:: Progressing Reassessment Notes & Comments:: Pt is progressing intensity and demonstrates proper warm up & cool down during exercise Exercise - Final/Discharge Physician Prescribed Exercise Modalities: Treadmill, Schwinn Airdyne AD-7 and SciFit Stepper Nutrition - 30-Day Assessment Weight Mgt (Other Care) Height: 5 ft 10 in Weight:: 186 lb BMI: 26.6 Nutrition - 60-Day Assessment Weight Mgt (Other Care) Height: 5 ft 10 in Weight:: 186 lb BMI: 26.6 Core - 30-Day Assessment Hypertension [place] [employer] Hypertension Guidelines Reassessment Notes & Comments:: Pt's BPs are within AHA normal limits most days. Pt understands the effects of sodium on BP. Will continue to monitor. Core - Final Assessment Hypertension [place] [employer] Hypertension Guidelines Reassessment Notes & Comments:: Pt's BPs are within AHA normal limits most days. Pt understands the effects of sodium on BP. Will continue to monitor. Core - 90 Day Assessment Visit Date of Eval: 07/31/25 Session #:: 34 (120 day assessment) Medication Compliance Preventative Medication(s):: Aspirin, Clopidogrel/P2Y12 inhibit, Statin/lipid and ARB (Angiotensi Rcap) H/O mental health issues: depression, anxiety, or addiction?: No Doesn’t believe in the benefits of treatment?: No Believes medications are unnecessary or harmful?: No Has a concern about medication side effects?: No Expresses concern over the cost of medications?: No Outcomes/Goals: Verbalizes medications,desired effect & common side effects @ DC, Pt self-reports following medication regimen, Keeps card in wallet w/medications listed by DC and Other additional outcome/goals: Interventions/plans: Instruct on medication effects & side effects, Review medication list w/patient every two weeks, Instruct importance of taking meds as ordered & assist problem solving and Other additional 30-day Reassessments:: Progressing Reassessment Notes & Comments:: Pt is currently taking meds as prescribed. Will continue to monitor and report to pt's physician as necessary. Tobacco Use Tobacco Use: Cigarettes How many cigarettes do you smoke per day?: 2 Years Smokin Do you use smokeless tobacco?: No Outcomes/Goals: Smoking cessation achieved or maintained by discharge, Identify aids/strategies for achieving smoking cessation by session 6 and Other additional outcome/goals Interventions/plan: Instruct on effects of smoking & provide smoking cessation resource, Assist pt to set quit date & provide encouragement, Assist pt to develop strategies to achieve/maintain quit date, Assist pt w/nicotine replacement & medication for cessation success and Other additional plan/interventions 30-day Reassessments:: Progressing Reassessment Notes & Comments:: Pt encouraged to participate in 1 on 1 smoking cessation. Hypertension Hypertension Diagnosis:: Hypertension ICD-10 I10 Resting Blood Pressure:: 138/86 [place] [employer] Hypertension Guidelines Peak Exercise Blood Pressure:: 150/72 Outcomes/Goals: Able to verbalize/achieve optimal blood pressure <130/80, Incorporates diet changes & exercise for blood pressure control by DC and Other additional outcomes/goals Interventions/plan: Instruct on optimal blood pressure, hypertension & medications, Instruct on effects of sodium, alcohol, stress, exercise &hypertension and Other additional plan/interventions 30 day Reassessments:: Progressing Reassessment Notes & Comments:: Pt's BPs are within AHA normal limits most days. Pt understands the effects of sodium on BP. Will continue to monitor. Tobacco Cessation Referral Education Schedule Given:: Yes Psychosocial - 90-Day Assess VIsit Date of Eval: 07/31/25 Session #:: 34 History of previous Mental disease:: No History of Emotional Disorders: None Psychosocial Test Tool Used:: PHQ-9 Questionnaire phq-9 Severity See PHQ-9 Score: 0 Outcomes/Goals: See list Psychosocial Outcomes/Goals:: ID's personal stressors & 2 strategies to manage stress by discharge and Other Additional outcome/goals: Intervention/Plan: See List Interventions/Plan:: Assess stressors,coping strategies & signs of derpression on admission, Instruct/assist pt to develop coping & personal stress Mgt strategies, Refer to Behavioral Health if appropriate, Refer to Physician if appropriate, Instruct patient to recognize signs & symptoms of depression, Instruct patient to recog and Other additional plan/intervention 30-day Reassessments: 30 day Reassessments:: Progressing Reassessment Notes & Comments:: Pt denies any psychosocial issues at this time. Will continue to assess. Nutrition - 90-Day Assessment Visit Date of Eval: 07/31/25 (nutrition score of 2) Session #:: 34 (120 day Assessment) Cholesterol/Lipids (Other Core Measures) Determine presence & major risk factors that modify LDL goal: Hypertension or hypertensive medication and Age men > 45 years; women >/= 55 years Outcomes/Goals: Pt IDs own risk factors & lifestyle modifications by Session 10, Verbalizes symptoms of angina & response by session 3., Pt independently manages and Other Additional Outcomes/Goals: Intervention/Plan: Advocate for lipid panel cholesterol medication if applicable, Instruct on personal lipid levels & lipid goals/NCEP guidelines, Instruct on cholesterol and Other additional plan/int 30-day Reassessments:: Progressing Reassessment Notes & Comments:: Pt has been given tools to maintain a healthy diet. Diabetes (Other Core Measures) Diabetes Type: Diagnosis Type II ICD-10 E11 Insulin dependent injection/pump?: Yes Non-Insulin Dependent?: Yes Outcomes/Goals:: Able to state symptoms of, Able to state, Able to state and Other additional Intervention/Plan:: Instruct on, Refer to, Instruct on and Other 30-day Reassessments:: Progressing Reassessment Notes & Comments:: Pt attends nutrition class and self monitors blood sugars Weight Mgt (Other Care) Height: 5 ft 10 in Weight:: 186 lb BMI: 26.6 Diagnosis Overweight/Obesity BMI> 30% ICD-10 E66: No Diagnosis High BMI/Morbid Obesity BMI> 35% ICD-10 Z68: No Outcomes/Goals: Pt sets, maintains & shows weight loss goal & trend during rehab and Other additional outcomes/goals Intervention/Plan: Instruct on ideal BMI & set weight loss goal w/patient, Assist pt to ID & incorporate diet changes for weight loss by S9, Refer to Structured Weight Loss program as appropriate, Encourage goal of using 250- 300dcal per session for weight loss and Other additional plan/interventions 30 day Reassessments:: Progressing Reassessment Notes & Comments:: Pt is a healthy weight. Heart healthy low sodium diet encouraged. Healthy Eating Habits Will attend diet classes:: Yes Outcomes/Goals:: Consume diet rich in vegs,fruits,whole grain/high fiber,fish,lean meat, Limit sat/trans fats,cholesterol & added salts & sugars and Other additional outcome/goals: Intervention/Plan:: Assess current eating habits and Other Additional plan/interventions 30-day Reassessments:: Progressing Reassessment Notes & Comments:: Pt is at a healthy weight. Pt is able to state how to minimize risk factors Education Gave educational materials for:: Signs & symptoms of hypoglycemia, Signs & symptoms of hyperglycemia, Relate diabetes to coronary artery disease and Healthy eating Nutrition - Final Assessment Weight Mgt (Other Care) Height: 5 ft 10 in Weight:: 186 lb BMI: 26.6
[2025-07-31 07:52] VITALS: BP 138/86
[2025-07-31 08:07] VITALS: BMI 26.6
[2025-07-31 08:22] VITALS: BP 138/86
== END 2025-08-05 23:59 ==
LOC: CR 11:15
DX: I25.84 Coronary atherosclerosis due to calcified coronary lesion (principal); R07.9 Chest pain, unspecified; I25.10 Atherosclerotic heart disease of native coronary artery without angina pectoris; I25.2 Old myocardial infarction; Z95.5 Presence of coronary angioplasty implant and graft
CPT/HCPCS: 93798

== ENCOUNTER 2025-08-06 12:03 | Outpatient (RCR) | payer OTHER, SELFPAY ==
[2025-07-31 08:07] VITALS: BMI 26.6
--- NOTE | 2025-08-23 11:13 | PCM.CR.ITP ---
Exercise - Initial Assessment Physician Prescribed Exercise Modalities: Treadmill, Schwinn Airdyne AD-7 and SciFit Stepper Nutrition - Initial Assessment Program Goals Nutrition Program Goals Patient has diagnosis of Hyperlipidemia (ICD E78)?: Yes Weight Mgt (Other Care) Height: 5 ft 10 in Weight:: 188 lb 5 oz BMI: 27.0 Core - Initial Assessment Hypertension Resting Blood Pressure:: 130/58 [place] [employer] Hypertension Guidelines Psychosocial - Initial Assess Psychosocial Test phq-9 Severity See PHQ-9 Score: 0 Referral to Behavioral Health PS - Interventions: Yes: Attend Stress Management Classes and No: Referral to Behavioral Health if PHQ-9 score >9:, No: Referral to [facility] and No: Referral to Physician if PHQ-9 if score is 5-9: Exercise - 30-day Assessment Physician Prescribed Exercise Modalities: Treadmill, Schwinn Airdyne AD-7 and SciFit Stepper Exercise - 60-day Assessment Physician Prescribed Exercise Modalities: Treadmill, Schwinn Airdyne AD-7 and SciFit Stepper Exercise - 90-day Assessment Physician Prescribed Exercise Modalities: Treadmill, Schwinn Airdyne AD-7 and SciFit Stepper Exercise - Final/Discharge Visit Date of Eval: 08/23/25 Session #:: 36 Physician Prescribed Exercise Modalities: Treadmill, Schwinn Airdyne AD-7 and SciFit Stepper Frequency: 3x/week for 12 weeks [36 sessions] Intensity: 60-80% of age predicted maximum heart rate reserve Duration: 30 - 45 minutes Current METSs:: 4.9 Target Heart Rate:: 88-117 Current RPE:: 13 Resting Blood Pressure: 130/58 Maximum Exercise Blood Pressure: 142/58 EKG Type: SB-NSR with rare PAC, PVC Outcomes & Goals Goals:: Verbalizes understanding of THR, RPE & goal METS by session 6, Documents in home exercise log/reports 30 min aerobic 5 day/wk by DC, Demonstrates accurate pulse taking by DC and Other additional outcome/goals: see below Intervention & Plan Exercise Program Goals: Instruct on personal THR & RPE, Instruct on MET level & personal MET goal, Show patient to take own pulse /validate performance until accurate, Instruct on home exercise and Other additional plan/int 30-day Reassessments 30 day Reassessments:: Met Physical Activity Home Exercise Physical Activity - Home Exercise: Safe Exercise, Warm-up, Self-monitoring, Cool-Down, Home Exercise > 30 min Daily and Sitting Time <3 hours/daily Outcomes & Goals Outcomes/Goals: Demonstrates correct Warm-up/exercise Cool-Down (S3) if = 2.5 METs, Verbalizes symptoms of exercise intolerance by Session 3 (S3), Demonstrate safe equipment use (S3) & follows exercise prescrition (6) and Other: See below Intervention & Plan Plan/Intervention: Instruct warm-up & cool-down if exercising at > 2 METs, Instruct on symptoms of exercise intolerance & actions to take, Instruct & monitor on saf, Assess intial functional capacity & safety risk and Other See below 30-day Reassessments 30 day Reassessments:: Met Reassessment Notes & Comments:: Pt has met his exercise goals. He was working at 4.9 METS. He was given his exercise prescription plan as well as community resources. He understands benefits and plans on continuing exercise after discharge. Nutrition - 30-Day Assessment Weight Mgt (Other Care) Height: 5 ft 10 in Weight:: 188 lb 5 oz BMI: 27.0 Nutrition - 60-Day Assessment Weight Mgt (Other Care) Height: 5 ft 10 in Weight:: 188 lb 5 oz BMI: 27.0 Core - 30-Day Assessment Hypertension [place] [employer] Hypertension Guidelines Reassessment Notes & Comments:: Pt taking cardiac meds as prescribed. Pt understands the benefits of low sodium diet on BP. Smoking cessation encouraged. Core - Final Assessment Visit Date of Eval: 08/23/25 Session #:: 36 Medication Compliance Preventative Medication(s):: Aspirin, Clopidogrel/P2Y12 inhibit, Statin/lipid and ARB (Angiotensi Rcap) H/O mental health issues: depression, anxiety, or addiction?: No Doesn?t believe in the benefits of treatment?: No Believes medications are unnecessary or harmful?: No Has a concern about medication side effects?: No Expresses concern over the cost of medications?: No Outcomes/Goals: Verbalizes medications,desired effect & common side effects @ DC, Pt self-reports following medication regimen, Keeps card in wallet w/medications listed by DC and Other additional outcome/goals: Interventions/plans: Instruct on medication effects & side effects, Review medication list w/patient every two weeks, Instruct importance of taking meds as ordered & assist problem solving and Other additional 30-day Reassessments:: Met Reassessment Notes & Comments:: Pt is taking cardiac meds as prescribed. Pt understands on optimal BP and effects of sodium on BP. Tobacco Use Tobacco Use: Cigarettes How many cigarettes do you smoke per day?: 2 Years Smokin Do you use smokeless tobacco?: No Outcomes/Goals: Smoking cessation achieved or maintained by discharge, Identify aids/strategies for achieving smoking cessation by session 6 and Other additional outcome/goals Interventions/plan: Instruct on effects of smoking & provide smoking cessation resource, Assist pt to set quit date & provide encouragement, Assist pt to develop strategies to achieve/maintain quit date, Assist pt w/nicotine replacement & medication for cessation success and Other additional plan/interventions 30 day Reassessments:: Not Met Reassessment Notes & Comments:: Pt attended class on smoking cessation. Pt encouraged to participate in 1 on 1 smoking cessation education. Hypertension Hypertension Diagnosis:: Hypertension ICD-10 I10 Resting Blood Pressure:: 130/58 [place] [employer] Hypertension Guidelines Peak Exercise Blood Pressure:: 142/58 Outcomes/Goals: Able to verbalize/achieve optimal blood pressure <130/80, Incorporates diet changes & exercise for blood pressure control by DC and Other additional outcomes/goals Interventions/plan: Instruct on optimal blood pressure, hypertension & medications, Instruct on effects of sodium, alcohol, stress, exercise &hypertension and Other additional plan/interventions 30 day Reassessments:: Met Reassessment Notes & Comments:: Pt taking cardiac meds as prescribed. Pt understands the benefits of low sodium diet on BP. Smoking cessation encouraged. Tobacco Cessation Referral Education Schedule Given:: Yes Core - 90 Day Assessment Hypertension [place] [employer] Hypertension Guidelines Reassessment Notes & Comments:: Pt taking cardiac meds as prescribed. Pt understands the benefits of low sodium diet on BP. Smoking cessation encouraged. Core - 60-Day Assessment Tobacco Use How many cigarettes do you smoke per day?: 2 Years Smokin Reassessment Notes & Comments:: Pt attended class on smoking cessation. Pt encouraged to participate in 1 on 1 smoking cessation education. Hypertension Resting Blood Pressure:: 130/58 [place] [employer] Hypertension Guidelines Psychosocial - 30-Day Assess Referral to Behavioral Health PS - Interventions: Yes: Attend Stress Management Classes and No: Referral to Behavioral Health if PHQ-9 score >9:, No: Referral to [facility] and No: Referral to Physician if PHQ-9 if score is 5-9: Psychosocial - 60-Day Assess Referral to Behavioral Health PS - Interventions: Yes: Attend Stress Management Classes and No: Referral to Behavioral Health if PHQ-9 score >9:, No: Referral to [facility] and No: Referral to Physician if PHQ-9 if score is 5-9: Psychosocial - 90-Day Assess Psychosocial Test phq-9 Severity Total Score:: 0 Referral to Behavioral Health PS - Interventions: Yes: Attend Stress Management Classes and No: Referral to Behavioral Health if PHQ-9 score >9:, No: Referral to [facility] and No: Referral to Physician if PHQ-9 if score is 5-9: Psychosocial - Final Assessmen VIsit Date of Eval: 08/23/25 Session #:: 36 History of previous Mental disease:: No Psychosocial Test Tool Used:: [employer] QOL Cardiac and PHQ-9 Questionnaire phq-9 Severity See PHQ-9 Score: 0 Total Score:: 0 Referral to Behavioral Health PS - Interventions: Yes: Attend Stress Management Classes and No: Referral to Behavioral Health if PHQ-9 score >9:, No: Referral to [facility] and No: Referral to Physician if PHQ-9 if score is 5-9: Outcomes/Goals: See list Psychosocial Outcomes/Goals:: ID's personal stressors & 2 strategies to manage stress by discharge and Other Additional outcome/goals: Intervention/Plan: See List Interventions/Plan:: Assess stressors,coping strategies & signs of derpression on admission, Instruct/assist pt to develop coping & personal stress Mgt strategies, Refer to Behavioral Health if appropriate, Refer to Physician if appropriate, Instruct patient to recognize signs & symptoms of depression, Instruct patient to recog and Other additional plan/intervention 30-day Reassessments: 30 day Reassessments:: Met Reassessment Notes & Comments:: Pt feels he is in good control of his mental health and understands resources available. He confirms he has excellent resources of friends and family supporting him. Nutrition - 90-Day Assessment Weight Mgt (Other Care) Height: 5 ft 10 in Weight:: 188 lb 5 oz BMI: 27.0 Nutrition - Final Assessment Program Goals Patient has diagnosis of Hyperlipidemia (ICD E78)?: Yes Visit Date of Assessment:: 08/23/25 Session #:: 36 (nutrition score of 2) Cholesterol/Lipids (Other Core Measures) Determine presence & major risk factors that modify LDL goal: Cigarette smoking, Hypertension or hypertensive medication, Low HDL cholesterol <40 mg/dL*, Family history of premature CHD in Male < 55 years: female <65 yearsFa and Age men > 45 years; women >/= 55 years Outcomes/Goals: Pt IDs own risk factors & lifestyle modifications by Session 10, Verbalizes symptoms of angina & response by session 3., Pt independently manages and Other Additional Outcomes/Goals: Intervention/Plan: Advocate for lipid panel cholesterol medication if applicable, Instruct on personal lipid levels & lipid goals/NCEP guidelines, Instruct on cholesterol and Other additional plan/int 30-day Reassessments:: Met Diabetes (Other Core Measures) Diabetes Type: Diagnosis Type II ICD-10 E11 Insulin dependent injection/pump?: Yes Non-Insulin Dependent?: No Do you monitor your blood sugar at home?: Yes Outcomes/Goals:: Able to state symptoms of, Able to state, Able to state and Other additional Intervention/Plan:: Instruct on, Refer to, Instruct on and Other 30-day Reassessments:: Met Reassessment Notes & Comments:: Pt self monitors blood sugar. He has attended nutrition class with hospital camp head counselor. Weight Mgt (Other Care) Height: 5 ft 10 in Weight:: 188 lb 5 oz BMI: 27.0 Diagnosis Overweight/Obesity BMI> 30% ICD-10 E66: No Diagnosis High BMI/Morbid Obesity BMI> 35% ICD-10 Z68: No Outcomes/Goals: Pt sets, maintains & shows weight loss goal & trend during rehab and Other additional outcomes/goals 30 day Reassessments:: Met Reassessment Notes & Comments:: Pt is at a healthy weight. Pt attended nutrition class with hospital camp head counselor. Pt encouraged to follow a heart healthy ADA diet and understands the benefits. Healthy Eating Habits Will attend diet classes:: Yes Outcomes/Goals:: Consume diet rich in vegs,fruits,whole grain/high fiber,fish,lean meat, Limit sat/trans fats,cholesterol & added salts & sugars and Other additional outcome/goals: Intervention/Plan:: Assess current eating habits and Other Additional plan/interventions 30-day Reassessments:: Met Reassessment Notes & Comments:: Pt is at a healthy weight. Pt attended nutrition class with hospital camp head counselor. Pt encouraged to follow a heart healthy ADA diet and understands the benefits. Education Gave educational materials for:: Signs & symptoms of hypoglycemia, Signs & symptoms of hyperglycemia, Relate diabetes to coronary artery disease and Healthy eating
[2025-08-23 11:22] VITALS: BP 130/58
[2025-08-23 11:30] VITALS: BMI 27.0
[2025-08-23 11:37] VITALS: BP 130/58
== END 2025-09-05 23:59 ==
LOC: CR 12:03
DX: R07.9 Chest pain, unspecified (principal); I25.10 Atherosclerotic heart disease of native coronary artery without angina pectoris
CPT/HCPCS: 93798